=== PATIENT | male | born 1990 | race Caucasian/White ===

== ENCOUNTER 2018-08-25 06:10 | Emergency (ER) | payer MEDICAID, SELFPAY ==
[2018-08-25 06:11] VITALS: BP 111/82; PULSE 89; RESP 16; TEMP 37.2; O2SAT 97; BMI 20.5
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
--- NOTE | 2018-08-25 06:43 | ED.RN ---
PT WENT TO CT WITH TREASURY AGENT
[2018-08-25 08:56] LABS: Amphetamine Urine VISTA POSITIVE (<1000 ng/mL); Barbiturate Urine VISTA NEGATIVE (< 200 ng/mL); Benzodiazepine Urine VISTA NEGATIVE (< 200 ng/mL); Cocaine Urine VISTA NEGATIVE (< 300 ng/mL); Ecstacy Urine VISTA POSITIVE (< 500 ng/mL); Methadone Urine VISTA NEGATIVE (< 300 ng/mL); PCP Urine VISTA NEGATIVE (< 25 ng/mL); THC Urine VISTA POSITIVE (< 50 ng/mL); Vista UDS pH Range 6
[2018-08-25 09:06] VITALS: BP 97/64; PULSE 84; RESP 17
--- NOTE | 2018-08-25 09:06 | ED.RN ---
DISCHARGE INSTRUCTIONS GIVEN TERRI SWAIN. PT GIVEN PAPER SCRUBS AND SOCKS. PT AMBULATES OUT OF ROOM WITHOUT ISSUE.
== END 2018-08-25 09:29 ==
PROVIDERS: Emergency Provider Emergency Medicine
DX: T14.8XXA Other injury of unspecified body region, initial encounter (principal); V89.2XXA Person injured in unspecified motor-vehicle accident, traffic, initial encounter; F17.200 Nicotine dependence, unspecified, uncomplicated; F15.10 Other stimulant abuse, uncomplicated
CPT/HCPCS: 36415; 70450; 80307; 80320; 99284; G0480

== ENCOUNTER → 2023-07-20 | Outpatient (CLI) | payer MEDICAID, SELFPAY ==
[2023-07-20 17:09] LABS: Syphilis Antibodies Non-reactive
== END | disposition home or self-care (01) ==
LOC: LAB.FUTURE 13:11
PROVIDERS: Visit Provider Nurse Practitioner Family
DX: Z11.3 Encounter for screening for infections with a predominantly sexual mode of transmission (principal)
CPT/HCPCS: 86780; 87491; 87591

== ENCOUNTER → 2023-12-05 | Outpatient (CLI) | payer MEDICAID, SELFPAY ==
[2023-12-05 12:50] LABS: Absolute Lymphocyte Count 2.18 X10^3/uL (0.83-4.51); Basophil# 0.04 X10^3/uL; Basophil% 0.8 % (0-1); Eosinophil# 0.11 X10^3/uL; Eosinophils% 2.3 % (0-5); Hematocrit 43.5 % (40-54); Hemoglobin 14.8 g/dL (13.0-16.5); Lymphocyte # 2.18 X10^3/ul (0.83-4.51); Mean Corpuscular Volume 85.3 fL (80-94); Mean Platelet Vol. 9.5 fl (6.2-12.0); Monocyte# 0.36 X10^3/uL; Monocyte% 7.6 % (0-10); NRBC Flagged by Analyzer 0 % (0-5); Neutrophil # 2.04 X10^3/uL (2.7-7.7); Neutrophil % 43.1 % (47-70); Platelet Count 208 K/mm3 (150-450); RBC Distribution Width CV 12.8 % (11.6-14.6); RBC Distribution Width SD 40.4 fl (35.1-43.9); White Blood Count 4.7 K/mm3 (4.4-11.0)
[2023-12-05 12:57] LABS: Prothrombin Time (Protime)PT. 12.9 SECONDS (11.7-14.9)
[2023-12-05 13:09] LABS: ALB/GLOB Ratio 1.1 RATIO (0.9-2.4); AST(SGOT) 28 U/L (15-37); Alanine Aminotransfer ALT/SGPT 42 U/L (16-61); Albumin, Serum 3.9 g/dL (3.2-5.0); Alkaline Phosphatase 64 U/L (45-117); Anion Gap 8 (5-15); BUN 11 mg/dL (7-18); BUN/Creat Ratio 10.8 RATIO (10-20); Calcium,Total 9.2 mg/dL (8.5-10.1); Chloride 105 mmol/L (98-107); Creatinine, Serum 1.02 mg/dL (0.70-1.30); EST Glomerular Filtration Rate 89 mL/min (>60); Est Glom Filt Rate - Afr Amer 107 mL/min (>60); Globulin 3.7 g/dL (2.2-4.2); Glucose 93 mg/dL (74-106); Potassium 3.6 mmol/L (3.5-5.1); Protein, Total 7.6 g/dL (6.4-8.2); Sodium Level 140 mmol/L (136-145)
[2023-12-05 13:31] LABS: HIV - WCH Non-Reactive (Nonreactive); Hepatitis B Surface Antibody Reactive; Syphilis Antibodies Non-reactive
[2023-12-06 14:21] LABS: Cholesterol 163 mg/dL (200); Triglycerides 58 mg/dL
[2023-12-06 21:07] LABS: HCV Quant. RNA PCR 7240000 IU/mL (.); Hepatitis A IgM Antibody Negative (Negative)
== END | disposition home or self-care (01) ==
PROVIDERS: Visit Provider Nurse Practitioner Family
DX: B19.20 Unspecified viral hepatitis C without hepatic coma (principal)
CPT/HCPCS: 36415; 80053; 82465; 84478; 85025; 85610; 86703; 86706; 86709; 86780; 87522

== ENCOUNTER 2025-02-02 18:21 | Inpatient (IN) | payer MEDICAID, SELFPAY ==
[2025-02-02 18:22] VITALS: BP 136/81; PULSE 63; RESP 12; TEMP 36.9; O2SAT 100; BMI 21.4
--- NOTE | 2025-02-02 18:40 | EX.ED.SAOD ---
HPI History of Present Illness Chief Complaint: ETOH Intox Informant: patient Onset/Context/Timing Onset: Today Context: Gradual Onset Timing: Continuous Worsened by: Nothing Relieved by: Nothing Associated Symptoms Associated Symptoms: Positive for seizure and palpatations; Negative for vomiting*, diarrhea*, fever*, rash*, tremor, change in mental status, suicidal ideation or homicidal ideation Narrative Narrative: Patient presents requesting detox from alcohol, methamphetamine, fentanyl, and Suboxone. Patient states he drinks about 12 beers per day. Patient states his last drink was around noon today. Patient believes he had a seizure this morning. Patient states he started drinking again after that. Patient states his last use of methamphetamine, fentanyl, and Suboxone was 2 days ago. Patient states he normally snorts it. Patient admits to some palpitations. Patient denies any nausea or vomiting. Patient denies any suicidal homicidal ideations. [facility] Medical History Current every day nicotine vaping Chronic chest pain History of hepatitis C ETOH abuse Polysubstance abuse Home Medications ?Medication ?Instructions ?Recorded ?Last Taken ?Type buprenorphine 8 mg-naloxone 2 mg 1 ea sublingual DAILY 02/02/25 Unknown History sublingual film Allergy/AdvReac Type Severity Reaction Status Date / Time No Known Allergies Allergy Verified 02/02/25 18:23 Family History (Updated 02/02/25 @ 19:[address] Lo Hoyos MD) Mother Alcohol abuse Father Alcohol abuse Surgical History S/P wisdom tooth extraction Social History (Updated 02/02/25 @ 19:[address] Lo Hoyos MD) household members: friend(s) Smoking Status: Current every day smoker tobacco type: e-cigarettes Electronic Cigarette Use: with nicotine alcohol intake: current alcohol intake frequency: 3 or more drinks per day Alcohol type: beer, wine and hard liquor details: 12 pack beer daily, homemade wine, occasional liquor. substance use type: opiates, methamphetamine and other details: Denies IV drug abuse, notes primary method smoking. ROS ROS ED Constitutional Constitutional ED: Denies chills or fever(s) Eyes Eyes: Reports blurry vision; Denies diplopia ENT ENT ED: Denies rhinorrhea or sore throat Cardiovascular Cardiovascular: Reports palpitations; Denies chest pain Respiratory/Chest Respiratory/Chest: Denies cough or dyspnea Gastrointestinal Gastrointestinal: Denies nausea or vomiting Genitourinary Genitourinary ED: Denies dysuria or hematuria Musculoskeletal Musculoskeletal: Denies back pain or neck pain Integumentary Denies abscess or rash Neurologic Neurologic: Denies headache(s) or weakness Psychiatric Psychiatric: Denies suicidal ideation or suicidal thoughts Allergic/Immunologic Allergic/Immunologic ED: Denies mouth swelling or urticaria EXAM Physical Exam Const Vital Signs: 02/02/25 18:22 Temperature 98.5 F Temperature Source Oral Pulse Rate 63 Respiratory Rate 12 Blood Pressure 136/81 H Blood Pressure Mean 99 Pulse Ox 100 Oxygen Delivery Method Room Air Positive well nourished and well developed Constitutional Narrative: BMI 21.5. General Appearance ED: well developed and NAD HEENT Reports moist mucous membranes Neck supple and no JVD Resp normal respiratory effort and clear to auscultation bilaterally Cardio regular rate and regular rhythm GI soft to palpation, non-tender and non-distended Neuro oriented x3, CN's II-XII intact bilaterally and no sensory deficits noted Isamar Coma Scale: document GCS findings Spontaneous Obeys Commands Oriented 15 Sensorium / Orientation: alert Speech: speech normal Motor Exam: strength 5/5 throughout MDM MDM MDM Narrative Medical decision making narrative: Medical screening labs will be obtained. CBC will be obtained to assess for leukocytosis and anemia. Comprehensive metabolic profile will be obtained to assess for hepatic function, renal function, and electrolyte abnormality. Lipase will be obtained to assess for pancreatitis. Serum alcohol level will be obtained to assess for alcohol intoxication. Urine drug screen will be obtained to assess for substance abuse. Lab Data Attestation: I reviewed the patient's lab results. Lab results narrative: CBC was reviewed and was essentially within normal limits. Comprehensive metabolic profile was reviewed and was within normal limits. Lipase was reviewed and was normal at 35. Urine drug screen was reviewed and was positive for buprenorphine and cannabinoids. Serum alcohol level was reviewed and was less than 10.1. Management Discussion w/another healthcare provider: Hospitalist Treatment and Re-Evaluation Narrative: Patient was given a nicotine patch. Case was discussed with the hospitalist. She will admit the patient to her service. Patient understood and was agreeable with the plan. All questions were answered. Discharge Plan Dx/Rx/DC Orders Clinical Impression: Alcohol withdrawal, Methamphetamine abuse, Opiate withdrawal Disposition Disposition: Acute Care Hospital [facility]
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
[2025-02-02 19:01] LABS: Hematocrit 39.3 % (40-54); Hemoglobin 14.0 g/dL (13.0-16.5); Immature Granulocytes Count 0.010 X10^3/uL (0.0-0.0); Mean Corp Hgb Conc 35.6 g/dL (32-36); Mean Corpuscular Volume 83.4 fL (80-94); Mean Platelet Vol. 9.3 fl (6.2-12.0); NRBC Flagged by Analyzer 0 % (0-5); Platelet Count 208 K/mm3 (150-450); RBC Distribution Width CV 11.8 % (11.6-14.6); RBC Distribution Width SD 35.8 fl (35.1-43.9); Red Blood Count 4.71 M/mm3 (4.6-6.2); White Blood Count 8.5 K/mm3 (4.4-11.0)
--- OUTSIDE RECORDS SUMMARY | 2025-02-02 19:10 | XMS RPT_ITS | CCD ---
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 Performed By: #### L 509.8000, L501.4900, L300.3900, L3890.6005, L3100.0200, L7000.7000, L500.4050, L501.5000, L801.1541, L100.0100, L3890.6200 #### [facility] [address] [place], [place], [phone] CBC W/Diff, Automatedon 10-2 Absolute Lymph 2.18 X10 3/uL Normal 0.83-4.51 [facility] Comment on above: Performed By: #### L 509.8000, L501.4900, L300.3900, L3890.6005, L3100.0200, L7000.7000, L500.4050, L501.5000, L801.1541, L100.0100, L3890.6200 #### [facility] [address] [place], [place], [phone] Absolute Neut 2.0 X10 3/uL Normal 2.0-7.7 [facility] Comment on above: Performed By: #### L 509.8000, L501.4900, L300.3900, L3890.6005, L3100.0200, L7000.7000, L500.4050, L501.5000, L801.1541, L100.0100, L3890.6200 #### [facility] [address] [place], [place], [phone] Basophils/100 WBC (Bld) 0.8 % Normal 0-1 [facility] Comment on above: Performed By: #### L 509.8000, L501.4900, L300.3900, L3890.6005, L3100.0200, L7000.7000, L500.4050, L501.5000, L801.1541, L100.0100, L3890.6200 #### [facility] [address] [facility] [place], [address] Eosinophils/100 WBC (Bld) 2.3 % Normal 0-5 [facility] Comment on above: Performed By: #### L 509.8000, L501.4900, L300.3900, L3890.6005, L3100.0200, L7000.7000, L500.4050, L501.5000, L801.1541, L100.0100, L3890.6200 #### [facility] [address] [facility] [place], [address] (515 Erythrocyte distribution width (RBC) [Ratio] 12.8 % Normal 11.6-14.6 [facility] Comment on above: Performed By: #### L 509.8000, L501.4900, L300.3900, L3890.6005, L3100.0200, L7000.7000, L500.4050, L501.5000, L801.1541, L100.0100, L3890.6200 #### [facility] [address] [facility] [place], [address] Hematocrit (Bld) [Volume fraction] 43.5 % Normal 40-54 [facility] Comment on above: Performed By: #### L 509.8000, L501.4900, L300.3900, L3890.6005, L3100.0200, L7000.7000, L500.4050, L501.5000, L801.1541, L100.0100, L3890.6200 #### [facility] [address] [facility] [place], [address] ( Hemoglobin (Bld) [Mass/Vol] 14.8 g/dL Normal 13.0-16.5 [facility] Comment on above: Performed By: #### L 509.8000, L501.4900, L300.3900, L3890.6005, L3100.0200, L7000.7000, L500.4050, L501.5000, L801.1541, L100.0100, L3890.6200 #### [facility] [address] [place], [place], [phone] (295 IG% 0.200 Normal 0.0-0.9 [facility] Comment on above: Result Comment: IG% - Immature Granulocytes (promyelocytes, myelocytes and metamyelocytes) > 1% indicates that a LEFT SHIFT is Present. Performed By: #### L 509.8000, L501.4900, L300.3900, L3890.6005, L3100.0200, L7000.7000, L500.4050, L501.5000, L801.1541, L100.0100, L3890.6200 #### [facility] [address] [place], [address] Lymphocytes/100 WBC (Bld) 46.0 % High 19-41 [facility] Comment on above: Performed By: #### L 509.8000, L501.4900, L300.3900, L3890.6005, L3100.0200, L7000.7000, L500.4050, L501.5000, L801.1541, L100.0100, L3890.6200 #### [facility] [address] [place], [address] MCH (RBC) [Entitic mass] 29.0 pg Normal 27.0-32.0 [facility] Comment on above: Performed By: #### L 509.8000, L501.4900, L300.3900, L3890.6005, L3100.0200, L7000.7000, L500.4050, L501.5000, L801.1541, L100.0100, L3890.6200 #### [facility] [address] [place], [address] MCHC (RBC) [Mass/Vol] 34.0 g/dL Normal 32-36 [facility] Comment on above: Performed By: #### L 509.8000, L501.4900, L300.3900, L3890.6005, L3100.0200, L7000.7000, L500.4050, L501.5000, L801.1541, L100.0100, L3890.6200 #### [facility] [address] [place], [address] MCV (RBC) [Entitic vol] 85.3 fL Normal 80-94 [facility] Comment on above: Performed By: #### L 509.8000, L501.4900, L300.3900, L3890.6005, L3100.0200, L7000.7000, L500.4050, L501.5000, L801.1541, L100.0100, L3890.6200 #### [facility] [address] [place], [address] Monocytes/100 WBC (Bld) 7.6 % Normal 0-10 [facility] Comment on above: Performed By: #### L 509.8000, L501.4900, L300.3900, L3890.6005, L3100.0200, L7000.7000, L500.4050, L501.5000, L801.1541, L100.0100, L3890.6200 #### [facility] [address] [place], [address] Neutrophils/100 WBC (Bld) 43.1 % Low 47-70 [facility] Comment on above: Performed By: #### L 509.8000, L501.4900, L300.3900, L3890.6005, L3100.0200, L7000.7000, L500.4050, L501.5000, L801.1541, L100.0100, L3890.6200 #### [facility] [address] [place], [address] Nucleated RBC (Bld) [#/Vol] 0 10*3/uL Normal 0-5 [facility] Comment on above: Performed By: #### L 509.8000, L501.4900, L300.3900, L3890.6005, L3100.0200, L7000.7000, L500.4050, L501.5000, L801.1541, L100.0100, L3890.6200 #### [facility] [address] [place], [address] ( Platelet mean volume (Bld) [Entitic vol] 9.5 fL Normal 6.2-12.0 [facility] Comment on above: Performed By: #### L 509.8000, L501.4900, L300.3900, L3890.6005, L3100.0200, L7000.7000, L500.4050, L501.5000, L801.1541, L100.0100, L3890.6200 #### [facility] [address] [place], [address] Platelets (Bld) [#/Vol] 208 10*3/uL Normal 150-450 [facility] Comment on above: Performed By: #### L 509.8000, L501.4900, L300.3900, L3890.6005, L3100.0200, L7000.7000, L500.4050, L501.5000, L801.1541, L100.0100, L3890.6200 #### [facility] [address] [place], [address] RBC (Bld) [#/Vol] 5.10 10*6/uL Normal 4.6-6.2 [facility] Comment on above: Performed By: #### L 509.8000, L501.4900, L300.3900, L3890.6005, L3100.0200, L7000.7000, L500.4050, L501.5000, L801.1541, L100.0100, L3890.6200 #### [facility] [address] [place], [address] RDW SD 40.4 fl Normal 35.1-43.9 [facility] Comment on above: Performed By: #### L 509.8000, L501.4900, L300.3900, L3890.6005, L3100.0200, L7000.7000, L500.4050, L501.5000, L801.1541, L100.0100, L3890.6200 #### [facility] [address] [place], [address] WBC (Bld) [#/Vol] 4.7 10*3/uL Normal 4.4-11.0 [facility] Comment on above: Performed By: #### L 509.8000, L501.4900, L300.3900, L3890.6005, L3100.0200, L7000.7000, L500.4050, L501.5000, L801.1541, L100.0100, L3890.6200 #### [facility] [address] [place], [address] Comprehensive Metabolic Prof [facility] 12-05-2023 Albumin [Mass/Vol] 3.9 g/dL Normal 3.2-5.0 [facility] Comment on above: Performed By: #### L 509.8000, L501.4900, L300.3900, L3890.6005, L3100.0200, L7000.7000, L500.4050, L501.5000, L801.1541, L100.0100, L3890.6200 #### [facility] [address] [place], [address] Albumin/Globulin [Mass ratio] 1.1 {ratio} Normal 0.9-2.4 [facility] Comment on above: Performed By: #### L 509.8000, L501.4900, L300.3900, L3890.6005, L3100.0200, L7000.7000, L500.4050, L501.5000, L801.1541, L100.0100, L3890.6200 #### [facility] [address] [facility] [place], [place], [phone] ALK P 64 U/L Normal 45-117 [facility] Comment on above: Performed By: #### L 509.8000, L501.4900, L300.3900, L3890.6005, L3100.0200, L7000.7000, L500.4050, L501.5000, L801.1541, L100.0100, L3890.6200 #### [facility] [address] [place], [place], [phone] ALT [Catalytic activity/Vol] 42 U/L Normal 16-61 [facility] Comment on above: Performed By: #### L 509.8000, L501.4900, L300.3900, L3890.6005, L3100.0200, L7000.7000, L500.4050, L501.5000, L801.1541, L100.0100, L3890.6200 #### [facility] [address] [place], [place], [id number] AST [Catalytic activity/Vol] 28 U/L Normal 15-37 [facility] Comment on above: Performed By: #### L 509.8000, L501.4900, L300.3900, L3890.6005, L3100.0200, L7000.7000, L500.4050, L501.5000, L801.1541, L100.0100, L3890.6200 #### [facility] [address] [place], [address] Bilirubin [Mass/Vol] 0.80 mg/dL Normal 0.20-1.00 [facility] Comment on above: Result Comment: For patients on eltrombopag therapy, use of Dimension [place] TBIL is not recommended. Performed By: #### L 509.8000, L501.4900, L300.3900, L3890.6005, L3100.0200, L7000.7000, L500.4050, L501.5000, L801.1541, L100.0100, L3890.6200 #### [facility] [address] [place], [place], [id number] BUN/CRE 10.8 RATIO Normal 10-20 [facility] Comment on above: Performed By: #### L 509.8000, L501.4900, L300.3900, L3890.6005, L3100.0200, L7000.7000, L500.4050, L501.5000, L801.1541, L100.0100, L3890.6200 #### [facility] [address] [place], [place], [phone] CA,Total 9.2 mg/dL Normal 8.5-10.1 [facility] Comment on above: Performed By: #### L 509.8000, L501.4900, L300.3900, L3890.6005, L3100.0200, L7000.7000, L500.4050, L501.5000, L801.1541, L100.0100, L3890.6200 #### [facility] [address] [place], [place], [phone] Chloride [Moles/Vol] 105 mmol/L Normal 98-107 [facility] Comment on above: Performed By: #### L 509.8000, L501.4900, L300.3900, L3890.6005, L3100.0200, L7000.7000, L500.4050, L501.5000, L801.1541, L100.0100, L3890.6200 #### [facility] [address] [place], [place], [phone] (039) CO2 [Moles/Vol] 27.0 mmol/L Normal 21.0-32.0 [facility] Comment on above: Performed By: #### L 509.8000, L501.4900, L300.3900, L3890.6005, L3100.0200, L7000.7000, L500.4050, L501.5000, L801.1541, L100.0100, L3890.6200 #### [facility] [address] [place], [place], [phone] (140) Creatinine [Mass/Vol] 1.02 mg/dL Normal 0.70-1.30 [facility] Comment on above: Result Comment: The validity of the calculated GFR GFRAA in patients over 70 years has not been determined. Clinical correlation is essential. Performed By: #### L 509.8000, L501.4900, L300.3900, L3890.6005, L3100.0200, L7000.7000, L500.4050, L501.5000, L801.1541, L100.0100, L3890.6200 #### [facility] [address] [place], [place], [phone] EST GFR - AA 107 mL/min Normal >60 [facility] Comment on above: Result Comment: Afri can Israeli GFR Calc Performed By: #### L 509.8000, L501.4900, L300.3900, L3890.6005, L3100.0200, L7000.7000, L500.4050, L501.5000, L801.1541, L100.0100, L3890.6200 #### [facility] [address] [place], [address] GAP 8 Normal 5-15 [facility] Comment on above: Performed By: #### L 509.8000, L501.4900, L300.3900, L3890.6005, L3100.0200, L7000.7000, L500.4050, L501.5000, L801.1541, L100.0100, L3890.6200 #### [facility] [address] [place], [address] GFR/1.73 sq M.predicted among non-blacks MDRD (S/P/Bld) [Vol rate/Area] 89 mL/min/{1.73_m2} Normal >60 [facility] Comment on above: Result Comment: Non- GFR Calc Performed By: #### L 509.8000, L501.4900, L300.3900, L3890.6005, L3100.0200, L7000.7000, L500.4050, L501.5000, L801.1541, L100.0100, L3890.6200 #### [facility] [address] [place], [address] Globulin (S) [Mass/Vol] 3.7 g/dL Normal 2.2-4.2 [facility] Comment on above: Performed By: #### L 509.8000, L501.4900, L300.3900, L3890.6005, L3100.0200, L7000.7000, L500.4050, L501.5000, L801.1541, L100.0100, L3890.6200 #### [facility] [address] [place], [address] Glucose [Mass/Vol] 93 mg/dL Normal 74-106 [facility] Comment on above: Performed By: #### L 509.8000, L501.4900, L300.3900, L3890.6005, L3100.0200, L7000.7000, L500.4050, L501.5000, L801.1541, L100.0100, L3890.6200 #### [facility] [address] [place], [address] Potassium [Moles/Vol] 3.6 mmol/L Normal 3.5-5.1 [facility] Comment on above: Performed By: #### L 509.8000, L501.4900, L300.3900, L3890.6005, L3100.0200, L7000.7000, L500.4050, L501.5000, L801.1541, L100.0100, L3890.6200 #### [facility] [address] [place], [address] Sodium [Moles/Vol] 140 mmol/L Normal 136-145 [facility] Comment on above: Performed By: #### L 509.8000, L501.4900, L300.3900, L3890.6005, L3100.0200, L7000.7000, L500.4050, L501.5000, L801.1541, L100.0100, L3890.6200 #### [facility] [address] [place], [place], [phone] (670) T PROT 7.6 g/dL Normal 6.4-8.2 [facility] Comment on above: Performed By: #### L 509.8000, L501.4900, L300.3900, L3890.6005, L3100.0200, L7000.7000, L500.4050, L501.5000, L801.1541, L100.0100, L3890.6200 #### [facility] [address] [place], [place], [phone] (444) Urea nitrogen [Mass/Vol] 11 mg/dL Normal 7-18 [facility] Comment on above: Performed By: #### L 509.8000, L501.4900, L300.3900, L3890.6005, L3100.0200, L7000.7000, L500.4050, L501.5000, L801.1541, L100.0100, L3890.6200 #### [facility] [address] [place], [address] HIV - WCHon 12-05-2023 HIV Non-Reactive Normal Nonreactive [facility] Comment on above: Performed By: #### L 509.8000, L501.4900, L300.3900, L3890.6005, L3100.0200, L7000.7000, L500.4050, L501.5000, L801.1541, L100.0100, L3890.6200 #### [facility] [address] [place], [address] Hepatitis B Surface Antibody on 12-05-2023 HEP B Surf Ab Reactive Normal [facility] Comment on above: Result Comment: Non Reactive: Inconsistent with immunity less than <10 mIU/mL Reactive: Consistent with immunity greater than or equal to 10 mIU/mL Performed By: #### L 509.8000, L501.4900, L300.3900, L3890.6005, L3100.0200, L7000.7000, L500.4050, L501.5000, L801.1541, L100.0100, L3890.6200 #### [facility] [address] [place], [address] L509.8000on 12-05-2023 Syphilis Abs Non-Reactive Normal [facility] Comment on above: Performed By: #### L 509.8000, L501.4900, L300.3900, L3890.6005, L3100.0200, L7000.7000, L500.4050, L501.5000, L801.1541, L100.0100, L3890.6200 #### [facility] [address] [place], [address] Prothrombin Time w/INRon INR Coag (PPP) [Relative time] 1.0 {INR} Normal [facility] Comment on above: Performed By: #### L 509.8000, L501.4900, L300.3900, L3890.6005, L3100.0200, L7000.7000, L500.4050, L501.5000, L801.1541, L100.0100, L3890.6200 #### [facility] [address] [place], [place], [address] PT Coag (PPP) [Time] 12.9 s Normal 11.7-14.9 [facility] Comment on above: Performed By: #### L 509.8000, L501.4900, L300.3900, L3890.6005, L3100.0200, L7000.7000, L500.4050, L501.5000, L801.1541, L100.0100, L3890.6200 #### [facility] [address] [place], [place], [id number] Nursing Noteon 10-17-2023 Nursing Note Written homegoing instructions reviewed with and given to patient: q/a time offered. This RN walked pt to main waiting room, knows where exit is located, dc'd to home in stable condition [facility] Nursing Note Arrives to PACU from OR: a/o x 4 , denies any c/o, local anesth for procedure: no IV. X3 surg site dressings cdi: r cheek, r neck, r upper ant arm. [facility] Op Noteon 10-17-2023 Op Note Operative Note Patient: Radha Johnston Date of : 1990 [id number] Date of Procedure: 10/17/23 Pre-Op Diagnosis: Symptomatic skin lesions of the right face, right neck, and right arm Post-Op Diagnosis: Same Surgeon: Radha Hair MD Operation: Excision symptomatic skin lesion right face, right neck, right arm with intermediate closure Anesthesia: Local Estimated Blood Loss (mL): Minimal Complications: None Detailed Description of Procedure: Operative indication: Patient is a 33-year-old male who presents with symptomatic growing lesion of the right face, right neck, and right arm. Patient noted the right facial lesion on the right neck lesion frequently bleeding or irritated with shaving. Patient states they have grown in size. Patient presents for definitive excision. Operative note: Patient was marked and consented in the preoperative area, in the preoperative area, the patient was injected with 10 cc of 1% lidocaine with epinephrine after confirmatory timeout. These were injected with 3 cc into the right face, 4 cc into the right arm, and 3 cc into the right neck. Patient was then taken to the operating room, prepped and draped in the usual manner, and a timeout was performed. I began by confirming adequate anesthesia and all 3 areas. I then outlined approximately a 3 cm x 7 mm ellipse of the right face around the 6 mm lesion. I confirmed adequate anesthesia and excised this in the colon like manner through the skin and subcutaneous tissue. I then mobilized the skin and closed the dermis with interrupted 4-0 Monocryl and ran a 5-0 Monocryl in a subcuticular fashion on the skin. I then proceeded to the right neck where I outlined approximately a 1.3 x 4 cm elliptical incision around the 1.2 cm lesion. After confirming adequate anesthesia, I resected this through the skin and subcutaneous tissue. After this was resected, I used electrocautery for hemostasis. I then proceeded with closure. I closed the dermis with interrupted 4-0 Monocryl and closed the skin with a 5-0 Monocryl in a running subcuticular fashion. I then proceeded last into the right arm where I elected to make a transverse ellipse based on small lesions adjacent to the lesion itself. I outlined approximately a 1.2 x 4 cm ellipse around the 1.1 cm, lesion. I confirmed adequate anesthesia had been resected this in a cone like manner through the skin and subcutaneous tissue. All lesions were sent for permanent pathology. I then mobilized the soft tissue. I then closed the dermis with interrupted 3-0 Monocryl, and then ran a 4-0 Monocryl in a subcuticular fashion on the skin. Total skin closure of the head and neck was 7 cm in total skin closure of the arm was approximately 4 cm. All counts were correct. Dressing with paper tape was applied. Patient was discharged from the operative room and will be discharged from PACU to home. Radha Hair MD [facility] Op Note Date: 10/17/2023 Location: [facility] OR Name: Radha Johnston DOB: 1990, Diagnosis Pre-op Diagnosis * Neoplasm of unspecified behavior of bone, soft tissue, and skin [D49.2] Post-op Diagnosis * Neoplasm of unspecified behavior of bone, soft tissue, and skin [D49.2] Procedures EXCISION OF MULTIPLE LESIONS OF RIGHT CHEECK, RIGHT NECK, AND RIGHT UPPER EXTREMITY WITH LAYERED CLOSURE 75047 - IN EXC B9 LESION MRGN XCP SK TG T/A/L 0.5 CM/< * Radha Hair - Primary Procedure Summary Anesthesia: Local ASA: ASA status not filed in the log. Estimated Blood Loss: Minimal Drains: * None in log * Specimens ID Source Type Tests Collected By Collected At Frozen? Priority Lab ID 1 Cheek Tissue TISSUE EXAM Radha Hair MD 10/17/231515 Description: Right cheek lesion 2 Neck, Right Tissue TISSUE EXAM Radha Hair MD 10/17/231515 Description: Right neck lesion 3 Arm, Right Tissue TISSUE EXAM Radha Hair MD 10/17/231515 Description: Right arm lesion Staff: Internet Researcher: Anna Rivera RN Scrub Person: Seferino Brand RN; Gabby Hoyos Findings: None Complications: None; patient tolerated the procedure well. Specimens Collected: Order Name Source Comment Collection Info Order Time TISSUE EXAM Cheek Collected By: Radha Hair MD 10/17/2023 3:17 PM Wound Class: Class I: Clean Blood Products: None Prophylactic Antibiotics: Pre-operative antibiotics were not given because antibiotics are not indicated for this procedure. [facility] Office Visiton 08-14-2023 Follow-up visit [id number] VickieRadha 1990 M Date Provider Department Center 08/14/2023 59-[facility] None No family history on file Level of Service:57564 IN OFFICE/OUTPATIENT NEW LOW MDM 30 MINUTES Reason for Visit and Comments: New Patient [542] - C/o like 4 moles want them looked at [facility] L509.8000on 07-20-2023 Syphilis Abs Non-Reactive [facility] Comment on above: Performed By: #### L 509.8000, L501.4900, L300.3900, L3890.6005, L3100.0200, L7000.7000, L500.4050, L501.5000, L801.1541, L100.0100, L3890.6200 #### [facility] [address] [place], [address] M8200.2100on 07-20-2023 M8200.2100 Negative Normal [facility] Comment on above: Performed By: #### L 509.8000, L501.4900, L300.3900, L3890.6005, L3100.0200, L7000.7000, L500.4050, L501.5000, L801.1541, L100.0100, L3890.6200 #### [facility] [address] [place], [address] M8200.2200on 07-20-2023 M8200.2200 Negative Normal [facility] Comment on above: Performed By: #### L 509.8000, L501.4900, L300.3900, L3890.6005, L3100.0200, L7000.7000, L500.4050, L501.5000, L801.1541, L100.0100, L3890.6200 #### [facility] [address] [place], [address] 36on 05-02-2023 36 Patient called in stated that he doesn't have the transportation to see the [facility] [place]. Stated to patient that we will change his appointment time and location. [facility] Progress Noteon 04-20-2023 Progress Note [facility] [place] Patient: Vickie Lozano : 1990 Height: Ht Readings from Last 1 Encounters: 04/20/23 6' 2 (1.88 m) Weight: Wt Readings from Last 1 Encounters: 04/20/23 181 lb (82.1 kg) BMI: BMI Readings from Last 1 Encounters: 04/20/23 23.24 kg/m? Procedure: Patient referred by Dr. Frances Mathews for open-access FibroScan study for diagnosis of HCV Patient identified x 2 and verified the following: age 18 or older-yes Fasting >3 hours-yes FibroScan study completed using Medium probe and 12 consecutive valid measurements obtained. Patient tolerated procedure well. Results: Median=4.2 kPa IQR/med=17 % BAY=048 dB/m Anna Jarrett LPN, 04/20/2023 2:05 PM Diagnosis/Problems: Diagnosis Plan 1. Chronic hepatitis C without hepatic coma (CMS/HCC) (HCC) Fibroscan Provider Impression: Normal [facility] Office Visiton 04-03-2023 Follow-up visit [id number] Radha Johnston 1990 [facility] Provider Department Center 04/03/2023 [facility] Chart Close Cosign Required by: Ck Carney DO[NAEL] No family history on file Level of Service:77474 IN OFFICE/OUTPATIENT ESTABLISHED LOW MDM 20 MIN Reason for Visit and Comments: Follow-up [782459] - Hep C Normal [facility] Progress Noteon 04-03-2023 Progress Note [facility] [address] [address] Dept: [phone] Dept Loc: [phone] 04/03/2023 Visit type: follow up Reason for Visit: Follow-up (Hep C) ASSESSMENT/PLAN 1. Chronic hepatitis C without hepatic coma (CMS/HCC) (HCC) Comments: - Fibroscan ordered, pt experiencing scheduling conflict with available times. Motivated to find solution. - Follow-up once completed to initiate HCV therapy 2. History of retinal tear Comments: - Opthalmology appointment yielded no retinal detachment, evidence of retinal tear. - Follow-up in 1 month, no surgical intervention at this time, monitor 3. Abnormal skin growth Comments: - Missed plastic surg appointment 2/2 scheduling issues with Yani walker. - Phone number provided to reschedule appointment for removal/biopsy 4. Discussed with pt wellness objectives, including increasing dark/leafy green intake and vegetables in diet. Pt actively exercising at this time as well. Follow up in about 3 months (around 07/02/2023), or Or sooner if fibroscan completed. Subjective Patient: Radha Johnston is a 32 y.o. 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 HPI Fibroscan: Pt reports inability to schedule Fibroscan due to conflicting schedules between classes at [facility] and availability with ID. Ophthalmology appointment follow-up: Pt reports he was informed no evidence of retinal detachment, just retinal tears. No surgical intervention planned at this time, just monitoring. Likely will just need to live with the spots in his vision. Follow-up scheduled in 1 month. Plastic surgery skin biopsy/removal: Pt missed appointment, reports accidentally not informing [facility] of appointment in time, was unable to attend appointment. Pt would like phone number to reschedule. Apologizes for the mishap. ED fall 03/05/23?: Pt reports he was told maybe it was a seizure. He is unsure what exactly happened, passed out while in bed and awoke at the ED. He has only experienced this when standing too fast or with IVDU in the past, but pt did not use and MAD panel was negative, ETOH negative. Pt needed sedation 2/2 being startled awake combined with his PTSD and penitentiary experience, he was disoriented and required sedation. Only medication is suboxone at this time, generally reports feeling well, whereas in the past whenever he would stop drug use he would feel ill. Pt asks about general health measures. Currently doing 200 pushups a day, and 90 total pull-ups 3x a week (does 30 at a time, has been since time in penitentiary). Questions regarding diet, concerns for his CO2 level of 33 at last visit. Review of Systems Constitutional: Negative for chills and fever. Respiratory: Negative for shortness of breath. Cardiovascular: Negative for chest pain, palpitations and leg swelling. Gastrointestinal: Negative for abdominal pain, constipation (well controlled with Colace), diarrhea, nausea and vomiting. Neurological: Negative for syncope (No further episodes of syncope since ED visit end of February). No Known Allergies Outpatient Medications Prior to Visit Medication Sig Dispense Refill docusate sodium (Colace) 100 MG capsule Multiple Vitamins-Minerals (CertaVite/Antioxida nts) tablet omega-3 (Fish Oil) 1000 MG capsule Suboxone 2-0.5 MG per sublingual film ondansetron ODT (Zofran-ODT) 4 MG disintegrating tablet No facility-administere d medications prior to visit. Past Medical History: Diagnosis Date Drug abuse (CMS/HCC) (HCC) Infectious viral hepatitis No past surgical history on file. No family history on file. Social History Tobacco Use Smoking status: Every Day Smokeless tobacco: Not on file Substance Use Topics Alcohol use: Not Currently Objective BP 114/69 (BP Location: Right arm, Patient Position: Sitting, BP Cuff Size: Adult) Pulse 69 Temp (!) 35.7 ?C (96.2 ?F) (Temporal) Ht 6' 2 (1.88 m) Wt 181 lb (82.1 kg) SpO2 96% Comment: RA BMI 23.24 kg/m? Physical Exam Constitutional: General: He is not in acute distress. Appearance: Normal appearance. He is not ill-appearing, toxic-appearing or diaphoretic. HENT: Head: Normocephalic and atraumatic. Eyes: General: No scleral icterus. Conjunctiva/sclera: Conjunctivae normal. Cardiovascular: Rate and Rhythm: Normal rate and regular rhythm. Heart sounds: Normal heart sounds. No murmur heard. No friction rub. No gallop. Pulmonary: Effort: Pulmonary effort is normal. No respiratory distress. Breath sounds: Normal breath sounds. No stridor. No wheezing, rhonchi or rales. Abdominal: General: Abdomen is flat. There is no distension. Palpations: Abdomen is soft (more content not included)... Normal [facility] Progress Note Teaching Physician Note Indirect Supervision - Modifier GE During or immediately after this visit, I discussed this case with the treating resident. Our discussion included the history obtained by the resident, the resident's exam findings, and the resident's treatment plan. Please see resident?s note for further details.This service has been performed by a resident without the presence of a teaching physician under the primary care exception (GE Modifier) Additional comments: 32-year-old male presenting for a plan to start hepatitis C treatment, but he was unable to get the fibroscan. He is asymptotic today. Of note, patient had an episode where he was noted to have fallen out of his bed at [facility] and potentially lost consciousness? Unclear the etiology and patient is asymptomatic now. He reports he was just sleeping and had woke up in the ED. There was no prodrome a seemingly any postictal state based on the ED notes. His labs and imaging was unremarkable. Can consider a further neurologic or cardiac workup if he has symptom that he can describe or there is an event with clearer documentation. Ck Carney, DO Normal [facility] Progress Note MA time with patient 5 minutes TH Patient refuses flu vaccine due to: (example reasons in parentheses) [] cost (insurance doesn't cover, less expensive elsewhere) [] risk (I always get sick after flu shots, side effects) [] mistrust (moneymaking conspiracy, dangerous chemicals, not safe, knows someone who got very sick from it) [] susceptibility (I never get the flu) [] inertia (I've never had one, so I don't want one) [x] other Normal [facility] Progress Noteon 03-24-[address] 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 Cronejo soon Subjective HPI Other Additional comments: Dilated eye exam Comments C/o seeing black spots /holes on va ou constantly x last 2 years with flashes of light sometimes. Pt sts was in penitentiary 2 years ago andn one doctor said he had a retinal detachment but another doctor disagreed. C/o aching pain on ou sometimes but nothing major. Sts some itching and dryness on ou. Sts va ou ok with glasses on. Sts not on any eye drops (gtts). Says he has a dark area superotemporal left and inferotemporal right eye Lab Results Component Value Date HGBA1C 4.6 02/27/2023 Last edited by Keyanna Whittington MD on 03/24/2023 2:34 PM. ROS Positive for: Eyes Last edited by Kanchan Weaver on 03/24/2023 1:56 PM. No Known Allergies Current Outpatient Medications Medication Sig Dispense Refill docusate sodium (Colace) 100 MG capsule omega-3 (Fish Oil) 1000 MG capsule ondansetron ODT (Zofran-ODT) 4 MG disintegrating tablet Suboxone 2-0.5 MG per sublingual film Multiple Vitamins-Minerals (CertaVite/Antioxida nts) tablet No current facility-administere d medications for this encounter. Past Medical History: Diagnosis Date Drug abuse (CMS/HCC) (HCC) Infectious viral hepatitis Social History Tobacco Use Smoking status: Every Day Smokeless tobacco: Not on file Substance Use Topics Alcohol use: Not Currently History reviewed. No pertinent surgical history. No family history on file. Objective Base Eye Exam Visual Acuity (Snellen - Linear) Right Left Dist cc 20/20 -2 20/20 Tonometry (Applanation, 2:10 PM) Right Left Pressure 13 13 Pupils Pupils Dark Light APD Right PERRL 3 2 None Left PERRL 3 2 None Visual Power Right Left Full Full Extraocular Movement Right Left Full, Ortho Full, Ortho Neuro/Psych Oriented x3: Yes Mood/Affect: Normal Dilation Both eyes: 2.5% Phenylephrine, 1.0% Tropicamide @ 2:10 PM Refraction Wearing Rx Sphere Cylinder [place] Right -6.00 +4.00 094 Left -6.25 +2.25 080 Data Reviewed and Summarized The patient will need the following test completed on: 03/24/2023 1. [facility] Diagnosis: Hx of retinal detachment (Z86.69) Authorizing Provider: DO Keyanna Reyes MD [facility] 03-21-2023 36 1st attempt to schedule FibroScan, spoke with pt who said he will call our office back for scheduling as he is not able to do so at this time. [facility] 03-15-2023 36 RN attempted to contact patient but number is no longer in service. [facility] 03-14-2023 36 Attempted to call patient to give him the following instructions, no answer x2. - Now that all lab testing has been completed, pt needs imaging to evaluate for cirrhosis. - Fibroscan ordered - Please call the Infectious Disease office at [phone] from Mon-Fri 8a-4:30p to schedule your Fibroscan study. Normal [facility] ED Nursing Noteon 03-06-2023 ED Nursing Note Pt at room door requesting to go home. Pt sts that he is feeling fine and wants to leave. Pt advised the provider will be notified of his request. Amor Gallagher, EMT 03/06/23 0259 Normal [facility] CBC W Auto Differential pane l (Bld)Ordered By: Marcelina Marinelli on 03-05-2023 Basophils (Bld) [#/Vol] 0.1 10*3/uL 0.0 - 0.2 10*3/uL [facility] Basophils/100 WBC (Bld) 0.4 % 0.0 - 2.0 % [facility] Eosinophils (Bld) [#/Vol] 0.1 10*3/uL 0.0 - 0.5 10*3/uL [facility] Eosinophils/100 WBC (Bld) 0.4 % Low 1.0 - 6.0 % [facility] Erythrocyte distribution width (RBC) [Ratio] 12.7 % 11.5 - 14.5 % [facility] Hematocrit (Bld) [Volume fraction] 43.3 % 40.0 - 52.0 % [facility] Hemoglobin (Bld) [Mass/Vol] 14.8 g/dL 13.0 - 18.0 g/dL [facility] Interpretation and review of laboratory results Abnormal [facility] Lymphocytes (Bld) [#/Vol] 1.4 10*3/uL 1.0 - 4.3 10*3/uL [facility] Lymphocytes/100 WBC (Bld) 10.3 % Low 20.0 - 40.0 % [facility] MCH (RBC) [Entitic mass] 30.3 pg 26.0 - 34.0 pg [facility] MCHC (RBC) [Mass/Vol] 34.3 % 32.0 - 36.0 % [facility] MCV (RBC) [Entitic vol] 88.4 fL 80.0 - 98.0 fL [facility] Monocytes (Bld) [#/Vol] 0.8 10*3/uL 0.0 - 0.8 10*3/uL [facility] Monocytes/100 WBC (Bld) 5.6 % 2.0 - 10.0 % [facility] Neutrophils (Bld) [#/Vol] 11.2 10*3/uL High 1.8 - 7.0 10*3/uL [facility] Neutrophils/100 WBC (Bld) 83.3 % High 40.0 - 80.0 % [facility] Nucleated RBC/100 WBC (Bld) [Ratio] 0.0 % [facility] Platelet mean volume (Bld) [Entitic vol] 8.0 fL 7.4 - 12.4 fL [facility] Platelets (Bld) [#/Vol] 175 10*3/uL 140 - 440 10*3/uL [facility] RBC (Bld) [#/Vol] 4.89 10*6/uL 4.40 - 5.9 0 10*6/uL [facility] WBC (Bld) [#/Vol] 13.4 10*3/uL High 3.6 - 10.7 10*3/uL [facility] CBC WITH AUTO DIFFERENTIALon 03-05-2023 Basophils (Bld) [#/Vol] 0.1 10*3/uL Normal 0.0-0.2 [facility] Comment on above: Performed By: #### L [id number] ####Leather Shaver: ROSELYN CLEMENS ([id number])[facility])[address] [place] [address] Basophils/100 WBC (Bld) 0.4 % Normal 0.0-2.0 [facility] Comment on above: Performed By: #### L [id number] ####Leather Shaver: ROSELYN CLEMENS ([id number])[facility])[address] [place] [address] [place] Eosinophils (Bld) [#/Vol] 0.1 10*3/uL Normal 0.0-0.5 [facility] Comment on above: Performed By: #### L [id number] ####Leather Shaver: ROSELYN CLEMENS ([id number])[facility])[address] [place] [address] [place] Eosinophils/100 WBC (Bld) 0.4 % Low 1.0-6.0 [facility] Comment on above: Performed By: #### L [id number] ####Leather Shaver: ROSELYN CLEMENS ([id number])[facility])[address] [place] [address] Erythrocyte distribution width (RBC) [Ratio] 12.7 % Normal 11.5-14.5 [facility] Comment on above: Performed By: #### L [id number] ####Leather Shaver: ROSELYN CLEMENS ([id number])[facility])[address] [place] [address] ERYTHROCYTE MEAN CORPUSCULAR HEMOGLOBIN CONCENTRATION (G/DL) BY AUTOMATED 34.3 % Normal 32.0-36.0 [facility] Comment on above: Performed By: #### L [id number] ####Leather Shaver: ROSELYN CLEMENS ([id number])[address] Hematocrit (Bld) [Volume fraction] 43.3 % Normal 40.0-52.0 [facility] Comment on above: Performed By: #### L [id number] ####Leather Shaver: ROSELYN CLEMENS ([id number])[address] Hemoglobin (Bld) [Mass/Vol] 14.8 g/dL Normal 13.0-18.0 [facility] Comment on above: Performed By: #### L [id number] ####Leather Shaver: ROSELYN CLEMENS ([id number])[facility])[address] [place] [address] Lymphocytes (Bld) [#/Vol] 1.4 10*3/uL Normal 1.0-4.3 [facility] Comment on above: Performed By: #### L [id number] ####Leather Shaver: ROSELYN CLEMENS ([id number])[address] Lymphocytes/100 WBC (Bld) 10.3 % Low 20.0-40.0 [facility] Comment on above: Performed By: #### L [id number] ####Leather Shaver: ROSELYN CLEMENS ([id number])[facility])[address] [place] [address] MCH (RBC) [Entitic mass] 30.3 pg Normal 26.0-34.0 [facility] Comment on above: Performed By: #### L [id number] ####Leather Shaver: ROSELYN CLEMENS ([id number])[facility])[address] [place] [address] MCV (RBC) [Entitic vol] 88.4 fL Normal 80.0-98.0 [facility] Comment on above: Performed By: #### L [id number] ####Leather Shaver: ROSELYN CLEMENS ([id number])[facility])[address] [place] [address] Monocytes (Bld) [#/Vol] 0.8 10*3/uL Normal 0.0-0.8 [facility] Comment on above: Performed By: #### L [id number] ####Leather Shaver: ROSELYN CLEMENS ([id number])[facility])[address] [place] [address] Monocytes/100 WBC (Bld) 5.6 % Normal 2.0-10.0 [facility] Comment on above: Performed By: #### L [id number] ####Leather Shaver: ROSELYN CLEMENS ([id number])[facility])[address] [place] [address] Neutrophils (Bld) [#/Vol] 11.2 10*3/uL High 1.8-7.0 [facility] Comment on above: Performed By: #### L [id number] ####Leather Shaver: ROSELYN CLEMENS ([id number])[facility])[address] [place] [address] Neutrophils/100 WBC (Bld) 83.3 % High 40.0-80.0 [facility] Comment on above: Performed By: #### L [id number] ####Leather Shaver: ROSELYN CLEMENS ([id number])[facility])[address] [place] [address] NRBC (PER 100 WBCS) BY AUTOMATED COUNT 0.0 /100 WBCs Normal 0.0-2.0 [facility] Comment on above: Performed By: #### L [id number] ####Leather Shaver: ROSELYN CLEMENS ([id number])[facility])[address] [place] [address] Platelet mean volume (Bld) [Entitic vol] 8.0 fL Normal 7.4-12.4 [facility] Comment on above: Performed By: #### L [id number] ####Leather Shaver: ROSELYN CLEMENS ([id number])[facility])[address] [place] [address] Platelets (Bld) [#/Vol] 175 10*3/uL Normal 140-440 [facility] Comment on above: Performed By: #### L [id number] ####Leather Shaver: ROSELYN CLEMENS ([id number])[facility])[address] [place] [address] RBC (Bld) [#/Vol] 4.89 10*6/uL Normal 4.40-5.90 [facility] Comment on above: Performed By: #### L [id number] ####Leather Shaver: ROSELYN CLEMENS ([id number])[facility])[address] [place] [address] WBC (Bld) [#/Vol] 13.4 10*3/uL High 3.6-10.7 [facility] Comment on above: Performed By: #### L [id number] ####Leather Shaver: ROSELYN CLEMENS ([id number])[facility])[address] [place] [address] CKon 03-05-2023 CK [Catalytic activity/Vol] 153 U/L Normal 30-170 [facility] Comment on above: Performed By: #### L AB62, LAB17, LAB46 ####Leather Shaver: ROSELYN CLEMENS ([id number])[facility] [facility] ([facility])[address] [place] [address] COMPREHENSIVE METABOLIC PANE Fan 03-05-2023 Albumin [Mass/Vol] 4.1 g/dL Normal 3.5-5.0 [facility] Comment on above: Performed By: #### Ellis BUTTERFIELD, LAB17, LAB46 ####Leather Shaver: ROSELYN CLEMENS ([phone])[facility] ([facility])[address] [place] [address] ALP [Catalytic activity/Vol] 51 U/L Normal 38-126 [facility] Comment on above: Performed By: #### Ellis BUTTERFIELD, LAB17, LAB46 ####Leather Shaver: ROSELYN CLEMENS ([phone])[facility] ([facility])[address] [place] [address] ALT [Catalytic activity/Vol] 51 U/L High 0-49 [facility] Comment on above: Performed By: #### Ellis BUTTERFIELD, LAB17, LAB46 ####Leather Shaver: ROSELYN CLEMENS ([phone])[facility] ([facility])[address] [place] [address] Anion gap [Moles/Vol] 3 mmol/L Normal 3-13 [facility] Comment on above: Performed By: #### Ellis BUTTERFIELD, LAB17, LAB46 ####Leather Shaver: ROSELYN CLEMENS ([phone])[facility] ([facility])[address] [place] [address] AST [Catalytic activity/Vol] 49 U/L High 15-46 [facility] Comment on above: Performed By: #### Ellis BUTTERFIELD, LAB17, LAB46 ####Leather Shaver: ROSELYN CLEMENS ([phone])[facility])[address] [place] [address] Bilirubin [Mass/Vol] 1.0 mg/dL Normal 0.2-1.3 [facility] Comment on above: Performed By: #### Ellis BUTTERFIELD, LAB17, LAB46 ####Leather Shaver: ROSELYN CLEMENS ([phone])[facility] ([facility])[address] [place] [address] Calcium [Mass/Vol] 8.7 mg/dL Normal 8.4-10.4 [facility] Comment on above: Performed By: #### Ellis AB62, LAB17, LAB46 ####Leather Shaver: ROSELYN CLEMENS ([phone])[facility] [place] [address] Chloride [Moles/Vol] 106 mmol/L Normal 98-107 [facility] Comment on above: Performed By: #### Ellis BUTTERFIELD, LAB17, LAB46 ####Leather Shaver: ROSELYN CLEMENS ([phone])[facility] [place] [address] CO2 [Moles/Vol] 28 mmol/L Normal 22-30 [facility] Comment on above: Performed By: #### Ellis BUTTERFIELD, LAB17, LAB46 ####Leather Shaver: ROSELYN CLEMENS ([phone])[facility] [place] [address] Creatinine [Mass/Vol] 0.79 mg/dL Normal 0.66-1.25 [facility] Comment on above: Performed By: #### Ellis BUTTERFIELD, LAB17, LAB46 ####Leather Shaver: ROSELYN CLEMENS ([phone])[facility] ([facility])[address] [place] [address] GLOMERULAR FILTRATION RATE ML/MIN/1.73 SQ M.PREDICTED >90.0 Normal >60.0 [facility] Comment on above: Result Comment: Calc ulation based on the Chronic Kidney Disease Epidemiology Collaboration (CKD-EPI) equation refit without adjustment for race ORDER COMMENTS: Slightly Hemolyzed. Interpret with caution for the following analytes: Potassium, Alkaline Phosphatase, Total Protein, Albumin, and AST Performed By: #### L AB62, LAB17, LAB46 ####Leather Shaver: ROSELYN CLEMENS ([phone])[facility])[address] [place] [address] [place] Glucose [Mass/Vol] 127 mg/dL High 70-100 [facility] Comment on above: Performed By: #### Ellis BUTTERFIELD, LAB17, LAB46 ####Leather Shaver: ROSELYN CLEMENS ([phone])[facility])[address] [place] [address] Potassium [Moles/Vol] 4.8 mmol/L Normal 3.5-5.1 [facility] Comment on above: Performed By: #### Ellis BUTTERFIELD, LAB17, LAB46 ####Leather Shaver: ROSELYN CLEMENS ([phone])[facility])[address] [place] [address] Protein [Mass/Vol] 7.3 g/dL Normal 6.3-8.2 [facility] Comment on above: Performed By: #### Ellis BUTTERFIELD, LAB17, LAB46 ####Leather Shaver: ROSELYN CLEMENS ([phone])[facility])[address] [place] [address] Sodium [Moles/Vol] 137 mmol/L Normal 135-145 [facility] Comment on above: Performed By: #### Ellis BUTTERFIELD, LAB17, LAB46 ####Leather Shaver: ROSELYN CLEMENS ([phone])[address] Urea nitrogen [Mass/Vol] 15 mg/dL Normal 9-20 [facility] Comment on above: Performed By: #### Ellis BUTTERFIELD, LAB17, LAB46 ####Leather Shaver: ROSELYN CLEMENS ([phone])[facility])[address] [place] [address] CPKon 03-05-2023 CK [Catalytic activity/Vol] 153 U/L 30 - 170 U/L [facility] CT CERVICAL SPINE WO IV CONT RASTon 03-05-2023 CT CERVICAL SPINE WO IV CONTRAST Patient Name: RADHA JOHNSTON : 1990 Exam Date/Time: 03/05/2023 22:13 Procedure: CT CERVICAL SPINE WO IV CONTRAST Ordering Provider: SHOOK NICHOLAS Reason For Exam: fall out of bed CT HEAD: CLINICAL INDICATION: Fall TECHNIQUE: Transaxial CT sequence performed through the head with 3 mm reconstruction. Sagittal and Coronal reconstruction images included. Dose reduction employed with automated exposure control. COMPARISON: None FINDINGS: Ventricles and Extra-axial spaces: Normal in size and morphology for the patient's age. No abnormal extracerebral collection identified. Cerebral and cerebellar parenchyma: No regions of abnormal increased or decreased attenuation, mass lesion or evidence of acute infarct. Brainstem: Normal Visualized Paranasal sinuses: Normal. Mastoid air cells: Normal Visualized Orbits: Normal Calvarium and skull base: Normal CT CERVICAL SPINE: TECHNIQUE: Transaxial sequence through the cervical spine. Coronal and sagittal reconstructions included. Dose reduction was employed with automated exposure control. COMPARISON: None FINDINGS: Cervical vertebrae and joints: No fracture, subluxation or other malalignment. Normal cervical lordosis is observed. Facet joints and uncovertebral joints are unremarkable. No suspicious osseous lesion identified. Intervertebral disc spaces and spinal canal: No intervertebral disc space narrowing identified. No bony encroachment upon the cervical spinal canal. Soft tissues: Surrounding soft tissues of the neck are unremarkable on this noncontrast study. Other: Lung apices are unremarkable. IMPRESSION: Normal CT head. No acute abnormality identified throughout the cervical spine. Report Dictated on Electronically Signed By: Dominic Rios MD Electronically Signed Date/Time: 03/05/2023 10:14 PM EST Fall (Per EMS, pt fell out of bed at [facility]. Pt threw up. Staff stated potential seizure like activity. Pt denies any drug or alcohol use. Pt does not remember any of this. ) Normal [facility] CT Cervical spine WO contras ton 03-05-2023 [facility] 1990 [id number] Exam Date/Time: 03/05/2023 22:13 Procedure: CT CERVICAL SPINE WO IV CONTRAST Ordering Provider: SHOOK NICHOLAS Reason For Exam: fall out of bed CT HEAD: CLINICAL INDICATION: Fall TECHNIQUE: Transaxial CT sequence performed through the head with 3 mm reconstruction. Sagittal and Coronal reconstruction images included. Dose reduction employed with automated exposure control. COMPARISON: None FINDINGS: Ventricles and Extra-axial spaces: Normal in size and morphology for the patient's age. No abnormal extracerebral collection identified. Cerebral and cerebellar parenchyma: No regions of abnormal increased or decreased attenuation, mass lesion or evidence of acute infarct. Brainstem: Normal Visualized Paranasal sinuses: Normal. Mastoid air cells: Normal Visualized Orbits: Normal Calvarium and skull base: Normal CT CERVICAL SPINE: TECHNIQUE: Transaxial sequence through the cervical spine. Coronal and sagittal reconstructions included. Dose reduction was employed with automated exposure control. COMPARISON: None FINDINGS: Cervical vertebrae and joints: No fracture, subluxation or other malalignment. Normal cervical lordosis is observed. Facet joints and uncovertebral joints are unremarkable. No suspicious osseous lesion identified. Intervertebral disc spaces and spinal canal: No intervertebral disc space narrowing identified. No bony encroachment upon the cervical spinal canal. Soft tissues: Surrounding soft tissues of the neck are unremarkable on this noncontrast study. Other: Lung apices are unremarkable. [facility] RADIOLOGY [facility] Dominic Rios MD - 03/05/2023 Patient Name: RADHA JOHNSTON : 1990 Exam Date/Time: 03/05/2023 22:13 Procedure: CT CERVICAL SPINE WO IV CONTRAST Ordering Provider: SHOOK NICHOLAS Reason For Exam: fall out of bed CT HEAD: CLINICAL INDICATION: Fall TECHNIQUE: Transaxial CT sequence performed through the head with 3 mm reconstruction. Sagittal and Coronal reconstruction images included. Dose reduction employed with automated exposure control. COMPARISON: None FINDINGS: Ventricles and Extra-axial spaces: Normal in size and morphology for the patient's age. No abnormal extracerebral collection identified. Cerebral and cerebellar parenchyma: No regions of abnormal increased or decreased attenuation, mass lesion or evidence of acute infarct. Brainstem: Normal Visualized Paranasal sinuses: Normal. Mastoid air cells: Normal Visualized Orbits: Normal Calvarium and skull base: Normal CT CERVICAL SPINE: TECHNIQUE: Transaxial sequence through the cervical spine. Coronal and sagittal reconstructions included. Dose reduction was employed with automated exposure control. COMPARISON: None FINDINGS: Cervical vertebrae and joints: No fracture, subluxation or other malalignment. Normal cervical lordosis is observed. Facet joints and uncovertebral joints are unremarkable. No suspicious osseous lesion identified. Intervertebral disc spaces and spinal canal: No intervertebral disc space narrowing identified. No bony encroachment upon the cervical spinal canal. Soft tissues: Surrounding soft tissues of the neck are unremarkable on this noncontrast study. Other: Lung apices are unremarkable. IMPRESSION: Normal CT head. No acute abnormality identified throughout the cervical spine. Report Dictated on Electronically Signed By: Dominic Rios MD Electronically Signed Date/Time: 03/05/2023 10:[address] [facility] CT HEAD WO IV CONTRASTon CT HEAD WO IV CONTRAST Patient Name: RADHA MIKE : 1990 Exam Date/Time: 03/05/2023 22:13 Procedure: CT HEAD WO IV CONTRAST Ordering Provider: SHOOK NICHOLAS Reason For Exam: hit head, fell out of bed, altered mental status CT HEAD: CLINICAL INDICATION: Fall TECHNIQUE: Transaxial CT sequence performed through the head with 3 mm reconstruction. Sagittal and Coronal reconstruction images included. Dose reduction employed with automated exposure control. COMPARISON: None FINDINGS: Ventricles and Extra-axial spaces: Normal in size and morphology for the patient's age. No abnormal extracerebral collection identified. Cerebral and cerebellar parenchyma: No regions of abnormal increased or decreased attenuation, mass lesion or evidence of acute infarct. Brainstem: Normal Visualized Paranasal sinuses: Normal. Mastoid air cells: Normal Visualized Orbits: Normal Calvarium and skull base: Normal CT CERVICAL SPINE: TECHNIQUE: Transaxial sequence through the cervical spine. Coronal and sagittal reconstructions included. Dose reduction was employed with automated exposure control. COMPARISON: None FINDINGS: Cervical vertebrae and joints: No fracture, subluxation or other malalignment. Normal cervical lordosis is observed. Facet joints and uncovertebral joints are unremarkable. No suspicious osseous lesion identified. Intervertebral disc spaces and spinal canal: No intervertebral disc space narrowing identified. No bony encroachment upon the cervical spinal canal. Soft tissues: Surrounding soft tissues of the neck are unremarkable on this noncontrast study. Other: Lung apices are unremarkable. IMPRESSION: Normal CT head. No acute abnormality identified throughout the cervical spine. Report Dictated on Electronically Signed By: Dominic Rios MD Electronically Signed Date/Time: 03/05/2023 10:14 PM EST Fall (Per EMS, pt fell out of bed at [facility]. Pt threw up. Staff stated potential seizure like activity. Pt denies any drug or alcohol use. Pt does not remember any of this. ) [facility] CT Head WO contraston 2023 Patient Name: RADHA JOHNSTON : 1990 Exam Date/Time: 03/05/2023 22:13 Procedure: CT HEAD WO IV CONTRAST Ordering Provider: SHOOK NICHOLAS Reason For Exam: hit head, fell out of bed, altered mental status CT HEAD: CLINICAL INDICATION: Fall TECHNIQUE: Transaxial CT sequence performed through the head with 3 mm reconstruction. Sagittal and Coronal reconstruction images included. Dose reduction employed with automated exposure control. COMPARISON: None FINDINGS: Ventricles and Extra-axial spaces: Normal in size and morphology for the patient's age. No abnormal extracerebral collection identified. Cerebral and cerebellar parenchyma: No regions of abnormal increased or decreased attenuation, mass lesion or evidence of acute infarct. Brainstem: Normal Visualized Paranasal sinuses: Normal. Mastoid air cells: Normal Visualized Orbits: Normal Calvarium and skull base: Normal CT CERVICAL SPINE: TECHNIQUE: Transaxial sequence through the cervical spine. Coronal and sagittal reconstructions included. Dose reduction was employed with automated exposure control. COMPARISON: None FINDINGS: Cervical vertebrae and joints: No fracture, subluxation or other malalignment. Normal cervical lordosis is observed. Facet joints and uncovertebral joints are unremarkable. No suspicious osseous lesion identified. Intervertebral disc spaces and spinal canal: No intervertebral disc space narrowing identified. No bony encroachment upon the cervical spinal canal. Soft tissues: Surrounding soft tissues of the neck are unremarkable on this noncontrast study. Other: Lung apices are unremarkable. [facility] Dominic Rios MD - 03/05/2023 Patient Name: RADHA JOHNSTON : 1990 Exam Date/Time: 03/05/2023 22:13 Procedure: CT HEAD WO IV CONTRAST Ordering Provider: JOURILES, , WESLEY Reason For Exam: hit head, fell out of bed, altered mental status CT HEAD: CLINICAL INDICATION: Fall TECHNIQUE: Transaxial CT sequence performed through the head with 3 mm reconstruction. Sagittal and Coronal reconstruction images included. Dose reduction employed with automated exposure control. COMPARISON: None FINDINGS: Ventricles and Extra-axial spaces: Normal in size and morphology for the patient's age. No abnormal extracerebral collection identified. Cerebral and cerebellar parenchyma: No regions of abnormal increased or decreased attenuation, mass lesion or evidence of acute infarct. Brainstem: Normal Visualized Paranasal sinuses: Normal. Mastoid air cells: Normal Visualized Orbits: Normal Calvarium and skull base: Normal CT CERVICAL SPINE: TECHNIQUE: Transaxial sequence through the cervical spine. Coronal and sagittal reconstructions included. Dose reduction was employed with automated exposure control. COMPARISON: None FINDINGS: Cervical vertebrae and joints: No fracture, subluxation or other malalignment. Normal cervical lordosis is observed. Facet joints and uncovertebral joints are unremarkable. No suspicious osseous lesion identified. Intervertebral disc spaces and spinal canal: No intervertebral disc space narrowing identified. No bony encroachment upon the cervical spinal canal. Soft tissues: Surrounding soft tissues of the neck are unremarkable on this noncontrast study. Other: Lung apices are unremarkable. IMPRESSION: Normal CT head. No acute abnormality identified throughout the cervical spine. Report Dictated on Electronically Signed By: Dominic Rios MD Electronically Signed Date/Time: 03/05/2023 10:14 PM EST [facility] Comprehensive metabolic 1998 panelon 03-05-2023 Albumin [Mass/Vol] 4.1 g/dL 3.5 - 5.0 g/dL [facility] ALP [Catalytic activity/Vol] 51 U/L 38 - 126 U/L [facility] ALT [Catalytic activity/Vol] 51 U/L High 0 - 49 U/L [facility] Anion gap [Moles/Vol] 3 mmol/L 3 - 13 mmol/L [facility] AST [Catalytic activity/Vol] 49 U/L High 15 - 46 U/L [facility] Bilirubin [Mass/Vol] 1.0 mg/dL 0.2 - 1 .3 mg/dL [facility] Calcium [Mass/Vol] 8.7 mg/dL 8.4 - 10. 4 mg/dL [facility] Chloride [Moles/Vol] 106 mmol/L 98 - 10 7 mmol/L [facility] CO2 [Moles/Vol] 28 mmol/L 22 - 30 mmol/L [facility] Creatinine [Mass/Vol] 0.79 mg/dL 0.66 - 1.25 mg/dL [facility] GFR/1.73 sq M.predicted MDRD (S/P/Bld) [Vol rate/Area] - PINF [facility] Comment on above: Calculation based on the Chronic Kidney Disease Epidemiology Collaboration (CKD-EPI) equation refit without adjustment for race Glucose [Mass/Vol] 127 mg/dL High 70 - 100 mg/dL [facility] Interpretation and review of laboratory results Abnormal [facility] Potassium [Moles/Vol] 4.8 mmol/L 3.5 - 5.1 mmol/L [facility] Protein [Mass/Vol] 7.3 g/dL 6.3 - 8.2 g/dL [facility] Sodium [Moles/Vol] 137 mmol/L 135 - 145 mmol/L [facility] Urea nitrogen [Mass/Vol] 15 mg/dL 9 - 20 mg/d L [facility] Slightly Hemolyzed. Interpret with caution for the following analytes: Potassium, Alkaline Phosphatase, Total Protein, Albumin, and AST [facility] DRUGS OF ABUSEon 03-05-2023 AMPHETAMINE SCREEN Negative Normal [facility] Comment on above: Performed By: #### L [id number] ####Leather Shaver: ROSELYN CLEMENS ([phone])[address] BARBITURATES SCREEN Negative Normal [facility] Comment on above: Performed By: #### L [id number] ####Leather Shaver: ROSELYN CLEMENS ([phone])[facility])[address] [place] [address] BENZODIAZEPINE SCREEN Negative Normal [facility] Comment on above: Performed By: #### L [id number] ####Leather Shaver: ROSELYN CLEMENS ([phone])[facility])[address] [place] [address] COCAINE METAB. SCREEN Negative Normal [facility] Comment on above: Performed By: #### L [id number] ####Leather Shaver: ROSELYN [id number])[facility] ([facility])[address] METHADONE SCREEN Negative Normal [facility] Comment on above: Performed By: #### L [id number] ####Leather Shaver: ROSELYN CLEMENS ([phone])[facility] ([facility])[address] [place] [address] OPIATES SCREEN Negative Normal [facility] Comment on above: Performed By: #### L [id number] ####Leather Shaver: ROSELYN CLEMENS ([phone])[facility] ([facility])[address] [place] [address] OXYCODONE SCREEN Negative Normal [facility] Comment on above: Performed By: #### L [id number] ####Leather Shaver: ROSELYN CLEMENS ([phone])[facility] ([facility])[address] [place] [address] PHENCYCLIDINE SCREEN Negative Normal [facility] Comment on above: Result Comment: ERWIN Crespo COMMENTS: The expected value for all of the drugs listed above is Negative. The following drugs or drug groups have been screened for by Immunoassay at the following thresholds: Amphetamine class (1000 ng/mL) Barbiturates (200 ng/mL) Benzodiazepines (200 ng/mL) Cocaine (300 ng/mL) Methadone (300 ng/mL) Opiates (300 ng/mL) Oxycodone (100 ng/mL) PCP (25 ng/mL) NOTE: These results are for medical treatment only. Analysis performed using non-forensic procedures. POSITIVE results are NOT confirmed by a more specific alternative method unless requested. If confirmation is needed, request confirmation under separate order. Performed By: #### L [id number] ####Leather Shaver: ROSELYN CLEMENS ([phone])[facility] [place] [address] Drug screen panel, emergency Ordered By: Hilda Omer on 03-05-2023 Amphetamines Screen method >1000 ng/mL Ql (U) Negative [facility] Barbiturates Screen method >200 ng/mL Ql (U) Negative [facility] Benzodiazepines Ql (U) Negative [facility] COCAINE METAB. SCREEN Negative [facility] Methadone Screen Ql (U) Negative [facility] Opiates Screen Ql (U) Negative [facility] oxyCODONE Ql (U) Negative [facility] Phencyclidine Ql (U) Negative [facility] The expected value for all of the drugs listed above is Negative. The following drugs or drug groups have been screened for by Immunoassay at the following thresholds: Amphetamine class (1000 ng/mL) Barbiturates (200 ng/mL) Benzodiazepines (200 ng/mL) Cocaine (300 ng/mL) Methadone (300 ng/mL) Opiates (300 ng/mL) Oxycodone (100 ng/mL) PCP (25 ng/mL) NOTE: These results are for medical treatment only. Analysis performed using non-forensic procedures. POSITIVE results are NOT confirmed by a more specific alternative method unless requested. If confirmation is needed, request confirmation under separate order. [facility] ECG 12 leadon 03-05-2023 Heart rate 65 /min bpm [facility] P [place] 43 degrees [facility] IN Interval 155 ms [facility] QRS [place] 59 degrees [facility] QRSD Interval 126 ms [facility] QT Interval 381 ms [facility] QTC Interval 397 ms [facility] T Wave [place] 47 degrees [facility] Sinus rhythm Nonspecific intraventricular conduction delay No prior EKG for comparison Electronically Signed On 03-05-2023 22:32:00 EST by Wesley Shook Wesley Greene MD - 03/05/2023 IMPRESSION: Sinus rhythm Nonspecific intraventricular conduction delay No prior EKG for comparison Electronically Signed On 03-05-2023 22:32:00 EST by Wesley Shook [facility] ECG 12-LEADon 03-05-2023 ECG 12-LEAD IMPRESSION: Sinus rhythm Nonspecific intraventricular conduction delay No prior EKG for comparison Electronically Signed On 03-05-2023 22:32:00 EST by Wesley Shook [facility] ED Nursing Noteon 03-05-2023 ED Nursing Note Pt able to stand with x1 assistance and use urinal. Janis Hammonds RN 03/05/23 2310 [facility] ED Nursing Note Pt to CT. Janis Hammonds RN [id number] [facility] ED Nursing Note EKG attempted again; pt still refusing. Janis Hammonds RN 03/05/232117 [facility] ED Nursing Note Pt refusing medication. Educated pt that he is yellow slipped. Protective services called to bedside to help with medication administration. Janis Hammonds RN 03/05/232107 [facility] ED Nursing Note Refusing care at this time. Janis Hammonds RN 03/05/232032 [facility] ED Nursing Note Pt yellow slipped by Dr. Erickson. Jnais Hammonds RN 03/05/232106 [facility] ED Nursing Note Refused EKG. Janis Hammonds RN 03/05/232026 [facility] ED Nursing Note Bed: 35 Expected date: Expected time: Means of arrival: Comments: 32 M Fall Elizabeth Avalos RN 03/05/232013 [facility] ED Provider Noteon ED Provider Note EMERGENCY DEPARTMENT ENCOUNTER Pt Name: Radha Johnston Birthdate 1990 Date of evaluation: 03/05/2023 ED Provider: EUGENIO ERICKSON MD CHIEF COMPLAINT Chief Complaint Patient presents with Fall Per EMS, pt fell out of bed at [facility]. Pt threw up. Staff stated potential seizure like activity. Pt denies any drug or alcohol use. Pt does not remember any of this. HISTORY OF PRESENT ILLNESS (Location/Symptom, Timing/Onset, Context/Setting, Quality, Duration, Modifying Factors, Severity) Note limiting factors. I wore appropriate PPE for the entirety of this encounter. HPI Radha Johnston is a 32 y.o. who presents to the emergency department for fall. Patient coming from [facility]. Per EMS report, he fell out out of bed and vomited. Staff states he had potential seizure-like activity. Patient states lasting around versus going to bed. He denies any drug or alcohol use. He does not recall falling out of bed. States he felt well before going to bed. Denies fevers, chills, chest pain, shortness of breath, headache. Nursing Notes were reviewed. Limitations to history: Altered mental status/confusion Outside historians: EMS REVIEW OF SYSTEMS Review of Systems Pertinent positives and negatives as per HPI. PAST MEDICAL HISTORY Past Medical History: Diagnosis Date Drug abuse (CMS/HCC) ([facility]) SURGICAL HISTORY No past surgical history on file. CURRENT MEDICATIONS Previous Medications No medications on file ALLERGIES Patient has no known allergies. FAMILY HISTORY No family history on file. SOCIAL HISTORY Social History Socioeconomic History Marital status: Single Tobacco Use Smoking status: Every Day Substance and Sexual Activity Alcohol use: Yes Drug use: Yes Types: Opiates, IV SCREENINGS PHYSICAL EXAM ED Triage Vitals [03/05/232052] Temp Heart Rate Resp BP 36.7 ?C (98.1 ?F) 104 18 138/79 SpO2 Temp Source Heart Rate Source Patient Position 99 % Oral Monitor -- BP Location FiO2 (%) -- -- Physical Exam Constitutional: General: He is not in acute distress. Comments: Vomit on chart HENT: Head: Normocephalic and atraumatic. Mouth/Throat: Mouth: Mucous membranes are moist. Eyes: Extraocular Movements: Extraocular movements intact. Pupils: Pupils are equal, round, and reactive to light. Comments: Mild conjunctival injection bilaterally Neck: Comments: Cervical collar in place. Cardiovascular: Rate and Rhythm: Regular rhythm. Tachycardia present. Heart sounds: Normal heart sounds. No murmur heard. Pulmonary: Effort: Pulmonary effort is normal. No respiratory distress. Breath sounds: Normal breath sounds. No wheezing, rhonchi or rales. Abdominal: General: There is no distension. Palpations: Abdomen is soft. Tenderness: There is no abdominal tenderness. There is no guarding or rebound. Musculoskeletal: General: Normal range of motion. Skin: General: Skin is warm and dry. Neurological: Mental Status: He is alert and oriented to person, place, and time. Motor: No weakness. Comments: Moving all extremities without difficulty. DIAGNOSTIC RESULTS RADIOLOGY (Per Emergency Physician): Interpretation per the Radiologist below, if available at the time of this note: CT head wo IV contrast Final Result Normal CT head. No acute abnormality identified throughout the cervical spine. Report Dictated on Electronically Signed By: Dominic Rios MD Electronically Signed Date/Time: 03/05/2023 10:[address] cervical spine wo IV contrast Final Result Normal CT head. No acute abnormality identified throughout the cervical spine. Report Dictated on Electronically Signed By: Dominic Rios MD Electronically Signed Date/Time: 03/05/2023 10:14 PM EST LABS: Labs Reviewed CBC WITH AUTO DIFFERENTIAL - Abnormal Result Value Auto WBC 13.4 (*) RBC 4.89 Hemoglobin 14.8 Hematocrit 43.3 MCV 88.4 MCH 30.3 MCHC 34.3 RDW 12.7 Platelets 175 MPV 8.0 nRBC 0.0 Neutrophils Relative 83.3 (*) Lymphocytes Relative 10.3 (*) Monocytes Relative 5.6 Eosinophils Relative 0.4 (*) Basophils Relative 0.4 Neutrophils Absolute 11.2 (*) Lymphocytes Absolute 1.4 Monocytes Absolute 0.8 Eosinophils Absolute 0.1 Basophils Absolute 0.1 COMPREHENSIVE METABOLIC PANEL - Abnormal SODIUM 137 POTASSIUM 4.8 CHLORIDE 106 CARBON DIOXIDE 28 ANION GAP 3 UREA NITROGEN 15 CREATININE 0.79 GLUCOSE 127 (*) CALCIUM 8.7 AST (SGOT) 49 (*) ALT 51 (*) ALKALINE PHOSPHATASE 51 ALBUMIN 4.1 BILIRUBIN, TOTAL 1.0 TOTAL PROTEIN 7.3 eGFR >90.0 Narrative: Slightly Hemolyzed. Interpret with caution for the following analytes: Potassium, Alkaline Phosphatase, Total Protein, Albumin, and AST ETHANOL - Normal ETHANOL IN SER/PLAS <0.010 Narrative: NOTE: This result is for medical treatment only. Analysis performed using non-forensic p (more content not included)... Normal [facility] ED Provider Note Emergency Department Encounter Location: [facility] EM[facility]GENCY [facility] Patient: Radha Johnston : 1990 Date of evaluation: 03/05/2023 ED Provider: Watson Mcnamara MD 3:05 AM Radha Johnston was checked out to me by Dr. Mark. Please see his/her initial documentation for details of the patient's initial ED presentation, physical exam and completed studies. In brief, Radha Johnston is a 32 y.o. male that presented to the emergency department with abnormal behavior and a fall from bed with closed head injury. Required sedation as he was agitated. Imaging negative workup negative. Disposition pending reevaluation I have reviewed and interpreted all of the currently available lab results and diagnostics from this visit: Vitals: 03/05/23 2053 03/05/23 2310 BP: 138/79 131/78 Pulse: 104 91 Resp: 18 18 Temp: 36.7 ?C (98.1 ?F) TempSrc: Oral SpO2: 99% 98% Results for orders placed or performed during the hospital encounter of 03/05/23 CBC auto differential Result Value Ref Range Auto WBC 13.4 (H) 3.6 - 10.7 10*3/uL RBC 4.89 4.40 - 5.90 10*6/uL Hemoglobin 14.8 13.0 - 18.0 g/dL Hematocrit 43.3 40.0 - 52.0 % MCV 88.4 80.0 - 98.0 fL MCH 30.3 26.0 - 34.0 pg MCHC 34.3 32.0 - 36.0 % RDW 12.7 11.5 - 14.5 % Platelets 175 140 - 440 10*3/uL MPV 8.0 7.4 - 12.4 fL nRBC 0.0 0.0 - 2.0 /100 WBCs Neutrophils Relative 83.3 (H) 40.0 - 80.0 % Lymphocytes Relative 10.3 (L) 20.0 - 40.0 % Monocytes Relative 5.6 2.0 - 10.0 % Eosinophils Relative 0.4 (L) 1.0 - 6.0 % Basophils Relative 0.4 0.0 - 2.0 % Neutrophils Absolute 11.2 (H) 1.8 - 7.0 10*3/uL Lymphocytes Absolute 1.4 1.0 - 4.3 10*3/uL Monocytes Absolute 0.8 0.0 - 0.8 10*3/uL Eosinophils Absolute 0.1 0.0 - 0.5 10*3/uL Basophils Absolute 0.1 0.0 - 0.2 10*3/uL Comprehensive metabolic panel Result Value Ref Range SODIUM 137 135 - 145 mmol/L POTASSIUM 4.8 3.5 - 5.1 mmol/L CHLORIDE 106 98 - 107 mmol/L CARBON DIOXIDE 28 22 - 30 mmol/L ANION GAP 3 3 - 13 mmol/L UREA NITROGEN 15 9 - 20 mg/dL CREATININE 0.79 0.66 - 1.25 mg/dL GLUCOSE 127 (H) 70 - 100 mg/dL CALCIUM 8.7 8.4 - 10.4 mg/dL AST (SGOT) 49 (H) 15 - 46 U/L ALT 51 (H) 0 - 49 U/L ALKALINE PHOSPHATASE 51 38 - 126 U/L ALBUMIN 4.1 3.5 - 5.0 g/dL BILIRUBIN, TOTAL 1.0 0.2 - 1.3 mg/dL TOTAL PROTEIN 7.3 6.3 - 8.2 g/dL eGFR >90.0 >60.0 mL/min/1.73m*2 Drug screen panel, emergency Result Value Ref Range AMPHETAMINE SCREEN Negative BARBITURATES SCREEN Negative BENZODIAZEPINE SCREEN Negative COCAINE METAB. SCREEN Negative METHADONE SCREEN Negative OPIATES SCREEN Negative OXYCODONE SCREEN Negative PHENCYCLIDINE SCREEN Negative Ethanol Result Value Ref Range ETHANOL IN SER/PLAS <0.010 0.000 - 0.010 g/dL CPK Result Value Ref Range CK 153 30 - 170 U/L ECG 12 lead Result Value Ref Range Heart Rate 65 bpm QRSD Interval 126 ms QT Interval 381 ms QTC Interval 397 ms P [place] 43 degrees QRS [place] 59 degrees T Wave [place] 47 degrees IN Interval 155 ms @EDRISRSLT@ @EDMEDSORDERED@ Final ED Course and MDM: In brief, Radha Johnston is a 32 y.o. male whose care was signed out to me by the outgoing provider. In brief, fall from bed abnormal behavior required sedation. On reevaluation patient is completely asymptomatic with normal neurologic examination his vitals are normal. Has a leukocytosis but no evidence of infectious symptoms or on his workup. Patient able to ambulate that difficulty and wants to go home and is having full medical capacity at this time. Given return precautions and discharged home with follow-up with primary care provider. ED Course as of 03/06/23304 Sun Mar 05, [id number] Patient uncooperative and a threat to himself and staff. Ativan and Haldol ordered. [KEYON] 2219 CT head wo IV contrast IMPRESSION: Normal CT head. No acute abnormality identified throughout the cervical spine. [KEYON] 2223 Auto WBC(!): 13.4 [KEYON] 2230 ECG 12 lead EKG sinus rhythm with probable normal early repolarization pattern [KEYON] 2241 AST - QUEST(!): 49 [KEYON] 2241 ALT - QUEST(!): 51 [KEYON] ED Course User Index [KEYON] Eugenio Erickson MD Diagnoses as of 03/06/23304 Fall from bed, initial encounter Closed head injury, initial encounter Final Impression 1. Fall from bed, initial encounter 2. Closed head injury, initial encounter DISPOSITION DISPOSITION Discharge 03/06/2023 03:01:52 AM PATIENT REFERRED TO: Frances Ange Mathews, DO [address] [facility] [address] Schedule an appointment as soon as possible for a visit in 2 days DISCHARGE MEDICATIONS: New Prescriptions No medications on file @[facility]([id number]:LAST:1)@ (Please note: Portions of this note were completed with a voice recognition program. Efforts were made to edit the dictations but occasionally words and phrases are mis-transcribed.) Form [id number] Watson Mcnamara MD Emergency Resident Physician Watson Mcnamara MD Reside (more content not included)... Normal [facility] ETHANOLon 03-05-2023 ETHANOL IN SER/PLAS <0.010 Normal 0.000-0.010 [facility] Comment on above: Result Comment: ERWIN Crespo COMMENTS: NOTE: This result is for medical treatment only. Analysis performed using non-forensic procedures. Performed By: #### L AB62, LAB17, LAB46 ####Leather Shaver: ROSELYN CLEMENS ([phone])[address] Ethanol (Bld) [Mass/Vol]on 0 03-05-2023 Ethanol [Mass/Vol] g/dL 0.000 - 0 .010 g/dL [facility] No Panel Informationon 03-05 Interpretation and review of laboratory results Normal [facility] Normal CT head. No acute abnormality identified throughout the cervical spine. Report Dictated on Electronically Signed By: Dominic Rios MD Electronically Signed Date/Time: 03/05/2023 10:14 PM [facility] Radiology Study observation (narrative) [facility] No Panel InformationOrdered By: Dominic Rios on 03-05-2023 [facility] Work Phone: [phone] 03-03-2023 [phone] Called patient at provided number (phone number ending in [phone] is disconnected) and discussed his results and answered his questions. Will put recap in result management/comment section as well. Normal [facility] HIV 1+2 Ab+HIV1 p24 Ag IA Ql Ordered By: Vasile Gardner on 02-28-2023 Interpretation and review of laboratory results Normal [facility] Laboratory - Microbiology an d Antimicrobial susceptibilityOrdered By: Vasile Gardner on 02-28-2023 HIV 1+2 Ab+HIV1 p24 Ag IA Ql Non-Reactive Nonreactive [facility] Comment on above: The specimen was non -reactive for HIV-1 and HIV-2 antibodies and p24 antigen using an FDA-cleared 4th generation HIV test. Based on this non-reactive screen result, further reflexive testing was not indicated and was, therefore, not performed. CBC W Auto Differential pane l (Bld)on 02-27-2023 Basophils (Bld) [#/Vol] 0.0 10*3/uL 0.0 - 0.2 10*3/uL [facility] Basophils/100 WBC (Bld) 0.5 % 0.0 - 2.0 % [facility] Eosinophils (Bld) [#/Vol] 0.1 10*3/uL 0.0 - 0.5 10*3/uL [facility] Eosinophils/100 WBC (Bld) 1.7 % 1.0 - 6.0 % [facility] Erythrocyte distribution width (RBC) [Ratio] 13.0 % 11.5 - 14.5 % [facility] Hematocrit (Bld) [Volume fraction] 47.8 % 40.0 - 52.0 % [facility] Hemoglobin (Bld) [Mass/Vol] 16.2 g/dL 13.0 - 18.0 g/dL [facility] Interpretation and review of laboratory results Normal [facility] Lymphocytes (Bld) [#/Vol] 2.4 10*3/uL 1.0 - 4.3 10*3/uL [facility] Lymphocytes/100 WBC (Bld) 37.5 % 20.0 - 40.0 % [facility] MCH (RBC) [Entitic mass] 30.5 pg 26.0 - 34.0 pg [facility] MCHC (RBC) [Mass/Vol] 33.9 % 32.0 - 36.0 % [facility] MCV (RBC) [Entitic vol] 90.0 fL 80.0 - 98.0 fL [facility] Monocytes (Bld) [#/Vol] 0.4 10*3/uL 0.0 - 0.8 10*3/uL [facility] Monocytes/100 WBC (Bld) 6.0 % 2.0 - 10.0 % [facility] Neutrophils (Bld) [#/Vol] 3.5 10*3/uL 1.8 - 7.0 10*3/uL [facility] Neutrophils/100 WBC (Bld) 54.3 % 40.0 - 80.0 % [facility] Nucleated RBC/100 WBC (Bld) [Ratio] 0.2 % [facility] Platelet mean volume (Bld) [Entitic vol] 8.0 fL 7.4 - 12.4 fL [facility] Platelets (Bld) [#/Vol] 202 10*3/uL 140 - 440 10*3/uL [facility] RBC (Bld) [#/Vol] 5.31 10*6/uL 4.40 - 5.9 0 10*6/uL [facility] WBC (Bld) [#/Vol] 6.4 10*3/uL 3.6 - 10.7 10*3/uL [facility] CBC WITH AUTO DIFFERENTIALon 02-27-2023 Basophils (Bld) [#/Vol] 0.0 10*3/uL Normal 0.0-0.2 [facility] Comment on above: Performed By: #### L [id number] ####Leather Shaver: ROSELYN CLEMENS ([phone])[address] Basophils/100 WBC (Bld) 0.5 % Normal 0.0-2.0 [facility] Comment on above: Performed By: #### L [id number] ####Leather Shaver: ROSELYN CLEMENS ([phone])[facility])[address] [place] [address] Eosinophils (Bld) [#/Vol] 0.1 10*3/uL Normal 0.0-0.5 [facility] Comment on above: Performed By: #### L [id number] ####Leather Shaver: ROSELYN CLEMENS ([id number])[facility])[address] [place] [address] Eosinophils/100 WBC (Bld) 1.7 % Normal 1.0-6.0 [facility] Comment on above: Performed By: #### L [id number] ####Leather Shaver: ROSELYN CLEMENS ([id number])[facility])[address] [place] [address] Erythrocyte distribution width (RBC) [Ratio] 13.0 % Normal 11.5-14.5 [facility] Comment on above: Performed By: #### L [id number] ####Leather Shaver: ROSELYN CLEMENS ([id number])[facility])[address] [place] [address] ERYTHROCYTE MEAN CORPUSCULAR HEMOGLOBIN CONCENTRATION (G/DL) BY AUTOMATED 33.9 % Normal 32.0-36.0 [facility] Comment on above: Performed By: #### L [id number] ####Leather Shaver: ROSELYN CLEMENS ([id number])[facility])[address] [place] [address] Hematocrit (Bld) [Volume fraction] 47.8 % Normal 40.0-52.0 [facility] Comment on above: Performed By: #### L [id number] ####Leather Shaver: ROSELYN CLEMENS ([phone])[facility])[address] [place] [address] Hemoglobin (Bld) [Mass/Vol] 16.2 g/dL Normal 13.0-18.0 [facility] Comment on above: Performed By: #### L [id number] ####Leather Shaver: ROSELYN CLEMENS ([phone])[facility])[address] [place] [address] Lymphocytes (Bld) [#/Vol] 2.4 10*3/uL Normal 1.0-4.3 [facility] Comment on above: Performed By: #### L [id number] ####Leather Shaver: ROSELYN CLEMENS ([phone])[facility])[address] [place] [address] Lymphocytes/100 WBC (Bld) 37.5 % Normal 20.0-40.0 [facility] Comment on above: Performed By: #### L [id number] ####Leather Shaver: ROSELYN CLEMENS ([id number])[facility])[address] [place] [address] MCH (RBC) [Entitic mass] 30.5 pg Normal 26.0-34.0 [facility] Comment on above: Performed By: #### L [id number] ####Leather Shaver: ROSELYN CLEMENS ([id number])[facility])[address] [place] [address] MCV (RBC) [Entitic vol] 90.0 fL Normal 80.0-98.0 [facility] Comment on above: Performed By: #### L [id number] ####Leather Shaver: ROSELYN CLEMENS ([id number])[facility])[address] [place] [address] Monocytes (Bld) [#/Vol] 0.4 10*3/uL Normal 0.0-0.8 [facility] Comment on above: Performed By: #### L [id number] ####Leather Shaver: ROSELYN CLEMENS ([id number])[facility])[address] [place] [address] Monocytes/100 WBC (Bld) 6.0 % Normal 2.0-10.0 [facility] Comment on above: Performed By: #### L [id number] ####Leather Shaver: ROSELYN CLEMENS ([id number])[facility])[address] [place] [address] Neutrophils (Bld) [#/Vol] 3.5 10*3/uL Normal 1.8-7.0 [facility] Comment on above: Performed By: #### L [id number] ####Leather Shaver: ROSELYN CLEMENS ([id number])[facility])[address] [place] [address] Neutrophils/100 WBC (Bld) 54.3 % Normal 40.0-80.0 [facility] Comment on above: Performed By: #### L [id number] ####Leather Shaver: ROSELYN CLEMENS ([id number])[facility])[address] [place] [address] NRBC (PER 100 WBCS) BY AUTOMATED COUNT 0.2 /100 WBCs Normal 0.0-2.0 [facility] Comment on above: Performed By: #### L [id number] ####Leather Shaver: ROSELYN CLEMENS ([phone])[facility])[address] [place] [address] Platelet mean volume (Bld) [Entitic vol] 8.0 fL Normal 7.4-12.4 [facility] Comment on above: Performed By: #### L [id number] ####Leather Shaver: ROSELYN CLEMENS ([phone])[facility])[address] [place] [address] Platelets (Bld) [#/Vol] 202 10*3/uL Normal 140-440 [facility] Comment on above: Performed By: #### L [id number] ####Leather Shaver: ROSELYN CLEMENS ([id number])[facility])[address] [place] [address] RBC (Bld) [#/Vol] 5.31 10*6/uL Normal 4.40-5.90 [facility] Comment on above: Performed By: #### L [id number] ####Leather Shaver: ROSELYN CLEMENS ([id number])[facility])[address] [place] [address] WBC (Bld) [#/Vol] 6.4 10*3/uL Normal 3.6-10.7 [facility] Comment on above: Performed By: #### L [id number] ####Leather Shaver: ROSELYN CLEMENS ([phone])[facility])[address] [place] [address] COMPLETE URINALYSISon 2023 BILIRUBIN, TOTAL PRESENCE IN URINE Negative Normal Negative [facility] Comment on above: Performed By: #### L [id number] ####Leather Shaver: ROSELYN CLEMENS ([phone])[facility])[address] Clarity (U) Clear Normal Clear [facility] Comment on above: Performed By: #### L [id number] ####Leather Shaver: ROSELYN CLEMENS ([id number])[facility] [place] [address] Color (U) Light Yellow Normal Lt. Yellow [facility] Comment on above: Performed By: #### L [id number] ####Leather Shaver: ROSELYN CLEMENS ([id number])[facility] [place] [address] GLUCOSE (MG/DL) IN URINE Normal Normal Normal (<70 ) [facility] Comment on above: Performed By: #### L [id number] ####Leather Shaver: ROSELYN CLEMENS ([phone])[facility] [place] [address] HEMOGLOBIN PRESENCE IN URINE Negative Normal Negative [facility] Comment on above: Performed By: #### L [id number] ####Leather Shaver: ROSELYN CLEMENS ([phone])[facility] [place] [address] Ketones Ql (U) Negative Normal Negative [facility] Comment on above: Performed By: #### L [id number] ####Leather Shaver: ROSELYN CLEMENS ([id number])[facility] [place] [address] LEUKOCYTE ESTERASE PRESENCE IN URINE BY TEST STRIP Negative Normal Negative [facility] Comment on above: Performed By: #### L [id number] ####Leather Shaver: ROSELYN CLEMENS ([id number])[facility] [place] [address] [place] NITRITE PRESENCE IN URINE Negative Normal Negative [facility] Comment on above: Performed By: #### L [id number] ####Leather Shaver: ROSELYN CLEMENS ([id number])[facility] ([facility])[address] [place] [address] [place] pH (U) 7.0 [pH] Normal 5.0-8.0 [facility] Comment on above: Performed By: #### L [id number] ####Leather Shaver: ROSELYN CLEMENS ([id number])[facility])[address] [place] [address] Protein (U) [Mass/Vol] Negative Normal Negative [facility] Comment on above: Performed By: #### L [id number] ####Leather Shaver: ROSELYN CLEMENS ([id number])[facility])[address] [place] [address] Specific gravity (U) [Rel density] 1.016 Normal 1.005-1.030 [facility] Comment on above: Performed By: #### L [id number] ####Leather Shaver: ROSELYN CLEMENS ([id number])[facility])[address] [place] [address] UROBILINOGEN (MG/DL) IN URINE Normal Normal Normal (0-1) [facility] Comment on above: Performed By: #### L [id number] ####Leather Shaver: ROSELYN CLEMENS ([id number])[facility])[address] [place] [address] COMPREHENSIVE METABOLIC PANE Fan 02-27-2023 Albumin [Mass/Vol] 4.4 g/dL Normal 3.5-5.0 [facility] Comment on above: Performed By: #### L AB129, LAB17 ####Leather Shaver: ROSELYN CLEMENS ([id number])[facility])[address] [place] [address] ALP [Catalytic activity/Vol] 68 U/L Normal 38-126 [facility] Comment on above: Performed By: #### L AB129, LAB17 ####Leather Shaver: ROSELYN CLEMENS ([id number])[facility])[address] [place] [address] ALT [Catalytic activity/Vol] 57 U/L High 0-49 [facility] Comment on above: Performed By: #### L AB129, LAB17 ####Leather Shaver: ROSELYN [id number])[facility] ([facility])[address] Anion gap [Moles/Vol] 7 mmol/L Normal 3-13 [facility] Comment on above: Performed By: #### L AB129, LAB17 ####Leather Shaver: ROSELYN CLEMENS ([id number])[facility] [place] [address] AST [Catalytic activity/Vol] 36 U/L Normal 15-46 [facility] Comment on above: Performed By: #### L AB129, LAB17 ####Leather Shaver: ROSELYN CLEMENS ([id number])[facility] [place] [address] Bilirubin [Mass/Vol] 0.5 mg/dL Normal 0.2-1.3 [facility] Comment on above: Performed By: #### L AB129, LAB17 ####Leather Shaver: ROSELYN CLEMENS ([id number])[facility] [place] [address] Calcium [Mass/Vol] 9.4 mg/dL Normal 8.4-10.4 [facility] Comment on above: Performed By: #### L AB129, LAB17 ####Leather Shaver: ROSELYN CLEMENS ([id number])[facility] [place] [address] [place] Chloride [Moles/Vol] 97 mmol/L Low 98-107 [facility] Comment on above: Performed By: #### L AB129, LAB17 ####Leather Shaver: ROSELYN CLEMENS ([id number])[facility] [place] [address] [place] CO2 [Moles/Vol] 33 mmol/L High 22-30 [facility] Comment on above: Performed By: #### L AB129, LAB17 ####Leather Shaver: ROSELYN CLEMENS ([id number])[facility] [place] [address] [place] Creatinine [Mass/Vol] 0.89 mg/dL Normal 0.66-1.25 [facility] Comment on above: Performed By: #### L AB129, LAB17 ####Leather Shaver: ROSELYN CLEMENS ([id number])[facility])[address] [place] [address] GLOMERULAR FILTRATION RATE ML/MIN/1.73 SQ M.PREDICTED >90.0 Normal >60.0 [facility] Comment on above: Result Comment: Calc ulation based on the Chronic Kidney Disease Epidemiology Collaboration (CKD-EPI) equation refit without adjustment for race Performed By: #### L AB129, LAB17 ####Leather Shaver: ROSELYN CLEMENS ([id number])[facility] ([facility])[address] [place] [address] Glucose [Mass/Vol] 92 mg/dL Normal 70-100 [facility] Comment on above: Performed By: #### L AB129, LAB17 ####Leather Shaver: ROSELYN CLEMENS ([id number])[facility] ([facility])[address] [place] [address] [place] Potassium [Moles/Vol] 4.5 mmol/L Normal 3.5-5.1 [facility] Comment on above: Performed By: #### L AB129, LAB17 ####Leather Shaver: ROSELYN CLEMENS ([id number])[facility])[address] [place] [address] [place] Protein [Mass/Vol] 7.8 g/dL Normal 6.3-8.2 [facility] Comment on above: Performed By: #### L AB129, LAB17 ####Leather Shaver: ROSELYN CLEMENS ([id number])[facility])[address] [place] [address] [place] Sodium [Moles/Vol] 137 mmol/L Normal 135-145 [facility] Comment on above: Performed By: #### L [id number], [id number] ####Leather Shaver: ROSELYN CLEMENS ([phone])[facility])[address] [place] [address] [place] Urea nitrogen [Mass/Vol] 13 mg/dL Normal 9-20 [facility] Comment on above: Performed By: #### L [id number], [id number] ####Leather Shaver: ROSELYN CLEMENS ([phone])[facility] ([address] Comprehensive metabolic 1998 panelon 02-27-2023 Albumin [Mass/Vol] 4.4 g/dL 3.5 - 5.0 g/dL [facility] ALP [Catalytic activity/Vol] 68 U/L 38 - 126 U/L [facility] ALT [Catalytic activity/Vol] 57 U/L High 0 - 49 U/L [facility] Anion gap [Moles/Vol] 7 mmol/L 3 - 13 mmol/L [facility] AST [Catalytic activity/Vol] 36 U/L 15 - 46 U/L [facility] Bilirubin [Mass/Vol] 0.5 mg/dL 0.2 - 1 .3 mg/dL [facility] Calcium [Mass/Vol] 9.4 mg/dL 8.4 - 10. 4 mg/dL [facility] Chloride [Moles/Vol] 97 mmol/L Low 98 - 10 7 mmol/L [facility] CO2 [Moles/Vol] 33 mmol/L High 22 - 30 mmol/L [facility] Creatinine [Mass/Vol] 0.89 mg/dL 0.66 - 1.25 mg/dL [facility] GFR/1.73 sq M.predicted MDRD (S/P/Bld) [Vol rate/Area] - PINF [facility] Comment on above: Calculation based on the Chronic Kidney Disease Epidemiology Collaboration (CKD-EPI) equation refit without adjustment for race Glucose [Mass/Vol] 92 mg/dL 70 - 100 mg/dL [facility] Interpretation and review of laboratory results Abnormal [facility] Potassium [Moles/Vol] 4.5 mmol/L 3.5 - 5.1 mmol/L [facility] Protein [Mass/Vol] 7.8 g/dL 6.3 - 8.2 g/dL [facility] Sodium [Moles/Vol] 137 mmol/L 135 - 145 mmol/L [facility] Urea nitrogen [Mass/Vol] 13 mg/dL 9 - 20 mg/d L [facility] HBV surface Ab IA Qnon 02-27 Interpretation: <8.0 Non-Reactive 8.0-11.9 Equivocal >= 12.0 Ab Detected Note: If an equivocal result is interpreted, an antibody status is unable to be determined. Collect new specimen if clinically indicated. [facility] HBV surface Ag IA Qlon 02-27 Interpretation and review of laboratory results Normal [facility] HEMOGLOBIN A1Con 02-27-2023 Glucose [Mass/Vol] 85 mg/dL Normal [facility] Comment on above: Performed By: #### L [id number] ####Leather Shaver: ROSELYN CLEMENS ([phone])[facility] ([facility] [place] [address] HbA1c (Bld) [Mass fraction] 4.6 % Normal <5.7 [facility] Comment on above: Result Comment: Norm al less than 5.7% Prediabetes 5.7% to 6.4% Diabetes 6.5% or higher --HgbA1C levels may not be accurate in patients who have renal disease, received recent blood transfusions, are anemic, or who have dyshemoglobinemia. Performed By: #### L [id number] ####Leather Shaver: ROSELYN CLEMENS ([phone])[facility] ([address] HEPATITIS A ANTIBODY, TOTALo n 02-27-2023 HEP A ANTIBODY, TOTAL Positive Abnormal Negative [facility] Comment on above: Result Comment: The positive anti-HAV is consistent with recent or remote Hepatitis A infection or antibody response to HAV vaccination. False positive anti-HAV can occur. Performed By: [facility] [address] [place] [id number] Hvac Service Technician: Lorena Stevenson MD, PhD CLIA Number: [id number] Performed By: #### L [id number], [id number], [id number] ####[facility] ([facility])[address] [place] [id number] [place] HEPATITIS B CORE ANTIBODY, T OTALon 02-27-2023 HEP B CORE AB,TOTAL Negative Normal Negative [facility] Comment on above: Result Comment: INTE RPRETIVE INFORMATION: Hepatitis B Core Ab (Total) This assay should not be used for blood donor screening, associated re-entry protocols, or for screening Human Cells, Tissues and Cellular and Tissue-Based Products (HCT/P). Performed By: [facility] [address] [place] [address] Hvac Service Technician: Lorena Stevenson MD, PhD CLIA Number: [id number] Performed By: #### L [id number], [id number], [id number] ####[facility] ([facility])[address] [place] [address] [facility] HEPATITIS B SURFACE ANTIBODY on 02-27-2023 HEPATITIS B VIRUS SURFACE AB >1000.0 Normal [facility] Comment on above: Result Comment: ERWIN Crespo COMMENTS: Interpretation: <8.0 Non-Reactive 8.0-11.9 Equivocal >= 12.0 Ab Detected Note: If an equivocal result is interpreted, an antibody status is unable to be determined. Collect new specimen if clinically indicated. Performed By: #### L [id number], [id number] ####Leather Shaver: ROSELYN CLEMENS ([id number])[facility])[address] [place] [address] HEPATITIS B SURFACE ANTIGENo n 02-27-2023 HEPATITIS B VIRUS SURFACE AG Not detected Normal Not Detected [facility] Comment on above: Performed By: #### L [id number], [id number] ####Leather Shaver: ROSELYN CLEMENS ([id number])[facility])[address] [place] [address] HEPATITIS C GENOTYPEon 02-27 HEPATITIS C GENOTYPE 2b Normal [facility] Comment on above: Result Comment: INTE RPRETIVE INFORMATION: Hepatitis C Genotyping Hepatitis C Viral RNA is tested using reverse superintendent power polymerase chain reaction (RT-PCR) to amplify a specific portion of the 5' untranslated region (5' UTR) of the viral genome. The amplified nucleic acid is sequenced bi-directionally using dye-terminator chemistry ([employer]). Sequencing data is compared to a database of characterized sequences. Isolates of hepatitis C virus are grouped into six major genotypes (1-6). These genotypes are subtyped according to sequence characteristics. Due to high conservation of the 5' un-translated region of the HCV genome, this test has limitations in differentiating subtype 1a from 1b. Therefore, these subtypes will be reported as 1a or 1b. In rare instances, Type 6 virus may be misclassified as Type 1. This test was developed and its performance characteristics determined by [employer]. It has not been cleared or approved by the US Food and Drug Administration. This test was performed in a CLIA certified laboratory and is intended for clinical purposes. Performed By: [facility] [address] [place] [address] Hvac Service Technician: Lorena Stevenson MD, PhD CLIA Number: [id number] Performed By: #### L [id number], [id number], [id number] ####[facility] ([facility])[address] [place] [phone] [facility] HEPATITIS C VIRAL LOADon HCV RNA QUANT [id number] IU/ml High <15 [facility] Comment on above: Performed By: #### L [id number] ####Leather Shaver: ROSELYN CLEMENS ([id number])[address] HCV RNA QUANT (LOG) 6.49 Log_IU High <1.18 [facility] Comment on above: Result Comment: ERWIN Crespo COMMENTS: The linear detection limit for this assay is 15 HCV IU/ml. A result of <15 IU (<1.18 log IU) indicates that HCV was detected, but at a level below the linear cutoff. A result of None Detected means that no HCV RNA was detected. This test is performed via rtPCR methodology. Performed By: #### L [id number] ####Leather Shaver: ROSELYN CLEMENS ([id number])[address] HIV1,2 COMBO ANTIGEN-ANTIBOD Y SCREENon 02-27-2023 HIV 1,2 COMBO ANTIGEN/ANTIBODY Non-Reactive Normal Nonreactive [facility] Comment on above: Result Comment: The specimen was non-reactive for HIV-1 and HIV-2 antibodies and p24 antigen using an FDA-cleared 4th generation HIV test. Based on this non-reactive screen result, further reflexive testing was not indicated and was, therefore, not performed. Performed By: #### L [id number] #### Leather Shaver: ROSELYN [id number]) [facility] ([facility]) [address] Laboratory - Chemistry and C hemistry - challengeon 02-27-2023 TSH Qn 2.742 m[IU]/L [facility] Average glucose Estimated from glycated hemoglobin (Bld) [Mass/Vol] 85 mg/dL [facility] Laboratory - Coagulationon 0 02-27-2023 PT Coag (Bld) [Time] 10.5 s 9.0 - 12.0 s [facility] Laboratory - Hematology and Cell countson 02-27-2023 HbA1c (Bld) [Mass fraction] 4.6 % NINF - 5.7 % [facility] Comment on above: Normal less than 5.7 % Prediabetes 5.7% to 6.4% Diabetes 6.5% or higher --HgbA1C levels may not be accurate in patients who have renal disease, received recent blood transfusions, are anemic, or who have dyshemoglobinemia. Laboratory - Microbiology an d Antimicrobial susceptibilityon 02-27-2023 HBV surface Ab IA Qn mIU/mL [facility] HBV surface Ag IA Ql Not detected Not Detected [facility] No Panel Informationon 02-27 [facility] Office Visiton 02-27-2023 Follow-up visit [id number] Radha Johnston 1990 M Date Provider Department Center 02/27/2023 [id number]-RREHFRANCES MATHEWS [facility] Chart Close Cosign Accepted by: CHARO AREVALO[[id number]] Chart Close Cosign Accepted on: MonMar 01, 2023 8:28 AM No family history on file Level of Service:34655 IN OFFICE/OUTPATIENT NEW MODERATE MDM 45 MINUTES Reason for Visit and Comments: Establish Care [42] - Hep C, rib pain, mole on neck Normal [facility] PROTHROMBIN TIMEon INR Coag (PPP) [Relative time] 1.0 {INR} Normal 0.9-1.1 [facility] Comment on above: Result Comment: Ihsan mmended Anticoagulant Therapy: SEE BELOW ----- INR of 2.0 - 3.0 : - Prophylaxis of Venous Thrombosis (high-risk surgery) - Treatment of Venous Thrombosis - Treatment of Pulmonary Embolism (Includes tissue heart valves, Acute Myocardial Infarction to prevent systemic embolism, Valvular Heart Disease, and Atrial Fibrillation) ----- INR of 2.5 - 3.5 : - Mechanical Prosthetic Valves (high risk) - If oral anticoagulant therapy is used to prevent Myocardial Infarction Performed By: #### L [id number] ####Leather Shaver: ROSELYN CLEMENS ([id number])[facility] ([facility])[address] [place] [address] PT Coag (PPP) [Time] 10.5 s Normal 9.0-12.0 [facility] Comment on above: Performed By: #### L [id number] ####Leather Shaver: ROSELYN CLEMENS ([id number])[facility])[address] [place] [address] PT Coag (Bld) [Time]on 02-27 INR Coag (PPP) [Relative time] 1.0 {INR} 0.9 - 1.1 [facility] Comment on above: Recommended Anticoag ulant Therapy: SEE BELOW ----- INR of 2.0 - 3.0 : - Prophylaxis of Venous Thrombosis (high-risk surgery) - Treatment of Venous Thrombosis - Treatment of Pulmonary Embolism (Includes tissue heart valves, Acute Myocardial Infarction to prevent systemic embolism, Valvular Heart Disease, and Atrial Fibrillation) ----- INR of 2.5 - 3.5 : - Mechanical Prosthetic Valves (high risk) - If oral anticoagulant therapy is used to prevent Myocardial Infarction Interpretation and review of laboratory results Normal [facility] Progress Noteon 02-27-2023 Progress Note MA time with patient 5 minutes TH Patient refuses flu vaccine due to: (example reasons in parentheses) [] cost (insurance doesn't cover, less expensive elsewhere) [] risk (I always get sick after flu shots, side effects) [] mistrust (moneymaking conspiracy, dangerous chemicals, not safe, knows someone who got very sick from it) [] susceptibility (I never get the flu) [] inertia (I've never had one, so I don't want one) [x] other Normal [facility] Progress Note Teaching Physician Note Direct Supervision - Modifier GC I performed a history & physical examination of the patient and also discussed the patient's management with the resident. I was present for the wick portions of any procedures performed. I reviewed the resident's note and agree with the documented findings and plan of care with any exceptions or corrections noted below. Please see resident?s note for further details. This service has been performed in part by a resident under the direction of a teaching physician (SREE Monk). Additional comments: Agree with plan. Here to establish and discuss possible Hep C treatment. He has several skin lesions he wants checked. CHARO AREVALO MD [facility] Progress Note [facility] [address] [facility] [address] Dept: [phone] Dept Loc: [phone] 02/27/2023 Visit type: new patient Reason for Visit: Establish Care (Hep C, rib pain, mole on neck) ASSESSMENT/PLAN 1. Hepatitis C virus infection without hepatic coma, unspecified chronicity Comments: -Pt reports infection w/Hep C ~10yrs ago 2/2 IVDU -Labs ordered for further evaluation + r/o concommitant infection to guide treatment. Orders: - Hepatitis C viral load - CBC auto differential - Comprehensive metabolic panel - Protime-INR - Hepatitis B surface antibody - Hepatitis B surface antigen - Hepatitis B core antibody, total - Hepatitis A antibodies, total - HIV-1 and HIV-2 Antigen-Antibody Screen - Hepatitis C genotype 2. Abnormal skin growth Comments: -Given rapid regrowth with shaving mass off several times, referral sent for removal and biopsy. Orders: - [facility] 3. Hx of retinal detachment Comments: -Occurred 2yrs ago, reportedly healed per penitentiary physician. Pt denies follow-up with systems software developer but notes seeing dark spots in vision. Orders: - [facility] 4. Encounter for medical examination to establish care Comments: - Explained importance of consent, spread of HSV w/active ulcerations, use of condoms, and requesting acyclovir when sores return. Best practice is to abstain from sexual contact w/active lesions to prevent spread. - Shared decision making to forego CXR at this time given it would not private branch exchange service advisor at this time. Pt not experiencing dyspnea, cough, and is able to tolerate deep respiration. - Pt not interested in smoking cessation or nicotine replacement at this time. Informed he can request assistance at any time. - Baseline orders w/screening for thyroid disease, HIV, and DM. Orders: - CBC auto differential - Comprehensive metabolic panel - HIV-1 and HIV-2 Antigen-Antibody Screen - Hemoglobin A1c - TSH - Complete Urinalysis with reflex to Culture 5. Polyuria Comments: -Polyuria likely 2/2 to excessive PO intake of water in overeagerness for health. -CMP, A1c and UA to r/o DM, albuminuria, nephrotic/nephritic dx. Orders: - Comprehensive metabolic panel - Hemoglobin A1c - Complete Urinalysis with reflex to Culture Follow up in about 4 weeks (around 03/27/2023) for Recheck. Subjective Patient: Radha Johnston is a 32 y.o. male presenting to establish care. Pt prefers [employer] messaging for results. HPI Pt reports recently being [facility] from [facility] in 01/2023, now living in [facility], [facility], records show resident of [facility]. Reports wanting to integrate into regular life, would like to establish care. PMHX: - Hep C 2/2 IVDU, 10 years ago. Reports he refused treatment prior due to being unable to break the addiction, but now that he has successfully been 2yrs sober and being treated with suboxone for assistance, he feels comfortable to approach treatment. - IVDU, last use 2yrs ago, meth and opiates - HSV w/oral and genital lesions. Pt asks how to approach sexual contact in this context. - Retinal detachment 2yrs ago while in penitentiary. Not evaluated by systems software developer prior. Was seen by penitentiary physician, reports it healed and he will always have dark spots in vision. Medications: Suboxone, multivitamin, probiotic (managed by [facility]) Surgical hx: wisdom tooth removal Social hx: Sober from IVDU x2yrs, prior use of meth and opiates. Denies marijuana use. Denies alcohol use. Started smoking 1-2 cigarettes a day since discharge from penitentiary, no interest in quitting at this time. Denies vaping. Family hx: Paternal grandfather: colon cancer twice (at ages 60's and 80's). Father, HLD, HTN. Mother unknown 2/2 poor OP follow-up. Maternal grandparents prior to pt's 2/2 ND and emphysema. Additional ROS/Pt questions: - Reports left-sided rib injuries <1yr ago while in penitentiary. No cough, SOB. Uncomfortable when lying on that side. Able to take deep respirations. - Reports small growth on right anterior neck, has shaved it off a few times, keeps growing back, is concerned for cancer. No hx of biopsy prior. - Reports polyuria, sometimes urinating q15min, each urination is full session as opposed to hesitancy or urinating small quantities each time. Also reports drinking 1/2 -1 gallon of water daily for health benefits, denies polydipsia. Denies hematuria/brown discoloration of urine. Review of Systems Constitutional: Negative for chills and fever. Eyes: Positive for visual disturbance (dark spots in vision since retinal detachment). Respiratory: Negative for cough, chest tightness and shortness of breath. Cardiovascular: Negative for chest pain. Gastrointestinal: Negative for abdominal pain, constipation, diarrhea, nausea and vomiting. Endocrine: Positive for judit (more content not included)... Normal [facility] THYROID STIMULATING HORMONEo n 02-27-2023 THYROID STIMULATING HORMONE 2.742 uIU/mL Normal 0.465-4.680 [facility] Comment on above: Performed By: #### L [id number], [id number] ####Leather Shaver: ROSELYN CLEMENS ([id number])[facility] ([address] TSH Qnon 02-27-2023 Interpretation and review of laboratory results Normal [facility] Urinalysis complete panel (U )on 02-27-2023 Bilirubin Ql (U) Negative Negative mg/dL [facility] Clarity (U) Clear Clear [facility] Color (U) Light Yellow Lt. Yellow [facility] Glucose Ql (U) Normal Normal (<70) mg/dL [facility] Hemoglobin Ql (U) Negative Negative mg/dL [facility] Interpretation and review of laboratory results Normal [facility] Ketones (U) [Mass/Vol] Negative Negative mg/d L [facility] Leukocyte esterase Test strip Ql (U) Negative Negative Bianka/uL [facility] Nitrite Ql (U) Negative Negative [facility] pH (U) 7.0 [pH] 5.0 - 8.0 pH [facility] Protein (U) [Mass/Vol] Negative Negative mg/d L [facility] Specific gravity (U) [Rel density] 1.016 1.005 - 1.030 [facility] Urobilinogen (U)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 factors, aggravating factors) [] Fevers [] Chills [] Signs of infection (redness, edema, warm to the touch) [] Drains (how many, stripping the drain, output) [] Incisions [] Wound related problems [] Other: PLAN: [] Continue routine postoperative care/restrictions [] Scheduled postoperative visit: 10/24/2023 [] Provider notified of acute problems [facility] 10-17-2023 Miscellaneous Notes Written homegoing instructions reviewed with and given to patient: q/a time offered. This RN walked pt to main waiting room, knows where exit is located, dc'd to home in stable condition Arrives to PACU from OR: a/o x 4 , denies any c/o, local anesth for procedure: no IV. X3 surg site dressings cdi: r cheek, r neck, r upper ant arm. Operative Note Patient: Radha Johnston Date of : 1990 [id number] Date of Procedure: 10/17/23 Pre-Op Diagnosis: Symptomatic skin lesions of the right face, right neck, and right arm Post-Op Diagnosis: Same Surgeon: Radha Hair MD Operation: Excision symptomatic skin lesion right face, right neck, right arm with intermediate closure Anesthesia: Local Estimated Blood Loss (mL): Minimal Complications: None Detailed Description of Procedure: Operative indication: Patient is a 33-year-old male who presents with symptomatic growing lesion of the right face, right neck, and right arm. Patient noted the right facial lesion on the right neck lesion frequently bleeding or irritated with shaving. Patient states they have grown in size. Patient presents for definitive excision. Operative note: Patient was marked and consented in the preoperative area, in the preoperative area, the patient was injected with 10 cc of 1% lidocaine with epinephrine after confirmatory timeout. These were injected with 3 cc into the right face, 4 cc into the right arm, and 3 cc into the right neck. Patient was then taken to the operating room, prepped and draped in the usual manner, and a timeout was performed. I began by confirming adequate anesthesia and all 3 areas. I then outlined approximately a 3 cm x 7 mm ellipse of the right face around the 6 mm lesion. I confirmed adequate anesthesia and excised this in the colon like manner through the skin and subcutaneous tissue. I then mobilized the skin and closed the dermis with interrupted 4-0 Monocryl and ran a 5-0 Monocryl in a subcuticular fashion on the skin. I then proceeded to the right neck where I outlined approximately a 1.3 x 4 cm elliptical incision around the 1.2 cm lesion. After confirming adequate anesthesia, I resected this through the skin and subcutaneous tissue. After this was resected, I used electrocautery for hemostasis. I then proceeded with closure. I closed the dermis with interrupted 4-0 Monocryl and closed the skin with a 5-0 Monocryl in a running subcuticular fashion. I then proceeded last into the right arm where I elected to make a transverse ellipse based on small lesions adjacent to the lesion itself. I outlined approximately a 1.2 x 4 cm ellipse around the 1.1 cm, lesion. I confirmed adequate anesthesia had been resected this in a cone like manner through the skin and subcutaneous tissue. All lesions were sent for permanent pathology. I then mobilized the soft tissue. I then closed the dermis with interrupted 3-0 Monocryl, and then ran a 4-0 Monocryl in a subcuticular fashion on the skin. Total skin closure of the head and neck was 7 cm in total skin closure of the arm was approximately 4 cm. All counts were correct. Dressing with paper tape was applied. Patient was discharged from the operative room and will be discharged from PACU to home. Radha Hair MD Date: 10/17/2023 Location: 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 Estimated Blood Loss: Minimal Drains: * None in log * Specimens ID Source Type Tests Collected By Collected At [facility]? Priority Lab ID 1 Cheek Tissue TISSUE EXAM Radha Hair MD 10/17/23 151 Description: Right cheek lesion 2 Neck, Right Tissue TISSUE EXAM Radha Hair MD 10/17/23 1516 Description: Right neck lesion 3 Arm, Right Tissue TISSUE EXAM Radha Hair MD 10/17/23 1516 Description: Right arm lesion Staff: Internet Researcher: Anna Rivera RN Scrub Person: Seferino Brand RN; Gabby Hoyos Findings: None Complications: None; patient tolerated the procedure well. Specimens Collected: Order Name Source Comment Collection Info Order Time TISSUE EXAM Cheek Collected By: Radha Hair MD 10/17/2023 3:17 PM Wound Class: Class I: Clean Blood Products: None Prophylactic Antibiotics: Pre-operative antibiotics were not given because antibiotics are not indicated for this procedure. documented in this encounter [facility] 10-17-2023 Note Formatting of this n ote might be different from the original. Written homegoing instructions reviewed with and given to patient: q/a time offered. This RN walked pt to main waiting room, knows where exit is located, dc'd to home in stable condition [facility] 10-17-2023 Note Formatting of this n ote might be different from the original. Written homegoing instructions reviewed with and given to patient: q/a time offered. This RN walked pt to main waiting room, knows where exit is located, dc'd to home in stable condition [facility] 10-17-2023 Hospital Discharg e instructions Radha Hair MD - 10/17/2023 3:53 PM EDT Discharge Instructions Call the office in 1 to 2 days to confirm or schedule a follow-up appointment in 1-2 weeks. Leave paper tape in place. Some oozing is expected. OK to shower tomorrow. Gently pat dry. No baths. OK for ambulation as tolerated. No lifting over 15 pounds. Wound Care: Keep incision and tape clean and dry Take Tylenol and Ibuprofen for pain control. You may take an over the counter stool softener while on narcotics for constipation as needed (colace, miralax, etc). documented in this encounter [facility] 10-17-2023 Note Formatting of this n ote might be different from the original. Arrives to PACU from OR: a/o x 4 , denies any c/o, local anesth for procedure: no IV. X3 surg site dressings cdi: r cheek, r neck, r upper ant arm. [facility] 10-17-2023 Note Formatting of this n ote might be different from the original. Arrives to PACU from OR: a/o x 4 , denies any c/o, local anesth for procedure: no IV. X3 surg site dressings cdi: r cheek, r neck, r upper ant arm. [facility] 10-17-2023 Note Formatting of this n ote might be different from the original. Operative Note Patient: Radha Johnston Date of : 1990 [id number] Date of Procedure: 10/17/23 Pre-Op Diagnosis: Symptomatic skin lesions of the right face, right neck, and right arm Post-Op Diagnosis: Same Surgeon: Radha Hair MD Operation: Excision symptomatic skin lesion right face, right neck, right arm with intermediate closure Anesthesia: Local Estimated Blood Loss (mL): Minimal Complications: None Detailed Description of Procedure: Operative indication: Patient is a 33-year-old male who presents with symptomatic growing lesion of the right face, right neck, and right arm. Patient noted the right facial lesion on the right neck lesion frequently bleeding or irritated with shaving. Patient states they have grown in size. Patient presents for definitive excision. Operative note: Patient was marked and consented in the preoperative area, in the preoperative area, the patient was injected with 10 cc of 1% lidocaine with epinephrine after confirmatory timeout. These were injected with 3 cc into the right face, 4 cc into the right arm, and 3 cc into the right neck. Patient was then taken to the operating room, prepped and draped in the usual manner, and a timeout was performed. I began by confirming adequate anesthesia and all 3 areas. I then outlined approximately a 3 cm x 7 mm ellipse of the right face around the 6 mm lesion. I confirmed adequate anesthesia and excised this in the colon like manner through the skin and subcutaneous tissue. I then mobilized the skin and closed the dermis with interrupted 4-0 Monocryl and ran a 5-0 Monocryl in a subcuticular fashion on the skin. I then proceeded to the right neck where I outlined approximately a 1.3 x 4 cm elliptical incision around the 1.2 cm lesion. After confirming adequate anesthesia, I resected this through the skin and subcutaneous tissue. After this was resected, I used electrocautery for hemostasis. I then proceeded with closure. I closed the dermis with interrupted 4-0 Monocryl and closed the skin with a 5-0 Monocryl in a running subcuticular fashion. I then proceeded last into the right arm where I elected to make a transverse ellipse based on small lesions adjacent to the lesion itself. I outlined approximately a 1.2 x 4 cm ellipse around the 1.1 cm, lesion. I confirmed adequate anesthesia had been resected this in a cone like manner through the skin and subcutaneous tissue. All lesions were sent for permanent pathology. I then mobilized the soft tissue. I then closed the dermis with interrupted 3-0 Monocryl, and then ran a 4-0 Monocryl in a subcuticular fashion on the skin. Total skin closure of the head and neck was 7 cm in total skin closure of the arm was approximately 4 cm. All counts were correct. Dressing with paper tape was applied. Patient was discharged from the operative room and will be discharged from PACU to home. Radha Hair MD T [facility] 10-17-2023 Note Formatting of this n ote is different from the original. Date: 10/17/2023 Location: 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 Estimated Blood Loss: Minimal Drains: * None in log * Specimens ID Source Type Tests Collected By Collected At [facility]? Priority Lab ID 1 Cheek Tissue TISSUE EXAM Radha Hair MD 10/17/23 1516 Description: Right cheek lesion 2 Neck, Right Tissue TISSUE EXAM Radha Hair MD 10/17/23 151 Description: Right neck lesion 3 Arm, Right Tissue TISSUE EXAM Radha Hair MD 10/17/23 151 Description: Right arm lesion Staff: Internet Researcher: Anna Rivera RN Scrub Person: Seferino Brand RN; Gabby Hoyos Findings: None Complications: None; patient tolerated the procedure well. Specimens Collected: Order Name Source Comment Collection Info Order Time TISSUE EXAM Cheek Collected By: Radha Hair MD 10/17/2023 3:17 PM Wound Class: Class I: Clean Blood Products: None Prophylactic Antibiotics: Pre-operative antibiotics were not given because antibiotics are not indicated for this procedure. [facility] 10-17-2023 Note Formatting of this n ote might be different from the original. Operative Note Patient: Radha Johnston Date of : 1990 [id number] Date of Procedure: 10/17/23 Pre-Op Diagnosis: Symptomatic skin lesions of the right face, right neck, and right arm Post-Op Diagnosis: Same Surgeon: Radha Hair MD Operation: Excision symptomatic skin lesion right face, right neck, right arm with intermediate closure Anesthesia: Local Estimated Blood Loss (mL): Minimal Complications: None Detailed Description of Procedure: Operative indication: Patient is a 33-year-old male who presents with symptomatic growing lesion of the right face, right neck, and right arm. Patient noted the right facial lesion on the right neck lesion frequently bleeding or irritated with shaving. Patient states they have grown in size. Patient presents for definitive excision. Operative note: Patient was marked and consented in the preoperative area, in the preoperative area, the patient was injected with 10 cc of 1% lidocaine with epinephrine after confirmatory timeout. These were injected with 3 cc into the right face, 4 cc into the right arm, and 3 cc into the right neck. Patient was then taken to the operating room, prepped and draped in the usual manner, and a timeout was performed. I began by confirming adequate anesthesia and all 3 areas. I then outlined approximately a 3 cm x 7 mm ellipse of the right face around the 6 mm lesion. I confirmed adequate anesthesia and excised this in the colon like manner through the skin and subcutaneous tissue. I then mobilized the skin and closed the dermis with interrupted 4-0 Monocryl and ran a 5-0 Monocryl in a subcuticular fashion on the skin. I then proceeded to the right neck where I outlined approximately a 1.3 x 4 cm elliptical incision around the 1.2 cm lesion. After confirming adequate anesthesia, I resected this through the skin and subcutaneous tissue. After this was resected, I used electrocautery for hemostasis. I then proceeded with closure. I closed the dermis with interrupted 4-0 Monocryl and closed the skin with a 5-0 Monocryl in a running subcuticular fashion. I then proceeded last into the right arm where I elected to make a transverse ellipse based on small lesions adjacent to the lesion itself. I outlined approximately a 1.2 x 4 cm ellipse around the 1.1 cm, lesion. I confirmed adequate anesthesia had been resected this in a cone like manner through the skin and subcutaneous tissue. All lesions were sent for permanent pathology. I then mobilized the soft tissue. I then closed the dermis with interrupted 3-0 Monocryl, and then ran a 4-0 Monocryl in a subcuticular fashion on the skin. Total skin closure of the head and neck was 7 cm in total skin closure of the arm was approximately 4 cm. All counts were correct. Dressing with paper tape was applied. Patient was discharged from the operative room and will be discharged from PACU to home. Rdaha Hair MD T [facility] 10-17-2023 Note Formatting of this n ote is different from the original. Date: 10/17/2023 Location: 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 Estimated Blood Loss: Minimal Drains: * None in log * Specimens ID Source Type Tests Collected By Collected At [facility]? Priority Lab ID 1 Cheek Tissue TISSUE EXAM Radha Hair MD 10/17/23 5833 Description: Right cheek lesion 2 Neck, Right Tissue TISSUE EXAM Radha Hair MD 10/17/23 5733 Description: Right neck lesion 3 Arm, Right Tissue TISSUE EXAM Radha Hair MD 10/17/23 1516 Description: Right arm lesion Staff: Internet Researcher: Anna Rivera RN Scrub Person: Seferino Brand RN; Gabby Hoyos Findings: None Complications: None; patient tolerated the procedure well. Specimens Collected: Order Name Source Comment Collection Info Order Time TISSUE EXAM Cheek Collected By: Radha Hair MD 10/17/2023 3:17 PM Wound Class: Class I: Clean Blood Products: None Prophylactic Antibiotics: Pre-operative antibiotics were not given because antibiotics are not indicated for this procedure. T [facility] 10-17-2023 History and physical note [facility] History and Physical CC: Surgery HPI: Radha Johnston is a 33 y.o. male who presents for Excision Multiple Lesions of Skin. Right Cheek, Neck, Upper Extremity. Past Medical History: Diagnosis Date Drug abuse (CMS/HCC) (HCC) Infectious viral hepatitis Past Surgical History: Procedure Laterality Date EYE SURGERY Bilateral 2023 No family history on file. Social History Socioeconomic History Marital status: Single Spouse name: Not on file Number of children: Not on file Years of education: Not on file Highest education level: Not on file Occupational History Not on file Tobacco Use Smoking status: Every Day Current packs/day: 0.50 Average packs/day: 0.5 packs/day for 17.7 years (8.8 ttl pk-yrs) Types: Cigarettes Start date: 2006 Smokeless tobacco: Not on file Vaping Use Vaping status: Never Used Substance and Sexual Activity Alcohol use: Not Currently Drug use: Not Currently Types: Opiates, IV Comment: last used 2021 Sexual activity: Not on file Other Topics Concern Not on file Social History Narrative Not on file Social Determinants of Health Financial Resource Strain: Not on file Food Insecurity: Not on file Transportation Needs: Not on file Physical Activity: Not on file Stress: Not on file Social Connections: Not on file Intimate Partner Violence: Not At Risk (10/17/2023) Humiliation, Afraid, Rape, and Kick questionnaire Fear of Current or Ex-Partner: No Emotionally Abused: No Physically Abused: No Sexually Abused: No Housing Stability: Not on file Patient Active Problem List Diagnosis Date Noted Abnormal skin growth 04/03/2023 Hepatitis C virus infection without hepatic coma 02/28/2023 Hx of retinal detachment 02/28/2023 @[facility]@ Review of Systems Constitutional: Negative for fatigue, acute illness Otherwise negative except for presenting complaints Objective: Vitals: 10/17/23 1420 BP: 110/69 Pulse: 67 Resp: 16 Temp: 37.1 C (98.7 F) SpO2: 98% Body mass index is 23.12 kg/m . General: alert, no acute distress, cooperative Neck: Supple, No thyromegaly Lymph Nodes: No lymphadenopathy Lungs: Non labored Heart: HR Regular, BP Stable Abdomen: Soft, NT, ND, No Hernia noted Skin: Warm, dry Extremities: extremities normal, strength atraumatic, no cyanosis or edema Assessment: Patient is a 33 y.o. 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 male who presents for Excision Multiple Lesions of Skin. Right Cheek, Neck, Upper Extremity. Past Medical History: Diagnosis Date Drug abuse (CMS/HCC) (HCC) Infectious viral hepatitis Past Surgical History: Procedure Laterality Date EYE SURGERY Bilateral 2023 No family history on file. Social History Socioeconomic History Marital status: Single Spouse name: Not on file Number of children: Not on file Years of education: Not on file Highest education level: Not on file Occupational History Not on file Tobacco Use Smoking status: Every Day Current packs/day: 0.50 Average packs/day: 0.5 packs/day for 17.7 years (8.8 ttl pk-yrs) Types: Cigarettes Start date: 2006 Smokeless tobacco: Not on file Vaping Use Vaping status: Never Used Substance and Sexual Activity Alcohol use: Not Currently Drug use: Not Currently Types: Opiates, IV Comment: last used 2021 Sexual activity: Not on file Other Topics Concern Not on file Social History Narrative Not on file Social Determinants of Health Financial Resource Strain: Not on file Food Insecurity: Not on file Transportation Needs: Not on file Physical Activity: Not on file Stress: Not on file Social Connections: Not on file Intimate Partner Violence: Not At Risk (10/17/2023) Humiliation, Afraid, Rape, and Kick questionnaire Fear of Current or Ex-Partner: No Emotionally Abused: No Physically Abused: No Sexually Abused: No Housing Stability: Not on file Patient Active Problem List Diagnosis Date Noted Abnormal skin growth 04/03/2023 Hepatitis C virus infection without hepatic coma 02/28/2023 Hx of retinal detachment 02/28/2023 @[facility]@ Review of Systems Constitutional: Negative for fatigue, acute illness Otherwise negative except for presenting complaints Objective: Vitals: 10/17/23 1420 BP: 110/69 Pulse: 67 Resp: 16 Temp: 37.1 ?C (98.7 ?F) SpO2: 98% Body mass index is 23.12 kg/m?. General: alert, no acute distress, cooperative Neck: Supple, No thyromegaly Lymph Nodes: No lymphadenopathy Lungs: Non labored Heart: HR Regular, BP Stable Abdomen: Soft, NT, ND, No Hernia noted Skin: Warm, dry Extremities: extremities normal, strength atraumatic, no cyanosis or edema Assessment: Patient is a 33 y.o. male who presents for Surgery Plan: -Plan for Excision, lesions marked -Discussed with patient risk and benefits including poor scarring, poor wound healing, recurrence, pain, seroma, hematoma, infection -To OR under local anesthesia Radha Hair MD [facility] 10-17-2023 History and physical note Plastic [facility] History and Physical CC: Surgery HPI: Radha Johnston is a 33 y.o. male who presents for Excision Multiple Lesions of Skin. Right Cheek, Neck, Upper Extremity. Past Medical History: Diagnosis Date Drug abuse (CMS/HCC) (HCC) Infectious viral hepatitis Past Surgical History: Procedure Laterality Date EYE SURGERY Bilateral 2023 No family history on file. Social History Socioeconomic History Marital status: Single Spouse name: Not on file Number of children: Not on file Years of education: Not on file Highest education level: Not on file Occupational History Not on file Tobacco Use Smoking status: Every Day Current packs/day: 0.50 Average packs/day: 0.5 packs/day for 17.7 years (8.8 ttl pk-yrs) Types: Cigarettes Start date: 2006 Smokeless tobacco: Not on file Vaping Use Vaping status: Never Used Substance and Sexual Activity Alcohol use: Not Currently Drug use: Not Currently Types: Opiates, IV Comment: last used 2021 Sexual activity: Not on file Other Topics Concern Not on file Social History Narrative Not on file Social Determinants of Health Financial Resource Strain: Not on file Food Insecurity: Not on file Transportation Needs: Not on file Physical Activity: Not on file Stress: Not on file Social Connections: Not on file Intimate Partner Violence: Not At Risk (10/17/2023) Humiliation, Afraid, Rape, and Kick questionnaire Fear of Current or Ex-Partner: No Emotionally Abused: No Physically Abused: No Sexually Abused: No Housing Stability: Not on file Patient Active Problem List Diagnosis Date Noted Abnormal skin growth 04/03/2023 Hepatitis C virus infection without hepatic coma 02/28/2023 Hx of retinal detachment 02/28/2023 @[facility]@ Review of Systems Constitutional: Negative for fatigue, acute illness Otherwise negative except for presenting complaints Objective: Vitals: 10/17/23 1420 BP: 110/69 Pulse: 67 Resp: 16 Temp: 37.1 C (98.7 F) SpO2: 98% Body mass index is 23.12 kg/m . General: alert, no acute distress, cooperative Neck: Supple, No thyromegaly Lymph Nodes: No lymphadenopathy Lungs: Non labored Heart: HR Regular, BP Stable Abdomen: Soft, NT, ND, No Hernia noted Skin: Warm, dry Extremities: extremities normal, strength atraumatic, no cyanosis or edema Assessment: Patient is a 33 y.o. male who presents for Surgery Plan: -Plan for Excision, lesions marked -Discussed with patient risk and benefits including poor scarring, poor wound healing, recurrence, pain, seroma, hematoma, infection -To OR under local anesthesia Radha Hair MD documented in this encounter [facility] 08-14-2023 Note Case# Procedure: Excision of multiple lesions of the right cheek, right neck, and right upper extremity with layered closure Sx Date: 10/17/2023 2:00 PM Time: 1 Hour Location: [facility] Anesthesia: Local CPT: 55381, 32619, 80853, 16946, 79416, 98058, 37882, 49660, 42521, 00033, 78073, 39236, 91405, 24873, 07011, 48177 ICD-10: D49.2 Special Equipment: N/A PAT: N/A Checked cpt codes with [facility] portal and no prior authorization needed for all cpt codes listed above. Called patient to schedule surgery and sent Saberr message. [facility] 08-14-2023 Telephone encounter Note Case# Procedure: Excision of multiple lesions of the right cheek, right neck, and right upper extremity with layered closure Sx Date: 10/17/2023 2:00 PM Time: 1 Hour Location: [facility] Anesthesia: Local CPT: 69018, 15424, 66562, 75438, 46033, 67219, 11510, 74676, 92136, 89108, 02905, 53526, 02294, 35209, 29184, 31974 ICD-10: D49.2 Special Equipment: N/A PAT: N/A Checked cpt codes with [facility] [employer] portal and no prior authorization needed for all cpt codes listed above. Called patient to schedule surgery and sent Backspacest message. [facility] 08-14-2023 Miscellaneous Notes Case# Procedure: Excision of multiple lesions of the right cheek, right neck, and right upper extremity with layered closure Sx Date: 10/17/2023 2:00 PM Time: 1 Hour Location: [facility] Anesthesia: Local CPT: 21681, 86701, 32714, 94346, 41988, 76142, 28559, 86801, 98005, 23285, 68775, 12820, 02937, 93160, 25981, 70132 ICD-10: D49.2 Special Equipment: N/A PAT: N/A Checked cpt codes with [facility] portal and no prior authorization needed for all cpt codes listed above. Called patient to schedule surgery and sent Saberr message. documented in this encounter [facility] 08-14-2023 History of Presen t illness Narrative Plastic Sugery Consultation CC: Chief Complaint Patient presents with New Patient HPI: Radha Johnston is a 33 y.o. male with past medical history significant for hepatitis C and opioid abuse currently in remission who presents for evaluation of multiple skin lesions. Patient states he is most bothered by lesion on his right lateral neck that he has had since . He always cuts this lesion when shaving, and he is concerned regarding a recent change in color. He is also bothered by a lesion on his right cheek he has had for the last 10 years or so. He finds that he also cuts this lesion when shaving. Lastly, he is bothered by a lesion on his right upper arm that he states has changed in size over the last couple of years. He has had this lesion for about 5 years. He has never had any of these lesions biopsied or excised previously. He denies personal or family history of skin cancer. He is a current every day smoker. He denies use of anticoagulants. Past Medical History: Diagnosis Date Drug abuse (CMS/HCC) (HCC) Infectious viral hepatitis History reviewed. No pertinent surgical history. No family history on file. Social History Socioeconomic History Marital status: Single Spouse name: Not on file Number of children: Not on file Years of education: Not on file Highest education level: Not on file Occupational History Not on file Tobacco Use Smoking status: Every Day Smokeless tobacco: Not on file Substance and Sexual Activity Alcohol use: Not Currently Drug use: Not Currently Types: Opiates, IV Sexual activity: Not on file Other Topics Concern Not on file Social History Narrative Not on file Social Determinants of Health Financial Resource Strain: Not on file Food Insecurity: Not on file Transportation Needs: Not on file Physical Activity: Not on file Stress: Not on file Social Connections: Not on file Intimate Partner Violence: Not on file Housing Stability: Not on file Patient Active Problem List Diagnosis Date Noted Abnormal skin growth 04/03/2023 Hepatitis C virus infection without hepatic coma 02/28/2023 Hx of retinal detachment 02/28/2023 Current Outpatient Medications Medication Instructions docusate sodium (Colace) 100 MG capsule Multiple Vitamins-Minerals (CertaVite/Antioxidants) tablet omega-3 (Fish Oil) 1000 MG capsule Suboxone 2-0.5 MG per sublingual film Review of Systems Constitutional: Negative for fatigue, acute illness Eyes: Negative for vision restriction or changes Ears, nose, mouth, throat, and face: Negative for any hearing change, oral lesion, or other facial lesions Respiratory: Negative for shortness of breath or cough Cardiovascular: Negative for coronary artery disease and angina Gastrointestinal: Negative for change in bowel habits, hematochezia Genitourinary: Negative for hematuria or urinary retention Integument/breast: Negative for skin changes or masses Hematologic/lymphatic: negative for anemia or other lymphatic issues Musculoskeletal: Negative for muscle fatigue or muscle atrophy Neurological: Negative for focal neurologic deficits, negative for neuropathy Behavioral/Psych: Negative for behavioral psychiatric events Endocrine: Negative for any new endocrine changes Allergic/Immunologic: No immunologic diseases or new ALLERGIES Objective: There were no vitals filed for this visit. Body mass index is 23.24 kg/m . General: alert, no acute distress, cooperative Face: 5 mm x 6 mm lesion of the right cheek, raised, irregular border, root-brown in color. Eyes: Extraocular muscles intact. Vision grossly intact. Pupils symmetric. Conjunctiva within normal limits Lip/Mouth: Moist mucous membranes, no intraoral or vermilion lesions Neck: 6 mm x 7 mm lesion of the right lateral neck, raised, round and regular border, normal flesh tone with central area of dark brown pigmentation. Lymph Nodes: No lymphadenopathy Lungs: Non labored Heart: HR Regular, BP Stable Abdomen: Soft, NT, ND, No Hernia noted Skin: Warm, dry Extremities: 4 mm x 6 mm lesion of the right upper arm, raised, irregular border, partially covered by a tattoo, otherwise root in color. Neurologic: Cranial nerves intact, No defect. Psychiatric: Oriented to person, place, and time. Pleasant mood Assessment: Patient is a 33 y.o. male with multiple skin lesions of the right cheek, neck, upper extremity Plan: -Given the large size of these lesions, patient would best be served by excision of these lesions under local anesthesia in the operating room. We will plan to send specimens for pathology to rule out possible malignancy. -Discussed risks and complications including but not limited to pain, bleeding, infection, hematoma or seroma formation, widened/hypertrophic/keloidal scar formation, paresthesias, asymmetry, and/or need for additional procedures in the future. Patient agrees to the risks and would like to proceed as discussed. -Photos obtained. -Our office to contact patient regarding scheduling surgery. Danii Obregon PA-C documented in this encounter [facility] 08-14-2023 Note Plastic Sugery Consu ltation CC: Chief Complaint Patient presents with New Patient HPI: Radha Johnston is a 33 y.o. male with past medical history significant for hepatitis C and opioid abuse currently in remission who presents for evaluation of multiple skin lesions. Patient states he is most bothered by lesion on his right lateral neck that he has had since . He always cuts this lesion when shaving, and he is concerned regarding a recent change in color. He is also bothered by a lesion on his right cheek he has had for the last 10 years or so. He finds that he also cuts this lesion when shaving. Lastly, he is bothered by a lesion on his right upper arm that he states has changed in size over the last couple of years. He has had this lesion for about 5 years. He has never had any of these lesions biopsied or excised previously. He denies personal or family history of skin cancer. He is a current every day smoker. He denies use of anticoagulants. Past Medical History: Diagnosis Date Drug abuse (CMS/HCC) (HCC) Infectious viral hepatitis History reviewed. No pertinent surgical history. No family history on file. Social History Socioeconomic History Marital status: Single Spouse name: Not on file Number of children: Not on file Years of education: Not on file Highest education level: Not on file Occupational History Not on file Tobacco Use Smoking status: Every Day Smokeless tobacco: Not on file Substance and Sexual Activity Alcohol use: Not Currently Drug use: Not Currently Types: Opiates, IV Sexual activity: Not on file Other Topics Concern Not on file Social History Narrative Not on file Social Determinants of Health Financial Resource Strain: Not on file Food Insecurity: Not on file Transportation Needs: Not on file Physical Activity: Not on file Stress: Not on file Social Connections: Not on file Intimate Partner Violence: Not on file Housing Stability: Not on file Patient Active Problem List Diagnosis Date Noted Abnormal skin growth 04/03/2023 Hepatitis C virus infection without hepatic coma 02/28/2023 Hx of retinal detachment 02/28/2023 Current Outpatient Medications Medication Instructions docusate sodium (Colace) 100 MG capsule Multiple Vitamins-Minerals (CertaVite/Antioxidants) tablet omega-3 (Fish Oil) 1000 MG capsule Suboxone 2-0.5 MG per sublingual film Review of Systems Constitutional: Negative for fatigue, acute illness Eyes: Negative for vision restriction or changes Ears, nose, mouth, throat, and face: Negative for any hearing change, oral lesion, or other facial lesions Respiratory: Negative for shortness of breath or cough Cardiovascular: Negative for coronary artery disease and angina Gastrointestinal: Negative for change in bowel habits, hematochezia Genitourinary: Negative for hematuria or urinary retention Integument/breast: Negative for skin changes or masses Hematologic/lymphatic: negative for anemia or other lymphatic issues Musculoskeletal: Negative for muscle fatigue or muscle atrophy Neurological: Negative for focal neurologic deficits, negative for neuropathy Behavioral/Psych: Negative for behavioral psychiatric events Endocrine: Negative for any new endocrine changes Allergic/Immunologic: No immunologic diseases or new ALLERGIES Objective: There were no vitals filed for this visit. Body mass index is 23.24 kg/m?. General: alert, no acute distress, cooperative Face: 5 mm x 6 mm lesion of the right cheek, raised, irregular border, root-brown in color. Eyes: Extraocular muscles intact. Vision grossly intact. Pupils symmetric. Conjunctiva within normal limits Lip/Mouth: Moist mucous membranes, no intraoral or vermilion lesions Neck: 6 mm x 7 mm lesion of the right lateral neck, raised, round and regular border, normal flesh tone with central area of dark brown pigmentation. Lymph Nodes: No lymphadenopathy Lungs: Non labored Heart: HR Regular, BP Stable Abdomen: Soft, NT, ND, No Hernia noted Skin: Warm, dry Extremities: 4 mm x 6 mm lesion of the right upper arm, raised, irregular border, partially covered by a tattoo, otherwise root in color. Neurologic: Cranial nerves intact, No defect. Psychiatric: Oriented to person, place, and time. Pleasant mood Assessment: Patient is a 33 y.o. male with multiple skin lesions of the right cheek, neck, upper extremity Plan: -Given the large size of these lesions, patient would best be served by excision of these lesions under local anesthesia in the operating room. We will plan to send specimens for pathology to rule out possible malignancy. -Discussed risks and complications including but not limited to pain, bleeding, infection, hematoma or seroma formation, widened/hypertrophic/keloidal scar formation, paresthesias, asymmetry, and/or need for additional procedures in the future. Patient agrees to the risks and would like to p (more content not included)... [facility] 04-03-2023 History of Presen t illness Narrative Images from the original note were not included. [facility] [address] [facility] [address] Dept: [phone] Dept Loc: [phone] 04/03/2023 Visit type: follow up Reason for Visit: Follow-up (Hep C) ASSESSMENT/PLAN 1. Chronic hepatitis C without hepatic coma (CMS/HCC) (HCC) Comments: - Fibroscan ordered, pt experiencing scheduling conflict with available times. Motivated to find solution. - Follow-up once completed to initiate HCV therapy 2. History of retinal tear Comments: - Opthalmology appointment yielded no retinal detachment, evidence of retinal tear. - Follow-up in 1 month, no surgical intervention at this time, monitor 3. Abnormal skin growth Comments: - Missed plastic surg appointment 2/2 scheduling issues with [facility]. - Phone number provided to reschedule appointment for removal/biopsy 4. Discussed with pt wellness objectives, including increasing dark/leafy green intake and vegetables in diet. Pt actively exercising at this time as well. Follow up in about 3 months (around 07/02/2023), or Or sooner if fibroscan completed. Subjective Patient: Radha Johnston is a 32 y.o. 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 HPI Fibroscan: Pt reports inability to schedule Fibroscan due to conflicting schedules between classes at [facility] and availability with ID. Ophthalmology appointment follow-up: Pt reports he was informed no evidence of retinal detachment, just retinal tears. No surgical intervention planned at this time, just monitoring. Likely will just need to live with the spots in his vision. Follow-up scheduled in 1 month. Plastic surgery skin biopsy/removal: Pt missed appointment, reports accidentally not informing [facility] of appointment in time, was unable to attend appointment. Pt would like phone number to reschedule. Apologizes for the mishap. ED fall 03/05/23?: Pt reports he was told maybe it was a seizure. He is unsure what exactly happened, passed out while in bed and awoke at the ED. He has only experienced this when standing too fast or with IVDU in the past, but pt did not use and MAD panel was negative, ETOH negative. Pt needed sedation 2/2 being startled awake combined with his PTSD and penitentiary experience, he was disoriented and required sedation. Only medication is suboxone at this time, generally reports feeling well, whereas in the past whenever he would stop drug use he would feel ill. Pt asks about general health measures. Currently doing 200 pushups a day, and 90 total pull-ups 3x a week (does 30 at a time, has been since time in penitentiary). Questions regarding diet, concerns for his CO2 level of 33 at last visit. Review of Systems Constitutional: Negative for chills and fever. Respiratory: Negative for shortness of breath. Cardiovascular: Negative for chest pain, palpitations and leg swelling. Gastrointestinal: Negative for abdominal pain, constipation (well controlled with Colace), diarrhea, nausea and vomiting. Neurological: Negative for syncope (No further episodes of syncope since ED visit end february). No Known Allergies Outpatient Medications Prior to Visit Medication Sig Dispense Refill docusate sodium (Colace) 100 MG capsule Multiple Vitamins-Minerals (CertaVite/Antioxidants) tablet omega-3 (Fish Oil) 1000 MG capsule Suboxone 2-0.5 MG per sublingual film ondansetron ODT (Zofran-ODT) 4 MG disintegrating tablet No facility-administered medications prior to visit. Past Medical History: Diagnosis Date Drug abuse (CMS/HCC) (HCC) Infectious viral hepatitis No past surgical history on file. No family history on file. Social History Tobacco Use Smoking status: Every Day Smokeless tobacco: Not on file Substance Use Topics Alcohol use: Not Currently Objective BP 114/69 (BP Location: Right arm, Patient Position: Sitting, BP Cuff Size: Adult) Pulse 69 Temp (!) 35.7 C (96.2 F) (Temporal) Ht 6' 2 (1.88 m) Wt 181 lb (82.1 kg) SpO2 96% Comment: RA BMI 23.24 kg/m Physical Exam Constitutional: General: He is not in acute distress. Appearance: Normal appearance. He is not ill-appearing, toxic-appearing or diaphoretic. HENT: Head: Normocephalic and atraumatic. Eyes: General: No scleral icterus. Conjunctiva/sclera: Conjunctivae normal. Cardiovascular: Rate and Rhythm: Normal rate and regular rhythm. Heart sounds: Normal heart sounds. No murmur heard. No friction rub. No gallop. Pulmonary: Effort: Pulmonary effort is normal. No respiratory distress. Breath sounds: Normal breath sounds. No stridor. No wheezing, rhonchi or rales. Abdominal: General: Abdomen is flat. There is no distension. Palpations: Abdomen is soft. There is no mass. Tenderness: There is no abdominal tenderness. There is no guarding or rebound. Hernia: No hernia is present. Musculoskeletal: General: No swelling. Right lower leg: No edema. Left lower leg: No edema. Skin: General: Skin is warm and dry. Coloration: Skin is not jaundiced or pale. Neurological: Mental Status: He is alert and oriented to person, place, and time. Mental status is at baseline. Psychiatric: Mood and Affect: Mood normal. Behavior: Behavior normal. Thought Content: Thought content normal. Judgment: Judgment normal. Data Reviewed and Summarized: Medical decision making including: See Assessment/Plan Goals None [facility] Staffed with Dr. Ladi Mathews DO PGY : 1 04/03/2023 MA time with patient 5 minutes TH Patient refuses flu vaccine due to: (example reasons in parentheses) [] cost (insurance doesn't cover, less expensive elsewhere) [] risk (I always get sick after flu shots, side effects) [] mistrust (moneymaking conspiracy, dangerous chemicals, not safe, knows someone who got very sick from it) [] susceptibility (I never get the flu) [] inertia (I've never had one, so I don't want one) [x] other Teaching Physician Note Indirect Supervision - Modifier GE During or immediately after this visit, I discussed this case with the treating resident. Our discussion included the history obtained by the resident, the resident's exam findings, and the resident's treatment plan. Please see resident s note for further details.This service has been performed by a resident without the presence of a teaching physician under the primary care exception (GE Modifier) Additional comments: 32-year-old male presenting for a plan to start hepatitis C treatment, but he was unable to get the fibroscan. He is asymptotic today. Of note, patient had an episode where he was noted to have fallen out of his bed at [facility] and potentially lost consciousness? Unclear the etiology and patient is asymptomatic now. He reports he was just sleeping and had woke up in the ED. There was no prodrome a seemingly any postictal state based on the ED notes. His labs and imaging was unremarkable. Can consider a further neurologic or cardiac workup if he has symptom that he can describe or there is an event with clearer documentation. Ck Carney DO documented in this encounter [facility] 03-24-2023 History of Presen t illness Narrative Images from the original note were not included. 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 Chantal heránndez Subjective HPI Other Additional comments: Dilated eye exam Comments C/o seeing black spots /holes on va ou constantly x last 2 years with flashes of light sometimes. Pt sts was in penitentiary 2 years ago andn one doctor said he had a retinal detachment but another doctor disagreed. C/o aching pain on ou sometimes but nothing major. Sts some itching and dryness on ou. Sts va ou ok with glasses on. Sts not on any eye drops (gtts). Says he has a dark area superotemporal left and inferotemporal right eye Lab Results Component Value Date HGBA1C 4.6 02/27/2023 Last edited by Keyanna Whittington MD on 03/24/2023 2:34 PM. ROS Positive for: Eyes Last edited by Kanchan Weaver on 03/24/2023 1:56 PM. No Known Allergies Current Outpatient Medications Medication Sig Dispense Refill docusate sodium (Colace) 100 MG capsule omega-3 (Fish Oil) 1000 MG capsule ondansetron ODT (Zofran-ODT) 4 MG disintegrating tablet Suboxone 2-0.5 MG per sublingual film Multiple Vitamins-Minerals (CertaVite/Antioxidants) tablet No current facility-administered medications for this encounter. Past Medical History: Diagnosis Date Drug abuse (CMS/HCC) (HCC) Infectious viral hepatitis Social History Tobacco Use Smoking status: Every Day Smokeless tobacco: Not on file Substance Use Topics Alcohol use: Not Currently History reviewed. No pertinent surgical history. No family history on file. Objective Base Eye Exam Visual Acuity (Snellen - Linear) Right Left Dist cc 20/20 -2 20/20 Tonometry (Applanation, 2:10 PM) Right Left Pressure 13 13 Pupils Pupils Dark Light APD Right PERRL 3 2 None Left PERRL 3 2 None Visual Power Right Left Full Full Extraocular Movement Right Left Full, Ortho Full, Ortho Neuro/Psych Oriented x3: Yes Mood/Affect: Normal Dilation Both eyes: 2.5% Phenylephrine, 1.0% Tropicamide @ 2:10 PM Refraction Wearing Rx Sphere Cylinder [place] Right -6.00 +4.00 094 Left -6.25 +2.25 080 Data Reviewed and Summarized The patient will need the following test completed on: 03/24/2023 1. [facility] Diagnosis: Hx of retinal detachment (Z86.69) Authorizing Provider: DO Keyanna Reyes MD documented in this encounter [facility] 03-15-2023 Telephone encounter Note RN attempted to contact patient but number is no longer in service. [facility] 03-15-2023 Miscellaneous Notes RN attempted to contact patient but number is no longer in service. Attempted to call patient to give him the following instructions, no answer x2. - Now that all lab testing has been completed, pt needs imaging to evaluate for cirrhosis. - Fibroscan ordered - Please call the Infectious Disease office at [phone] from Mon-Mon 8a-4:30p to schedule your Fibroscan study. documented in this encounter [facility] 03-14-2023 Telephone encounter Note Attempted to call patient to give him the following instructions, no answer x2. - Now that all lab testing has been completed, pt needs imaging to evaluate for cirrhosis. - Fibroscan ordered - Please call the Infectious Disease office at [phone] from Mon-Mon 8a-4:30p to schedule your Fibroscan study. [facility] 03-14-2023 Miscellaneous Notes Attempted to call patient to give him the following instructions, no answer x2. - Now that all lab testing has been completed, pt needs imaging to evaluate for cirrhosis. - Fibroscan ordered - Please call the Infectious Disease office at [phone] from 8a-4:30p to schedule your Fibroscan study. documented in this encounter [facility] 03-06-2023 Hospital Discharg e instructions Watson Naima, MD - 03/06/2023 3:02 AM EST Return to the emergency department if you have significant worsening pain or headache. Follow-up with your primary care provider in 2 days. documented in this encounter [facility] 03-06-2023 Emergency department Note Pt at room door requesting to go home. Pt sts that he is feeling fine and wants to leave. Pt advised the provider will be notified of his request. ANDRZEJ Muller 03/06/239 [facility] 03-06-2023 Emergency department Note Pt at room door requesting to go home. Pt sts that he is feeling fine and wants to leave. Pt advised the provider will be notified of his request. ANDRZEJ Muller 03/06/239 Pt able to stand with x1 assistance and use urinal. Janis Hammonds RN 03/05/[address] Janis Hammonds RN 03/05/232155 EKG attempted again; pt still refusing. Janis Hammonds RN 03/05/232117 Pt refusing medication. Educated pt that he is yellow slipped. Protective services called to bedside to help with medication administration. Janis Hammonds RN 03/05/232107 Refusing care at this time. Janis Hammonds RN 03/05/232032 Pt yellow slipped by Dr. Erickson. Janis Hammonds RN 03/05/232106 Refused EKG. Janis Hammonds RN 03/05/232026 Emergency Medicine Attending Note I performed a history and physical examination on this patient and discussed the management plans with the resident. Diagnostic, treatment, and disposition decisions were made by me in conjunction with the resident. I also supervised wick portions of any procedures performed by the resident. For all further details of the patient's emergency department visit, please see their documentation. History 32-year-old male brought from [facility] for altered mental status. Patient was found on the floor. No seizure activity noted. Patient states he is fine, wants to go back. Exam Agitated, not febrile, not toxic, moving all 4 extremities Medical Decision Making / ED Course Patient uncooperative and there is concern for potential life-threatening process so he was sedated to obtain data. Data shows no clinically significant electrolyte abnormality specifically no anion gap making seizure less likely, there is no renal insufficiency hepatic inflammation or elevated CK making rhabdomyolysis less likely. There is no anemia. Imaging shows no head injury mass or cervical spine fracture. Will reevaluate once the patient metabolizes his sedation. Impression Altered mental status Opioid use disorder Plan Pending reevaluation (Please note that portions of this note may have been completed with a voice recognition program. Efforts were made to edit the dictations but occasionally words are mis-transcribed.) MD Wesley Sandra MD 03/05/232301 Bed: 35 Expected date: Expected time: Means of arrival: Comments: 32 M Fall Elizabeth Avalos RN 03/05/232013 documented in this encounter [facility] 03-05-2023 Emergency department Note Pt able to stand with x1 assistance and use urinal. Janis Hammonds RN 03/05/23 2310 [facility] 03-05-2023 Note NOTE: This result is for medical treatment only. Analysis performed using non-forensic procedures. [facility] 03-05-2023 Emergency department Note Pt to CT. Janis Hammonds RN 03/05/232155 [facility] 03-05-2023 Emergency department Note EKG attempted again; pt still refusing. Janis Hammonds RN 03/05/232117 [facility] 03-05-2023 Emergency department Note Pt refusing medication. Educated pt that he is yellow slipped. Protective services called to bedside to help with medication administration. Janis Hammonds RN 03/05/232107 [facility] 03-05-2023 Emergency department Note Refusing care at this time. Janis Hammonds RN 03/05/232032 [facility] 03-05-2023 Emergency department Note Pt yellow slipped by Dr. Erickson. Janis Hammonds RN 03/05/232106 [facility] 03-05-2023 Emergency department Note Refused EKG. Janis Hammonds RN 03/05/232026 [facility] 03-05-2023 Emergency department Note Bed: 35 Expected date: Expected time: Means of arrival: Comments: 32 M Fall Elizabeth Avalos RN 03/05/232013 [facility] 03-05-2023 Note Emergency Medicine A ttending Note I performed a history and physical examination on this patient and discussed the management plans with the resident. Diagnostic, treatment, and disposition decisions were made by me in conjunction with the resident. I also supervised wick portions of any procedures performed by the resident. For all further details of the patient's emergency department visit, please see their documentation. History 32-year-old male brought from [facility] for altered mental status. Patient was found on the floor. No seizure activity noted. Patient states he is fine, wants to go back. Exam Agitated, not febrile, not toxic, moving all 4 extremities Medical Decision Making / ED Course Patient uncooperative and there is concern for potential life-threatening process so he was sedated to obtain data. Data shows no clinically significant electrolyte abnormality specifically no anion gap making seizure less likely, there is no renal insufficiency hepatic inflammation or elevated CK making rhabdomyolysis less likely. There is no anemia. Imaging shows no head injury mass or cervical spine fracture. Will reevaluate once the patient metabolizes his sedation. Impression Altered mental status Opioid use disorder Plan Pending reevaluation (Please note that portions of this note may have been completed with a voice recognition program. Efforts were made to edit the dictations but occasionally words are mis-transcribed.) MD Wesley Sandra MD 03/05/23 [id number] [facility] 03-05-2023 Physician Emergency department Note Emergency Medicine Attending Note I performed a history and physical examination on this patient and discussed the management plans with the resident. Diagnostic, treatment, and disposition decisions were made by me in conjunction with the resident. I also supervised wick portions of any procedures performed by the resident. For all further details of the patient's emergency department visit, please see their documentation. History 32-year-old male brought from [facility] for altered mental status. Patient was found on the floor. No seizure activity noted. Patient states he is fine, wants to go back. Exam Agitated, not febrile, not toxic, moving all 4 extremities Medical Decision Making / ED Course Patient uncooperative and there is concern for potential life-threatening process so he was sedated to obtain data. Data shows no clinically significant electrolyte abnormality specifically no anion gap making seizure less likely, there is no renal insufficiency hepatic inflammation or elevated CK making rhabdomyolysis less likely. There is no anemia. Imaging shows no head injury mass or cervical spine fracture. Will reevaluate once the patient metabolizes his sedation. Impression Altered mental status Opioid use disorder Plan Pending reevaluation (Please note that portions of this note may have been completed with a voice recognition program. Efforts were made to edit the dictations but occasionally words are mis-transcribed.) MD Wesley Sandra MD 03/05/230 [facility] [employer] Work Phone: 02-27-2023 History of Presen t illness Narrative Images from the original note were not included. [facility] [address] [facility] [address] Dept: [phone] Dept Loc: [phone] 02/27/2023 Visit type: new patient Reason for Visit: Establish Care (Hep C, rib pain, mole on neck) ASSESSMENT/PLAN 1. Hepatitis C virus infection without hepatic coma, unspecified chronicity Comments: -Pt reports infection w/Hep C ~10yrs ago 2/2 IVDU -Labs ordered for further evaluation + r/o concommitant infection to guide treatment. Orders: - Hepatitis C viral load - CBC auto differential - Comprehensive metabolic panel - Protime-INR - Hepatitis B surface antibody - Hepatitis B surface antigen - Hepatitis B core antibody, total - Hepatitis A antibodies, total - HIV-1 and HIV-2 Antigen-Antibody Screen - Hepatitis C genotype 2. Abnormal skin growth Comments: -Given rapid regrowth with shaving mass off several times, referral sent for removal and biopsy. Orders: - [facility] 3. Hx of retinal detachment Comments: -Occurred 2yrs ago, reportedly healed per [facility]. Pt denies follow-up with systems software developer but notes seeing dark spots in vision. Orders: - [facility] 4. Encounter for medical examination to establish care Comments: - Explained importance of consent, spread of HSV w/active ulcerations, use of condoms, and requesting acyclovir when sores return. Best practice is to abstain from sexual contact w/active lesions to prevent spread. - Shared decision making to forego CXR at this time given it would not private branch exchange service advisor at this time. Pt not experiencing dyspnea, cough, and is able to tolerate deep respiration. - Pt not interested in smoking cessation or nicotine replacement at this time. Informed he can request assistance at any time. - Baseline orders w/screening for thyroid disease, HIV, and DM. Orders: - CBC auto differential - Comprehensive metabolic panel - HIV-1 and HIV-2 Antigen-Antibody Screen - Hemoglobin A1c - TSH - Complete Urinalysis with reflex to Culture 5. Polyuria Comments: -Polyuria likely 2/2 to excessive PO intake of water in [facility]. -CMP, A1c and UA to r/o DM, albuminuria, nephrotic/nephritic dx. Orders: - Comprehensive metabolic panel - Hemoglobin A1c - Complete Urinalysis with reflex to Culture Follow up in about 4 weeks (around 03/27/2023) for Recheck. Subjective Patient: Radha Johnston is a 32 y.o. male presenting to establish care. Pt prefers [employer] messaging for results. HPI Pt reports [facility], now living in [facility], records show resident of [facility]. Reports wanting to integrate into regular life, would like to establish care. PMHX: - Hep C 2/2 IVDU, 10 years ago. Reports he refused treatment prior due to being unable to break the addiction, but now that he has successfully been 2yrs sober and being treated with suboxone for assistance, he feels comfortable to approach treatment. - IVDU, last use 2yrs ago, meth and opiates - HSV w/oral and genital lesions. Pt asks how to approach sexual contact in this context. - Retinal detachment 2yrs ago while in [facility]iary. Not evaluated by systems software developer prior. Was seen by [facility] physician, reports it healed and he will always have dark spots in vision. Medications: Suboxone, multivitamin, probiotic (managed by [facility]) Surgical hx: wisdom tooth removal Social hx: Sober from IVDU x2yrs, prior use of meth and opiates. Denies marijuana use. Denies alcohol use. Started smoking 1-2 cigarettes a day since discharge from [facility], no interest in quitting at this time. Denies vaping. Family hx: Paternal grandfather: colon cancer twice (at ages 60's and 80's). Father, HLD, HTN. Mother unknown 2/2 poor OP follow-up. Maternal grandparents prior to pt's 2/2 ND and emphysema. Additional ROS/Pt questions: - Reports left-sided rib injuries <1yr ago while in [facility]. No cough, SOB. Uncomfortable when lying on that side. Able to take deep respirations. - Reports small growth on right anterior neck, has shaved it off a few times, keeps growing back, is concerned for cancer. No hx of biopsy prior. - Reports polyuria, sometimes urinating q15min, each urination is full session as opposed to hesitancy or urinating small quantities each time. Also reports drinking 1/2 -1 gallon of water daily for health benefits, denies polydipsia. Denies hematuria/brown discoloration of urine. Review of Systems Constitutional: Negative for chills and fever. Eyes: Positive for visual disturbance (dark spots in vision since retinal detachment). Respiratory: Negative for cough, chest tightness and shortness of breath. Cardiovascular: Negative for chest pain. Gastrointestinal: Negative for abdominal pain, constipation, diarrhea, nausea and vomiting. Endocrine: Positive for polyuria. Negative for polydipsia. Genitourinary: Positive for frequency. Negative for decreased urine volume, difficulty urinating, dysuria, hematuria and urgency. Musculoskeletal: Rib uncomfortable sensation 2/2 prior injury Skin: Growth on right anterior neck, growing No Known Allergies No outpatient medications prior to visit. No facility-administered medications prior to visit. Past Medical History: Diagnosis Date Drug abuse (CMS/HCC) (HCC) No past surgical history on file. No family history on file. Social History Tobacco Use Smoking status: Every Day Smokeless tobacco: Not on file Substance Use Topics Alcohol use: Yes Objective BP 109/66 (BP Location: Left arm, Patient Position: Sitting, BP Cuff Size: Large adult) Pulse 68 Temp 36.1 C (96.9 F) (Temporal) Ht 6' 2 (1.88 m) Wt 182 lb (82.6 kg) SpO2 96% Comment: RA BMI 23.37 kg/m Physical Exam Constitutional: General: He is not in acute distress. Appearance: Normal appearance. He is not ill-appearing. HENT: Head: Normocephalic and atraumatic. Eyes: General: No scleral icterus. Extraocular Movements: Extraocular movements intact. Conjunctiva/sclera: Conjunctivae normal. Pupils: Pupils are equal, round, and reactive to light. Cardiovascular: Rate and Rhythm: Normal rate and regular rhythm. Heart sounds: Normal heart sounds. No murmur heard. No friction rub. No gallop. Pulmonary: Effort: Pulmonary effort is normal. No respiratory distress. Breath sounds: Normal breath sounds. No stridor. No wheezing, rhonchi or rales. Chest: Chest wall: No tenderness. Abdominal: General: Abdomen is flat. There is no distension. Palpations: Abdomen is soft. There is no mass. Tenderness: There is no abdominal tenderness. There is no guarding or rebound. Hernia: No hernia is present. Musculoskeletal: General: No swelling. Right lower leg: No edema. Left lower leg: No edema. Skin: General: Skin is warm and dry. Coloration: Skin is not jaundiced or pale. Comments: 1-2cm tall growth on right anterior neck, slightly erythematous, skin-color Neurological: Mental Status: He is alert. Data Reviewed and Summarized: Medical decision making including: See Assessment/Plan Goals None [facility] Staffed with Dr. Shireen Mathews DO PGY : 1 02/28/2023 MA time with patient 5 minutes TH Patient refuses flu vaccine due to: (example reasons in parentheses) [] cost (insurance doesn't cover, less expensive elsewhere) [] risk (I always get sick after flu shots, side effects) [] mistrust (moneymaking conspiracy, dangerous chemicals, not safe, knows someone who got very sick from it) [] susceptibility (I never get the flu) [] inertia (I've never had one, so I don't want one) [x] other documented in this encounter [facility] 02-27-2023 History of Presen t illness Narrative Images from the original note were not included. [facility] [address] [address] Dept: [phone] Dept Loc: [phone] 02/27/2023 Visit type: new patient Reason for Visit: Establish Care (Hep C, rib pain, mole on neck) ASSESSMENT/PLAN 1. Hepatitis C virus infection without hepatic coma, unspecified chronicity Comments: -Pt reports infection w/Hep C ~10yrs ago 2/2 IVDU -Labs ordered for further evaluation + r/o concommitant infection to guide treatment. Orders: - Hepatitis C viral load - CBC auto differential - Comprehensive metabolic panel - Protime-INR - Hepatitis B surface antibody - Hepatitis B surface antigen - Hepatitis B core antibody, total - Hepatitis A antibodies, total - HIV-1 and HIV-2 Antigen-Antibody Screen - Hepatitis C genotype 2. Abnormal skin growth Comments: -Given rapid regrowth with shaving mass off several times, referral sent for removal and biopsy. Orders: - [facility] 3. Hx of retinal detachment Comments: -Occurred 2yrs ago, reportedly healed per [facility] physician. Pt denies follow-up with systems software developer but notes seeing dark spots in vision. Orders: - [facility] 202 4. Encounter for medical examination to establish care Comments: - Explained importance of consent, spread of HSV w/active ulcerations, use of condoms, and requesting acyclovir when sores return. Best practice is to abstain from sexual contact w/active lesions to prevent spread. - Shared decision making to forego CXR at this time given it would not private branch exchange service advisor at this time. Pt not experiencing dyspnea, cough, and is able to tolerate deep respiration. - Pt not interested in smoking cessation or nicotine replacement at this time. Informed he can request assistance at any time. - Baseline orders w/screening for thyroid disease, HIV, and DM. Orders: - CBC auto differential - Comprehensive metabolic panel - HIV-1 and HIV-2 Antigen-Antibody Screen - Hemoglobin A1c - TSH - Complete Urinalysis with reflex to Culture 5. Polyuria Comments: -Polyuria likely 2/2 to [facility]. -CMP, A1c and UA to r/o DM, albuminuria, nephrotic/nephritic dx. Orders: - Comprehensive metabolic panel - Hemoglobin A1c - Complete Urinalysis with reflex to Culture Follow up in about 4 weeks (around 03/27/2023) for Recheck. Subjective Patient: Radha Johnston is a 32 y.o. male presenting to establish care. Pt prefers [employer] messaging for results. HPI Pt reports [facility] being [facility], now living in [facility], [facility], records show resident of [facility]. Reports wanting to integrate into regular life, would like to establish care. PMHX: - Hep C 2/2 IVDU, 10 years ago. Reports he refused treatment prior due to being unable to break the addiction, but now that he has successfully been 2yrs sober and being treated with suboxone for assistance, he feels comfortable to approach treatment. - IVDU, last use 2yrs ago, meth and opiates - HSV w/oral and genital lesions. Pt asks how to approach sexual contact in this context. - Retinal detachment 2yrs ago while in pen[facility]iary. Not evaluated by systems software developer prior. Was seen by [facility] physician, reports it healed and he will always have dark spots in vision. Medications: Suboxone, multivitamin, probiotic (managed by [facility]) Surgical hx: wisdom tooth removal Social hx: Sober from IVDU x2yrs, prior use of meth and opiates. Denies marijuana use. Denies alcohol use. Started smoking 1-2 cigarettes a day since discharge from [facility], no interest in quitting at this time. Denies vaping. Family hx: Paternal grandfather: colon cancer twice (at ages 60's and 80's). Father, HLD, HTN. Mother unknown 2/2 poor OP follow-up. Maternal grandparents prior to pt's 2/2 ND and emphysema. Additional ROS/Pt questions: - Reports left-sided rib injuries <1yr ago while in [facility]iary. No cough, SOB. Uncomfortable when lying on that side. Able to take deep respirations. - Reports small growth on right anterior neck, has shaved it off a few times, keeps growing back, is concerned for cancer. No hx of biopsy prior. - Reports polyuria, sometimes urinating q15min, each urination is full session as opposed to hesitancy or urinating small quantities each time. Also reports drinking 1/2 -1 gallon of water daily for health benefits, denies polydipsia. Denies hematuria/brown discoloration of urine. Review of Systems Constitutional: Negative for chills and fever. Eyes: Positive for visual disturbance (dark spots in vision since retinal detachment). Respiratory: Negative for cough, chest tightness and shortness of breath. Cardiovascular: Negative for chest pain. Gastrointestinal: Negative for abdominal pain, constipation, diarrhea, nausea and vomiting. Endocrine: Positive for polyuria. Negative for polydipsia. Genitourinary: Positive for frequency. Negative for decreased urine volume, difficulty urinating, dysuria, hematuria and urgency. Musculoskeletal: Rib uncomfortable sensation 2/2 prior injury Skin: Growth on right anterior neck, growing No Known Allergies No outpatient medications prior to visit. No facility-administered medications prior to visit. Past Medical History: Diagnosis Date Drug abuse (CMS/HCC) ([facility]) No past surgical history on file. No family history on file. Social History Tobacco Use Smoking status: Every Day Smokeless tobacco: Not on file Substance Use Topics Alcohol use: Yes Objective BP 109/66 (BP Location: Left arm, Patient Position: Sitting, BP Cuff Size: Large adult) Pulse 68 Temp 36.1 C (96.9 F) (Temporal) Ht 6' 2 (1.88 m) Wt 182 lb (82.6 kg) SpO2 96% Comment: RA BMI 23.37 kg/m Physical Exam Constitutional: General: He is not in acute distress. Appearance: Normal appearance. He is not ill-appearing. HENT: Head: Normocephalic and atraumatic. Eyes: General: No scleral icterus. Extraocular Movements: Extraocular movements intact. Conjunctiva/sclera: Conjunctivae normal. Pupils: Pupils are equal, round, and reactive to light. Cardiovascular: Rate and Rhythm: Normal rate and regular rhythm. Heart sounds: Normal heart sounds. No murmur heard. No friction rub. No gallop. Pulmonary: Effort: Pulmonary effort is normal. No respiratory distress. Breath sounds: Normal breath sounds. No stridor. No wheezing, rhonchi or rales. Chest: Chest wall: No tenderness. Abdominal: General: Abdomen is flat. There is no distension. Palpations: Abdomen is soft. There is no mass. Tenderness: There is no abdominal tenderness. There is no guarding or rebound. Hernia: No hernia is present. Musculoskeletal: General: No swelling. Right lower leg: No edema. Left lower leg: No edema. Skin: General: Skin is warm and dry. Coloration: Skin is not jaundiced or pale. Comments: 1-2cm tall growth on right anterior neck, slightly erythematous, skin-color Neurological: Mental Status: He is alert. Data Reviewed and Summarized: Medical decision making including: See Assessment/Plan Goals None [facility] Staffed with Dr. Shireen Mathews DO PGY : 1 02/28/2023 GOLD time with patient 5 minutes TH Patient refuses flu vaccine due to: (example reasons in parentheses) [] cost (insurance doesn't cover, less expensive elsewhere) [] risk (I always get sick after flu shots, side effects) [] mistrust (moneymaking conspiracy, dangerous chemicals, not safe, knows someone who got very sick from it) [] susceptibility (I never get the flu) [] inertia (I've never had one, so I don't want one) [x] other Teaching Physician Note Direct Supervision - Modifier GC I performed a history & physical examination of the patient and also discussed the patient's management with the resident. I was present for the wick portions of any procedures performed. I reviewed the resident's note and agree with the documented findings and plan of care with any exceptions or corrections noted below. Please see resident s note for further details. This service has been performed in part by a resident under the direction of a teaching physician (SREE Monk). Additional comments: Agree with plan. Here to establish and discuss possible Hep C treatment. He has several skin lesions he wants checked. CHARO AREVALO MD [facility] Diagnosis Hepatitis C virus infection without hepatic coma, unspecified chronicity- Primary Abnormal skin growth Hx of retinal detachment Encounter for medical examination to establish care Polyuria [facility] Diagnosis Hepatitis C virus infection without hepatic coma, unspecified chronicity- Primary Abnormal skin growth Hx of retinal detachment Encounter for medical examination to establish care Poly[facility], initial encounter- Primary Closed head injury, initial encounter [facility]* Diagnosis Chronic hepatitis C without hepatic coma (CMS/HCC) (HCC)- Primary [facility] Diagnosis Chronic hepatitis C without hepatic coma (CMS/HCC) (HCC)- Primary [facility] Diagnosis Hx of retinal detachment [facility] Diagnosis Chronic hepatitis C without hepatic coma (CMS/HCC) (HCC) History of retinal tear Abnormal skin growth [facility] Diagnosis Abnormal skin growth [facility] Diagnosis Neoplasm of unspecified behavior of bone, soft tissue, and skin [facility] Consultation (Routine) - Authorized Specialty Diagnoses / Procedures Referred By Malgorzata castro Referred To Contact Ophthalmology Diagnoses Hx of retinal detachment Procedures IN OFFICE/OUTPATIENT NEW HIGH MDM 60 MINUTES Frances Mathews, DO [address] [place] [address] [facility] Ophth [address] [place] [address] Referral ID Status Reason Start Date Expiration Date Visits Requested Visits Authorized [id number] Authorized Specialty Services Required 02/27/2023 02/27/2024 1 1 * Consultation (Routine) - Pending Review Specialty Diagnoses / Procedures Referred By Contac t Referred To Contact Plastic Surgery Diagnoses Abnormal skin growth Procedures IN OFFICE/OUTPATIENT NEW HIGH MDM 60 MINUTES Bisi, Frances Cassidy, DO [address] [place] [address] [facility] [address] [place] [address] Referral ID Status Reason Start Date Expiration Date Visits Requested Visits Authorized [id number] Pending Review Specialty Services Required 02/27/2023 02/27/2024 1 1 [facility] Consultation (Routine) - Pending Review Specialty Diagnoses / Procedures Referred By Contac t Referred To Contact Ophthalmology Diagnoses Hx of retinal detachment Procedures IN OFFICE/OUTPATIENT NEW HIGH MDM 60 MINUTES Keyanna Whittington MD [address] [facility] [address] [place] [address] Kane Cornejo MD [address] [place] [address] Referral ID Status Reason Start Date Expiration Date Visits Requested Visits Authorized [id number] Pending Review Specialty Services Required 03/24/2023 03/23/2024 1 1 * Consultation (Routine) - Closed Specialty Diagnoses / Procedures Referred By Contac t Referred To Contact Ophthalmology Diagnoses Hx of retinal detachment Procedures IN OFFICE/OUTPATIENT NEW HIGH MDM 60 MINUTES MathewsFrances jimenez, DO [address] [place] [address] [facility] [address] [place] [address] Referral ID Status Reason Start Date Expiration Date V isits Requested Visits Authorized [id number] Closed Specialty Services Required 02/27/2023 02/27/[address] [facility] Summary Purpose Family History No Family History Records FoundNo Family History Records FoundNo Family History Records FoundNo Family History Records FoundNo Family History Records Found Advance Directives No Advanced Directives Records Found Date Activated Date Inactivated Comments 10/17/2023 2:03 PM 10/17/2023 6:13 PM Date Activated Date Inactivated Comments 10/17/2023 2:03 PM 10/17/2023 6:13 PM Additional Source Comments (unrecognized sect ion and content) No Status Records FoundNo Status Records FoundNo Status Records FoundNo Status Records FoundNo Status Records Found INFORMATION SOURCE (unrecogn ized section and content) DATE CREATED AUTHOR 08/14/2017 [facility] DATE CREATED AUTHOR AUTHOR'S ORGANIZ ATION 10/19/2023 [facility] DATE CREATED AUTHOR AUTHOR'S ORGANIZ ATION 01/03/2024 [facility] DATE CREATED AUTHOR AUTHOR'S ORGANIZ ATION 11/22/2024 [facility] DATE CREATED AUTHOR AUTHOR'S ORGANIZ ATION 12/07/2024 [facility] Reason for Visit (unrecogniz ed section and content) Reason Comments Establish Care Hep C, rib pain, mol e on neck Reason Comments Fall Per EMS, pt [facility]. Pt threw up. Staff stated potential seizure like activity. Pt denies any drug or alcohol use. Pt does not remember any of this. Reason Comments Other Dilated eye exam Specialty Diagnoses / Procedures Referred By Contac t Referred To Contact Ophthalmology Diagnoses Hx of retinal detachment Procedures IN OFFICE/OUTPATIENT NEW HIGH MDM 60 MINUTES Frances Mathews, DO [address] [place] [address] [facility] [address] [place] [address] Referral ID Status Reason Start Date Expiration Date V isits Requested Visits Authorized [id number] Closed Specialty Services Required 02/27/2023 02/27/2024 1 1 Reason Comments Follow-up Hep C Reason Comments New Patient C/o like 4 moles wan t them looked at Specialty Diagnoses / Procedures Referred By Malgorzata t Referred To Contact Plastic Surgery Diagnoses Abnormal skin growth Procedures IN OFFICE/OUTPATIENT NEW HIGH MDM 60 MINUTES Frances Mathews, DO [address] [place] [address] Lam Guerrero MD [address] [place] [address] Referral ID Status Reason Start Date Expiration Date V isits Requested Visits Authorized [id number] Closed Specialty Services Required 02/27/2023 02/27/2024 1 1 Reason Onset Date Comments Surgery Scheduling 08/14/2023 [facility] Specialty Diagnoses / Procedures Referred By Malgorzata t Referred To Contact Diagnoses Neoplasm of unspecified behavior of bone, soft tissue, and skin Procedures IN EXC B9 LESION MRGN XCP SK TG T/A/L 0.5 CM/< IN EXC B9 LES MRGN XCP SK TG F/E/E/N/L/M 0.6-1.0CM IN EXC B9 LESION MRGN XCP SK TG S/N/H/F/G 0.5 CM/< IN EXC B9 LESION MRGN XCP SK TG S/N/H/F/G 0.6-1.0CM IN EXC B9 LESION MRGN XCP SK TG T/A/L 0.6-1.0 CM IN REPAIR INTERMEDIATE S/A/T/E 2.5 CM/< IN REPAIR INTERMEDIATE S/A/T/E 2.6-7.5 CM IN REPAIR INTERMEDIATE N/H/F/XTRNL GENT 2.5CM/< IN REPAIR INTERMEDIATE N/H/F/XTRNL GENT 2.6-7.5 CM IN REPAIR INTERMEDIATE F/E/E/N/L&/MUC 2.5 CM/< IN REPAIR INTERMEDIATE F/E/E/N/L&/MUC 2.6-5.0 CM IN REPAIR COMPLEX SCALP/ARM/LEG 1.1-2.5 CM IN REPAIR COMPLEX SCALP/ARM/LEG 2.6-7.5 CM IN REPAIR COMPLEX F/C/C/M/N/AX/G/H/F 1.1-2.5 CM IN REPAIR COMPLEX F/C/C/M/N/AX/G/H/F 2.6-7.5 CM IN REPAIR COMPLEX F/C/C/M/N/AX/G/H/F 2.6-7.5 CM EXCISION OF MULTIPLE LESIONS OF RIGHT CHEECK, RIGHT NECK, AND RIGHT UPPER EXTREMITY WITH LAYERED CLOSURE EXCISION BENIGN LESION FACE EARS EYELIDS NOSE LIPS MUCOUS MEMBRANES 0.6 TO 1.0 CM EXCISION BENIGN LESION SCALP NECK HANDS FEET GENITALIA 0.5 CM OR LESS REPAIR INTERMEDIATE WOUNDS OF SCALP AXILLAE TRUNK EXTREMITIES 2.5 CM OR LESS REPAIR COMPLEX WOUND OF SCALP ARMS LEGS 1.1 CM TO 2.5 REPAIR COMPLEX WOUND OF FOREHEAD CHEEK CHIN MOUTH NECK AXILLAE GENITALIA HANDS FEET 2.6 TO 7.5 CM Radha Hair MD [address] [place] [id number] Referral ID Status Reason Start Date Expiration Date Visits Re quested Visits Authorized [id number] 08/21/2023 1 1 Care Teams (unrecognized sec tion and content) Frame Nailer Relationship Specialty Start Date End Date Frances Mathews DO [address] [id number] PCP - General 02/27/23 Frame Nailer Relationship Specialty Start Date End Date Frances Mathews DO [address] [place] [id number] PCP - General 02/27/23 Frame Nailer Relationship Specialty Start Date End Date Frances Mathews DO [address] [address] PCP - General 02/27/23 Frame Nailer Relationship Specialty Start Date End Date Frances Mathews DO [address] [place] [id number] PCP - General 02/27/23 Frame Nailer Relationship Specialty Start Date End Date Frances Mathews DO [address] [place] [id number] PCP - General 02/27/23 Frame Nailer Relationship Specialty Start Date End Date Frances Mathews DO [address] [place] [id number] PCP - General 02/27/23 Frame Nailer Relationship Specialty Start Date End Date Frances Mathews DO [address] [facility] [address] [place] [id number] PCP - General 02/27/23 Frame Nailer Relationship Specialty Start Date End Date Frances Mathews [address] [facility] [address] [place] [id number] PCP - General 02/27/23 Frame Nailer Relationship Specialty Start Date End Date Frances Mathews DO [address] [facility] [address] [address] PCP - General 02/27/23 Frame Nailer Relationship Specialty Start Date End Date Frances Mathews [address] [place] [id number] PCP - General 02/27/23 Frame Nailer Relationship Specialty Start Date End Date Frances Mathews [address] [place] [id number] PCP - General 02/27/23 Scheduled Active and Recently Administ ered Medications (unrecognized section and content) Medication Order 03/04/2023 03/05/2023 03/06/2023 diphenhydrAMINE (BENADryl) injection 50 mg (COMPLETED) 50 mg, IntraVENous, Once, On Mon03/05/23 at 2120, For 1 dose 2217 (Given - Provider: Bebeto Hammonds RN) haloperidol lactate (Haldol) injection 5 mg (COMPLETED) 5 mg, IntraMUSCular, Once, On Mon03/05/23 at 2030, For 1 dose, IM route of administration preferred. Because of the risk of TdP and QT prolongation, ECG monitoring is recommended if haloperidol is given IV 2045 (Given - Provider: Bebeto Hammonds RN) LORazepam (Ativan) injection 2 mg (COMPLETED) 2 mg, IntraMUSCular, Once, On Mon03/05/23 at 2030, For 1 dose, For IV doses dilute dose with 1ml NS. 2045 (Given - Provider: Bebeto Hammonds RN) Scheduled Medication Order 10/15/2023 10/16/2023 10/17/2023 lidocaine-EPINEPHrine (Xylocaine W/EPI) 1 %-[id number] injection 20 mL 20 mL, Infiltration, Once, On Mon10/17/23 at 1415, For 1 dose, Preprocedure 1415 (Canceled Entry - Provider: Automatic Discharge Provider - Comment: Automatically canceled at discontinue of medication order) PRN Medication Order 10/15/2023 10/16/2023 10/17/2023 sodium chloride 0.9 % irrigation solution (CANCELED) As needed, Starting on Mon10/17/23 at 1515, Intraprocedure 1515 (Given - Provid er: Radha Hair MD) FOR RECORDS PERTAINING TO PATIENTS WHO ARE OR HAVE BEEN ENROLLED IN A CHEMICAL DEPENDENCY/SUBSTANCEABUSE PROGRAM, SOME INFORMATION MAY BE OMITTED. This clinical summary was aggregated from multiple sources. Caution should be exercised in using it in the provision of clinical care. This summary normalizes information from multiple sources, and as a consequence, information in this document may materially change the coding, format and clinical context of patient data. In addition, data may be omitted in some cases. CLINICAL DECISIONS SHOULD BE BASED ON THE PRIMARY CLINICAL RECORDS. [employer] [facility]. provides no warranty or guarantee of the accuracy or completeness of information in this document.
--- OUTSIDE RECORDS SUMMARY | 2025-02-02 19:10 | XMS RPT_ITS | CCD ---
Author Organization [facility] [employer] [facility] Care Team Providers Care Grocery Caddy Name Role Phone OMAR SPAIN Unavailable Unavailable IMCA Unavailable Unavailable IMCA Unavailable Unavailable Mathews Frances REYNOLDS Primary Care Provider BISI, FRANCES Attending Unavailable MATHEWS, FRANCES Primary [...] Test Name Value Interpretation Reference Range Facility [facility] 12-06-2024 CNPN Telephone (GSTNOR) RADHA JOHNSTON ([id number]) 1990 M Date Time Provider Department 12/06/24 RHONDA CUMMINGS GSTJEFFERY During your visit today, we recorded the following information about you: Natacha Burnham MA 12/06/2024 9:38 AM Signed With patients history of Hep C. Are you ok with seeing this patient? Allergies As of Date: 12/06/2024 (No Known Allergies) Date Reviewed: 11/01/2024 Reviewed by: Alva Parisi APRN.[facility] - Fully Assessed Reason for Visit: [...] Encounter Status:Closed by NATACHA BURNHAM on 12/06/24 [facility] CNOVon 11-20-2024 CNOV Office Visit (WELLNV) RADHA JOHNSTON ([id number]) 1990 M Date Time Provider Department 11/20/24 9:00 AM BONIFACIO YUN During your visit today, we recorded the following information about you: Bonifacio Yun DC 11/20/2024 9:22 AM Signed Patient no-showed today's appointment. Bonifacio Yun DC November 20, 2024 9:21 AM Referring Provider: ALVA PARISI [[id number]] Allergies As of Date: 11/20/2024 (No Known Allergies) Date Reviewed: 11/01/2024 Reviewed by: Alva Parisi APRN.[employer] - Fully Assessed Primary Visit Diagnosis:No-show for [...] Encounter Status:Closed by BONIFACIO YUN on 11/20/24 [facility] 11-11-2024 [facility] Telephone (FMWADS) RADHA JOHNSTON ([id number]) 1990 M Date Time Provider Department 11/11/24 ALVA PARISI MICH During your visit today, we recorded the following information about you: Ivan Mead Anna Opal 11/11/2024 3:53 PM Signed Radha is calling Alva Parisi APRN.CATALOGUE MAKER today to request Results (Labs) Patient would like to speak to a nurse about his lab results. He is having issues with his MyChart. Patient has been identified by name and birthdate. Duration of symptoms: N/A Person calling: self Call patient at: at home [phone] (home) [phone] (cell) Was an appointment scheduled: No Closing statement: Anna Joseph Cristin Phipps MA 11/12/2024 9:06 AM Signed Patient notified of results. Verbalized understanding with no further questions or concerns. Cristin Jauregui MA Allergies As of Date: 11/11/2024 (No Known Allergies) Date Reviewed: 11/01/2024 Reviewed by: Alva Parisi APRN.CATALOGUE MAKER - Fully Assessed Reason for Visit: Results [...] Status:Closed by CRISTIN JAUREGUI on 11/12/24 Normal [facility] 25(OH)D3 [facility] 25-hydroxyvitamin D3 [Mass/Vol] 50.4 ng/mL Normal 31.0-80.0 [facility] Comment on above: Order Comment: Speci men Type: BLOOD SPECIMEN Ordering Facility: [facility] Address: [address] [place] [address] Result Comment: Clas sification of 25 [place] Vitamin D status: Deficiency/Insufficiency: < or = 30 ng/ml. Sufficiency/Optimal Levels: 31-80 ng/mL Toxicity: > 100 ng/mL. Test performed by chemiluminescent immunoassay. Performed By: #### 1 989-3 #### [facility] CLIA [id number] [address] [place] [address] [place] C. trachomatis+N. gonorrhoea e DNA BRADLEY+probe Ql (Unsp spec)on 11-01-2024 C. trachomatis rRNA BRADLEY+probe Ql (Unsp spec) Not detected Normal Not detected [facility] Comment on above: Order Comment: Speci men Type: BLOOD SPECIMEN Ordering Facility: [facility] Address: [address] [place] [address] Performed By: #### 2 132-9, 50511-3, 3015-3, 46309-8 #### [facility] CLIA [id number] [address] [place] [address] [place] N. gonorrhoeae rRNA BRADLEY+probe Ql (Unsp spec) Not detected Normal Not detected [facility] Comment on above: Order Comment: Speci men Type: BLOOD SPECIMEN Ordering Facility: [facility] Address: [address] [place] [address] Performed By: #### 2 132-9, 93473-1, 3015-3, 19218-2 #### [facility] CLIA [id number] [address] [place] [address] [place] CBC W Auto Differential pane l (Bld)on 11-01-2024 Basophils (Bld) [#/Vol] 0.06 10*3/uL Normal <0.11 [facility] Comment on above: Order Comment: Speci men Type: BLOOD SPECIMEN Ordering Facility: [facility] Address: [address] [place] [address] Performed By: #### 2 132-9, 58238-3, 3015-3, 21460-5 #### [facility] CLIA [id number] [address] [place] [address] [place] Basophils/100 WBC (Bld) 1.0 % Normal [facility] Comment on above: Order Comment: Speci men Type: BLOOD SPECIMEN Ordering Facility: [facility] Address: [address] [place] [address] Performed By: #### 2 132-9, 57156-5, 6-3, 00591-7 #### [facility] CLIA [id number] [address] [place] [address] [place] Differential cell count method Nom (Bld) Auto Normal [facility] Comment on above: Order Comment: Speci men Type: BLOOD SPECIMEN Ordering Facility: [facility] Address: [address] [place] [address] Performed By: #### 2 132-9, 56065-6, 3015-3, 90889-1 #### [facility] CLIA [id number] [address] [place] [address] [place] Eosinophils (Bld) [#/Vol] 0.04 10*3/uL Normal <0.46 [facility] Comment on above: Order Comment: Speci men Type: BLOOD SPECIMEN Ordering Facility: [facility] Address: [address] [place] [address] Performed By: #### 2 132-9, 39858-5, 3015-3, 85368-7 #### [facility] CLIA [id number] [address] [place] [address] [place] Eosinophils/100 WBC (Bld) 0.6 % Normal [facility] Comment on above: Order Comment: Speci men Type: BLOOD SPECIMEN Ordering Facility: [facility] Address: [address] [place] [address] Performed By: #### 2 132-9, 99751-1, 3015-3, 68628-8 #### [facility] CLIA [id number] [address] [place] [address] [place] Erythrocyte distribution width (RBC) [Ratio] 13.4 % Normal 11.5-15.0 [facility] Comment on above: Order Comment: Speci men Type: BLOOD SPECIMEN Ordering Facility: [facility] Address: [address] [place] [address] Performed By: #### 2 132-9, 87251-9, 3016-3, 66816-1 #### [facility] CLIA [id number] [address] [place] [address] [place] Hematocrit (Bld) [Volume fraction] 42.5 % Normal 39.0-51.0 [facility] Comment on above: Order Comment: Speci men Type: BLOOD SPECIMEN Ordering Facility: [facility] Address: [address] [place] [address] Performed By: #### 2 132-9, 49051-2, 3015-3, 04562-5 #### [facility] CLIA [id number] [address] [place] [address] [place] Hemoglobin (Bld) [Mass/Vol] 14.9 g/dL Normal 13.0-17.0 [facility] Comment on above: Order Comment: Speci men Type: BLOOD SPECIMEN Ordering Facility: [facility] Address: [address] [place] [address] Performed By: #### 2 132-9, 73138-8, 3015-3, 48819-5 #### [facility] CLIA [id number] [address] [place] [address] [place] Immature granulocytes (Bld) [#/Vol] 10*3/uL Normal <0.10 [facility] Comment on above: Order Comment: Speci men Type: BLOOD SPECIMEN Ordering Facility: [facility] Address: [address] [place] [address] Performed By: #### 2 132-9, 17941-4, 3016-3, 84336-7 #### [facility] CLIA [id number] [address] [place] [address] [place] Immature granulocytes/100 WBC (Bld) 0.2 % Normal [facility] Comment on above: Order Comment: Speci men Type: BLOOD SPECIMEN Ordering Facility: [facility] Address: [address] [place] [address] Performed By: #### 2 132-9, 97882-0, 3016-3, 17527-2 #### [facility] CLIA [id number] [address] [place] [address] [place] Lymphocytes (Bld) [#/Vol] 2.00 10*3/uL Normal 1.00-4.00 [facility] Comment on above: Order Comment: Speci men Type: BLOOD SPECIMEN Ordering Facility: [facility] Address: [address] [place] [address] Performed By: #### 2 132-9, 41425-1, 3015-3, 90515-0 #### [facility] CLIA [id number] [address] [place] [address] [place] Lymphocytes/100 WBC (Bld) 32.2 % Normal [facility] Comment on above: Order Comment: Speci men Type: BLOOD SPECIMEN Ordering Facility: [facility] Address: [address] [place] [address] Performed By: #### 2 132-9, 76910-3, 6-3, 13475-6 #### [facility] CLIA [id number] [address] [place] [address] [place] MCH (RBC) [Entitic mass] 30.5 pg Normal 26.0-34.0 [facility] Comment on above: Order Comment: Speci men Type: BLOOD SPECIMEN Ordering Facility: [facility] Address: [address] [place] [address] Performed By: #### 2 132-9, 56855-5, 3016-3, 94281-7 #### [facility] CLIA [id number] [address] [place] [address] [place] MCHC (RBC) [Mass/Vol] 35.1 g/dL Normal 30.5-36.0 [facility] Comment on above: Order Comment: Speci men Type: BLOOD SPECIMEN Ordering Facility: [facility] Address: [address] [place] [address] Performed By: #### 2 132-9, 90289-0, 3016-3, 71205-8 #### [facility] CLIA [id number] [address] [place] [address] [place] MCV (RBC) [Entitic vol] 87.1 fL Normal 80.0-100.[address] [facility] Comment on above: Order Comment: Speci men Type: BLOOD SPECIMEN Ordering Facility: [facility] Address: [address] [place] [address] Performed By: #### 2 132-9, 21390-7, 3016-3, 60795-8 #### [facility] CLIA [id number] [address] [place] [address] [place] Monocytes (Bld) [#/Vol] 0.35 10*3/uL Normal <0.87 [facility] Comment on above: Order Comment: Speci men Type: BLOOD SPECIMEN Ordering Facility: [facility] Address: [address] [place] [address] Performed By: #### 2 132-9, 40509-1, 3015-3, 91012-5 #### [facility] CLIA [id number] [address] [place] [address] [place] Monocytes/100 WBC (Bld) 5.6 % Normal [facility] Comment on above: Order Comment: Speci men Type: BLOOD SPECIMEN Ordering Facility: [facility] Address: [address] [place] [address] Performed By: #### 2 132-9, 91621-5, 3016-3, 96244-9 #### [facility] CLIA [id number] [address] [id number] [address] [place] Neutrophils (Bld) [#/Vol] 3.75 10*3/uL Normal 1.45-7.50 [facility] Comment on above: Order Comment: Speci men Type: BLOOD SPECIMEN Ordering Facility: [facility] Address: [address] [place] [address] Performed By: #### 2 132-9, 74451-5, 3016-3, 85986-7 #### [facility] CLIA [id number] [address] [place] [address] [place] Neutrophils/100 WBC (Bld) 60.4 % Normal [facility] Comment on above: Order Comment: Speci men Type: BLOOD SPECIMEN Ordering Facility: [facility] Address: [address] [place] [address] Performed By: #### 2 132-9, 03912-1, 3016-3, 29205-8 #### [facility] CLIA [id number] [address] [place] [address] [place] Nucleated RBC (Bld) [#/Vol] 10*3/uL Normal <0.01 [facility] Comment on above: Order Comment: Speci men Type: BLOOD SPECIMEN Ordering Facility: [facility] Address: [address] [place] [address] Performed By: #### 2 132-9, 81713-4, 3016-3, 56328-5 #### [facility] CLIA [id number] [address] [place] [address] [place] Nucleated RBC/100 WBC (Bld) [Ratio] 0.0 /100 WBC Normal [facility] Comment on above: Order Comment: Speci men Type: BLOOD SPECIMEN Ordering Facility: [facility] Address: [address] [place] [address] Performed By: #### 2 132-9, 36046-3, 3016-3, 43387-9 #### [facility] CLIA [id number] [address] [place] [address] [place] Platelet mean volume (Bld) [Entitic vol] 10.7 fL Normal 9.0-12.7 [facility] Comment on above: Order Comment: Speci men Type: BLOOD SPECIMEN Ordering Facility: [facility] Address: [address] [place] [address] Performed By: #### 2 132-9, 85935-6, 3016-3, 30897-8 #### [facility] CLIA [id number] [address] [place] [address] [place] Platelets (Bld) [#/Vol] 230 10*3/uL Normal 150-400 [facility] Comment on above: Order Comment: Speci men Type: BLOOD SPECIMEN Ordering Facility: [facility] Address: [address] [place] [address] Performed By: #### 2 132-9, 44541-3, 3016-3, 82104-9 #### [facility] CLIA [id number] [address] [place] [address] [place] RBC (Bld) [#/Vol] 4.88 10*6/uL Normal 4.20-6.00 [facility] Comment on above: Order Comment: Speci men Type: BLOOD SPECIMEN Ordering Facility: [facility] Address: [address] [place] [address] Performed By: #### 2 132-9, 08353-5, 3016-3, 64474-1 #### [facility] CLIA [id number] [address] [place], [place] [id number] [place] WBC (Bld) [#/Vol] 6.21 10*3/uL Normal 3.70-11.00 [facility] Comment on above: Order Comment: Speci men Type: BLOOD SPECIMEN Ordering Facility: [facility] Address: [address] [place] [address] Performed By: #### 2 132-9, 75593-3, 3016-3, 60055-5 #### [facility] CLIA [id number] [address] [facility] [address] STATES OF [facility] CNOVon 11-01-2024 CNOV Office Visit (FMWADS) RADHA JOHNSTON ([id number]) 1990 M Date Time Provider Department 11/01/24 1:00 PM ALVA PARISI MICH During your visit today, we recorded the following information about you: Temperature Pulse Blood pressure Weight 97.6 degrees 64/minute 101/64 73.9 kg Height 1.905 m Alva Parisi APRN.CATALOGUE MAKER 11/01/2024 1:36 PM Addendum Do not take other NSAIDs while taking naproxen Can take tylenol as needed Alva Parisi APRN.CATALOGUE MAKER 11/01/2024 1:55 PM Signed The patient is [...] Not seeking additional pain management; interested in acute care certified nursing assistant. 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 - Drinks 4-5 glasses of water per day. Anxiety, Depression, and Bipolar Disorder: - Diagnosed with anxiety, depression, and bipolar disorder. - Has not sought treatment for these conditions in a long time. - Does not like psychiatric medications. 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 - Practices meditation to manage mental health. [...] sounds: Normal (more content not included)... Normal [facility] Comprehensive metabolic 2000 panelon 11-01-2024 Albumin [Mass/Vol] 4.6 g/dL Normal 3.9-4.9 [facility] Comment on above: Order Comment: Speci men Type: BLOOD SPECIMEN Ordering Facility: [facility] Address: [address] [place] [address] Performed By: #### 2 132-9, 91100-9, 3016-3, 34134-8 #### [facility] CLIA [id number] [address] [place] [address] [place] ALP [Catalytic activity/Vol] 56 U/L Normal 38-113 [facility] Comment on above: Order Comment: Speci men Type: BLOOD SPECIMEN Ordering Facility: [facility] Address: [address] [place] [address] Performed By: #### 2 132-9, 84778-9, 3016-3, 75646-9 #### [facility] CLIA [id number] [address] [place] [address] [place] ALT [Catalytic activity/Vol] 13 U/L Normal 10-54 [facility] Comment on above: Order Comment: Speci men Type: BLOOD SPECIMEN Ordering Facility: [facility] Address: [address] [place] [address] Performed By: #### 2 132-9, 09102-4, 3016-3, 01076-3 #### [facility] CLIA [id number] [address] [place] [address] [place] Anion gap [Moles/Vol] 12 mmol/L Normal 8-15 [facility] Comment on above: Order Comment: Speci men Type: BLOOD SPECIMEN Ordering Facility: [facility] Address: [address] [place] [address] Performed By: #### 2 132-9, 10651-2, 3016-3, 30895-1 #### [facility] CLIA [id number] [address] [place] [address] [place] AST [Catalytic activity/Vol] 13 U/L Low 14-40 [facility] Comment on above: Order Comment: Speci men Type: BLOOD SPECIMEN Ordering Facility: [facility] Address: [address] [place] [address] Performed By: #### 2 132-9, 21588-8, 3016-3, 66100-9 #### [facility] CLIA [id number] [address] [place] [address] [place] Bilirubin [Mass/Vol] 0.4 mg/dL Normal 0.2-1.3 [facility] Comment on above: Order Comment: Speci men Type: BLOOD SPECIMEN Ordering Facility: [facility] Address: [address] [place] [address] Performed By: #### 2 132-9, 79952-6, 3016-3, 80610-7 #### [facility] CLIA [id number] [address] [place] [address] [place] Calcium [Mass/Vol] 9.9 mg/dL Normal 8.5-10.2 [facility] Comment on above: Order Comment: Speci men Type: BLOOD SPECIMEN Ordering Facility: [facility] Address: [address] [place] [address] Performed By: #### 2 132-9, 03138-9, 3016-3, 71155-6 #### [facility] CLIA [id number] [address] [place] [address] [place] Chloride [Moles/Vol] 103 mmol/L Normal 98-107 [facility] Comment on above: Order Comment: Speci men Type: BLOOD SPECIMEN Ordering Facility: [facility] Address: [address] [place] [address] Performed By: #### 2 132-9, 24342-7, 3016-3, 33095-4 #### [facility] CLIA [id number] [address] [place] [address] [place] CO2 [Moles/Vol] 29 mmol/L Normal 22-30 [facility] Comment on above: Order Comment: Speci men Type: BLOOD SPECIMEN Ordering Facility: [facility] Address: [address] [place] [address] Performed By: #### 2 132-9, 80584-9, 3016-3, 23858-4 #### [facility] CLIA [id number] [address] [place] [address] [place] Creatinine [Mass/Vol] 0.98 mg/dL Normal 0.73-1.22 [facility] Comment on above: Order Comment: Speci men Type: BLOOD SPECIMEN Ordering Facility: [facility] Address: [address] [place] [address] Performed By: #### 2 132-9, 51975-6, 3016-3, 83600-2 #### [facility] CLIA [id number] [address] [place] [address] [place] eGFRcr SerPlBld CKD-EPI 2021 103 mL/min/1.73m??? Normal >=60 [facility] Comment on above: Order Comment: Speci men Type: BLOOD SPECIMEN Ordering Facility: [facility] Address: [address] [place] [address] Result Comment: Carolin mated Glomerular Filtration Rate [...] actual GFR. Performed By: #### 2 132-9, 09109-1, 3016-3, 96169-0 #### [facility] CLIA [id number] [address] [place] [address] [place] Glucose [Mass/Vol] 99 mg/dL Normal 74-99 [facility] Comment on above: Order Comment: Farhat gong Type: BLOOD SPECIMEN Ordering Facility: [facility] Address: [address] [place] [address] Result Comment: The [place] [employer] (ADA) provides guidance for cutoff [...] Standards of Medical Care in Diabetes 2016, [place] [employer]. Diabetes Care. 2016.39(Suppl 1). Performed By: #### 2 132-9, 76463-0, 3016-3, 08353-6 #### [facility] CLIA [id number] [address] [place] [address] [place] Potassium [Moles/Vol] 4.7 mmol/L Normal 3.7-5.1 [facility] Comment on above: Order Comment: Farhat men Type: BLOOD SPECIMEN Ordering Facility: [facility] Address: [address] [place] [address] Performed By: #### 2 132-9, 92132-5, 3016-3, 40757-5 #### [facility] CLIA [id number] [address] [place] [address] [place] Protein [Mass/Vol] 7.0 g/dL Normal 6.3-8.0 [facility] Comment on above: Order Comment: Speci men Type: BLOOD SPECIMEN Ordering Facility: [facility] Address: [address] [place] [address] Performed By: #### 2 132-9, 62094-6, 3016-3, 04621-5 #### [facility] CLIA [id number] [address] [place] [address] [place] Sodium [Moles/Vol] 144 mmol/L Normal 136-144 [facility] Comment on above: Order Comment: Speci men Type: BLOOD SPECIMEN Ordering Facility: [facility] Address: [address] [place] [address] Performed By: #### 2 132-9, 65815-3, 3016-3, 77953-0 #### [facility] CLIA [id number] [address] [place] [address] [place] Urea nitrogen [Mass/Vol] 19 mg/dL Normal 9-24 [facility] Comment on above: Order Comment: Speci men Type: BLOOD SPECIMEN Ordering Facility: [facility] Address: [address] [place] [address] Performed By: #### 2 132-9, 45435-2, 3016-3, 69914-2 #### [facility] CLIA [id number] [address] [place] [address] [place] HBV surface Ag Ser Qlon 09- HBV surface Ag Ql (S) Negative Normal Negative [facility] Comment on above: Order Comment: Speci men Type: BLOOD SPECIMEN Ordering Facility: [facility] Address: [address] [place] [address] Performed By: #### 3 1201-7, 44646-0, 5195-3 #### [facility] CLIA [id number] [address] [place] [address] [place] HCV Ab Ser Qlon 11-01-2024 HCV Ab Ql (S) Positive Abnormal Negative [facility] Comment on above: Order Comment: Speci men Type: BLOOD SPECIMEN Ordering Facility: [facility] Address: [address] [place] [address] Performed By: #### 1 1011-4, 24743-8 #### [facility] CLIA [id number] [address] [place] [address] [place] HCV RNA BRADLEY+probe Qnon 11-01 HCV RNA BRADLEY+probe Ql Not detected Normal Not detected [facility] Comment on above: Order Comment: Speci men Type: BLOOD SPECIMEN Ordering Facility: [facility] Address: [address] [place] [address] Performed By: #### 1 1011-4, 10177-1 #### [facility] CLIA [id number] [address] [place] [address] [place] HIV 1+2 Ab IA Qlon HIV 1 and 2 Ab IA.rapid Nom (S/P/Bld) Normal [facility] Comment on above: Order Comment: Speci men Type: BLOOD SPECIMEN Ordering Facility: [facility] Address: [address] [place] [address] Result Comment: Test not indicated. Performed By: #### 3 1201-7, 89375-0, 5195-3 #### [facility] CLIA [id number] [address] [place] [address] [place] HIV 1+2 Ab+HIV1 p24 Ag IA Ql Non-Reactive Normal Nonreactive [facility] Comment on above: Order Comment: Speci men Type: BLOOD SPECIMEN Ordering Facility: [facility] Address: [address] [place], [place] [address] Performed By: #### 3 1201-7, 79199-8, 5195-3 #### [facility] CLIA [id number] [address] [place] [address] [place] HIV immunoassay testing algorithm interpretation (S/P/Bld) [Interp] Normal [facility] Comment on above: Order Comment: Speci men Type: BLOOD SPECIMEN Ordering Facility: [facility] Address: [address] [place] [address] Result Comment: No e vidence of HIV-1 or HIV-2 infection. Should recent infection be suspected, repeat testing may be considered 2-3 weeks after this draw. [place] Rev. Code 3701.243(E): This information has been [...] or diagnoses. Performed By: #### 3 1201-7, 27789-8, 5195-3 #### [facility] CLIA [id number] [address] [place] [address] [place] HbA1c (Bld)on 11-01-2024 Average glucose Estimated from glycated hemoglobin (Bld) [Mass/Vol] 82 mg/dL Normal [facility] Comment on above: Order Comment: Speci men Type: BLOOD SPECIMEN Ordering Facility: [facility] Address: [address] [place] [address] Result Comment: eAG: (Estimated average glucose) is a calculated value from HgbA1c and is exhibit display representative of the average blood glucose level in the last 2-3 month period. Performed By: #### 2 132-9, 46940-1, 3016-3, 24846-9 #### [facility] CLIA [id number] [address] [place] [address] [place] HbA1c (Bld) [Mass fraction] 4.5 % Normal 4.3-5.6 [facility] Comment on above: Order Comment: Speci men Type: BLOOD SPECIMEN Ordering Facility: [facility] Address: [address] [place] [address] Result Comment: [place] Diabetes Association guidelines indicate that patients with HgbA1c in the range 5.7-6.4% are at increased risk for development of diabetes, and intervention by lifestyle modification may be beneficial. HgbA1c greater or equal to 6.5% is considered diagnostic of diabetes. Performed By: #### 2 132-9, 97420-9, 3016-3, 35151-0 #### [facility] CLIA [id number] [address] [place] [address] [place] Iron and Iron binding capaci ty panelon 11-01-2024 Iron [Mass/Vol] 107 ug/dL Normal 41-186 [facility] Comment on above: Order Comment: Juanai men Type: BLOOD SPECIMEN Ordering Facility: [facility] Address: [address] [place] [address] Performed By: #### 2 132-9, 99093-8, 3016-3, 99011-0 #### [facility] CLIA [id number] [address] [place] [address] [place] Iron binding capacity [Mass/Vol] 273 ug/dL Normal 232-386 [facility] Comment on above: Order Comment: Speci men Type: BLOOD SPECIMEN Ordering Facility: [facility] Address: [address] [place] [address] Performed By: #### 2 132-9, 04657-1, 3016-3, 74291-8 #### [facility] CLIA [id number] [address] [place] [address] [place] Iron/TIBC [Molar ratio] 39.2 % Normal 15.0-57.[address] [facility] Comment on above: Order Comment: Speci men Type: BLOOD SPECIMEN Ordering Facility: [facility] Address: [address] [place] [address] Performed By: #### 2 132-9, 63989-5, 3016-3, 15234-4 #### [facility] CLIA [id number] [address] [place] [address] [place] Reagin and Treponema pallidu m IgG and IgM [Interp]on 11-01-2024 T. pallidum IgG+IgM IA Ql (S) Non-Reactive Normal Nonreactive [facility] Comment on above: Order Comment: Speci men Type: BLOOD SPECIMEN Ordering Facility: [facility] Address: [address] [place] [address] Performed By: #### 3 1201-7, 76132-1, 5195-3 #### [facility] CLIA [id number] [address] [place] [address] [place] Reagin+T pallidum IgG+IgM Se rPl-Impon 11-01-2024 Reagin and Treponema pallidum IgG and IgM [Interp] Cannot exclude recent Treponemal infection if specimen collected within 7-10 days after appearance of suspect lesions or 2-3 weeks after an exposure. Clinical correlation is required. Normal [facility] Comment on above: Order Comment: Speci men Type: BLOOD SPECIMEN Ordering Facility: [facility] Address: [address] [place] [address] Performed By: #### 3 1201-7, 95819-5, 5195-3 #### [facility] CLIA [id number] [address] [place] [address] [place] TRICHOMONAS VAGINALIS NAATon 11-01-2024 T. vaginalis DNA BRADLEY+probe Ql (Unsp spec) Not detected Normal Not detected [facility] Comment on above: Order Comment: Speci men Type: BLOOD SPECIMEN Ordering Facility: [facility] Address: [address] [place] [address] Performed By: #### 2 132-9, 00226-6, 6-3, 17947-8 #### [facility] CLIA [id number] [address] [place] [address] [place] TSH SerPl-aCncon 11-01-2024 TSH Qn 1.530 m[IU]/L Normal 0.270-4.200 [facility] Comment on above: Order Comment: Speci men Type: BLOOD SPECIMEN Ordering Facility: [facility] Address: [address] [place] [address] Performed By: #### 2 132-9, 92639-9, 3016-3, 78633-7 #### [facility] CLIA [id number] [address] [place] [address] [place] Vit B12 SerPl-mCncon 025 Cobalamin (Vitamin B12) [Mass/Vol] 619 pg/mL Normal 232-1245 [facility] Comment on above: Order Comment: Speci men Type: BLOOD SPECIMEN Ordering Facility: [facility] Address: [address] [place] [address] Performed By: #### 2 132-9, 66054-8, 3016-3, 16407-3 #### [facility] CLIA [id number] [address] [place] [address] [place] CNOVon 10-31-2024 CNOV Office Visit ([facility]) RADHA JOHNSTON ([id number]) 1990 M Date Time Provider Department 10/31/24 1:15 PM LORENA READ During your visit today, we recorded the following information about you: Temperature Pulse Respiration Blood pressure 97.7 degrees 61/minute 20/minute 104/66 Weight 73 kg 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 #:[id number] Prescriptions as of 10/31/2024 - buprenorphine-naloxo ne [...] ADHD (atten (more content not included)... Normal [facility] XR RIBS 4V DOLORES+UPPER/LOWER C C[place] 10-31-2024 [...] cardiomediastinal silhouette. IMPRESSION: No acute radiographic abnormality. Pay Station Collector: KAREN Transcribe Date/Time: Oct 31 2024 2:04P Dictated by : DARRYL COOK DO This examination was interpreted and the report reviewed and electronically signed by: DARRYL COOK DO on Oct 31 2024 2:07PM EST [id number] Normal [facility] Miscellaneous Lab Procedureo n 12-09-2023 [facility] [place] COMMENT Normal [facility] Comment on above: Order Comment: [id number] [...] considerations. Alpha 2-Macroglobulins, Qn01 173 mg/dL 110-276 Zlkpesnekej07 65 mg/dL 17-317 Apolipoprotein A-101 137 mg/dL [...] developed and its performance characteristics determined by [employer]. It has not been cleared or approved by the Food and Drug Administration. For questions regarding this report please contact customer service at . Performing Labs 01: [facility], [address] [place] [phone] Dir: Addis Osorio MD For inquiries, the physician may contact Lab: [phone] Performed By: #### L 509.8000, L501.4900, L300.3900, L3890.6005, L3100.0200, L7000.7000, L500.4050, L501.5000, L801.1541, L100.0100, L3890.6200 #### [facility] [address] [facility] [place], [place], [id number] Cholesterolon 12-06-2023 Cholesterol [Mass/Vol] 163 mg/dL Normal 200 [facility] Comment on above: Result Comment: <200 mg/dL Desirable 200-240 mg/dL Borderline >240 mg/dL High Risk Performed By: #### L 509.8000, L501.4900, L300.3900, L3890.6005, L3100.0200, L7000.7000, L500.4050, L501.5000, L801.1541, L100.0100, L3890.6200 #### [facility] [address] [facility] [place], [place], [address] Hepatitis A IgM Antibodyon 1 HEPATITIS A-IgM Negative Normal Negative [facility] Comment on above: Result Comment: A ne gative anti-HAV IgM result suggests no recent or current HAV infection. Performed at: [address] [id number] Cpc Coder: Addis Osorio MD, Phone: [phone] Performed at: [address] [id number] Cpc Coder: Bob Matos PhD, Phone: [phone] Performed By: #### L 509.8000, L501.4900, L300.3900, L3890.6005, L3100.0200, L7000.7000, L500.4050, L501.5000, L801.1541, L100.0100, L3890.6200 #### [facility] [address] 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 [facility] Comment on above: Result Comment: Resu lt Units: log10 IU/mL Performed By: #### L 509.8000, L501.4900, L300.3900, L3890.6005, L3100.0200, L7000.7000, L500.4050, L501.5000, L801.1541, L100.0100, L3890.6200 #### [facility] [address] [place], [address] HCV QT RNA PCR [id number] IU/mL Normal . [facility] Comment on above: Performed By: #### L 509.8000, L501.4900, L300.3900, L3890.6005, L3100.0200, L7000.7000, L500.4050, L501.5000, L801.1541, L100.0100, L3890.6200 #### [facility] [address] [place], [address] TEST INFO: Comment Normal . [facility] Comment on above: Result Comment: The quantitative range of this assay is 15 IU/mL to 100 million IU/mL. Performed By: #### L 509.8000, L501.4900, L300.3900, L3890.6005, L3100.0200, L7000.7000, L500.4050, L501.5000, L801.1541, L100.0100, L3890.6200 #### [facility] [address] [place], [address] Triglycerideson 12-06-2023 Triglyceride [Mass/Vol] 58 mg/dL Normal [facility] Comment on above: Result Comment: The drugs N-Acetylcysteine and Metamizole may falsely depress this assay. Serum Triglycerides Reference Interval Normal <150 mg/dL Borderline high 150 - 199 mg/dL High 200 - 499 mg/dL Very High > or = 500 mg/dL Performed By: #### L 509.8000, L501.4900, L300.3900, L3890.6005, L3100.0200, L7000.7000, L500.4050, L501.5000, L801.1541, L100.0100, L3890.6200 #### [facility] [address] [place], [place], [id number] CBC W/Diff, Automatedon 10-2 Absolute Lymph 2.18 X10 3/uL Normal 0.83-4.51 [facility] Comment on above: Performed By: #### L 509.8000, L501.4900, L300.3900, L3890.6005, L3100.0200, L7000.7000, L500.4050, L501.5000, L801.1541, L100.0100, L3890.6200 #### [facility] [address] [place], [place], [id number] Absolute Neut 2.0 X10 3/uL Normal 2.0-7.7 [facility] Comment on above: Performed By: #### L 509.8000, L501.4900, L300.3900, L3890.6005, L3100.0200, L7000.7000, L500.4050, L501.5000, L801.1541, L100.0100, L3890.6200 #### [facility] [address] [place], [place], [id number] Basophils/100 WBC (Bld) 0.8 % Normal 0-[address] [facility] Comment on above: Performed By: #### L 509.8000, L501.4900, L300.3900, L3890.6005, L3100.0200, L7000.7000, L500.4050, L501.5000, L801.1541, L100.0100, L3890.6200 #### [facility] [address] [facility] [place], [address] Eosinophils/100 WBC (Bld) 2.3 % Normal 0-5 [facility] Comment on above: Performed By: #### L 509.8000, L501.4900, L300.3900, L3890.6005, L3100.0200, L7000.7000, L500.4050, L501.5000, L801.1541, L100.0100, L3890.6200 #### [facility] [address] [facility] [place], [address] (534 Erythrocyte distribution width (RBC) [Ratio] 12.8 % Normal 11.6-14.6 [facility] Comment on above: Performed By: #### L 509.8000, L501.4900, L300.3900, L3890.6005, L3100.0200, L7000.7000, L500.4050, L501.5000, L801.1541, L100.0100, L3890.6200 #### [facility] [address] [facility] [place], [address] Hematocrit (Bld) [Volume fraction] 43.5 % Normal 40-54 [facility] Comment on above: Performed By: #### L 509.8000, L501.4900, L300.3900, L3890.6005, L3100.0200, L7000.7000, L500.4050, L501.5000, L801.1541, L100.0100, L3890.6200 #### [facility] [address] [facility] [place], [address] ( Hemoglobin (Bld) [Mass/Vol] 14.8 g/dL Normal 13.0-16.5 [facility] Comment on above: Performed By: #### L 509.8000, L501.4900, L300.3900, L3890.6005, L3100.0200, L7000.7000, L500.4050, L501.5000, L801.1541, L100.0100, L3890.6200 #### [facility] [address] [place], [place], [phone] (666 IG% 0.200 Normal 0.0-0.9 [facility] Comment on above: Result Comment: IG% - Immature Granulocytes (promyelocytes, myelocytes and metamyelocytes) > 1% indicates that a LEFT SHIFT is Present. Performed By: #### L 509.8000, L501.4900, L300.3900, L3890.6005, L3100.0200, L7000.7000, L500.4050, L501.5000, L801.1541, L100.0100, L3890.6200 #### [facility] [address] [place], [address] Lymphocytes/100 WBC (Bld) 46.0 % High 19-41 [facility] Comment on above: Performed By: #### L 509.8000, L501.4900, L300.3900, L3890.6005, L3100.0200, L7000.7000, L500.4050, L501.5000, L801.1541, L100.0100, L3890.6200 #### [facility] [address] [place], [address] MCH (RBC) [Entitic mass] 29.0 pg Normal 27.0-32.0 [facility] Comment on above: Performed By: #### L 509.8000, L501.4900, L300.3900, L3890.6005, L3100.0200, L7000.7000, L500.4050, L501.5000, L801.1541, L100.0100, L3890.6200 #### [facility] [address] [place], [address] MCHC (RBC) [Mass/Vol] 34.0 g/dL Normal 32-36 [facility] Comment on above: Performed By: #### L 509.8000, L501.4900, L300.3900, L3890.6005, L3100.0200, L7000.7000, L500.4050, L501.5000, L801.1541, L100.0100, L3890.6200 #### [facility] [address] [place], [address] MCV (RBC) [Entitic vol] 85.3 fL Normal 80-[address] [facility] Comment on above: Performed By: #### L 509.8000, L501.4900, L300.3900, L3890.6005, L3100.0200, L7000.7000, L500.4050, L501.5000, L801.1541, L100.0100, L3890.6200 #### [facility] [address] [place], [address] Monocytes/100 WBC (Bld) 7.6 % Normal 0-10 [facility] Comment on above: Performed By: #### L 509.8000, L501.4900, L300.3900, L3890.6005, L3100.0200, L7000.7000, L500.4050, L501.5000, L801.1541, L100.0100, L3890.6200 #### [facility] [address] [place], [address] Neutrophils/100 WBC (Bld) 43.1 % Low 47-70 [facility] Comment on above: Performed By: #### L 509.8000, L501.4900, L300.3900, L3890.6005, L3100.0200, L7000.7000, L500.4050, L501.5000, L801.1541, L100.0100, L3890.6200 #### [facility] [address] [place], [address] Nucleated RBC (Bld) [#/Vol] 0 10*3/uL Normal 0-5 [facility] Comment on above: Performed By: #### L 509.8000, L501.4900, L300.3900, L3890.6005, L3100.0200, L7000.7000, L500.4050, L501.5000, L801.1541, L100.0100, L3890.6200 #### [facility] [address] [place], [address] ( Platelet mean volume (Bld) [Entitic vol] 9.5 fL Normal 6.2-12.0 [facility] Comment on above: Performed By: #### L 509.8000, L501.4900, L300.3900, L3890.6005, L3100.0200, L7000.7000, L500.4050, L501.5000, L801.1541, L100.0100, L3890.6200 #### [facility] [address] [place], [address] Platelets (Bld) [#/Vol] 208 10*3/uL Normal 150-450 [facility] Comment on above: Performed By: #### L 509.8000, L501.4900, L300.3900, L3890.6005, L3100.0200, L7000.7000, L500.4050, L501.5000, L801.1541, L100.0100, L3890.6200 #### [facility] [address] [place], [address] RBC (Bld) [#/Vol] 5.10 10*6/uL Normal 4.6-6.2 [facility] Comment on above: Performed By: #### L 509.8000, L501.4900, L300.3900, L3890.6005, L3100.0200, L7000.7000, L500.4050, L501.5000, L801.1541, L100.0100, L3890.6200 #### [facility] [address] [place], [address] RDW SD 40.4 fl Normal 35.1-43.9 [facility] Comment on above: Performed By: #### L 509.8000, L501.4900, L300.3900, L3890.6005, L3100.0200, L7000.7000, L500.4050, L501.5000, L801.1541, L100.0100, L3890.6200 #### [facility] [address] [place], [address] WBC (Bld) [#/Vol] 4.7 10*3/uL Normal 4.4-11.0 [facility] Comment on above: Performed By: #### L 509.8000, L501.4900, L300.3900, L3890.6005, L3100.0200, L7000.7000, L500.4050, L501.5000, L801.1541, L100.0100, L3890.6200 #### [facility] [address] [place], [address] Comprehensive Metabolic Prof [facility] 12-05-2023 Albumin [Mass/Vol] 3.9 g/dL Normal 3.2-5.0 [facility] Comment on above: Performed By: #### L 509.8000, L501.4900, L300.3900, L3890.6005, L3100.0200, L7000.7000, L500.4050, L501.5000, L801.1541, L100.0100, L3890.6200 #### [facility] [address] [place], [address] Albumin/Globulin [Mass ratio] 1.1 {ratio} Normal 0.9-2.4 [facility] Comment on above: Performed By: #### L 509.8000, L501.4900, L300.3900, L3890.6005, L3100.0200, L7000.7000, L500.4050, L501.5000, L801.1541, L100.0100, L3890.6200 #### [facility] [address] [facility] [place], [place], [id number] ALK P 64 U/L Normal 45-117 [facility] Comment on above: Performed By: #### L 509.8000, L501.4900, L300.3900, L3890.6005, L3100.0200, L7000.7000, L500.4050, L501.5000, L801.1541, L100.0100, L3890.6200 #### [facility] [address] [place], [place], [id number] ALT [Catalytic activity/Vol] 42 U/L Normal 16-61 [facility] Comment on above: Performed By: #### L 509.8000, L501.4900, L300.3900, L3890.6005, L3100.0200, L7000.7000, L500.4050, L501.5000, L801.1541, L100.0100, L3890.6200 #### [facility] [address] [place], [place], [id number] AST [Catalytic activity/Vol] 28 U/L Normal 15-37 [facility] Comment on above: Performed By: #### L 509.8000, L501.4900, L300.3900, L3890.6005, L3100.0200, L7000.7000, L500.4050, L501.5000, L801.1541, L100.0100, L3890.6200 #### [facility] [address] [place], [address] Bilirubin [Mass/Vol] 0.80 mg/dL Normal 0.20-1.00 [facility] Comment on above: Result Comment: For patients on eltrombopag therapy, use of Dimension Edison TBIL is not recommended. Performed By: #### L 509.8000, L501.4900, L300.3900, L3890.6005, L3100.0200, L7000.7000, L500.4050, L501.5000, L801.1541, L100.0100, L3890.6200 #### [facility] [address] [place], [place], [id number] BUN/CRE 10.8 RATIO Normal 10-20 [facility] Comment on above: Performed By: #### L 509.8000, L501.4900, L300.3900, L3890.6005, L3100.0200, L7000.7000, L500.4050, L501.5000, L801.1541, L100.0100, L3890.6200 #### [facility] [address] [place], [place], [id number] CA,Total 9.2 mg/dL Normal 8.5-10.1 [facility] Comment on above: Performed By: #### L 509.8000, L501.4900, L300.3900, L3890.6005, L3100.0200, L7000.7000, L500.4050, L501.5000, L801.1541, L100.0100, L3890.6200 #### [facility] [address] [place], [place], [id number] Chloride [Moles/Vol] 105 mmol/L Normal 98-107 [facility] Comment on above: Performed By: #### L 509.8000, L501.4900, L300.3900, L3890.6005, L3100.0200, L7000.7000, L500.4050, L501.5000, L801.1541, L100.0100, L3890.6200 #### [facility] [address] [place], [place], [phone] (235) CO2 [Moles/Vol] 27.0 mmol/L Normal 21.0-32.0 [facility] Comment on above: Performed By: #### L 509.8000, L501.4900, L300.3900, L3890.6005, L3100.0200, L7000.7000, L500.4050, L501.5000, L801.1541, L100.0100, L3890.6200 #### [facility] [address] [place], [place], [id number] (790) Creatinine [Mass/Vol] 1.02 mg/dL Normal 0.70-1.30 [facility] Comment on above: Result Comment: The validity of the calculated GFR GFRAA in patients over 70 years has not been determined. Clinical correlation is essential. Performed By: #### L 509.8000, L501.4900, L300.3900, L3890.6005, L3100.0200, L7000.7000, L500.4050, L501.5000, L801.1541, L100.0100, L3890.6200 #### [facility] [address] [place], [place], [phone] EST GFR - AA 107 mL/min Normal >60 [facility] Comment on above: Result Comment: Afri can [place] GFR Calc Performed By: #### L 509.8000, L501.4900, L300.3900, L3890.6005, L3100.0200, L7000.7000, L500.4050, L501.5000, L801.1541, L100.0100, L3890.6200 #### [facility] [address] [place], [address] GAP 8 Normal 5-15 [facility] Comment on above: Performed By: #### L 509.8000, L501.4900, L300.3900, L3890.6005, L3100.0200, L7000.7000, L500.4050, L501.5000, L801.1541, L100.0100, L3890.6200 #### [facility] [address] [place], [address] GFR/1.73 sq M.predicted among non-blacks MDRD (S/P/Bld) [Vol rate/Area] 89 mL/min/{1.73_m2} Normal >60 [facility] Comment on above: Result Comment: Non- GFR Calc Performed By: #### L 509.8000, L501.4900, L300.3900, L3890.6005, L3100.0200, L7000.7000, L500.4050, L501.5000, L801.1541, L100.0100, L3890.6200 #### [facility] [address] [place], [address] Globulin (S) [Mass/Vol] 3.7 g/dL Normal 2.2-4.2 [facility] Comment on above: Performed By: #### L 509.8000, L501.4900, L300.3900, L3890.6005, L3100.0200, L7000.7000, L500.4050, L501.5000, L801.1541, L100.0100, L3890.6200 #### [facility] [address] [place], [address] Glucose [Mass/Vol] 93 mg/dL Normal 74-106 [facility] Comment on above: Performed By: #### L 509.8000, L501.4900, L300.3900, L3890.6005, L3100.0200, L7000.7000, L500.4050, L501.5000, L801.1541, L100.0100, L3890.6200 #### [facility] [address] [place], [address] Potassium [Moles/Vol] 3.6 mmol/L Normal 3.5-5.1 [facility] Comment on above: Performed By: #### L 509.8000, L501.4900, L300.3900, L3890.6005, L3100.0200, L7000.7000, L500.4050, L501.5000, L801.1541, L100.0100, L3890.6200 #### [facility] [address] [place], [address] Sodium [Moles/Vol] 140 mmol/L Normal 136-145 [facility] Comment on above: Performed By: #### L 509.8000, L501.4900, L300.3900, L3890.6005, L3100.0200, L7000.7000, L500.4050, L501.5000, L801.1541, L100.0100, L3890.6200 #### [facility] [address] [place], [place], [id number] (224) T PROT 7.6 g/dL Normal 6.4-8.2 [facility] Comment on above: Performed By: #### L 509.8000, L501.4900, L300.3900, L3890.6005, L3100.0200, L7000.7000, L500.4050, L501.5000, L801.1541, L100.0100, L3890.6200 #### [facility] [address] [place], [place], [id number] (689) Urea nitrogen [Mass/Vol] 11 mg/dL Normal 7-18 [facility] Comment on above: Performed By: #### L 509.8000, L501.4900, L300.3900, L3890.6005, L3100.0200, L7000.7000, L500.4050, L501.5000, L801.1541, L100.0100, L3890.6200 #### [facility] [address] [place], [address] HIV - WCHon 12-05-2023 HIV Non-Reactive Normal Nonreactive [facility] Comment on above: Performed By: #### L 509.8000, L501.4900, L300.3900, L3890.6005, L3100.0200, L7000.7000, L500.4050, L501.5000, L801.1541, L100.0100, L3890.6200 #### [facility] [address] [place], [address] Hepatitis B Surface Antibody on 12-05-2023 HEP B Surf Ab Reactive Normal [facility] Comment on above: Result Comment: Non Reactive: Inconsistent with immunity less than <10 mIU/mL Reactive: Consistent with immunity greater than or equal to 10 mIU/mL Performed By: #### L 509.8000, L501.4900, L300.3900, L3890.6005, L3100.0200, L7000.7000, L500.4050, L501.5000, L801.1541, L100.0100, L3890.6200 #### [facility] [address] [place], [address] L509.8000on 12-05-2023 Syphilis Abs Non-Reactive Normal [facility] Comment on above: Performed By: #### L 509.8000, L501.4900, L300.3900, L3890.6005, L3100.0200, L7000.7000, L500.4050, L501.5000, L801.1541, L100.0100, L3890.6200 #### [facility] [address] [place], [address] Prothrombin Time w/INRon INR Coag (PPP) [Relative time] 1.0 {INR} Normal [facility] Comment on above: Performed By: #### L 509.8000, L501.4900, L300.3900, L3890.6005, L3100.0200, L7000.7000, L500.4050, L501.5000, L801.1541, L100.0100, L3890.6200 #### [facility] [address] [place], [place], [address] PT Coag (PPP) [Time] 12.9 s Normal 11.7-14.9 [facility] Comment on above: Performed By: #### L 509.8000, L501.4900, L300.3900, L3890.6005, L3100.0200, L7000.7000, L500.4050, L501.5000, L801.1541, L100.0100, L3890.6200 #### [facility] [address] [place], [place], [id number] Nursing Noteon 10-17-2023 Nursing Note Written homegoing instructions reviewed with and given to patient: q/a time offered. This RN walked pt to main waiting room, knows where exit is located, dc'd to home in stable condition [facility] Nursing Note Arrives to PACU from OR: a/o x 4 , denies any c/o, local anesth for procedure: no IV. X3 surg site dressings cdi: r cheek, r neck, r upper ant arm. [facility] Op Noteon 10-17-2023 Op Note Operative Note Patient: Radha Johnston Date of : 1990 [id number] Date of Procedure: 10/17/23 Pre-Op Diagnosis: Symptomatic [...] from PACU to home. Radha Hair MD [facility] Op Note Date: 10/17/2023 Location: [facility] OR Name: Radha Johnston DOB: 1990, Diagnosis Pre-op Diagnosis * Neoplasm of unspecified behavior of bone, soft tissue, and skin [D49.2] Post-op Diagnosis * Neoplasm of unspecified behavior of bone, soft tissue, and skin [D49.2] Procedures EXCISION OF MULTIPLE LESIONS OF RIGHT CHEECK, RIGHT NECK, AND RIGHT UPPER EXTREMITY WITH LAYERED CLOSURE 37833 - CO EXC B9 LESION MRGN XCP SK TG [...] MD 10/17/231515 Description: Right arm lesion Staff: Matcher: Anna Rivera RN Scrub Person: Seferino Brand RN; Gabby Hoyos Findings: None Complications: None; patient tolerated the procedure well. Specimens Collected: Order Name Source Comment Collection Info Order Time TISSUE EXAM Cheek Collected By: Radha Hair MD 10/17/2023 3:17 PM Wound Class: Class I: Clean Blood Products: None Prophylactic Antibiotics: Pre-operative antibiotics were not given because antibiotics are not indicated for this procedure. [facility] Office Visiton 08-14-2023 Follow-up visit [id number] VickieRadha 1990 M Date Provider Department Center 08/14/2023 59-[facility] None No family history on file Level of Service:52078 CO OFFICE/OUTPATIENT NEW LOW MDM 30 MINUTES Reason for Visit and Comments: New Patient [542] - C/o like 4 moles want them looked at [facility] L509.8000on 07-20-2023 Syphilis Abs Non-Reactive [facility] Comment on above: Performed By: #### L 509.8000, L501.4900, L300.3900, L3890.6005, L3100.0200, L7000.7000, L500.4050, L501.5000, L801.1541, L100.0100, L3890.6200 #### [facility] [address] [place], [address] M8200.2100on 07-20-2023 M8200.2100 Negative Normal [facility] Comment on above: Performed By: #### L 509.8000, L501.4900, L300.3900, L3890.6005, L3100.0200, L7000.7000, L500.4050, L501.5000, L801.1541, L100.0100, L3890.6200 #### [facility] [address] [place], [address] M8200.2200on 07-20-2023 M8200.2200 Negative Normal [facility] Comment on above: Performed By: #### L 509.8000, L501.4900, L300.3900, L3890.6005, L3100.0200, L7000.7000, L500.4050, L501.5000, L801.1541, L100.0100, L3890.6200 #### [facility] [address] [place], [address] 36on 05-02-2023 36 Patient called in stated that he doesn't have the transportation to see the DrSurjit In mercer. Stated to patient that we will change his appointment time and location. [facility] Progress Noteon 04-20-2023 Progress Note [facility] Infectious Disease Patient: Vickie Lozano : 1990 [...] procedure well. Results: Median=4.2 kPa IQR/med=17 % ROG=147 dB/m Anna Jarrett LPN, 04/20/2023 2:05 PM Diagnosis/Problems: Diagnosis Plan 1. Chronic hepatitis C without hepatic coma (CMS/HCC) (HCC) Fibroscan Provider Impression: Normal [facility] Office Visiton 04-03-2023 Follow-up visit [id number] Radha Johnston 1990 [facility] Provider Department Center 04/03/2023 [address]7590-OFARFRANCES MATHEWS [facility] Chart Close Cosign Required by: Ck Carney DO[NAEL] No family history on file Level of Service:97905 CO OFFICE/OUTPATIENT ESTABLISHED LOW MDM 20 MIN Reason for Visit and Comments: Follow-up [363723] - Hep C Normal [facility] Progress Noteon 04-03-2023 Progress Note [facility] [address] [address] Dept: [phone] Dept Loc: [phone] 04/03/2023 Visit type: follow up Reason for [...] and genital lesions, retinal detachment while in retirement who presents today from [facility] for follow-up regarding HCV workup for treatment, retinal detachment evaluation, and skin biopsy. HPI Fibroscan: Pt reports inability to schedule Fibroscan due to conflicting schedules between classes at [facility] and availability with ID. Ophthalmology appointment follow-up: Pt reports he was informed no evidence of retinal detachment, just retinal tears. No surgical intervention planned at this time, just monitoring. Likely will just need to live with the spots in his vision. Follow-up scheduled in 1 month. Plastic surgery skin biopsy/removal: Pt missed appointment, reports accidentally not informing [facility] of appointment in time, was unable to [...] startled awake combined with his PTSD and retirement experience, he was disoriented and required sedation. Only medication is suboxone at this time, generally reports feeling well, whereas in the past whenever he would stop drug use he would feel ill. Pt asks about general health measures. Currently doing 200 pushups a day, and 90 total pull-ups 3x a week (does 30 at a time, has been since time in retirement). Questions regarding diet, concerns for his CO2 [...] is soft (more content not included)... Normal [facility] Progress Note Teaching Physician Note Indirect Supervision [...] fallen out of his bed at [facility] and potentially lost consciousness? Unclear [...] with clearer documentation. 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 Cornejo soon Subjective HPI Other Additional comments: Dilated eye exam Comments C/o seeing black spots /holes on va ou constantly x last 2 years with flashes of light sometimes. Pt sts was in retirement 2 years ago andn one doctor said [...] 2:10 PM Refraction Wearing Rx Sphere Cylinder [place] Right -6.00 +4.00 094 Left -6.25 +2.25 080 Data Reviewed and Summarized The patient will need the following test completed on: 03/24/2023 1. [facility] Ophthalmology Clinic Diagnosis: Hx of retinal detachment (Z86.69) Authorizing Provider: DO Keyanna Reyes MD [facility] 03-21-2023 36 1st attempt to schedule FibroScan, spoke with pt who said he will call our office back for scheduling as he is not able to do so at this time. [facility] 03-15-2023 36 RN attempted to contact patient but number is no longer in service. [facility] 03-14-2023 36 Attempted to call patient to give him the following instructions, no answer x2. - Now that all lab testing has been completed, pt needs imaging to evaluate for cirrhosis. - Fibroscan ordered - Please call the Infectious Disease office at [phone] from Mon-Fri 8a-4:30p to schedule your Fibroscan study. Normal [facility] ED Nursing Noteon 03-06-2023 ED Nursing Note Pt at room door requesting to go home. Pt sts that he is feeling fine and wants to leave. Pt advised the provider will be notified of his request. Amor Gallagher, EMT 03/06/23 0259 Normal [facility] CBC W Auto Differential pane l (Bld)Ordered By: Marcelina Marinelli on 03-05-2023 Basophils (Bld) [#/Vol] 0.1 10*3/uL 0.0 - 0.2 10*3/uL [facility] Basophils/100 WBC (Bld) 0.4 % 0.0 - 2.0 % [facility] Eosinophils (Bld) [#/Vol] 0.1 10*3/uL 0.0 - 0.5 10*3/uL [facility] Eosinophils/100 WBC (Bld) 0.4 % Low 1.0 - 6.0 % [facility] Erythrocyte distribution width (RBC) [Ratio] 12.7 % 11.5 - 14.5 % [facility] Hematocrit (Bld) [Volume fraction] 43.3 % 40.0 - 52.0 % [facility] Hemoglobin (Bld) [Mass/Vol] 14.8 g/dL 13.0 - 18.0 g/dL [facility] Interpretation and review of laboratory results Abnormal [facility] Lymphocytes (Bld) [#/Vol] 1.4 10*3/uL 1.0 - 4.3 10*3/uL [facility] Lymphocytes/100 WBC (Bld) 10.3 % Low 20.0 - 40.0 % [facility] MCH (RBC) [Entitic mass] 30.3 pg 26.0 - 34.0 pg [facility] MCHC (RBC) [Mass/Vol] 34.3 % 32.0 - 36.0 % [facility] MCV (RBC) [Entitic vol] 88.4 fL 80.0 - 98.0 fL [facility] Monocytes (Bld) [#/Vol] 0.8 10*3/uL 0.0 - 0.8 10*3/uL [facility] Monocytes/100 WBC (Bld) 5.6 % 2.0 - 10.0 % [facility] Neutrophils (Bld) [#/Vol] 11.2 10*3/uL High 1.8 - 7.0 10*3/uL [facility] Neutrophils/100 WBC (Bld) 83.3 % High 40.0 - 80.0 % [facility] Nucleated RBC/100 WBC (Bld) [Ratio] 0.0 % [facility] Platelet mean volume (Bld) [Entitic vol] 8.0 fL 7.4 - 12.4 fL [facility] Platelets (Bld) [#/Vol] 175 10*3/uL 140 - 440 10*3/uL [facility] RBC (Bld) [#/Vol] 4.89 10*6/uL 4.40 - 5.9 0 10*6/uL [facility] WBC (Bld) [#/Vol] 13.4 10*3/uL High 3.6 - 10.7 10*3/uL [facility] CBC WITH AUTO DIFFERENTIALon 03-05-2023 Basophils (Bld) [#/Vol] 0.1 10*3/uL Normal 0.0-0.2 [facility] Comment on above: Performed By: #### L [id number] ####Furnace Setter: ROSELYN CLEMENS ([phone])[facility] ([facility])[address] [place] [address] Basophils/100 WBC (Bld) 0.4 % Normal 0.0-2.0 S [facility] Comment on above: Performed By: #### L [id number] ####Furnace Setter: ROSELYN CLEMENS ([phone])[facility] ([facility])[address] [place] [address] [place] Eosinophils (Bld) [#/Vol] 0.1 10*3/uL Normal 0.0-0.5 [facility] Comment on above: Performed By: #### L [id number] ####Furnace Setter: ROSELYN CLEMENS ([id number])[facility] ([facility])[address] [place] [address] [place] Eosinophils/100 WBC (Bld) 0.4 % Low 1.0-6.0 [facility] Comment on above: Performed By: #### L [id number] ####Furnace Setter: ROSELYN CLEMENS ([id number])[facility])[address] [place] [address] Erythrocyte distribution width (RBC) [Ratio] 12.7 % Normal 11.5-14.5 [facility] Comment on above: Performed By: #### L [id number] ####Furnace Setter: ROSELYN CLEMENS ([id number])[facility])[address] [place] [address] ERYTHROCYTE MEAN CORPUSCULAR HEMOGLOBIN CONCENTRATION (G/DL) BY AUTOMATED 34.3 % Normal 32.0-36.0 [facility] Comment on above: Performed By: #### L [id number] ####Furnace Setter: ROSELYN CLEMENS ([phone])[address] Hematocrit (Bld) [Volume fraction] 43.3 % Normal 40.0-52.0 [facility] Comment on above: Performed By: #### L [id number] ####Furnace Setter: ROSELYN CLEMENS ([id number])[address] Hemoglobin (Bld) [Mass/Vol] 14.8 g/dL Normal 13.0-18.0 [facility] Comment on above: Performed By: #### L [id number] ####Furnace Setter: ROSELYN CLEMENS ([phone])[facility])[address] [place] [address] Lymphocytes (Bld) [#/Vol] 1.4 10*3/uL Normal 1.0-4.3 [facility] Comment on above: Performed By: #### L [id number] ####Furnace Setter: ROSELYN CLEMENS ([phone])[address] Lymphocytes/100 WBC (Bld) 10.3 % Low 20.0-40.0 [facility] Comment on above: Performed By: #### L [id number] ####Furnace Setter: ROSELYN CLEMENS ([phone])[facility])[address] [place] [address] MCH (RBC) [Entitic mass] 30.3 pg Normal 26.0-34.0 [facility] Comment on above: Performed By: #### L [id number] ####Furnace Setter: ROSELYN CLEMENS ([id number])[facility])[address] [place] [address] MCV (RBC) [Entitic vol] 88.4 fL Normal 80.0-98.0 S [facility] Comment on above: Performed By: #### L [id number] ####Furnace Setter: ROSELYN CLEMENS ([id number])[facility])[address] [place] [address] Monocytes (Bld) [#/Vol] 0.8 10*3/uL Normal 0.0-0.8 [facility] Comment on above: Performed By: #### L [id number] ####Furnace Setter: ROSELYN CLEMENS ([id number])[facility])[address] [place] [address] Monocytes/100 WBC (Bld) 5.6 % Normal 2.0-10.0 S [facility] Comment on above: Performed By: #### L [id number] ####Furnace Setter: ROSELYN CLEMENS ([id number])[facility])[address] [place] [address] Neutrophils (Bld) [#/Vol] 11.2 10*3/uL High 1.8-7.0 [facility] Comment on above: Performed By: #### L [id number] ####Furnace Setter: ROSELYN CLEMENS ([id number])[facility])[address] [place] [address] Neutrophils/100 WBC (Bld) 83.3 % High 40.0-80.0 [facility] Comment on above: Performed By: #### L [id number] ####Furnace Setter: ROSELYN CLEMENS ([id number])[facility] ([facility])[address] [place] [address] NRBC (PER 100 WBCS) BY AUTOMATED COUNT 0.0 /100 WBCs Normal 0.0-2.0 [facility] Comment on above: Performed By: #### L [id number] ####Furnace Setter: ROSELYN CLEMENS ([phone])[facility] ([facility])[address] [place] [address] Platelet mean volume (Bld) [Entitic vol] 8.0 fL Normal 7.4-12.4 [facility] Comment on above: Performed By: #### L [id number] ####Furnace Setter: ROSELYN CLEMENS ([id number])[facility] ([facility])[address] [place] [address] Platelets (Bld) [#/Vol] 175 10*3/uL Normal 140-440 [facility] Comment on above: Performed By: #### L [id number] ####Furnace Setter: ROSELYN CLEMENS ([id number])[facility] ([facility])[address] [place] [address] RBC (Bld) [#/Vol] 4.89 10*6/uL Normal 4.40-5.90 [facility] Comment on above: Performed By: #### L [id number] ####Furnace Setter: ROSELYN CLEMENS ([phone])[facility] ([facility])[address] [place] [address] WBC (Bld) [#/Vol] 13.4 10*3/uL High 3.6-10.7 [facility] Comment on above: Performed By: #### L [id number] ####Furnace Setter: ROSELYN CLEMENS ([id number])[facility])[address] [place] [address] CKon 03-05-2023 CK [Catalytic activity/Vol] 153 U/L Normal 30-170 [facility] Comment on above: Performed By: #### L AB62, LAB17, LAB46 ####Furnace Setter: ROSELYN CLEMENS ([id number])[facility] ([facility])[address] [place] [address] COMPREHENSIVE METABOLIC PANE Fan 03-05-2023 Albumin [Mass/Vol] 4.1 g/dL Normal 3.5-5.0 [facility] Comment on above: Performed By: #### Ellis BUTTERFIELD, LAB17, LAB46 ####Furnace Setter: ROSELYN CLEMENS ([id number])[facility] ([facility])[address] [place] [address] ALP [Catalytic activity/Vol] 51 U/L Normal 38-126 [facility] Comment on above: Performed By: #### Ellis BUTTERFIELD, LAB17, LAB46 ####Furnace Setter: ROSELYN CLEMENS ([phone])[facility] ([facility])[address] [place] [address] ALT [Catalytic activity/Vol] 51 U/L High 0-49 [facility] Comment on above: Performed By: #### Ellis BUTTERFIELD, LAB17, LAB46 ####Furnace Setter: ROSELYN CLEMENS ([phone])[facility] ([facility])[address] [place] [address] Anion gap [Moles/Vol] 3 mmol/L Normal 3-13 [facility] Comment on above: Performed By: #### Ellis BUTTERFIELD, LAB17, LAB46 ####Furnace Setter: ROSELYN CLEMENS ([phone])[facility] ([facility])[address] [place] [address] AST [Catalytic activity/Vol] 49 U/L High 15-46 [facility] Comment on above: Performed By: #### Ellis BUTTERFIELD, LAB17, LAB46 ####Furnace Setter: ROSELYN CLEMENS ([id number])[facility])[address] [place] [address] Bilirubin [Mass/Vol] 1.0 mg/dL Normal 0.2-1.3 [facility] Comment on above: Performed By: #### Ellis BUTTERFIELD, LAB17, LAB46 ####Furnace Setter: ROSELYN CLEMENS ([id number])[facility] ([facility])[address] [place] [address] Calcium [Mass/Vol] 8.7 mg/dL Normal 8.4-10.4 [facility] Comment on above: Performed By: #### Ellis AB62, LAB17, LAB46 ####Furnace Setter: ROSELYN CLEMENS ([phone])[facility])[address] [place] [address] Chloride [Moles/Vol] 106 mmol/L Normal 98-107 [facility] Comment on above: Performed By: #### Ellis BUTTERFIELD, LAB17, LAB46 ####Furnace Setter: ROSELYN CLEMENS ([phone])[facility] [place] [address] CO2 [Moles/Vol] 28 mmol/L Normal 22-30 [facility] Comment on above: Performed By: #### Ellis BUTTERFIELD, LAB17, LAB46 ####Furnace Setter: ROSELYN CLEMENS ([id number])[facility] [place] [address] Creatinine [Mass/Vol] 0.79 mg/dL Normal 0.66-1.25 [facility] Comment on above: Performed By: #### Ellis BUTTERFIELD, LAB17, LAB46 ####Furnace Setter: ROSELYN CLEMENS ([phone])[facility] ([facility])[address] [place] [address] GLOMERULAR FILTRATION RATE ML/MIN/1.73 SQ M.PREDICTED >90.0 Normal >60.0 [facility] Comment on above: Result Comment: Calc ulation based on the Chronic Kidney Disease Epidemiology Collaboration (CKD-EPI) equation refit without adjustment for race ORDER COMMENTS: Slightly Hemolyzed. Interpret with caution for the following analytes: Potassium, Alkaline Phosphatase, Total Protein, Albumin, and AST Performed By: #### L AB62, LAB17, LAB46 ####Furnace Setter: ROSELYN CLEMENS ([id number])[facility] [place] [address] [place] Glucose [Mass/Vol] 127 mg/dL High 70-100 [facility] Comment on above: Performed By: #### Ellis BUTTERFIELD, LAB17, LAB46 ####Furnace Setter: ROSELYN CLEMENS ([phone])[facility])[address] [place] [address] Potassium [Moles/Vol] 4.8 mmol/L Normal 3.5-5.1 [facility] Comment on above: Performed By: #### Ellis BUTTERFIELD, LAB17, LAB46 ####Furnace Setter: ROSELYN CLEMENS ([phone])[facility])[address] [place] [address] Protein [Mass/Vol] 7.3 g/dL Normal 6.3-8.2 [facility] Comment on above: Performed By: #### Ellis BUTTERFIELD, LAB17, LAB46 ####Furnace Setter: ROSELYN CLEMENS ([phone])[facility])[address] [place] [address] Sodium [Moles/Vol] 137 mmol/L Normal 135-145 [facility] Comment on above: Performed By: #### Ellis BUTTERFIELD, LAB17, LAB46 ####Furnace Setter: ROSELYN CLEMENS ([id number])[address] Urea nitrogen [Mass/Vol] 15 mg/dL Normal 9-20 [facility] Comment on above: Performed By: #### Ellis BUTTERFIELD, LAB17, LAB46 ####Furnace Setter: ROSELYN CLEMENS ([id number])[facility])[address] [place] [address] CPKon 03-05-2023 CK [Catalytic activity/Vol] 153 U/L 30 - 170 U/L [facility] CT CERVICAL SPINE WO IV CONT RASTon [...] pt fell out of bed at [facility]. Pt threw up. Staff stated potential seizure like activity. Pt denies any drug or alcohol use. Pt does not remember any of this. ) Normal [facility] CT Cervical spine WO contras ton 03-05-2023 [facility]ST[facility] 1990 [id number] Exam Date/Time: 03/05/2023 22:13 Procedure: CT CERVICAL [...] noncontrast study. Other: Lung apices are unremarkable. [facility] Dominic Rios MD - 03/05/2023 [...] MD Electronically Signed Date/Time: 03/05/2023 10:14 PM [facility] CT HEAD WO IV CONTRASTon CT [...] pt fell out of bed at [facility]. Pt threw up. Staff stated potential seizure like activity. Pt denies any drug or alcohol use. Pt does not remember any of this. ) [facility] CT Head WO contraston 2023 Patient Name: [...] noncontrast study. Other: Lung apices are unremarkable. [facility] Dominic Rios MD - 03/05/2023 [...] Electronically Signed Date/Time: 03/05/2023 10:14 PM EST [facility] Comprehensive metabolic 1998 panelon 03-05-2023 Albumin [Mass/Vol] 4.1 g/dL 3.5 - 5.0 g/dL [facility] ALP [Catalytic activity/Vol] 51 U/L 38 - 126 U/L [facility] ALT [Catalytic activity/Vol] 51 U/L High 0 - 49 U/L [facility] Anion gap [Moles/Vol] 3 mmol/L 3 - 13 mmol/L [facility] AST [Catalytic activity/Vol] 49 U/L High 15 - 46 U/L [facility] Bilirubin [Mass/Vol] 1.0 mg/dL 0.2 - 1 .3 mg/dL [facility] Calcium [Mass/Vol] 8.7 mg/dL 8.4 - 10. 4 mg/dL [facility] Chloride [Moles/Vol] 106 mmol/L 98 - 10 7 mmol/L [facility] CO2 [Moles/Vol] 28 mmol/L 22 - 30 mmol/L [facility] Creatinine [Mass/Vol] 0.79 mg/dL 0.66 - 1.25 mg/dL [facility] GFR/1.73 sq M.predicted MDRD (S/P/Bld) [Vol rate/Area] - PINF [facility] Comment on above: Calculation based on the Chronic Kidney Disease Epidemiology Collaboration (CKD-EPI) equation refit without adjustment for race Glucose [Mass/Vol] 127 mg/dL High 70 - 100 mg/dL [facility] Interpretation and review of laboratory results Abnormal [facility] Potassium [Moles/Vol] 4.8 mmol/L 3.5 - 5.1 mmol/L [facility] Protein [Mass/Vol] 7.3 g/dL 6.3 - 8.2 g/dL [facility] Sodium [Moles/Vol] 137 mmol/L 135 - 145 mmol/L [facility] Urea nitrogen [Mass/Vol] 15 mg/dL 9 - 20 mg/d L [facility] Slightly Hemolyzed. Interpret with caution for the following analytes: Potassium, Alkaline Phosphatase, Total Protein, Albumin, and AST [facility] DRUGS OF ABUSEon 03-05-2023 AMPHETAMINE SCREEN Negative Normal [facility] Comment on above: Performed By: #### L [id number] ####Furnace Setter: ROSELYN CLEMENS ([id number])[address] BARBITURATES SCREEN Negative Normal [facility] Comment on above: Performed By: #### L [id number] ####Furnace Setter: ROSELYN CLEMENS ([phone])[facility])[address] [place] [address] BENZODIAZEPINE SCREEN Negative Normal [facility] Comment on above: Performed By: #### L [id number] ####Furnace Setter: ROSELYN CLEMENS ([id number])[facility])[address] [place] [address] COCAINE METAB. SCREEN Negative Normal [facility] Comment on above: Performed By: #### L [id number] ####Furnace Setter: ROSELYN [id number])[facility] ([facility])[address] METHADONE SCREEN Negative Normal [facility] Comment on above: Performed By: #### L [id number] ####Furnace Setter: ROSELYN CLMEENS ([id number])[facility] ([facility])[address] [place] [address] OPIATES SCREEN Negative Normal [facility] Comment on above: Performed By: #### L [id number] ####Furnace Setter: ROSELYN CLEMENS ([id number])[facility] ([facility])[address] [place] [address] OXYCODONE SCREEN Negative Normal [facility] Comment on above: Performed By: #### L [id number] ####Furnace Setter: ROSELYN CLEMENS ([phone])[facility] ([facility])[address] [place] [address] PHENCYCLIDINE SCREEN Negative Normal [facility] Comment on above: Result Comment: ERWIN Crespo [...] under separate order. Performed By: #### L [id number] ####Furnace Setter: ROSELYN CLEMENS ([phone])[facility] [place] [address] Drug screen panel, emergency Ordered By: Hilda Omer on 03-05-2023 Amphetamines Screen method >1000 ng/mL Ql (U) Negative [facility] Barbiturates Screen method >200 ng/mL Ql (U) Negative [facility] Benzodiazepines Ql (U) Negative [facility] COCAINE METAB. SCREEN Negative [facility] Methadone Screen Ql (U) Negative [facility] Opiates Screen Ql (U) Negative [facility] oxyCODONE Ql (U) Negative [facility] Phencyclidine Ql (U) Negative [facility] The expected value for all of the [...] is needed, request confirmation under separate order. [facility] ECG 12 leadon 03-05-2023 Heart rate 65 /min bpm [facility] P [place] 43 degrees [facility] CO Interval 155 ms [facility] QRS [place] 59 degrees [facility] QRSD Interval 126 ms [facility] QT Interval 381 ms [facility] QTC Interval 397 ms [facility] T Wave [place] 47 degrees [facility] Sinus rhythm Nonspecific intraventricular conduction delay No prior EKG for comparison Electronically Signed On 03-05-2023 22:32:00 EST by Wesley Shook Wesley Greene MD - 03/05/2023 IMPRESSION: Sinus rhythm Nonspecific intraventricular conduction delay No prior EKG for comparison Electronically Signed On 03-05-2023 22:32:00 EST by Wesley Shook [facility] ECG 12-LEADon 03-05-2023 ECG 12-LEAD IMPRESSION: Sinus rhythm Nonspecific intraventricular conduction delay No prior EKG for comparison Electronically Signed On 03-05-2023 22:32:00 EST by Wesley Shook [facility] ED Nursing Noteon 03-05-2023 ED Nursing Note Pt able to stand with x1 assistance and use urinal. Janis Hammonds RN 03/05/[address] [facility] ED Nursing Note Pt to CT. Janis Hammonds RN [id number] [facility] ED Nursing Note EKG attempted again; pt still refusing. Janis Hammonds RN 03/05/232117 [facility] ED Nursing Note Pt refusing medication. Educated pt that he is yellow slipped. Protective services called to bedside to help with medication administration. Janis Hammonds RN 03/05/232107 [facility] ED Nursing Note Refusing care at this time. Janis Hammonds RN 03/05/232032 [facility] ED Nursing Note Pt yellow slipped by Dr. Erickson. Janis Hammonds RN 03/05/232106 [facility] ED Nursing Note Refused EKG. Janis Hammonds RN 03/05/232026 [facility] ED Nursing Note Bed: 35 Expected date: Expected time: Means of arrival: Comments: 32 M Fall Elizabeth Avalos RN 03/05/232013 [facility] ED Provider Noteon ED Provider Note EMERGENCY DEPARTMENT ENCOUNTER Pt Name: Radha Johnston Birthdate 1990 Date of evaluation: 03/05/2023 ED Provider: EUGENIO ERICKSON MD CHIEF COMPLAINT Chief Complaint Patient presents with Fall Per EMS, pt fell out [facility] bed at [facility]. Pt threw up. Staff stated [...] emergency department for fall. Patient coming from [facility]. Per EMS report, he fell out out [...] Medical History: Diagnosis Date Drug abuse (CMS/HCC) ([facility]) SURGICAL HISTORY No past surgical history on [...] non-forensic p (more content not included)... Normal [facility] ED Provider Note Emergency Department Encounter Location: [facility] EMERGENCY [facility]PT Patient: Radha Johnston : 1990 [...] 381 ms QTC Interval 397 ms P [place] 43 degrees QRS [place] 59 degrees T Wave [place] 47 degrees [place] Interval 155 ms @EDRISRSLT@ @EDMEDSORDERED@ Final ED [...] Mathews, DO [address] [facility] [address] Schedule an appointment as soon as possible for a visit in 2 days DISCHARGE MEDICATIONS: New Prescriptions No medications on file @[facility]([id number]:LAST:1)@ (Please note: Portions of this note were completed with a voice recognition program. Efforts were made to edit the dictations but occasionally words and phrases are mis-transcribed.) Form [id number] Watson Mcnamara MD Emergency Resident Physician Watson Mcnamara MD Reside (more content not included)... Normal [facility] ETHANOLon 03-05-2023 ETHANOL IN SER/PLAS <0.010 Normal 0.000-0.010 [facility] Comment on above: Result Comment: ERWIN Crespo COMMENTS: NOTE: This result is for medical treatment only. Analysis performed using non-forensic procedures. Performed By: #### L AB62, LAB17, LAB46 ####Furnace Setter: ROSELYN CLEMENS ([phone])[address] Ethanol (Bld) [Mass/Vol]on 0 03-05-2023 Ethanol [Mass/Vol] g/dL 0.000 - 0 .010 g/dL [facility] No Panel Informationon 03-05 Interpretation and review of laboratory results Normal [facility] Normal CT head. No acute abnormality identified throughout the cervical spine. Report Dictated on Electronically Signed By: Dominic Rios MD Electronically Signed Date/Time: 03/05/2023 10:14 PM [facility] RADI[facility] Radiology Study observation (narrative) [facility] No Panel InformationOrdered By: Dominic Rios on 03-05-2023 [facility] Work Phone: [phone] 03-03-2023 [phone] Called patient at provided number (phone number ending in [phone] is disconnected) and discussed his results and answered his questions. Will put recap in result management/comment section as well. Normal [facility] HIV 1+2 Ab+HIV1 p24 Ag IA Ql Ordered By: Vasile Gardner on 02-28-2023 Interpretation and review of laboratory results Normal [facility] Laboratory - Microbiology an d Antimicrobial susceptibilityOrdered By: Vasile Gardner on 02-28-2023 HIV 1+2 Ab+HIV1 p24 Ag IA Ql Non-Reactive Nonreactive [facility] Comment on above: The specimen was non -reactive for HIV-1 and HIV-2 antibodies and p24 antigen using an FDA-cleared 4th generation HIV test. Based on this non-reactive screen result, further reflexive testing was not indicated and was, therefore, not performed. CBC W Auto Differential pane l (Bld)on 02-27-2023 Basophils (Bld) [#/Vol] 0.0 10*3/uL 0.0 - 0.2 10*3/uL [facility] Basophils/100 WBC (Bld) 0.5 % 0.0 - 2.0 % [facility] Eosinophils (Bld) [#/Vol] 0.1 10*3/uL 0.0 - 0.5 10*3/uL [facility] Eosinophils/100 WBC (Bld) 1.7 % 1.0 - 6.0 % [facility] Erythrocyte distribution width (RBC) [Ratio] 13.0 % 11.5 - 14.5 % [facility] Hematocrit (Bld) [Volume fraction] 47.8 % 40.0 - 52.0 % [facility] Hemoglobin (Bld) [Mass/Vol] 16.2 g/dL 13.0 - 18.0 g/dL [facility] Interpretation and review of laboratory results Normal [facility] Lymphocytes (Bld) [#/Vol] 2.4 10*3/uL 1.0 - 4.3 10*3/uL [facility] Lymphocytes/100 WBC (Bld) 37.5 % 20.0 - 40.0 % [facility] MCH (RBC) [Entitic mass] 30.5 pg 26.0 - 34.0 pg [facility] MCHC (RBC) [Mass/Vol] 33.9 % 32.0 - 36.0 % [facility] MCV (RBC) [Entitic vol] 90.0 fL 80.0 - 98.0 fL [facility] Monocytes (Bld) [#/Vol] 0.4 10*3/uL 0.0 - 0.8 10*3/uL [facility] Monocytes/100 WBC (Bld) 6.0 % 2.0 - 10.0 % [facility] Neutrophils (Bld) [#/Vol] 3.5 10*3/uL 1.8 - 7.0 10*3/uL [facility] Neutrophils/100 WBC (Bld) 54.3 % 40.0 - 80.0 % [facility] Nucleated RBC/100 WBC (Bld) [Ratio] 0.2 % [facility] Platelet mean volume (Bld) [Entitic vol] 8.0 fL 7.4 - 12.4 fL [facility] Platelets (Bld) [#/Vol] 202 10*3/uL 140 - 440 10*3/uL [facility] RBC (Bld) [#/Vol] 5.31 10*6/uL 4.40 - 5.9 0 10*6/uL [facility] WBC (Bld) [#/Vol] 6.4 10*3/uL 3.6 - 10.7 10*3/uL [facility] CBC WITH AUTO DIFFERENTIALon 02-27-2023 Basophils (Bld) [#/Vol] 0.0 10*3/uL Normal 0.0-0.2 [facility] Comment on above: Performed By: #### L [id number] ####Furnace Setter: ROSELYN CLEMENS ([phone])[address] Basophils/100 WBC (Bld) 0.5 % Normal 0.0-2.0 S [facility] Comment on above: Performed By: #### L [id number] ####Furnace Setter: ROSELYN CLEMENS ([id number])[facility] ([facility])[address] [place] [address] Eosinophils (Bld) [#/Vol] 0.1 10*3/uL Normal 0.0-0.5 [facility] Comment on above: Performed By: #### L [id number] ####Furnace Setter: ROSELYN CLEMENS ([id number])[facility])[address] [place] [address] Eosinophils/100 WBC (Bld) 1.7 % Normal 1.0-6.0 [facility] Comment on above: Performed By: #### L [id number] ####Furnace Setter: ROSELYN CLEMENS ([id number])[facility])[address] [place] [address] Erythrocyte distribution width (RBC) [Ratio] 13.0 % Normal 11.5-14.5 [facility] Comment on above: Performed By: #### L [id number] ####Furnace Setter: ROSELYN CLEMENS ([id number])[facility])[address] [place] [address] ERYTHROCYTE MEAN CORPUSCULAR HEMOGLOBIN CONCENTRATION (G/DL) BY AUTOMATED 33.9 % Normal 32.0-36.0 [facility] Comment on above: Performed By: #### L [id number] ####Furnace Setter: ROSELYN CLEMENS ([id number])[facility])[address] [place] [address] Hematocrit (Bld) [Volume fraction] 47.8 % Normal 40.0-52.0 [facility] Comment on above: Performed By: #### L [id number] ####Furnace Setter: ROSELYN CLEMENS ([id number])[facility])[address] [place] [address] Hemoglobin (Bld) [Mass/Vol] 16.2 g/dL Normal 13.0-18.0 [facility] Comment on above: Performed By: #### L [id number] ####Furnace Setter: ROSELYN CLEMENS ([id number])[facility])[address] [place] [address] Lymphocytes (Bld) [#/Vol] 2.4 10*3/uL Normal 1.0-4.3 [facility] Comment on above: Performed By: #### L [id number] ####Furnace Setter: ROSELYN CLEMENS ([id number])[facility])[address] [place] [address] Lymphocytes/100 WBC (Bld) 37.5 % Normal 20.0-40.0 [facility] Comment on above: Performed By: #### L [id number] ####Furnace Setter: ROSELYN CLEMENS ([id number])[facility] ([facility])[address] [place] [address] MCH (RBC) [Entitic mass] 30.5 pg Normal 26.0-34.0 [facility] Comment on above: Performed By: #### L [id number] ####Furnace Setter: ROSELYN CLEMENS ([phone])[facility] ([facility])[address] [place] [address] MCV (RBC) [Entitic vol] 90.0 fL Normal 80.0-98.0 S [facility] Comment on above: Performed By: #### L [id number] ####Furnace Setter: ROSELYN CLEMESN ([phone])[facility] ([facility])[address] [place] [address] Monocytes (Bld) [#/Vol] 0.4 10*3/uL Normal 0.0-0.8 [facility] Comment on above: Performed By: #### L [id number] ####Furnace Setter: ROSELYN CLEMENS ([id number])[facility] ([facility])[address] [place] [address] Monocytes/100 WBC (Bld) 6.0 % Normal 2.0-10.0 S [facility] Comment on above: Performed By: #### L [id number] ####Furnace Setter: ROSELYN CLEMENS ([phone])[facility])[address] [place] [address] Neutrophils (Bld) [#/Vol] 3.5 10*3/uL Normal 1.8-7.0 [facility] Comment on above: Performed By: #### L [id number] ####Furnace Setter: ROSELYN CLEMENS ([phone])[facility])[address] [place] [address] Neutrophils/100 WBC (Bld) 54.3 % Normal 40.0-80.0 [facility] Comment on above: Performed By: #### L [id number] ####Furnace Setter: ROSELYN CLEMENS ([id number])[facility])[address] [place] [address] NRBC (PER 100 WBCS) BY AUTOMATED COUNT 0.2 /100 WBCs Normal 0.0-2.0 [facility] Comment on above: Performed By: #### L [id number] ####Furnace Setter: ROSELYN CLEMENS ([id number])[facility])[address] [place] [address] Platelet mean volume (Bld) [Entitic vol] 8.0 fL Normal 7.4-12.4 [facility] Comment on above: Performed By: #### L [id number] ####Furnace Setter: ROSELYN CLEMENS ([id number])[facility])[address] [place] [address] Platelets (Bld) [#/Vol] 202 10*3/uL Normal 140-440 [facility] Comment on above: Performed By: #### L [id number] ####Furnace Setter: ROSELYN CLEMENS ([id number])[facility] ([facility])[address] [place] [address] RBC (Bld) [#/Vol] 5.31 10*6/uL Normal 4.40-5.90 [facility] Comment on above: Performed By: #### L [id number] ####Furnace Setter: ROSELYN CLEMENS ([id number])[facility])[address] [place] [address] WBC (Bld) [#/Vol] 6.4 10*3/uL Normal 3.6-10.7 [facility] Comment on above: Performed By: #### L [id number] ####Furnace Setter: ROSELYN CLEMENS ([id number])[facility])[address] [place] [address] COMPLETE URINALYSISon 2023 BILIRUBIN, TOTAL PRESENCE IN URINE Negative Normal Negative [facility] Comment on above: Performed By: #### L [id number] ####Furnace Setter: ROSELYN CLEMENS ([id number])[facility])[address] Clarity (U) Clear Normal Clear [facility] Comment on above: Performed By: #### L [id number] ####Furnace Setter: ROSELYN CLEMENS ([id number])[facility])[address] [place] [address] Color (U) Light Yellow Normal Lt. Yellow [facility] Comment on above: Performed By: #### L [id number] ####Furnace Setter: ROSELYN CLEMENS ([id number])[facility] ([facility])[address] [place] [address] GLUCOSE (MG/DL) IN URINE Normal Normal Normal (<70 ) [facility] Comment on above: Performed By: #### L [id number] ####Furnace Setter: ROSELYN CLEMENS ([id number])[facility] ([facility])[address] [place] [address] HEMOGLOBIN PRESENCE IN URINE Negative Normal Negative [facility] Comment on above: Performed By: #### L [id number] ####Furnace Setter: ROSELYN CLEMENS ([phone])[facility] ([facility])[address] [place] [address] Ketones Ql (U) Negative Normal [facility] Comment on above: Performed By: #### L [id number] ####Furnace Setter: ROSELYN CLEMENS ([id number])[facility] ([facility])[address] [place] [address] LEUKOCYTE ESTERASE PRESENCE IN URINE BY TEST STRIP Negative Normal Negative [facility] Comment on above: Performed By: #### L [id number] ####Furnace Setter: ROSELYN CLEMENS ([phone])[facility] ([facility])[address] [place] [address] [place] NITRITE PRESENCE IN URINE Negative Normal Negative [facility] Comment on above: Performed By: #### L [id number] ####Furnace Setter: ROSELYN CLEMENS ([id number])[facility] ([facility])[address] [place] [address] [place] pH (U) 7.0 [pH] Normal 5.0-8.0 [facility] Comment on above: Performed By: #### L [id number] ####Furnace Setter: ROSELYN CLEMENS ([id number])[facility])[address] [place] [address] Protein (U) [Mass/Vol] Negative Normal Negative [facility] Comment on above: Performed By: #### L [id number] ####Furnace Setter: ROSELYN CLEMENS ([id number])[facility])[address] [place] [address] Specific gravity (U) [Rel density] 1.016 Normal 1.005-1.030 [facility] Comment on above: Performed By: #### L [id number] ####Furnace Setter: ROSELYN CLEMENS ([id number])[facility])[address] [place] [address] UROBILINOGEN (MG/DL) IN URINE Normal Normal Normal (0-1) [facility] Comment on above: Performed By: #### L [id number] ####Furnace Setter: ROSELYN CLEMENS ([id number])[facility])[address] [place] [address] COMPREHENSIVE METABOLIC PANE Fan 02-27-2023 Albumin [Mass/Vol] 4.4 g/dL Normal 3.5-5.0 [facility] Comment on above: Performed By: #### L [id number], LAB17 ####Furnace Setter: ROSELYN CLEMENS ([id number])[facility])[address] [place] [address] ALP [Catalytic activity/Vol] 68 U/L Normal 38-126 [facility] Comment on above: Performed By: #### L AB129, LAB17 ####Furnace Setter: ROSELYN CLEMENS ([id number])[facility])[address] [place] [address] ALT [Catalytic activity/Vol] 57 U/L High 0-49 [facility] Comment on above: Performed By: #### L AB129, LAB17 ####Furnace Setter: ROSELYN [id number])[facility] ([facility])[address] Anion gap [Moles/Vol] 7 mmol/L Normal 3-13 [facility] Comment on above: Performed By: #### L AB129, LAB17 ####Furnace Setter: ROSELYN CLEMENS ([id number])[facility])[address] [place] [address] AST [Catalytic activity/Vol] 36 U/L Normal 15-46 [facility] Comment on above: Performed By: #### L AB129, LAB17 ####Furnace Setter: ROSELYN CLEMENS ([phone])[facility])[address] [place] [address] Bilirubin [Mass/Vol] 0.5 mg/dL Normal 0.2-1.3 [facility] Comment on above: Performed By: #### L AB129, LAB17 ####Furnace Setter: ROSELYN CLEMENS ([phone])[facility])[address] [place] [address] Calcium [Mass/Vol] 9.4 mg/dL Normal 8.4-10.4 [facility] Comment on above: Performed By: #### L AB129, LAB17 ####Furnace Setter: ROSELYN CLEMENS ([id number])[facility])[address] [place] [address] [place] Chloride [Moles/Vol] 97 mmol/L Low 98-107 [facility] Comment on above: Performed By: #### L AB129, LAB17 ####Furnace Setter: ROSELYN CLEMENS ([phone])[facility])[address] [place] [address] [place] CO2 [Moles/Vol] 33 mmol/L High 22-30 [facility] Comment on above: Performed By: #### L AB129, LAB17 ####Furnace Setter: ROSELYN CLEMENS ([id number])[facility])[address] [place] [address] [place] Creatinine [Mass/Vol] 0.89 mg/dL Normal 0.66-1.25 [facility] Comment on above: Performed By: #### L AB129, LAB17 ####Furnace Setter: ROSELYN CLEMENS ([id number])[facility])[address] [place] [address] GLOMERULAR FILTRATION RATE ML/MIN/1.73 SQ M.PREDICTED >90.0 Normal >60.0 [facility] Comment on above: Result Comment: Calc ulation based on the Chronic Kidney Disease Epidemiology Collaboration (CKD-EPI) equation refit without adjustment for race Performed By: #### L AB129, LAB17 ####Furnace Setter: ROSELYN CLEMENS ([id number])[facility] ([facility])[address] [place] [address] Glucose [Mass/Vol] 92 mg/dL Normal 70-100 [facility] Comment on above: Performed By: #### L AB129, LAB17 ####Furnace Setter: ROSELYN CLEMENS ([phone])[facility] ([facility])[address] [place] [address] [place] Potassium [Moles/Vol] 4.5 mmol/L Normal 3.5-5.1 [facility] Comment on above: Performed By: #### L AB129, LAB17 ####Furnace Setter: ROSELYN CLEMENS ([phone])[facility])[address] [place] [address] [place] Protein [Mass/Vol] 7.8 g/dL Normal 6.3-8.2 [facility] Comment on above: Performed By: #### L AB129, LAB17 ####Furnace Setter: ROSELYN CLEMENS ([phone])[facility] ([facility])[address] [place] [address] [place] Sodium [Moles/Vol] 137 mmol/L Normal 135-145 [facility] Comment on above: Performed By: #### L AB129, LAB17 ####Furnace Setter: ROSELYN CLEMENS ([phone])[facility])[address] [place] [address] [place] Urea nitrogen [Mass/Vol] 13 mg/dL Normal 9-20 [facility] Comment on above: Performed By: #### L [id number], [id number] ####Furnace Setter: ROSELYN CLEMENS ([phone])[facility] ([address] Comprehensive metabolic 1998 panelon 02-27-2023 Albumin [Mass/Vol] 4.4 g/dL 3.5 - 5.0 g/dL [facility] ALP [Catalytic activity/Vol] 68 U/L 38 - 126 U/L [facility] ALT [Catalytic activity/Vol] 57 U/L High 0 - 49 U/L [facility] Anion gap [Moles/Vol] 7 mmol/L 3 - 13 mmol/L [facility] AST [Catalytic activity/Vol] 36 U/L 15 - 46 U/L [facility] Bilirubin [Mass/Vol] 0.5 mg/dL 0.2 - 1 .3 mg/dL [facility] Calcium [Mass/Vol] 9.4 mg/dL 8.4 - 10. 4 mg/dL [facility] Chloride [Moles/Vol] 97 mmol/L Low 98 - 10 7 mmol/L [facility] CO2 [Moles/Vol] 33 mmol/L High 22 - 30 mmol/L [facility] Creatinine [Mass/Vol] 0.89 mg/dL 0.66 - 1.25 mg/dL [facility] GFR/1.73 sq M.predicted MDRD (S/P/Bld) [Vol rate/Area] - PINF [facility] Comment on above: Calculation based on the Chronic Kidney Disease Epidemiology Collaboration (CKD-EPI) equation refit without adjustment for race Glucose [Mass/Vol] 92 mg/dL 70 - 100 mg/dL [facility] Interpretation and review of laboratory results Abnormal [facility] Potassium [Moles/Vol] 4.5 mmol/L 3.5 - 5.1 mmol/L [facility] Protein [Mass/Vol] 7.8 g/dL 6.3 - 8.2 g/dL [facility] Sodium [Moles/Vol] 137 mmol/L 135 - 145 mmol/L [facility] Urea nitrogen [Mass/Vol] 13 mg/dL 9 - 20 mg/d L [facility] HBV surface Ab IA Qnon 02-27 Interpretation: <8.0 Non-Reactive 8.0-11.9 Equivocal >= 12.0 Ab Detected Note: If an equivocal result is interpreted, an antibody status is unable to be determined. Collect new specimen if clinically indicated. [facility] HBV surface Ag IA Qlon 02-27 Interpretation and review of laboratory results Normal [facility] HEMOGLOBIN A1Con 02-27-2023 Glucose [Mass/Vol] 85 mg/dL Normal [facility] Comment on above: Performed By: #### L AB90 ####Furnace Setter: ROSELYN CLEMENS ([phone])[facility] ([facility] [place] [address] HbA1c (Bld) [Mass fraction] 4.6 % Normal <5.7 [facility] Comment on above: Result Comment: Norm al less than 5.7% Prediabetes 5.7% to 6.4% Diabetes 6.5% or higher --HgbA1C levels may not be accurate in patients who have renal disease, received recent blood transfusions, are anemic, or who have dyshemoglobinemia. Performed By: #### L [id number] ####Furnace Setter: ROSELYN CLEMENS ([phone])[facility] ([address] HEPATITIS A ANTIBODY, TOTALo n 02-27-2023 HEP A ANTIBODY, TOTAL Positive Abnormal Negative [facility] Comment on above: Result Comment: The positive anti-HAV is consistent with recent or remote Hepatitis A infection or antibody response to HAV vaccination. False positive anti-HAV can occur. Performed By: [facility] [address] [place] [id number] Subcontract Administrator: Lorena Stevenson MD, PhD CLIA Number: [id number] Performed By: #### L [id number], [id number], [id number] ####[facility] ([facility])[address] [place] [id number] [place] HEPATITIS B CORE ANTIBODY, T OTALon 02-27-2023 HEP B CORE AB,TOTAL Negative Normal Negative [facility] Comment on above: Result Comment: INTE RPRETIVE INFORMATION: Hepatitis B Core Ab (Total) This assay should not be used for blood donor screening, associated re-entry protocols, or for screening Human Cells, Tissues and Cellular and Tissue-Based Products (HCT/P). Performed By: [facility] [address] [place] [address] Subcontract Administrator: Lorena Stevenson MD, PhD CLIA Number: [id number] Performed By: #### L [id number], [id number], [id number] ####[facility] ([facility])[address] [place] [address] [facility] HEPATITIS B SURFACE ANTIBODY on 02-27-2023 HEPATITIS B VIRUS SURFACE AB >1000.0 Normal [facility] Comment on above: Result Comment: ERWIN Crespo COMMENTS: Interpretation: <8.0 Non-Reactive 8.0-11.9 Equivocal >= 12.0 Ab Detected Note: If an equivocal result is interpreted, an antibody status is unable to be determined. Collect new specimen if clinically indicated. Performed By: #### L [id number], [id number] ####Furnace Setter: ROSELYN CLEMENS ([phone])[facility])[address] [place] [address] HEPATITIS B SURFACE ANTIGENo n 02-27-2023 HEPATITIS B VIRUS SURFACE AG Not detected Normal Not Detected [facility] Comment on above: Performed By: #### L [id number], [id number] ####Furnace Setter: ROSELYN CLEMENS ([phone])[facility])[address] [place] [address] HEPATITIS C GENOTYPEon 02-27 HEPATITIS C GENOTYPE 2b Normal [facility] Comment on above: Result Comment: INTE RPRETIVE INFORMATION: Hepatitis C Genotyping Hepatitis C Viral RNA is tested using reverse operational review sergeant polymerase chain reaction (RT-PCR) to amplify a specific portion of the 5' untranslated region (5' UTR) of the viral genome. The amplified nucleic acid is sequenced bi-directionally using dye-terminator chemistry ([employer]). Sequencing data is compared to a database [...] developed and its performance characteristics determined by [email or web address]. It has not been cleared or approved by the US Food and Drug Administration. This test was performed in a CLIA certified laboratory and is intended for clinical purposes. Performed By: [facility] [address] [place] [address] Subcontract Administrator: Lorena Stevenson MD, PhD CLIA Number: [id number] Performed By: #### L [id number], [id number], [id number] ####[facility] ([facility])[address] [place] [id number] [facility] HEPATITIS C VIRAL LOADon HCV RNA QUANT [id number] IU/ml High <15 [facility] Comment on above: Performed By: #### L [id number] ####Furnace Setter: ROSELYN CLEMENS ([id number])[address] HCV RNA QUANT (LOG) 6.49 Log_IU High <1.18 [facility] Comment on above: Result Comment: ERWIN Crespo COMMENTS: The linear detection limit for this assay is 15 HCV IU/ml. A result of <15 IU (<1.18 log IU) indicates that HCV was detected, but at a level below the linear cutoff. A result of None Detected means that no HCV RNA was detected. This test is performed via rtPCR methodology. Performed By: #### L [id number] ####Furnace Setter: ROSELYN CLEMENS ([id number])[address] HIV1,2 COMBO ANTIGEN-ANTIBOD Y SCREENon 02-27-2023 HIV 1,2 COMBO ANTIGEN/ANTIBODY Non-Reactive Normal Nonreactive [facility] Comment on above: Result Comment: The specimen was non-reactive for HIV-1 and HIV-2 antibodies and p24 antigen using an FDA-cleared 4th generation HIV test. Based on this non-reactive screen result, further reflexive testing was not indicated and was, therefore, not performed. Performed By: #### L [id number] #### Furnace Setter: ROSELYN [id number]) [facility] ([facility]) [address] Laboratory - Chemistry and C hemistry - challengeon 02-27-2023 TSH Qn 2.742 m[IU]/L [facility] Average glucose Estimated from glycated hemoglobin (Bld) [Mass/Vol] 85 mg/dL [facility] Laboratory - Coagulationon 0 02-27-2023 PT Coag (Bld) [Time] 10.5 s 9.0 - 12.0 s [facility] Laboratory - Hematology and Cell countson 02-27-2023 HbA1c (Bld) [Mass fraction] 4.6 % NINF - 5.7 % [facility] Comment on above: Normal less than 5.7 % Prediabetes 5.7% to 6.4% Diabetes 6.5% or higher --HgbA1C levels may not be accurate in patients who have renal disease, received recent blood transfusions, are anemic, or who have dyshemoglobinemia. Laboratory - Microbiology an d Antimicrobial susceptibilityon 02-27-2023 HBV surface Ab IA Qn mIU/mL [facility] HBV surface Ag IA Ql Not detected Not Detected [facility] No Panel Informationon 02-27 [facility] Office Visiton 02-27-2023 Follow-up visit [id number] Radha Johnston 1990 M Date Provider Department Center 02/27/2023 [id number]-WNKOFRANCES MATHEWS [facility] Chart Close Cosign Accepted by: CHARO AREVALO[[id number]] Chart Close Cosign Accepted on: MonMar 01, 2023 8:28 AM No family history on file Level of Service:29489 CO OFFICE/OUTPATIENT NEW MODERATE MDM 45 MINUTES Reason for Visit and Comments: Establish Care [42] - Hep C, rib pain, mole on neck Normal [facility] PROTHROMBIN TIMEon INR Coag (PPP) [Relative time] 1.0 {INR} Normal 0.9-1.1 [facility] Comment on above: Result Comment: Ihsan mmended [...] Myocardial Infarction Performed By: #### L [id number] ####Furnace Setter: ROSELYN CLEMENS ([phone])[facility] ([facility])[address] [place] [address] PT Coag (PPP) [Time] 10.5 s Normal 9.0-12.0 [facility] Comment on above: Performed By: #### L [id number] ####Furnace Setter: ROSELYN CLEMENS ([phone])[facility] ([facility])[address] [place] [address] PT Coag (Bld) [Time]on 02-27 INR Coag (PPP) [Relative time] 1.0 {INR} 0.9 - 1.1 [facility] Comment on above: Recommended Anticoag ulant Therapy: [...] Interpretation and review of laboratory results Normal [facility] Progress Noteon 02-27-2023 Progress Note MA time [...] I don't want one) [x] other Normal [facility] Progress Note Teaching Physician Note Direct Supervision [...] lesions he wants checked. CHARO AREVALO MD [facility] Progress Note [facility] [address] [facility] [address] Dept: [phone] Dept Loc: [phone] 02/27/2023 Visit type: new patient Reason for [...] sent for removal and biopsy. Orders: - [facility] Plastic Surg [facility] 3. Hx of retinal detachment Comments: -Occurred 2yrs ago, reportedly healed per retirement physician. 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 Orders: - [facility] Ophthalmology Clinic 202 4. Encounter for medical examination to establish care Comments: - Explained importance of consent, spread of HSV w/active ulcerations, use of condoms, and requesting acyclovir when sores return. Best practice is to abstain from sexual contact w/active lesions to prevent spread. - Shared decision making to forego CXR at this time given it would not global climate change analyst at this time. Pt not experiencing dyspnea, [...] male presenting to establish care. Pt prefers [employer] messaging for results. HPI Pt reports recently being discharged from retirement in 01/2023, now living in [place], [facility], records show resident of [facility]. Reports wanting to integrate into regular life, [...] - Retinal detachment 2yrs ago while in retirement. Not evaluated by tap and die maker technician prior. Was seen by retirement physician, reports it healed and he will always have dark spots in vision. 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 Denies marijuana use. Denies alcohol use. Started smoking 1-2 cigarettes a day since discharge from retirement, no interest in quitting at this time. Denies vaping. Family hx: Paternal grandfather: colon cancer twice (at ages 60's and 80's). Father, HLD, HTN. Mother unknown 2/2 poor OP follow-up. Maternal grandparents prior to pt's 2/2 [place] and emphysema. Additional ROS/Pt questions: - Reports left-sided rib injuries <1yr ago while in retirement. No cough, SOB. Uncomfortable when lying on [...] for judit (more content not included)... Normal [facility] THYROID STIMULATING HORMONEo n 02-27-2023 THYROID STIMULATING HORMONE 2.742 uIU/mL Normal 0.465-4.680 [facility] Comment on above: Performed By: #### L AB129, LAB17 ####Furnace Setter: ROSELYN CLEMENS ([phone])[facility] ([address] TSH Qnon 02-27-2023 Interpretation and review of laboratory results Normal [facility] Urinalysis complete panel (U )on 02-27-2023 Bilirubin Ql (U) Negative Negative mg/dL [facility] Clarity (U) Clear Clear [facility] Color (U) Light Yellow Lt. Yellow [facility] Glucose Ql (U) Normal Normal (<70) mg/dL [facility] Hemoglobin Ql (U) Negative Negative mg/dL [facility] Interpretation and review of laboratory results Normal [facility] Ketones (U) [Mass/Vol] Negative Negative mg/d L [facility] Leukocyte esterase Test strip Ql (U) Negative Negative Bianka/uL [facility] Nitrite Ql (U) Negative Negative [facility] pH (U) 7.0 [pH] 5.0 - 8.0 pH [facility] Protein (U) [Mass/Vol] Negative Negative mg/d L [facility] Specific gravity (U) [Rel density] 1.016 1.005 - 1.030 [facility] Urobilinogen (U) [Mass/Vol] Normal Normal (0-1) mg/dL [facility] Vital Signs Date Time Vital Sign Value Performing Clinician Nargis menjivar 10-17-2023 15:55-0400 Body temperature 97.5 [degF] Radha Hair MD Work Phone: [facility] 10-17-2023 15:55-0400 Diastolic blood pressure 72 mm[Hg] Radha Hair MD Work Phone: [facility] 10-17-2023 15:55-0400 Heart rate 63 /min Radha Hair MD Work Phone: [facility] 10-17-2023 15:55-0400 SaO2% (BldA) [Mass fraction] 100 % Radha Hair MD Work Phone: [facility] 10-17-2023 15:55-0400 Systolic blood pressure 111 mm[Hg] Radha Hair MD Work Phone: [facility] 10-17-2023 15:45-0400 Respiratory rate 14 /min Radha Hair MD Work Phone: [facility] 10-17-2023 14:20-0400 Body height 190.5 cm Radha Hair MD Work Phone: [facility] 10-17-2023 14:20-0400 Body mass index (BMI) [Ratio] 23.12 kg/m2 Radha Hair MD Work Phone: [facility] 10-17-2023 14:20-0400 Body weight 83.92 kg Radha Hair MD Work Phone: [facility] 08-14-2023 08:55-0400 Body height 190.5 cm Danii Obregon PA-C Work Phone: [facility] 08-14-2023 08:55-0400 Body mass index (BMI) [Ratio] 22 kg/m2 Danii Obregon PA-C Work Phone: [facility] 08-14-2023 08:55-0400 Body weight 79.83 kg Danii Obregon PA-C Work Phone: [email or web address] 08-14-2023 08:55-0400 Diastolic blood pressure 70 mm[Hg] Danii Obregon PA-C Work Phone: [email or web address] 08-14-2023 08:55-0400 Heart rate 58 /min Danii Obregon PA-C Work Phone: [email or web address] 08-14-2023 08:55-0400 Systolic blood pressure 114 mm[Hg] Danii Obregon PA-C Work Phone: [email or web address] 04-03-2023 14:12-0500 Body height 188 cm Frances Mathews DO Work Phone: [facility] 04-03-2023 14:12-0500 Body mass index (BMI) [Ratio] 23.24 kg/m2 Frances Mathews DO Work Phone: [email or web address] 04-03-2023 14:12-0500 Body temperature 96.21 [degF] Frances Mathews DO Work Phone: [email or web address] 04-03-2023 14:12-0500 Body weight 82.1 kg Frances Mathews DO Work Phone: [email or web address] 04-03-2023 14:12-0500 Diastolic blood pressure 69 mm[Hg] Frances Mathews DO Work Phone: [facility] 04-03-2023 14:12-0500 Heart rate 69 /min Frances Mathews DO Work Phone: [email or web address] 04-03-2023 14:12-0500 SaO2% (BldA) [Mass fraction] 96 % Frances Mathews DO Work Phone: [email or web address] Comment on above: RA 04-03-2023 14:12-0500 Systolic blood pressure 114 mm[Hg] Frances Amthews DO Work Phone: [email or web address] 03-05-2023 23:10-0500 Diastolic blood pressure 78 mm[Hg] Wesley Shook MD Work Phone: [facility] 03-05-2023 23:10-0500 Heart rate 91 /min Wesley Shook MD Work Phone: [email or web address] 03-05-2023 23:10-0500 Respiratory rate 18 /min Wesley Shook MD Work Phone: [email or web address] 03-05-2023 23:10-0500 SaO2% (BldA) [Mass fraction] 98 % Wesley Shook MD Work Phone: [email or web address] 03-05-2023 23:10-0500 Systolic blood pressure 131 mm[Hg] Wesley Shook MD Work Phone: [email or web address] 03-05-2023 20:53-0500 Body temperature 98.1 [degF] Wesley Shook MD Work Phone: [facility] 02-27-2023 13:44-0500 Body height 188 cm Frances Mathews DO Work Phone: [facility] 02-27-2023 13:44-0500 Body mass index (BMI) [Ratio] 23.37 kg/m2 Frances Mathews DO Work Phone: [email or web address] 02-27-2023 13:44-0500 Body temperature 96.91 [degF] Frances Mathews DO Work Phone: [facility] 02-27-2023 13:44-0500 Body weight 82.56 kg Frances Mathews DO Work Phone: [email or web address] 02-27-2023 13:44-0500 Diastolic blood pressure 66 mm[Hg] Frances Mathews DO Work Phone: [facility] 02-27-2023 13:44-0500 Heart rate 68 /min Frances Mathews DO Work Phone: [email or web address] 02-27-2023 13:44-0500 SaO2% (BldA) [Mass fraction] 96 % Frances Mathews DO Work Phone: [facility] Comment on above: RA 02-27-2023 [id number] Systolic blood pressure 109 mm[Hg] Frances Mathews Work Phone: [facility] Encounters Encounter Date Encounter Type Care Provider Facility Start: 11-01-2024 End: 11-01-2024 ambulatory ALVA PARISI Facility:[facility] Start: 10-31-2024 End: 10-31-2024 ambulatory LORENA READ Facility:[facility] Start: 12-05-2023 End: 12-05-2023 ambulatory [facility] Start: 10-17-2023 End: 10-17-2023 Subsequent hospital visit by physician Radha Hair MD Work Phone: [facility] Comment on above: Neoplasm of unspecif ied behavior of bone, soft tissue, and skin Start: 10-17-2023 End: 10-17-2023 Admission to same day surgery center Radha Hair MD Work Phone: [facility] Start: 10-17-2023 End: 10-17-2023 ambulatory Radha Hair MD Work Phone: [facility] Start: 08-14-2023 End: 08-21-2023 Telephone encounter Radha Hair MD Work Phone: [facility]astic [facility] Comment on above: Surgery Scheduling ( [facility]-Plastics) Start: 08-14-2023 End: 08-14-2023 Office outpatient new 30 minutes Danii Obregon PA-C Work Phone: [facility]astic [facility] Comment on above: Abnormal skin growth Start: 08-14-2023 End: 08-14-2023 ambulatory DANII OBREGON [facility] Start: 07-20-2023 End: 07-20-2023 ambulatory Lizeth French Geovanny Facility:[facility] Start: 04-20-2023 End: 04-20-2023 ambulatory FRANCES MATHEWS [facility] Start: 04-03-2023 End: 04-03-2023 Office outpatient visit 15 minutes Charo Arevalo MD Work Phone: [facility] Comment on above: Chronic hepatitis C without hepatic coma (CMS/HCC) (HCC); History of retinal tear; Abnormal skin growth Start: 04-03-2023 End: 04-03-2023 ambulatory CHARO AREVALO [facility] Start: 03-24-2023 End: 03-24-2023 ambulatory KEYANNA WHITTINGTON [facility] Start: 03-24-2023 End: 03-24-2023 Office outpatient new 30 minutes Keyanna Whittingtno MD Work Phone: [facility] Ophthal[facility] Comment on above: Hx of retinal detach ment Start: 03-14-2023 Telephone encounter Frances Kidd Work Phone: [facility] Start: 03-05-2023 End: 03-06-2023 Emergency department patient visit Wesley Shook MD Work Phone: [facility] Comment on above: Fall from bed, initi al encounter (Primary Dx); Closed head injury, initial encounter Start: 02-27-2023 End: 02-27-2023 Office outpatient new 45 minutes Frances Lovetony REYNLODS Work Phone: [facility] Comment on above: Hepatitis C virus in fection without hepatic coma, unspecified chronicity (Primary Dx); Abnormal skin growth; Hx of retinal detachment; Encounter for medical examination to establish care; Polyuria Start: 02-27-2023 End: 02-27-2023 Patient encounter status Frances Mathews DO Work Phone: [facility] Start: 02-27-2023 End: 02-27-2023 ambulatory FRANCES MATHEWS [facility] Start: 02-27-2023 End: 02-27-2023 Encounter for general adult medical examination without abnormal findings [facility] Start: 09-25-2017 Ambulatory OMAR MALIK GRABIEL Facility: [facility] Procedures Date Procedure Procedure Detail Performing [...] Ct cervical spine w/ o contrast material Eugenoi Erickson MD Work Phone: Start: 03-05-2023 Ct [...] or older (1 - 1-dose 60+ series) [email or web address] Start: 05-29-2039 Zoster Vaccines (1 o f 2) Zoster Vaccines (1 of 2) [facility] Start: 02-28-2024 [email or web address] Start: 10-24-2023 End: 10-24-2023 Patient encounter procedure [facility] Start: 10-20-2023 End: 10-20-2023 Patient encounter procedure 10/20/2023 2:00 PM EDT Office Visit [facility] [address] [place] [address] Frances Mathews DO [address] [place] [address] [facility] Start: 10-17-2023 End: 10-17-2023 Admission to same day surgery center 10/17/2023 2:00 PM EDT - 10/17/2023 3:00 PM EDT Surgery [facility] [address] [place] [phone] Radha Hair MD [address] [place], [place] [id number] EXCISION OF MULTIPLE LESIONS OF RIGHT CHEECK, RIGHT NECK, AND RIGHT UPPER EXTREMITY WITH LAYERED CLOSURE [15561 (CPT )] [facility] Comment on above: EXCISION OF MULTIPLE LESIONS OF RIGHT CHEECK, RIGHT NECK, AND RIGHT UPPER EXTREMITY WITH LAYERED CLOSURE [27713 (CPT )] Start: 10-17-2023 End: 10-17-2023 Exc b9 les mrgn xcp sk tg f/e/e/n/l/m 0.6-1.0cm [facility] Operating Room Start: 10-17-2023 End: 10-17-2023 Exc b9 lesion mrgn xcp sk tg s/n/h/f/g 0.5 cm/< [facility] Operating Room Start: 10-17-2023 End: 10-17-2023 Exc b9 lesion mrgn xcp sk tg t/a/l 0.5 cm/< [facility] Operating Room Start: 10-17-2023 End: 10-17-2023 Repair complex f/c/c/m/n/ax/g/h/f 2.6-7.5 cm [facility] Operating Room Start: 10-17-2023 End: 10-17-2023 Repair complex scalp/arm/leg 1.1-2.5 cm [facility] Operating Room Start: 10-17-2023 End: 10-17-2023 Repair intermediate s/a/t/e 2.5 cm/< [facility] Operating Room Start: 10-17-2023 Subsequent hospital visit by physician 10/17/2023 2:00 PM EDT Hospital Encounter [facility] [address] [place] [phone] Radha Hair MD [address] [place] [address] [place] [address] [facility] Start: 10-08-2023 COVID-19 Vaccine ( season) COVID-19 Vaccine () [facility] Start: 10-08-2023 Influenza vaccination Influenza Vacc ine (#1) [facility] Start: 07-12-2023 End: 07-12-2023 Patient encounter procedure 07/12/2023 2:10 PM EDT Office Visit [facility] [address] [place] [phone] Frances Mathews DO [address] [place], [place] [phone] [facility] Start: 04-20-2023 End: 04-20-2023 Clinical Support 04/20/2023 2:00 PM EDT Clinical Support [facility] Infectious Disease [address] [place] [phone] [facility] Start: 04-03-2023 End: 04-03-2023 Patient encounter procedure 04/03/2023 2:10 PM EST Office Visit [facility] [address] [place] [phone] Frances Mathews DO [address] [place] [address] [facility] Start: 03-29-2023 End: 03-29-2023 Patient encounter procedure 03/29/2023 1:00 PM EST Office Visit [facility] Plastic [facility] Reconstructive Surgery [address] [place] [address] Wesley Nichols MD [address] [facility] [address] [place], [place] [id number] [facility] Plastic & Reconstructive Surgery Start: 03-28-2023 End: 03-14-2024 Liver elastography w/o imag w/i&r Fibroscan Procedures Routine Chronic hepatitis C without hepatic coma (CMS/HCC) (HCC) Expected: 03/28/2023 (Approximate), Expires: 03/14/2024 [facility] Work Phone: Comment on above: Expected: 03/28/2023 (Approximate), Expires: 03/14/2024 Start: 03-24-2023 End: 03-24-2023 Patient encounter procedure 03/24/2023 1:30 PM EST Appointment [facility] Ophthalmology Clnic [address] [place] [address] Keyanna Whittington MD [address] [facility] [address] [place] [address] [facility] Ophthalmology [facility]nic Start: 10-07-2022 COVID-19 Vaccine ( season) COVID-19 Vaccine ( season) [facility] Start: 10-07-2022 Influenza vaccination Influenza Vacc ine (#1) [facility] Start: 2008 Hepatitis A Vaccines (1 of 2 - Risk 2-dose series) Hepatitis A Vaccines (1 of 2 - Risk 2-dose series) [facility] Start: 10-16-2003 DTaP/Tdap/Td Vaccine s (6 - Tdap) DTaP/Tdap/Td Vaccines (6 - Tdap) [facility] Start: 2002 Varicella vaccination Varicell a Vaccines (1 of 2 - 13+ 2-dose series) [facility] Start: 04-13-2001 Varicella vaccination Varicell a Vaccines (1 of 2 - 2-dose childhood series) [facility] Start: 05-29-1995 Pneumococcal Vaccine : Pediatrics (0 to 5 Years) and At-Risk Patients (6 to 64 Years) (1 of 2 - PCV) Pneumococcal Vaccine: Pediatrics (0 to 5 Years) and At-Risk Patients (6 to 64 Years) (1 of 2 - PCV) [facility] Start: 1989 COVID-19 Vaccine (#1) COVID-19 Vacci ne (#1) [facility] Start: 1989 Examination of skin Derm Melan ricardo Skin Check [facility] Start: 1989 Lipid panel Lipid Panel [facility] Hepatitis A antibodies, total Hepatitis A antibodies, total Lab Routine Hepatitis C virus infection without hepatic coma, unspecified chronicity 02/27/2023 3:01 PM [facility] Hepatitis B core antibody, total Hepatitis B core antibody, total Lab Routine Hepatitis C virus infection without hepatic coma, unspecified chronicity 02/27/2023 3:01 PM [facility] Hepatitis C virus genotype determination Hepatitis C genotype Lab Routine Hepatitis C virus infection without hepatic coma, unspecified chronicity 02/27/2023 3:01 PM [facility] Hepatitis C virus RN A panel (viral load) in Serum or Plasma by BRADLEY with probe detection Hepatitis C viral load Lab Routine Hepatitis C virus infection without hepatic coma, unspecified chronicity 02/27/2023 3:01 PM EST [facility] Work Phone: Tissue exam [facility] Work Phone: Comment on above: Release Upon Orderin g for 1 Occurrences starting 10/17/2023 Immunizations Immunization Date Immunization Notes Care Provider rAiella cisse 01-06-2023 influenza virus vacc ine, unspecified formulation Danii Obregon PA-C Work Phone: [facility] Payers Date Payer Category Payer Self-pay 2023 Medicaid [id number] 2023 Unknown [id number] Unknown [id number] Unknown [id number] Unknown [id number] Social History Date Type Detail Facility Start: 02-06-2006 Tobacco smoking status NHIS Smokes t obacco daily [facility] Start: 02-27-2023 Alcohol intake Current drinke r of alcohol (finding) [facility] Start: 02-27-2023 End: 10-17-2023 History of Social function [facility] Start: 02-27-2023 End: 10-17-2023 Tobacco use panel [facility] Start: 1990 Sex Assigned At Male [facility] Start: 02-27-2023 Gender identity Identifies as male gender (finding) [facility] How often to you hav e a drink containing alcohol? Never [facility] How many standard dr inks containing alcohol do you have on a typical day? Patient does not drink [facility] Start: 03-24-2023 End: 10-17-2023 Alcohol intake Ex-drinker (finding) [facility] Start: 02-06-2006 History of tobacco use Cigarette Smo ker [facility] Within the last year , have you been afraid of your partner or ex-partner? No [facility] Clinical Notes 02-27-2023 to 11-20-2024 Perioperative Nursing Note - Alfredito Cruz RN - 10/17/2023 4:02 PM EDTPerioperative Nursing Note - Alfredito Cruz RN - 10/17/2023 3:45 PM EDTOp Note - Radha Hair MD - 10/17/2023 3:00 PM EDT Note Date & Type Note Facility 11-20-2024 Note HNO ID: [id number] Author: BONIFACIO YUN DC Service: ? Author Type: Chiropractor Type: Progress Notes Filed: 11/20/2024 09:22 Note Text: Patient no-showed today's appointment. Bonifacio Yun DC November 20, 2024 9:21 AM [facility] 11-01-2024 Note HNO ID: [id number] Author: ALVA PARISI APRN.HERNANDO Service: ? Author [...] Not seeking additional pain management; interested in acute care certified nursing assistant. Weight Loss: - Unintentional weight loss from [...] Unable to complete daily tasks on the [employer] and [employer]. - Drinks 4-5 glasses of water per day. Anxiety, Depression, and Bipolar Disorder: - Diagnosed with anxiety, depression, and bipolar disorder. - Has not sought treatment for these conditions in a long time. - Does not like psychiatric medications. 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 - Practices meditation to manage mental health. [...] than 2 seconds. (more content not included)... [facility] 10-31-2024 Note HNO ID: [id number] Author: LROENA READ APRN.CATALOGUE MAKER Service: ? Author Type: Nurse Practitioner Type: [...] Grandmother Coronary Artery Disease Maternal Grandfather from [place] Emphysema Maternal Grandmother Hypertension Paternal Grandfather Alcohol/Drug [...] R63.4 Will establish with pcp Lorena Read APRN.CATALOGUE MAKER History and Record Review External record(s) reviewed: [...] Drug use: No Comment: recovering heroin addict [facility] 10-31-2024 Note HNO ID: [id number] Author: NATA HERNÁNDEZ Tech Service: ? Author Type: Svp Monetization Type: Progress Notes Filed: 10/31/2024 13:47 Note [...] PATIENT PRESENTS WITH AN IMPLANTABLE OR ATTACHED ASSESSMENT RN: No RADIOLOGY DEPARTMENT: General X-ray: Exam(s) Completed: Rib X-Ray: Bilateral PERIPHERAL IV DATA: Not applicable SIGNED BY: Yael Ace October 31, 2024 1:47 PM [facility] 10-18-2023 Note Radha Johnston underw ent the [...] 10/24/2023 [] Provider notified of acute problems [facility] 10-17-2023 Miscellaneous Notes Written homegoing [...] Patient: Radha Johnston Date of : 1990 [id number] Date of Procedure: 10/17/23 Pre-Op Diagnosis: Symptomatic [...] home. Radha Hair MD Date: 10/17/2023 Location: [facility] OR Name: Radha Johnston : 1990, Diagnosis Pre-op Diagnosis * Neoplasm of unspecified behavior of bone, soft tissue, and skin [D49.2] Post-op Diagnosis * Neoplasm of unspecified behavior of bone, soft tissue, and skin [D49.2] Procedures EXCISION OF MULTIPLE LESIONS OF RIGHT CHEECK, RIGHT NECK, AND RIGHT UPPER EXTREMITY WITH LAYERED CLOSURE 43446 - CO EXC B9 LESION MRGN XCP SK TG [...] 10/17/23 1516 Description: Right arm lesion Staff: Matcher: Anna Rivera RN Scrub Person: Seferino Brand [...] for this procedure. documented in this encounter [facility] 10-17-2023 Note Formatting of this n ote might be different from the original. Written homegoing instructions reviewed with and given to patient: q/a time offered. This RN walked pt to main waiting room, knows where exit is located, dc'd to home in stable condition [facility] 10-17-2023 Note Formatting of this n ote might be different from the original. Written homegoing instructions reviewed with and given to patient: q/a time offered. This RN walked pt to main waiting room, knows where exit is located, dc'd to home in stable condition [facility] 10-17-2023 Hospital Discharg e instructions Radha Hair [...] (colace, miralax, etc). documented in this encounter [facility] 10-17-2023 Note Formatting of this n ote might be different from the original. Arrives to PACU from OR: a/o x 4 , denies any c/o, local anesth for procedure: no IV. X3 surg site dressings cdi: r cheek, r neck, r upper ant arm. [facility] 10-17-2023 Note Formatting of this n ote might be different from the original. Arrives to PACU from OR: a/o x 4 , denies any c/o, local anesth for procedure: no IV. X3 surg site dressings cdi: r cheek, r neck, r upper ant arm. [facility] 10-17-2023 Note Formatting of this n ote might be different from the original. Operative Note Patient: Radha Johnston Date of : 1990 [id number] Date of Procedure: 10/17/23 Pre-Op Diagnosis: Symptomatic [...] PACU to home. Radha Hair MD T [facility] 10-17-2023 Note Formatting of this n ote is different from the original. Date: 10/17/2023 Location: [facility] OR Name: Radha Johnston, : 1990, Diagnosis Pre-op Diagnosis * Neoplasm of unspecified behavior of bone, soft tissue, and skin [D49.2] Post-op Diagnosis * Neoplasm of unspecified behavior of bone, soft tissue, and skin [D49.2] Procedures EXCISION OF MULTIPLE LESIONS OF RIGHT CHEECK, RIGHT NECK, AND RIGHT UPPER EXTREMITY WITH LAYERED CLOSURE 80312 - CO EXC B9 LESION MRGN XCP SK TG T/A/L 0.5 CM/< * Radha Hair - Primary Procedure Summary Anesthesia: Local ASA: ASA status not filed in the log. Estimated Blood Loss: Minimal Drains: * None in log * Specimens ID Source Type Tests Collected By Collected At [facility]? Priority Lab ID 1 Cheek Tissue TISSUE EXAM Radha Hair MD 10/17/23 1516 Description: Right cheek lesion 2 Neck, Right Tissue TISSUE EXAM Radha Hair MD 10/17/23 151 Description: Right neck lesion 3 Arm, Right Tissue TISSUE EXAM Radha Hair MD 10/17/23 151 Description: Right arm lesion Staff: Matcher: Anna Rivera RN Scrub Person: Seferino Brand RN; Gabby Hoyos Findings: None Complications: None; patient tolerated the procedure well. Specimens Collected: Order Name Source Comment Collection Info Order Time TISSUE EXAM Cheek Collected By: Radha Hair MD 10/17/2023 3:17 PM Wound Class: Class I: Clean Blood Products: None Prophylactic Antibiotics: Pre-operative antibiotics were not given because antibiotics are not indicated for this procedure. [facility] 10-17-2023 Note Formatting of this n ote might be different from the original. Operative Note Patient: Radha Johnston Date of : 1990 [id number] Date of Procedure: 10/17/23 Pre-Op Diagnosis: Symptomatic [...] PACU to home. Radha Hair MD T [facility] 10-17-2023 Note Formatting of this n ote is different from the original. Date: 10/17/2023 Location: [facility] OR Name: Radha Johnston, : 1990, Diagnosis Pre-op Diagnosis * Neoplasm of unspecified behavior of bone, soft tissue, and skin [D49.2] Post-op Diagnosis * Neoplasm of unspecified behavior of bone, soft tissue, and skin [D49.2] Procedures EXCISION OF MULTIPLE LESIONS OF RIGHT CHEECK, RIGHT NECK, AND RIGHT UPPER EXTREMITY WITH LAYERED CLOSURE 25551 - CO EXC B9 LESION MRGN XCP SK TG T/A/L 0.5 CM/< * Radha Hair - Primary Procedure Summary Anesthesia: Local ASA: ASA status not filed in the log. Estimated Blood Loss: Minimal Drains: * None in log * Specimens ID Source Type Tests Collected By Collected At [facility]? Priority Lab ID 1 Cheek Tissue TISSUE EXAM Radha Hair MD 10/17/23 4966 Description: Right cheek lesion 2 Neck, Right Tissue TISSUE EXAM Radha Hair MD 10/17/23 2058 Description: Right neck lesion 3 Arm, Right Tissue TISSUE EXAM Radha Hair MD 10/17/23 1516 Description: Right arm lesion Staff: Matcher: Anna Rivera RN Scrub Person: Seferino Brand [...] are not indicated for this procedure. T [facility] 10-17-2023 History and physical note Plastic Sugery [...] OR under local anesthesia Radha Hair MD [employer] Work Phone: 10-17-2023 Note Plastic Sugery Histo [...] OR under local anesthesia Radha Hair MD [facility] 10-17-2023 History and physical note Plastic Sugery [...] Radha Hair MD documented in this encounter [facility] 08-14-2023 Note Case# Procedure: Excision of multiple lesions of the right cheek, right neck, and right upper extremity with layered closure Sx Date: 10/17/2023 2:00 PM Time: 1 Hour Location: [facility] Anesthesia: Local CPT: 16328, 95273, 01096, 34484, 62976, 63951, 32259, 89056, 87352, 59251, 38506, 79878, 35896, 97650, 60632, 64022 ICD-10: D49.2 Special Equipment: N/A PAT: N/A Checked cpt codes with [employer] portal and no prior authorization needed for all cpt codes listed above. Called patient to schedule surgery and sent [employer] message. [facility] 08-14-2023 Telephone encounter Note Case# Procedure: Excision of multiple lesions of the right cheek, right neck, and right upper extremity with layered closure Sx Date: 10/17/2023 2:00 PM Time: 1 Hour Location: [facility] Anesthesia: Local CPT: 56448, 10813, 17694, 38869, 86237, 38274, 21384, 32618, 00215, 91866, 48743, 46716, 31995, 86720, 01850, 37798 ICD-10: D49.2 Special Equipment: N/A PAT: N/A Checked cpt codes with [employer] portal and no prior authorization needed for all cpt codes listed above. Called patient to schedule surgery and sent [employer] message. [facility] 08-14-2023 Miscellaneous Notes Case# Procedure: Excision of multiple lesions of the right cheek, right neck, and right upper extremity with layered closure Sx Date: 10/17/2023 2:00 PM Time: 1 Hour Location: [facility] Anesthesia: Local CPT: 89543, 51372, 45181, 87851, 38810, 26083, 86141, 96640, 06309, 54844, 07336, 63430, 02988, 59691, 56666, 40860 ICD-10: D49.2 Special Equipment: N/A PAT: N/A Checked cpt codes with [employer] portal and no prior authorization needed for all cpt codes listed above. Called patient to schedule surgery and sent [employer] message. documented in this encounter [facility] 08-14-2023 History of Presen t illness Narrative [...] Danii Obregon PA-C documented in this encounter [facility] 08-14-2023 Note Plastic Sugery Consu ltation CC: [...] like to p (more content not included)... [facility] 04-03-2023 History of Presen t illness Narrative Images from the original note were not included. [facility] [address] [facility] [address] Dept: [phone] Dept Loc: [phone] 04/03/2023 Visit type: follow up Reason for [...] plastic surg appointment 2/2 scheduling issues with [facility]. - Phone number provided to reschedule appointment [...] and genital lesions, retinal detachment while in retirement who presents today from [facility] for follow-up regarding HCV workup for treatment, retinal detachment evaluation, and skin biopsy. HPI Fibroscan: Pt reports inability to schedule Fibroscan due to conflicting schedules between classes at [facility] and availability with ID. Ophthalmology appointment follow-up: Pt reports he was informed no evidence of retinal detachment, just retinal tears. No surgical intervention planned at this time, just monitoring. Likely will just need to live with the spots in his vision. Follow-up scheduled in 1 month. Plastic surgery skin biopsy/removal: Pt missed appointment, reports accidentally not informing [facility] of appointment in time, was unable to [...] startled awake combined with his PTSD and retirement experience, he was disoriented and required sedation. Only medication is suboxone at this time, generally reports feeling well, whereas in the past whenever he would stop drug use he would feel ill. Pt asks about general health measures. Currently doing 200 pushups a day, and 90 total pull-ups 3x a week (does 30 at a time, has been since time in retirement). Questions regarding diet, concerns for his CO2 [...] fallen out of his bed at [facility] and potentially lost consciousness? Unclear [...] Ck Carney DO documented in this encounter [facility] 03-24-2023 History of Presen t illness Narrative Images from the original note were not included. 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 Chantal hernández Subjective HPI Other Additional comments: Dilated eye exam Comments C/o seeing black spots /holes on va ou constantly x last 2 years with flashes of light sometimes. Pt sts was in retirement 2 years ago andn one doctor said [...] 2:10 PM Refraction Wearing Rx Sphere Cylinder [place] Right -6.00 +4.00 094 Left -6.25 +2.25 080 Data Reviewed and Summarized The patient will need the following test completed on: 03/24/2023 1. [facility] Ophthalmology Clinic 202 Diagnosis: Hx of retinal detachment (Z86.69) Authorizing Provider: DO Kyeanna Reyes MD documented in this encounter [facility] 03-15-2023 Telephone encounter Note RN attempted to contact patient but number is no longer in service. [facility] 03-15-2023 Miscellaneous Notes RN attempted to contact patient but number is no longer in service. Attempted to call patient to give him the following instructions, no answer x2. - Now that all lab testing has been completed, pt needs imaging to evaluate for cirrhosis. - Fibroscan ordered - Please call the Infectious Disease office at [phone] from Mon-Mon 8a-4:30p to schedule your Fibroscan study. documented in this encounter [facility] 03-14-2023 Telephone encounter Note Attempted to call patient to give him the following instructions, no answer x2. - Now that all lab testing has been completed, pt needs imaging to evaluate for cirrhosis. - Fibroscan ordered - Please call the Infectious Disease office at [phone] from Mon-Mon 8a-4:30p to schedule your Fibroscan study. [facility] 03-14-2023 Miscellaneous Notes Attempted to call patient to give him the following instructions, no answer x2. - Now that all lab testing has been completed, pt needs imaging to evaluate for cirrhosis. - Fibroscan ordered - Please call the Infectious Disease office at [phone] from 8a-4:30p to schedule your Fibroscan study. documented in this encounter [facility] 03-06-2023 Hospital Discharg e instructions Watson Naima, MD - 03/06/2023 3:02 AM EST Return to the emergency department if you have significant worsening pain or headache. Follow-up with your primary care provider in 2 days. documented in this encounter [facility] 03-06-2023 Emergency department Note Pt at room door requesting to go home. Pt sts that he is feeling fine and wants to leave. Pt advised the provider will be notified of his request. ANDRZEJ Muller 03/06/239 [facility] 03-06-2023 Emergency department Note Pt at room [...] their documentation. History 32-year-old male brought from [facility] for altered mental status. Patient was found [...] Avalos RN 03/05/232013 documented in this encounter [facility] 03-05-2023 Emergency department Note Pt able to stand with x1 assistance and use urinal. Janis Hammonds RN 03/05/23 2310 [facility] 03-05-2023 Note NOTE: This result is for medical treatment only. Analysis performed using non-forensic procedures. [facility] 03-05-2023 Emergency department Note Pt to CT. Janis Hammonds RN 03/05/232155 [facility] 03-05-2023 Emergency department Note EKG attempted again; pt still refusing. Janis Hammonds RN 03/05/232117 [facility] 03-05-2023 Emergency department Note Pt refusing medication. Educated pt that he is yellow slipped. Protective services called to bedside to help with medication administration. Janis Hammonds RN 03/05/232107 [facility] 03-05-2023 Emergency department Note Refusing care at this time. Janis Hammonds RN 03/05/232032 [facility] 03-05-2023 Emergency department Note Pt yellow slipped by Dr. Erickson. Janis Hammonds RN 03/05/232106 [facility] 03-05-2023 Emergency department Note Refused EKG. Janis Hammonds RN 03/05/232026 [facility] 03-05-2023 Emergency department Note Bed: 35 Expected date: Expected time: Means of arrival: Comments: 32 M Fall Elizabeth Avalos RN 03/05/232013 [facility] 03-05-2023 Note Emergency Medicine A ttending [...] their documentation. History 32-year-old male brought from [facility] for altered mental status. Patient was found [...] are mis-transcribed.) MD Wesley Sandra MD 03/05/23 9906 [facility] 03-05-2023 Physician Emergency department Note Emergency Medicine [...] their documentation. History 32-year-old male brought from [facility] for altered mental status. Patient was found [...] words are mis-transcribed.) MD Wesley Sandra MD 03/05/233 [facility] Work Phone: 02-27-2023 History of Presen t illness Narrative Images from the original note were not included. [facility] [address] [facility] [address] Dept: [phone] Dept Loc: [phone] 02/27/2023 Visit type: new patient Reason for [...] sent for removal and biopsy. Orders: - [facility] Plastic Surg Residency Clinic 3. Hx of retinal detachment Comments: -Occurred 2yrs ago, reportedly healed per retirement physician. 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 Orders: - [facility] Ophthalmology Clinic 4. Encounter for medical examination to establish care Comments: - Explained importance of consent, spread of HSV w/active ulcerations, use of condoms, and requesting acyclovir when sores return. Best practice is to abstain from sexual contact w/active lesions to prevent spread. - Shared decision making to forego CXR at this time given it would not global climate change analyst at this time. Pt not experiencing dyspnea, [...] male presenting to establish care. Pt prefers [employer] messaging for results. HPI Pt reports recently being discharged from retirement in 01/2023, now living in [facility], records show resident of [facility]. Reports wanting to integrate into regular life, [...] - Retinal detachment 2yrs ago while in retirement. Not evaluated by tap and die maker technician prior. Was seen by retirement physician, reports it healed and he will always have dark spots in vision. 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 Denies marijuana use. Denies alcohol use. Started smoking 1-2 cigarettes a day since discharge from retirement, no interest in quitting at this time. Denies vaping. Family hx: Paternal grandfather: colon cancer twice (at ages 60's and 80's). Father, HLD, HTN. Mother unknown 2/2 poor OP follow-up. Maternal grandparents prior to pt's 2/2 [place] and emphysema. Additional ROS/Pt questions: - Reports left-sided rib injuries <1yr ago while in retirement. No cough, SOB. Uncomfortable when lying on [...] one) [x] other documented in this encounter [facility] 02-27-2023 History of Presen t illness Narrative Images from the original note were not included. [facility] [address] [address] Dept: [phone] Dept Loc: [phone] 02/27/2023 Visit type: new patient Reason for [...] sent for removal and biopsy. Orders: - [facility] Plastic Surg Residency Clinic 3. Hx of retinal detachment Comments: -Occurred 2yrs ago, reportedly healed per retirement physician. 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 Orders: - [facility] [place] [facility] 202 4. Encounter for medical examination to establish care Comments: - Explained importance of consent, spread of HSV w/active ulcerations, use of condoms, and requesting acyclovir when sores return. Best practice is to abstain from sexual contact w/active lesions to prevent spread. - Shared decision making to forego CXR at this time given it would not global climate change analyst at this time. Pt not experiencing dyspnea, [...] to excessive PO [facility] -CMP, A1c and UA to r/o DM, albuminuria, nephrotic/nephritic dx. Orders: - Comprehensive metabolic panel - Hemoglobin A1c - Complete Urinalysis with reflex to Culture Follow up in about 4 weeks (around 03/27/2023) for Recheck. Subjective Patient: Radha Johnston is a 32 y.o. male presenting to establish care. Pt prefers [employer] messaging for results. HPI Pt reports recently being discharged from retirement in 01/2023, now living in [place], [facility], records show resident of [facility]. Reports wanting to integrate into regular life, [...] - Retinal detachment 2yrs ago while in retirement. Not evaluated by tap and die maker technician prior. Was seen by retirement physician, reports it healed and he will always have dark spots in vision. 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 Denies marijuana use. Denies alcohol use. Started smoking 1-2 cigarettes a day since discharge from retirement, no interest in quitting at this time. Denies vaping. Family hx: Paternal grandfather: colon cancer twice (at ages 60's and 80's). Father, HLD, HTN. Mother unknown 2/2 poor OP follow-up. Maternal grandparents prior to pt's 2/2 [place] and emphysema. Additional ROS/Pt questions: - Reports left-sided rib injuries <1yr ago while in retirement. No cough, SOB. Uncomfortable when lying on [...] Medical History: Diagnosis Date Drug abuse (CMS/HCC) ([facility]) No past surgical history on file. No [...] CHARO AREVALO MD documented in this encounter [facility] Diagnosis Hepatitis C virus infection without hepatic coma, unspecified chronicity- Primary Abnormal skin growth Hx of retinal detachment Encounter for medical examination to establish care Polyuria [facility] Diagnosis Hepatitis C virus infection without hepatic coma, unspecified chronicity- Primary Abnormal skin growth Hx of retinal detachment Encounter for medical examination to establish care Polyuria [facility], initial encounter- Primary Closed head injury, initial encounter documented [facility]* Diagnosis Chronic hepatitis C [...] Ophthalmology Diagnoses Hx of retinal detachment Procedures CO OFFICE/OUTPATIENT NEW HIGH MDM 60 MINUTES Frances Mathews, DO [address] [place] [address] [facility] [address] [place] [address] Referral ID Status Reason Start Date Expiration Date Visits Requested Visits Authorized [id number] Authorized Specialty Services Required 02/27/2023 02/27/2024 1 1 * Consultation (Routine) - Pending Review Specialty Diagnoses / Procedures Referred By Contac t Referred To Contact Plastic Surgery Diagnoses Abnormal skin growth Procedures CO OFFICE/OUTPATIENT NEW HIGH MDM 60 MINUTES Bisi, Frances Cassidy, DO [address] [place] [address] [facility] [address] [place] [address] Referral ID Status Reason Start Date Expiration Date Visits Requested Visits Authorized [id number] Pending Review Specialty Services Required 02/27/2023 02/27/2024 1 1 [facility] Consultation (Routine) - Pending Review Specialty Diagnoses / Procedures Referred By Contac t Referred To Contact Ophthalmology Diagnoses Hx of retinal detachment Procedures CO OFFICE/OUTPATIENT NEW HIGH MDM 60 MINUTES Keyanna Whittington MD [address] [facility] [address] [place] [address] Kane Cornejo MD [address] [place] [address] Referral ID Status Reason Start Date Expiration Date Visits Requested Visits Authorized [id number] Pending Review Specialty Services Required 03/24/2023 03/23/2024 1 1 * Consultation (Routine) - Closed Specialty Diagnoses / Procedures Referred By Contac t Referred To Contact Ophthalmology Diagnoses Hx of retinal detachment Procedures CO OFFICE/OUTPATIENT NEW HIGH MDM 60 MINUTES MathewsFrances jimenez, DO [address] [place] [address] [facility] [address] [place] [address] Referral ID Status Reason Start Date Expiration Date V isits Requested Visits Authorized [id number] Closed Specialty Services Required 02/27/2023 02/27/2024 1 1 [facility] Summary Purpose Family History No Family [...] section and content) DATE CREATED AUTHOR 08/14/2017 [facility] DATE CREATED AUTHOR AUTHOR'S ORGANIZ ATION 10/19/2023 [facility] DATE CREATED AUTHOR AUTHOR'S ORGANIZ ATION 01/03/2024 [facility] DATE CREATED AUTHOR AUTHOR'S ORGANIZ ATION 11/22/2024 [facility] DATE CREATED AUTHOR AUTHOR'S ORGANIZ ATION 12/07/2024 [facility] Reason for Visit (unrecogniz ed section and content) Reason Comments Establish Care Hep C, rib pain, mol e on neck Reason Comments Fall Per EMS, pt [facility]. Pt threw up. Staff stated potential seizure like activity. Pt denies any drug or alcohol use. Pt does not remember any of this. Reason Comments Other Dilated eye exam Specialty Diagnoses / Procedures Referred By Contac t Referred To Contact Ophthalmology Diagnoses Hx of retinal detachment Procedures CO OFFICE/OUTPATIENT NEW HIGH MDM 60 MINUTES Frances Mathews, DO [address] [place] [address] [facility] [address] [place] [address] Referral ID Status Reason Start Date Expiration Date V isits Requested Visits Authorized [id number] Closed Specialty Services Required 02/27/2023 02/27/2024 1 1 Reason Comments Follow-up Hep C Reason Comments New Patient C/o like 4 moles wan t them looked at Specialty Diagnoses / Procedures Referred By Malgorzata t Referred To Contact Plastic Surgery Diagnoses Abnormal skin growth Procedures CO OFFICE/OUTPATIENT NEW HIGH MDM 60 MINUTES Frances Mathews, DO [address] [place] [address] Lam Guerrero MD [address] [place] [address] Referral ID Status Reason Start Date Expiration Date V isits Requested Visits Authorized [id number] Closed Specialty Services Required 02/27/2023 02/27/2024 1 1 Reason Onset Date Comments Surgery Scheduling 08/14/2023 [facility] Specialty Diagnoses / Procedures Referred By Malgorzata t Referred To Contact Diagnoses Neoplasm of unspecified behavior of bone, soft tissue, and skin Procedures CO EXC B9 LESION MRGN XCP SK TG T/A/L 0.5 CM/< CO EXC B9 LES MRGN XCP SK TG F/E/E/N/L/M 0.6-1.0CM CO EXC B9 LESION MRGN XCP SK TG S/N/H/F/G 0.5 CM/< CO EXC B9 LESION MRGN XCP SK TG S/N/H/F/G 0.6-1.0CM CO EXC B9 LESION MRGN XCP SK TG T/A/L 0.6-1.0 CM CO REPAIR INTERMEDIATE S/A/T/E 2.5 CM/< CO REPAIR INTERMEDIATE S/A/T/E 2.6-7.5 CM CO REPAIR INTERMEDIATE N/H/F/XTRNL GENT 2.5CM/< CO REPAIR INTERMEDIATE N/H/F/XTRNL GENT 2.6-7.5 CM CO REPAIR INTERMEDIATE F/E/E/N/L&/MUC 2.5 CM/< CO REPAIR INTERMEDIATE F/E/E/N/L&/MUC 2.6-5.0 CM CO REPAIR COMPLEX SCALP/ARM/LEG 1.1-2.5 CM CO REPAIR COMPLEX SCALP/ARM/LEG 2.6-7.5 CM CO REPAIR COMPLEX F/C/C/M/N/AX/G/H/F 1.1-2.5 CM CO REPAIR COMPLEX F/C/C/M/N/AX/G/H/F 2.6-7.5 CM CO REPAIR COMPLEX F/C/C/M/N/AX/G/H/F 2.6-7.5 CM EXCISION OF [...] 2.6 TO 7.5 CM Radha Hair MD [address] [place] [id number] Referral ID Status Reason Start Date Expiration Date Visits Re quested Visits Authorized [id number] 08/21/2023 1 1 Care Teams (unrecognized sec tion and content) Grocery Caddy Relationship Specialty Start Date End Date Frances Mathews DO [address] [phone] PCP - General 02/27/23 Grocery Caddy Relationship Specialty Start Date End Date Frances Mathews DO [address] [place] [id number] PCP - General 02/27/23 Grocery Caddy Relationship Specialty Start Date End Date Frances Mathews DO [address] [address] PCP - General 02/27/23 Grocery Caddy Relationship Specialty Start Date End Date Frances Mathews DO [address] [place] [id number] PCP - General 02/27/23 Grocery Caddy Relationship Specialty Start Date End Date Frances Mathews DO [address] [place] [phone] PCP - General 02/27/23 Grocery Caddy Relationship Specialty Start Date End Date Frances Mathews DO [address] [place] [id number] PCP - General 02/27/23 Grocery Caddy Relationship Specialty Start Date End Date Frances Mathews DO [address] [facility] [address] [place] [id number] PCP - General 02/27/23 Grocery Caddy Relationship Specialty Start Date End Date Frances Mathews [address] [facility] [address] [place] [id number] PCP - General 02/27/23 Grocery Caddy Relationship Specialty Start Date End Date Frances Mathews DO [address] [facility] [address] [address] PCP - General 02/27/23 Grocery Caddy Relationship Specialty Start Date End Date Frances Mathews [address] [place] [phone] PCP - General 02/27/23 Grocery Caddy Relationship Specialty Start Date End Date Frances Mathews [address] [place] [id number] PCP - General 02/27/23 Scheduled Active and [...] 10/15/2023 10/16/2023 10/17/2023 lidocaine-EPINEPHrine (Xylocaine W/EPI) 1 %-1:[id number] injection 20 mL 20 mL, Infiltration, Once, [...] BE BASED ON THE PRIMARY CLINICAL RECORDS. [facility]. provides no warranty or guarantee of the accuracy or completeness of information in this document.
[2025-02-02 19:17] LABS: Alcohol, Blood (Medical)-Serum < 10.1 mg/dL (<=10.0)
[2025-02-02 19:18] LABS: AST(SGOT) 18 U/L (<=37); Alanine Aminotransfer ALT/SGPT 10 U/L (<=46); Albumin, Serum 4.3 g/dL (3.5-5.0); Alkaline Phosphatase 62 U/L (40-129); Anion Gap 10 (7-18); BUN 12 mg/dL (4-19); BUN/Creat Ratio 12.9 RATIO (10-20); Calcium,Total 9.4 mg/dL (7.6-11.0); Carbon Dioxide 29.1 mmol/L (20.0-29.0); Chloride 102 mmol/L (96-106); Estimated Creatinine Clearance 122.41 ml/min (50-250); Globulin 2.6 g/dL (2.2-4.2); Glucose 98 mg/dL (70-99); Lipase 35 U/L (13-75); Magnesium 2.0 mg/dL (1.5-2.2); Potassium 3.8 mmol/L (3.5-5.1)
[2025-02-02 19:19] VITALS: BP 122/74; PULSE 81; RESP 16; TEMP 36.8; O2SAT 99
[2025-02-02] MEDS: Nicotine (PBKC) 21 MG Patch TD (19:21)
--- OUTSIDE RECORDS SUMMARY | 2025-02-02 19:25 | XMS RPT_ITS | CCD ---
Author Organization [facility] Inform ion Partnership TAKER OUT [facility] Care Team Providers Care Chicken Stuffer Name Role Phone OMAR SPAIN Unavailable Unavailable IM[facility] Unavailable Unavailable [facility] Unavailable Unavailable Mathews Frances REYNOLDS Primary Care Provider [phone] BISI, FRANCES Attending Unavailable MATHEWS, FRANCES Primary [...] Test Name Value Interpretation Reference Range Facility [facility] 12-06-2024 CNPN Telephone (GSTNOR) RADHA JOHNSTON ([id number]) 1990 M Date Time Provider Department 12/06/24 RHONDA CUMMINGS GSTJEFFERY During your visit today, we recorded the following information about you: Natacha Burnham MA 12/06/2024 9:38 AM Signed With patients history of Hep C. Are you ok with seeing this patient? Allergies As of Date: 12/06/2024 (No Known Allergies) Date Reviewed: 11/01/2024 Reviewed by: Alva Parisi APRN.[facility] - Fully Assessed Reason for Visit: Appointment [...] Encounter Status:Closed by NATACHA BURNHAM on 12/06/24 [facility] CNOVon 11-20-2024 CNOV Office Visit (WELLCA) RADHA JOHNSTON ([id number]) 1990 M Date Time Provider Department 11/20/24 9:00 AM BONIFACIO YUN During your visit today, we recorded the following information about you: Bonifacio Yun DC 11/20/2024 9:22 AM Signed Patient no-showed today's appointment. Bonifacio Yun DC November 20, 2024 9:21 AM Referring Provider: ALVA PARISI [[id number]] Allergies As of Date: 11/20/2024 (No Known Allergies) Date Reviewed: 11/01/2024 Reviewed by: Alva Parisi APRN.[facility] - Fully Assessed Primary Visit Diagnosis:No-show for [...] Encounter Status:Closed by BONIFACIO YUN on 11/20/24 [facility] 11-11-2024 [facility] Telephone (FMWADS) RADHA JOHNSTON ([id number]) 1990 M Date Time Provider Department 11/11/24 ALVA PARISI MICH During your visit today, we recorded the following information about you: Ivan Mead Anna Opal 11/11/2024 3:53 PM Signed Radha is calling Alva Parisi APRN.[facility] today to request Results (Labs) Patient would like to speak to a nurse about his lab results. He is having issues with his MyChart. Patient has been identified by name and birthdate. Duration of symptoms: N/A Person calling: self Call patient at: at home [phone] (home) [phone] (cell) Was an appointment scheduled: No Closing statement: Anna Joseph Cristin Phipps MA 11/12/2024 9:06 AM Signed Patient notified of results. Verbalized understanding with no further questions or concerns. Cristin Jauregui MA Allergies As of Date: 11/11/2024 (No Known Allergies) Date Reviewed: 11/01/2024 Reviewed by: Alva Parisi APRN.[facility] - Fully Assessed Reason for Visit: Results [...] Status:Closed by CRISTIN JAUREGUI on 11/12/24 Normal [facility] 25(OH)D3 [facility] 25-hydroxyvitamin D3 [Mass/Vol] 50.4 ng/mL Normal 31.0-80.0 [facility] Comment on above: Order Comment: Speci men Type: BLOOD SPECIMEN Ordering Facility: [facility] Address: [address] [place] [address] Result Comment: Clas sification of 25 [place] Vitamin D status: Deficiency/Insufficiency: < or = 30 ng/ml. Sufficiency/Optimal Levels: 31-80 ng/mL Toxicity: > 100 ng/mL. Test performed by chemiluminescent immunoassay. Performed By: #### 1 989-3 #### [facility] CLIA [id number] [address] [place] [address] [place] C. trachomatis+N. gonorrhoea e DNA BRADELY+probe Ql (Unsp spec)on 11-01-2024 C. trachomatis rRNA BRADLEY+probe Ql (Unsp spec) Not detected Normal Not detected [facility] Comment on above: Order Comment: Speci men Type: BLOOD SPECIMEN Ordering Facility: [facility] Address: [address] [place] [address] Performed By: #### 2 132-9, 59900-3, 3015-3, 37254-4 #### [facility] CLIA [id number] [address] [place] [address] [place] N. gonorrhoeae rRNA BRADLEY+probe Ql (Unsp spec) Not detected Normal Not detected [facility] Comment on above: Order Comment: Speci men Type: BLOOD SPECIMEN Ordering Facility: [facility] Address: [address] [place] [address] Performed By: #### 2 132-9, 53194-6, 3015-3, 06860-8 #### [facility] CLIA [id number] [address] [place] [address] [place] CBC W Auto Differential pane l (Bld)on 11-01-2024 Basophils (Bld) [#/Vol] 0.06 10*3/uL Normal <0.11 [facility] Comment on above: Order Comment: Speci men Type: BLOOD SPECIMEN Ordering Facility: [facility] Address: [address] [place] [address] Performed By: #### 2 132-9, 56317-6, 3015-3, 83177-2 #### [facility] CLIA [id number] [address] [place] [address] [place] Basophils/100 WBC (Bld) 1.0 % Normal C [facility] Comment on above: Order Comment: Speci men Type: BLOOD SPECIMEN Ordering Facility: [facility] Address: [address] [place] [address] Performed By: #### 2 132-9, 61967-2, 6-3, 26639-2 #### [facility] CLIA [id number] [address] [place] [address] [place] Differential cell count method Nom (Bld) Auto Normal [facility] Comment on above: Order Comment: Speci men Type: BLOOD SPECIMEN Ordering Facility: [facility] Address: [address] [place] [address] Performed By: #### 2 132-9, 64965-0, 3015-3, 31386-5 #### [facility] CLIA [id number] [address] [place] [address] [place] Eosinophils (Bld) [#/Vol] 0.04 10*3/uL Normal <0.46 [facility] Comment on above: Order Comment: Speci men Type: BLOOD SPECIMEN Ordering Facility: [facility] Address: [address] [place] [address] Performed By: #### 2 132-9, 90641-8, 3015-3, 52693-7 #### [facility] CLIA [id number] [address] [place] [address] [place] Eosinophils/100 WBC (Bld) 0.6 % Normal [facility] Comment on above: Order Comment: Speci men Type: BLOOD SPECIMEN Ordering Facility: [facility] Address: [address] [place] [address] Performed By: #### 2 132-9, 31721-3, 3015-3, 43293-5 #### [facility] CLIA [id number] [address] [place] [address] [place] Erythrocyte distribution width (RBC) [Ratio] 13.4 % Normal 11.5-15.0 [facility] Comment on above: Order Comment: Speci men Type: BLOOD SPECIMEN Ordering Facility: [facility] Address: [address] [place] [address] Performed By: #### 2 132-9, 46871-6, 3016-3, 13588-1 #### [facility] CLIA [id number] [address] [place] [address] [place] Hematocrit (Bld) [Volume fraction] 42.5 % Normal 39.0-51.0 [facility] Comment on above: Order Comment: Speci men Type: BLOOD SPECIMEN Ordering Facility: [facility] Address: [address] [place] [address] Performed By: #### 2 132-9, 59082-4, 3015-3, 61836-5 #### [facility] CLIA [id number] [address] [place] [address] [place] Hemoglobin (Bld) [Mass/Vol] 14.9 g/dL Normal 13.0-17.0 [facility] Comment on above: Order Comment: Speci men Type: BLOOD SPECIMEN Ordering Facility: [facility] Address: [address] [place] [address] Performed By: #### 2 132-9, 56483-7, 3015-3, 99971-5 #### [facility] CLIA [id number] [address] [place] [address] [place] Immature granulocytes (Bld) [#/Vol] 10*3/uL Normal <0.10 [facility] Comment on above: Order Comment: Speci men Type: BLOOD SPECIMEN Ordering Facility: [facility] Address: [address] [place] [address] Performed By: #### 2 132-9, 63421-8, 3016-3, 39529-9 #### [facility] CLIA [id number] [address] [place] [address] [place] Immature granulocytes/100 WBC (Bld) 0.2 % Normal [facility] Comment on above: Order Comment: Speci men Type: BLOOD SPECIMEN Ordering Facility: [facility] Address: [address] [place] [address] Performed By: #### 2 132-9, 29731-1, 3016-3, 16497-6 #### [facility] CLIA [id number] [address] [place] [address] [place] Lymphocytes (Bld) [#/Vol] 2.00 10*3/uL Normal 1.00-4.00 [facility] Comment on above: Order Comment: Speci men Type: BLOOD SPECIMEN Ordering Facility: [facility] Address: [address] [place] [address] Performed By: #### 2 132-9, 92193-1, 3015-3, 20386-2 #### [facility] CLIA [id number] [address] [place] [address] [place] Lymphocytes/100 WBC (Bld) 32.2 % Normal [facility] Comment on above: Order Comment: Speci men Type: BLOOD SPECIMEN Ordering Facility: [facility] Address: [address] [place] [address] Performed By: #### 2 132-9, 99255-0, 6-3, 50895-3 #### [facility] CLIA [id number] [address] [place] [address] [place] MCH (RBC) [Entitic mass] 30.5 pg Normal 26.0-34.0 [facility] Comment on above: Order Comment: Speci men Type: BLOOD SPECIMEN Ordering Facility: [facility] Address: [address] [place] [address] Performed By: #### 2 132-9, 54685-4, 3016-3, 49294-9 #### [facility] CLIA [id number] [address] [place] [address] [place] MCHC (RBC) [Mass/Vol] 35.1 g/dL Normal 30.5-36.0 [facility] Comment on above: Order Comment: Speci men Type: BLOOD SPECIMEN Ordering Facility: [facility] Address: [address] [place] [address] Performed By: #### 2 132-9, 77968-3, 3016-3, 78459-0 #### [facility] CLIA [id number] [address] [place] [address] [place] MCV (RBC) [Entitic vol] 87.1 fL Normal 80.0-100.0 C [facility] Comment on above: Order Comment: Speci men Type: BLOOD SPECIMEN Ordering Facility: [facility] Address: [address] [place] [address] Performed By: #### 2 132-9, 85377-0, 3016-3, 96620-0 #### [facility] CLIA [id number] [address] [place] [address] [place] Monocytes (Bld) [#/Vol] 0.35 10*3/uL Normal <0.87 [facility] Comment on above: Order Comment: Speci men Type: BLOOD SPECIMEN Ordering Facility: [facility] Address: [address] [place] [address] Performed By: #### 2 132-9, 15822-8, 3015-3, 72650-2 #### [facility] CLIA [id number] [address] [place] [address] [place] Monocytes/100 WBC (Bld) 5.6 % Normal [facility] Comment on above: Order Comment: Speci men Type: BLOOD SPECIMEN Ordering Facility: [facility] Address: [address] [place] [address] Performed By: #### 2 132-9, 78383-5, 3016-3, 38509-9 #### [facility] CLIA [id number] [address] [id number] [address] [place] Neutrophils (Bld) [#/Vol] 3.75 10*3/uL Normal 1.45-7.50 [facility] Comment on above: Order Comment: Speci men Type: BLOOD SPECIMEN Ordering Facility: [facility] Address: [address] [place] [address] Performed By: #### 2 132-9, 86796-6, 3016-3, 63343-6 #### [facility] CLIA [id number] [address] [place] [address] [place] Neutrophils/100 WBC (Bld) 60.4 % Normal [facility] Comment on above: Order Comment: Speci men Type: BLOOD SPECIMEN Ordering Facility: [facility] Address: [address] [place] [address] Performed By: #### 2 132-9, 48942-3, 3016-3, 51721-0 #### [facility] CLIA [id number] [address] [place] [address] [place] Nucleated RBC (Bld) [#/Vol] 10*3/uL Normal <0.01 [facility] Comment on above: Order Comment: Speci men Type: BLOOD SPECIMEN Ordering Facility: [facility] Address: [address] [place] [address] Performed By: #### 2 132-9, 43617-4, 3016-3, 82757-2 #### [facility] CLIA [id number] [address] [place] [address] [place] Nucleated RBC/100 WBC (Bld) [Ratio] 0.0 /100 WBC Normal [facility] Comment on above: Order Comment: Speci men Type: BLOOD SPECIMEN Ordering Facility: [facility] Address: [address] [place] [address] Performed By: #### 2 132-9, 92630-2, 3016-3, 57513-2 #### [facility] CLIA [id number] [address] [place] [address] [place] Platelet mean volume (Bld) [Entitic vol] 10.7 fL Normal 9.0-12.7 [facility] Comment on above: Order Comment: Speci men Type: BLOOD SPECIMEN Ordering Facility: [facility] Address: [address] [place] [address] Performed By: #### 2 132-9, 89663-9, 3016-3, 29735-5 #### [facility] CLIA [id number] [address] [place] [address] [place] Platelets (Bld) [#/Vol] 230 10*3/uL Normal 150-400 [facility] Comment on above: Order Comment: Speci men Type: BLOOD SPECIMEN Ordering Facility: [facility] Address: [address] [place] [address] Performed By: #### 2 132-9, 90476-4, 3016-3, 36179-9 #### [facility] CLIA [id number] [address] [place] [address] [place] RBC (Bld) [#/Vol] 4.88 10*6/uL Normal 4.20-6.00 [facility] Comment on above: Order Comment: Speci men Type: BLOOD SPECIMEN Ordering Facility: [facility] Address: [address] [place] [address] Performed By: #### 2 132-9, 82106-3, 3016-3, 37820-0 #### [facility] CLIA [id number] [address] [place], [place] [address] [place] WBC (Bld) [#/Vol] 6.21 10*3/uL Normal 3.70-11.00 [facility] Comment on above: Order Comment: Speci men Type: BLOOD SPECIMEN Ordering Facility: [facility] Address: [address] [place] [address] Performed By: #### 2 132-9, 68256-6, 3016-3, 38653-3 #### [facility] CLIA [id number] [address] [facility] [address] [place] [facility] CNOVon 11-01-2024 CNOV Office Visit (FMWADS) RADHA JOHNSTON ([id number]) 1990 M Date Time Provider Department 11/01/24 1:00 PM ALVA PARISI MICH During your visit today, we recorded the following information about you: Temperature Pulse Blood pressure Weight 97.6 degrees 64/minute 101/64 73.9 kg Height 1.905 m Alva Parisi APRN.[facility]ER 11/01/2024 1:36 PM Addendum Do not take other NSAIDs while taking naproxen Can take tylenol as needed Alva Parisi APRN.[facility] WRESTLER 11/01/2024 1:55 PM Signed The patient is [...] Not seeking additional pain management; interested in director critical care. Weight Loss: - Unintentional weight loss from [...] complete [place] the [place] and [place]. - Drinks 4-5 glasses of water per day. Anxiety, Depression, and Bipolar Disorder: - Diagnosed with anxiety, depression, and bipolar disorder. - Has not sought treatment for these conditions in a long time. - Does not like psychiatric medications. - Experiences nightmares related to past trauma, including time in [employer]. - Practices meditation to manage mental health. [...] sounds: Normal (more content not included)... Normal [facility] Comprehensive metabolic 2000 panelon 11-01-2024 Albumin [Mass/Vol] 4.6 g/dL Normal 3.9-4.9 [facility] Comment on above: Order Comment: Speci men Type: BLOOD SPECIMEN Ordering Facility: [facility] Address: [address] [place] [address] Performed By: #### 2 132-9, 49844-4, 3016-3, 48401-0 #### [facility] CLIA [id number] [address] [place] [address] [place] ALP [Catalytic activity/Vol] 56 U/L Normal 38-113 [facility] Comment on above: Order Comment: Speci men Type: BLOOD SPECIMEN Ordering Facility: [facility] Address: [address] [place] [address] Performed By: #### 2 132-9, 13936-3, 3016-3, 28106-2 #### [facility] CLIA [id number] [address] [place] [address] [place] ALT [Catalytic activity/Vol] 13 U/L Normal 10-54 [facility] Comment on above: Order Comment: Speci men Type: BLOOD SPECIMEN Ordering Facility: [facility] Address: [address] [place] [address] Performed By: #### 2 132-9, 01422-2, 3016-3, 42534-1 #### [facility] CLIA [id number] [address] [place] [address] [place] Anion gap [Moles/Vol] 12 mmol/L Normal 8-15 [facility] Comment on above: Order Comment: Speci men Type: BLOOD SPECIMEN Ordering Facility: [facility] Address: [address] [place] [address] Performed By: #### 2 132-9, 72481-8, 3016-3, 31208-9 #### [facility] CLIA [id number] [address] [place] [address] [place] AST [Catalytic activity/Vol] 13 U/L Low 14-40 [facility] Comment on above: Order Comment: Speci men Type: BLOOD SPECIMEN Ordering Facility: [facility] Address: [address] [place] [address] Performed By: #### 2 132-9, 23996-9, 3016-3, 50281-8 #### [facility] CLIA [id number] [address] [place] [address] [place] Bilirubin [Mass/Vol] 0.4 mg/dL Normal 0.2-1.3 [facility] Comment on above: Order Comment: Speci men Type: BLOOD SPECIMEN Ordering Facility: [facility] Address: [address] [place] [address] Performed By: #### 2 132-9, 01791-6, 3016-3, 63517-4 #### [facility] CLIA [id number] [address] [place] [address] [place] Calcium [Mass/Vol] 9.9 mg/dL Normal 8.5-10.2 [facility] Comment on above: Order Comment: Speci men Type: BLOOD SPECIMEN Ordering Facility: [facility] Address: [address] [place] [address] Performed By: #### 2 132-9, 33462-5, 3016-3, 35208-0 #### [facility] CLIA [id number] [address] [place] [address] [place] Chloride [Moles/Vol] 103 mmol/L Normal 98-107 [facility] Comment on above: Order Comment: Speci men Type: BLOOD SPECIMEN Ordering Facility: [facility] Address: [address] [place] [address] Performed By: #### 2 132-9, 97239-8, 3016-3, 92404-0 #### [facility] CLIA [id number] [address] [place] [address] [place] CO2 [Moles/Vol] 29 mmol/L Normal 22-30 [facility] Comment on above: Order Comment: Speci men Type: BLOOD SPECIMEN Ordering Facility: [facility] Address: [address] [place] [address] Performed By: #### 2 132-9, 54961-9, 3016-3, 91862-4 #### [facility] CLIA [id number] [address] [place] [address] [place] Creatinine [Mass/Vol] 0.98 mg/dL Normal 0.73-1.22 [facility] Comment on above: Order Comment: Speci men Type: BLOOD SPECIMEN Ordering Facility: [facility] Address: [address] [place] [address] Performed By: #### 2 132-9, 60037-7, 3016-3, 86986-8 #### [facility] CLIA [id number] [address] [place] [address] [place] eGFRcr SerPlBld CKD-EPI 2021 103 mL/min/1.73m??? Normal >=60 [facility] Comment on above: Order Comment: Speci men Type: BLOOD SPECIMEN Ordering Facility: [facility] Address: [address] [place] [address] Result Comment: Carolin mated Glomerular Filtration Rate [...] actual GFR. Performed By: #### 2 132-9, 45685-5, 3016-3, 08081-7 #### [facility] CLIA [id number] [address] [place] [address] [place] Glucose [Mass/Vol] 99 mg/dL Normal 74-99 [facility] Comment on above: Order Comment: Farhat gong Type: BLOOD SPECIMEN Ordering Facility: [facility] Address: [address] [place] [address] Result Comment: The [place] [employer] (ADA) provides guidance for cutoff [...] Standards of Medical Care in Diabetes 2016, [place] [employer]. Diabetes Care. 2016.39(Suppl 1). Performed By: #### 2 132-9, 68929-8, 3016-3, 00193-6 #### [facility] CLIA [id number] [address] [place] [address] [place] Potassium [Moles/Vol] 4.7 mmol/L Normal 3.7-5.1 [facility] Comment on above: Order Comment: Farhat men Type: BLOOD SPECIMEN Ordering Facility: [facility] Address: [address] [place] [address] Performed By: #### 2 132-9, 79827-9, 3016-3, 39272-0 #### [facility] CLIA [id number] [address] [place] [address] [place] Protein [Mass/Vol] 7.0 g/dL Normal 6.3-8.0 [facility] Comment on above: Order Comment: Speci men Type: BLOOD SPECIMEN Ordering Facility: [facility] Address: [address] [place] [address] Performed By: #### 2 132-9, 24532-2, 3016-3, 04933-3 #### [facility] CLIA [id number] [address] [place] [address] [place] Sodium [Moles/Vol] 144 mmol/L Normal 136-144 [facility] Comment on above: Order Comment: Speci men Type: BLOOD SPECIMEN Ordering Facility: [facility] Address: [address] [place] [address] Performed By: #### 2 132-9, 55247-8, 3016-3, 10090-6 #### [facility] CLIA [id number] [address] [place] [address] [place] Urea nitrogen [Mass/Vol] 19 mg/dL Normal 9-24 [facility] Comment on above: Order Comment: Speci men Type: BLOOD SPECIMEN Ordering Facility: [facility] Address: [address] [place] [address] Performed By: #### 2 132-9, 78529-6, 3016-3, 62747-9 #### [facility] CLIA [id number] [address] [place] [address] [place] HBV surface Ag Ser Qlon 09- HBV surface Ag Ql (S) Negative Normal Negative [facility] Comment on above: Order Comment: Speci men Type: BLOOD SPECIMEN Ordering Facility: [facility] Address: [address] [place] [address] Performed By: #### 3 1201-7, 32883-0, 5195-3 #### [facility] CLIA [id number] [address] [place] [address] [place] HCV Ab Ser Qlon 11-01-2024 HCV Ab Ql (S) Positive Abnormal Negative [facility] Comment on above: Order Comment: Speci men Type: BLOOD SPECIMEN Ordering Facility: [facility] Address: [address] [place] [address] Performed By: #### 1 1011-4, 22834-0 #### [facility] CLIA [id number] [address] [place] [address] [place] HCV RNA BRADLEY+probe Qnon 11-01 HCV RNA BRADLEY+probe Ql Not detected Normal Not detected [facility] Comment on above: Order Comment: Speci men Type: BLOOD SPECIMEN Ordering Facility: [facility] Address: [address] [place] [address] Performed By: #### 1 1011-4, 48866-3 #### [facility] CLIA [id number] [address] [place] [address] [place] HIV 1+2 Ab IA Qlon HIV 1 and 2 Ab IA.rapid Nom (S/P/Bld) Normal [facility] Comment on above: Order Comment: Speci men Type: BLOOD SPECIMEN Ordering Facility: [facility] Address: [address] [place] [address] Result Comment: Test not indicated. Performed By: #### 3 1201-7, 78937-6, 5195-3 #### [facility] CLIA [id number] [address] [place] [address] [place] HIV 1+2 Ab+HIV1 p24 Ag IA Ql Non-Reactive Normal Nonreactive [facility] Comment on above: Order Comment: Speci men Type: BLOOD SPECIMEN Ordering Facility: [facility] Address: [address] [place], [place] [address] Performed By: #### 3 1201-7, 64835-2, 5195-3 #### [facility] CLIA [id number] [address] [place] [address] [place] HIV immunoassay testing algorithm interpretation (S/P/Bld) [Interp] Normal [facility] Comment on above: Order Comment: Speci men Type: BLOOD SPECIMEN Ordering Facility: [facility] Address: [address] [place] [address] Result Comment: No e vidence of HIV-1 or HIV-2 infection. Should recent infection be suspected, repeat testing may be considered 2-3 weeks after this draw. [place] Rev. Code 3701.243(E): This information has been [...] or diagnoses. Performed By: #### 3 1201-7, 14357-1, 5195-3 #### [facility] CLIA [id number] [address] [place] [address] [place] HbA1c (Bld)on 11-01-2024 Average glucose Estimated from glycated hemoglobin (Bld) [Mass/Vol] 82 mg/dL Normal [facility] Comment on above: Order Comment: Speci men Type: BLOOD SPECIMEN Ordering Facility: [facility] Address: [address] [place] [address] Result Comment: eAG: (Estimated average glucose) is a calculated value from HgbA1c and is teleservices representative of the average blood glucose level in the last 2-3 month period. Performed By: #### 2 132-9, 45657-7, 3016-3, 66685-0 #### [facility] CLIA [id number] [address] [place] [address] [place] HbA1c (Bld) [Mass fraction] 4.5 % Normal 4.3-5.6 [facility] Comment on above: Order Comment: Speci men Type: BLOOD SPECIMEN Ordering Facility: [facility] Address: [address] [place] [address] Result Comment: [place] Diabetes Association guidelines indicate that patients with HgbA1c in the range 5.7-6.4% are at increased risk for development of diabetes, and intervention by lifestyle modification may be beneficial. HgbA1c greater or equal to 6.5% is considered diagnostic of diabetes. Performed By: #### 2 132-9, 56869-3, 3016-3, 64709-6 #### [facility] CLIA [id number] [address] [place] [address] [place] Iron and Iron binding capaci ty panelon 11-01-2024 Iron [Mass/Vol] 107 ug/dL Normal 41-186 [facility] Comment on above: Order Comment: Juanai men Type: BLOOD SPECIMEN Ordering Facility: [facility] Address: [address] [place] [address] Performed By: #### 2 132-9, 01282-4, 3016-3, 56741-9 #### [facility] CLIA [id number] [address] [place] [address] [place] Iron binding capacity [Mass/Vol] 273 ug/dL Normal 232-386 [facility] Comment on above: Order Comment: Speci men Type: BLOOD SPECIMEN Ordering Facility: [facility] Address: [address] [place] [address] Performed By: #### 2 132-9, 12746-4, 3016-3, 20826-4 #### [facility] CLIA [id number] [address] [place] [address] [place] Iron/TIBC [Molar ratio] 39.2 % Normal 15.0-57.0 C [facility] Comment on above: Order Comment: Speci men Type: BLOOD SPECIMEN Ordering Facility: [facility] Address: [address] [place] [address] Performed By: #### 2 132-9, 63625-2, 3016-3, 27016-3 #### [facility] CLIA [id number] [address] [place] [address] [place] Reagin and Treponema pallidu m IgG and IgM [Interp]on 11-01-2024 T. pallidum IgG+IgM IA Ql (S) Non-Reactive Normal Nonreactive [facility] Comment on above: Order Comment: Speci men Type: BLOOD SPECIMEN Ordering Facility: [facility] Address: [address] [place] [address] Performed By: #### 3 1201-7, 84951-4, 5195-3 #### [facility] CLIA [id number] [address] [place] [address] [place] Reagin+T pallidum IgG+IgM Se rPl-Impon 11-01-2024 Reagin and Treponema pallidum IgG and IgM [Interp] Cannot exclude recent Treponemal infection if specimen collected within 7-10 days after appearance of suspect lesions or 2-3 weeks after an exposure. Clinical correlation is required. Normal [facility] Comment on above: Order Comment: Speci men Type: BLOOD SPECIMEN Ordering Facility: [facility] Address: [address] [place] [address] Performed By: #### 3 1201-7, 11537-2, 5195-3 #### [facility] CLIA [id number] [address] [place] [address] [place] TRICHOMONAS VAGINALIS NAATon 11-01-2024 T. vaginalis DNA BRADLEY+probe Ql (Unsp spec) Not detected Normal Not detected [facility] Comment on above: Order Comment: Speci men Type: BLOOD SPECIMEN Ordering Facility: [facility] Address: [address] [place] [address] Performed By: #### 2 132-9, 00177-6, 6-3, 98284-8 #### [facility] CLIA [id number] [address] [place] [address] [place] TSH SerPl-aCncon 11-01-2024 TSH Qn 1.530 m[IU]/L Normal 0.270-4.200 [facility] Comment on above: Order Comment: Speci men Type: BLOOD SPECIMEN Ordering Facility: [facility] Address: [address] [place] [address] Performed By: #### 2 132-9, 69390-4, 3016-3, 08624-7 #### [facility] CLIA [id number] [address] [place] [address] [place] Vit B12 SerPl-mCncon 025 Cobalamin (Vitamin B12) [Mass/Vol] 619 pg/mL Normal 232-1245 [facility] Comment on above: Order Comment: Speci men Type: BLOOD SPECIMEN Ordering Facility: [facility] Address: [address] [place] [address] Performed By: #### 2 132-9, 48013-9, 3016-3, 53448-2 #### [facility] CLIA [id number] [address] [place] [address] [place] CNOVon 10-31-2024 CNOV Office Visit ([facility]) RADHA JOHNSTON ([id number]) 1990 M Date Time Provider Department 10/31/24 1:15 PM LORENA READ During your visit today, we recorded the following information about you: Temperature Pulse Respiration Blood pressure 97.7 degrees 61/minute 20/minute 104/66 Weight 73 kg Lorena Read APRN.[facility] WRESTLER 10/31/2024 2:41 PM Signed [facility] [...] Grandmother Coronary Artery Disease Maternal Grandfather from [place] Emphysema Maternal Grandmother Hypertension Paternal Grandfather Alcohol/Drug [...] R63.4 Will establish with pcp Lorena Read APRN.WWE WRESTLER History and Record Review External record(s) reviewed: [...] Diagnosis:Weight loss [R63.4] Order(s):XR RIBS BILATERAL/CHEST 4V [2621350] Order #: [id number]. #:[id number] Prescriptions as of 10/31/2024 - buprenorphine-naloxo ne [...] ADHD (atten (more content not included)... Normal [facility] XR RIBS 4V DOLORES+UPPER/LOWER C Cachorro 10-31-2024 [...] cardiomediastinal silhouette. IMPRESSION: No acute radiographic abnormality. Interactive Developer: KAREN Transcribe Date/Time: Oct 31 2024 2:04P Dictated by : DARRYL COOK DO This examination was interpreted and the report reviewed and electronically signed by: DARRYL COOK DO on Oct 31 2024 2:07PM EST [id number] CN Normal [facility] Miscellaneous Lab Procedureo n 12-09-2023 [facility] [place] Normal [facility] Comment on above: Order Comment: [id number] [...] considerations. Alpha 2-Macroglobulins, Qn01 173 mg/dL 110-276 Rihhqnqpzzg14 65 mg/dL 17-317 Apolipoprotein A-101 137 mg/dL [...] developed and its performance characteristics determined by [employer]. It has not been cleared or approved by the Food and Drug Administration. For questions regarding this report please contact customer service at . Performing Labs 01: [facility], [address] [place] [address] Dir: Addis Osorio MD For inquiries, the physician may contact Lab: [phone] Performed By: #### L 509.8000, L501.4900, L300.3900, L3890.6005, L3100.0200, L7000.7000, L500.4050, L501.5000, L801.1541, L100.0100, L3890.6200 #### [facility] [address] [facility] [place], [place], [id number] Cholesterolon 12-06-2023 Cholesterol [Mass/Vol] 163 mg/dL Normal 200 [facility] Comment on above: Result Comment: <200 mg/dL Desirable 200-240 mg/dL Borderline >240 mg/dL High Risk Performed By: #### L 509.8000, L501.4900, L300.3900, L3890.6005, L3100.0200, L7000.7000, L500.4050, L501.5000, L801.1541, L100.0100, L3890.6200 #### [facility] [address] [facility]. [place], [place], [address] Hepatitis A IgM Antibodyon 1 HEPATITIS A-IgM Negative Normal Negative [facility] Comment on above: Result Comment: A ne gative anti-HAV IgM result suggests no recent or current HAV infection. Performed at: [address] [id number] Manager Technical Support: Addis Osorio MD, Phone: [phone] Performed at: [address] [id number] Manager Technical Support: Bob Matos PhD, Phone: [phone] Performed By: #### L 509.8000, L501.4900, L300.3900, L3890.6005, L3100.0200, L7000.7000, L500.4050, L501.5000, L801.1541, L100.0100, L3890.6200 #### [facility] [address] 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 [facility] Comment on above: Result Comment: Resu lt Units: log10 IU/mL Performed By: #### L 509.8000, L501.4900, L300.3900, L3890.6005, L3100.0200, L7000.7000, L500.4050, L501.5000, L801.1541, L100.0100, L3890.6200 #### [facility] [address] [place], [address] HCV QT RNA PCR [id number] IU/mL Normal . [facility] Comment on above: Performed By: #### L 509.8000, L501.4900, L300.3900, L3890.6005, L3100.0200, L7000.7000, L500.4050, L501.5000, L801.1541, L100.0100, L3890.6200 #### [facility] [address] [place], [address] TEST INFO: Comment Normal . [facility] Comment on above: Result Comment: The quantitative range of this assay is 15 IU/mL to 100 million IU/mL. Performed By: #### L 509.8000, L501.4900, L300.3900, L3890.6005, L3100.0200, L7000.7000, L500.4050, L501.5000, L801.1541, L100.0100, L3890.6200 #### [facility] [address] [place], [address] Triglycerideson 12-06-2023 Triglyceride [Mass/Vol] 58 mg/dL Normal [facility] Comment on above: Result Comment: The drugs N-Acetylcysteine and Metamizole may falsely depress this assay. Serum Triglycerides Reference Interval Normal <150 mg/dL Borderline high 150 - 199 mg/dL High 200 - 499 mg/dL Very High > or = 500 mg/dL Performed By: #### L 509.8000, L501.4900, L300.3900, L3890.6005, L3100.0200, L7000.7000, L500.4050, L501.5000, L801.1541, L100.0100, L3890.6200 #### [facility] [address] [place], [place], [id number] CBC W/Diff, Automatedon 10-2 Absolute Lymph 2.18 X10 3/uL Normal 0.83-4.51 [facility] Comment on above: Performed By: #### L 509.8000, L501.4900, L300.3900, L3890.6005, L3100.0200, L7000.7000, L500.4050, L501.5000, L801.1541, L100.0100, L3890.6200 #### [facility] [address] [place], [place], [id number] Absolute Neut 2.0 X10 3/uL Normal 2.0-7.7 [facility] Comment on above: Performed By: #### L 509.8000, L501.4900, L300.3900, L3890.6005, L3100.0200, L7000.7000, L500.4050, L501.5000, L801.1541, L100.0100, L3890.6200 #### [facility] [address] [place], [place], [id number] Basophils/100 WBC (Bld) 0.8 % Normal 0-1 [facility] Comment on above: Performed By: #### L 509.8000, L501.4900, L300.3900, L3890.6005, L3100.0200, L7000.7000, L500.4050, L501.5000, L801.1541, L100.0100, L3890.6200 #### [facility] [address] [facility] [place], [address] Eosinophils/100 WBC (Bld) 2.3 % Normal 0-5 [facility] Comment on above: Performed By: #### L 509.8000, L501.4900, L300.3900, L3890.6005, L3100.0200, L7000.7000, L500.4050, L501.5000, L801.1541, L100.0100, L3890.6200 #### [facility] [address] [facility] [place], [address] (125 Erythrocyte distribution width (RBC) [Ratio] 12.8 % Normal 11.6-14.6 [facility] Comment on above: Performed By: #### L 509.8000, L501.4900, L300.3900, L3890.6005, L3100.0200, L7000.7000, L500.4050, L501.5000, L801.1541, L100.0100, L3890.6200 #### [facility] [address] [facility] [place], [address] Hematocrit (Bld) [Volume fraction] 43.5 % Normal 40-54 [facility] Comment on above: Performed By: #### L 509.8000, L501.4900, L300.3900, L3890.6005, L3100.0200, L7000.7000, L500.4050, L501.5000, L801.1541, L100.0100, L3890.6200 #### [facility] [address] [place], [address] ( Hemoglobin (Bld) [Mass/Vol] 14.8 g/dL Normal 13.0-16.5 [facility] Comment on above: Performed By: #### L 509.8000, L501.4900, L300.3900, L3890.6005, L3100.0200, L7000.7000, L500.4050, L501.5000, L801.1541, L100.0100, L3890.6200 #### [facility] [address] [place], [place], [id number] (652 IG% 0.200 Normal 0.0-0.9 [facility] Comment on above: Result Comment: IG% - Immature Granulocytes (promyelocytes, myelocytes and metamyelocytes) > 1% indicates that a LEFT SHIFT is Present. Performed By: #### L 509.8000, L501.4900, L300.3900, L3890.6005, L3100.0200, L7000.7000, L500.4050, L501.5000, L801.1541, L100.0100, L3890.6200 #### [facility] [address] [place], [address] Lymphocytes/100 WBC (Bld) 46.0 % High 19-41 [facility] Comment on above: Performed By: #### L 509.8000, L501.4900, L300.3900, L3890.6005, L3100.0200, L7000.7000, L500.4050, L501.5000, L801.1541, L100.0100, L3890.6200 #### [facility] [address] [place], [address] MCH (RBC) [Entitic mass] 29.0 pg Normal 27.0-32.0 [facility] Comment on above: Performed By: #### L 509.8000, L501.4900, L300.3900, L3890.6005, L3100.0200, L7000.7000, L500.4050, L501.5000, L801.1541, L100.0100, L3890.6200 #### [facility] [address] [place], [address] MCHC (RBC) [Mass/Vol] 34.0 g/dL Normal 32-36 [facility] Comment on above: Performed By: #### L 509.8000, L501.4900, L300.3900, L3890.6005, L3100.0200, L7000.7000, L500.4050, L501.5000, L801.1541, L100.0100, L3890.6200 #### [facility] [address] [place], [address] MCV (RBC) [Entitic vol] 85.3 fL Normal 80-94 [facility] Comment on above: Performed By: #### L 509.8000, L501.4900, L300.3900, L3890.6005, L3100.0200, L7000.7000, L500.4050, L501.5000, L801.1541, L100.0100, L3890.6200 #### [facility] [address] [place], [address] Monocytes/100 WBC (Bld) 7.6 % Normal 0-[address] [facility] Comment on above: Performed By: #### L 509.8000, L501.4900, L300.3900, L3890.6005, L3100.0200, L7000.7000, L500.4050, L501.5000, L801.1541, L100.0100, L3890.6200 #### [facility] [address] [place], [address] Neutrophils/100 WBC (Bld) 43.1 % Low 47-70 [facility] Comment on above: Performed By: #### L 509.8000, L501.4900, L300.3900, L3890.6005, L3100.0200, L7000.7000, L500.4050, L501.5000, L801.1541, L100.0100, L3890.6200 #### [facility] [address] [place], [address] Nucleated RBC (Bld) [#/Vol] 0 10*3/uL Normal 0-5 [facility] Comment on above: Performed By: #### L 509.8000, L501.4900, L300.3900, L3890.6005, L3100.0200, L7000.7000, L500.4050, L501.5000, L801.1541, L100.0100, L3890.6200 #### [facility] [address] [place], [address] ( Platelet mean volume (Bld) [Entitic vol] 9.5 fL Normal 6.2-12.0 [facility] Comment on above: Performed By: #### L 509.8000, L501.4900, L300.3900, L3890.6005, L3100.0200, L7000.7000, L500.4050, L501.5000, L801.1541, L100.0100, L3890.6200 #### [facility] [address] [place], [address] Platelets (Bld) [#/Vol] 208 10*3/uL Normal 150-450 [facility] Comment on above: Performed By: #### L 509.8000, L501.4900, L300.3900, L3890.6005, L3100.0200, L7000.7000, L500.4050, L501.5000, L801.1541, L100.0100, L3890.6200 #### [facility] [address] [place], [address] RBC (Bld) [#/Vol] 5.10 10*6/uL Normal 4.6-6.2 [facility] Comment on above: Performed By: #### L 509.8000, L501.4900, L300.3900, L3890.6005, L3100.0200, L7000.7000, L500.4050, L501.5000, L801.1541, L100.0100, L3890.6200 #### [facility] [address] [place], [address] RDW SD 40.4 fl Normal 35.1-43.9 [facility] Comment on above: Performed By: #### L 509.8000, L501.4900, L300.3900, L3890.6005, L3100.0200, L7000.7000, L500.4050, L501.5000, L801.1541, L100.0100, L3890.6200 #### [facility] [address] [place], [address] WBC (Bld) [#/Vol] 4.7 10*3/uL Normal 4.4-11.0 [facility] Comment on above: Performed By: #### L 509.8000, L501.4900, L300.3900, L3890.6005, L3100.0200, L7000.7000, L500.4050, L501.5000, L801.1541, L100.0100, L3890.6200 #### [facility] [address] [place], [address] Comprehensive Metabolic Prof [facility] 12-05-2023 Albumin [Mass/Vol] 3.9 g/dL Normal 3.2-5.0 [facility] Comment on above: Performed By: #### L 509.8000, L501.4900, L300.3900, L3890.6005, L3100.0200, L7000.7000, L500.4050, L501.5000, L801.1541, L100.0100, L3890.6200 #### [facility] [address] [place], [address] Albumin/Globulin [Mass ratio] 1.1 {ratio} Normal 0.9-2.4 [facility] Comment on above: Performed By: #### L 509.8000, L501.4900, L300.3900, L3890.6005, L3100.0200, L7000.7000, L500.4050, L501.5000, L801.1541, L100.0100, L3890.6200 #### [facility] [address] [facility] [place], [place], [id number] ALK P 64 U/L Normal 45-117 [facility] Comment on above: Performed By: #### L 509.8000, L501.4900, L300.3900, L3890.6005, L3100.0200, L7000.7000, L500.4050, L501.5000, L801.1541, L100.0100, L3890.6200 #### [facility] [address] [place], [place], [id number] ALT [Catalytic activity/Vol] 42 U/L Normal 16-61 [facility] Comment on above: Performed By: #### L 509.8000, L501.4900, L300.3900, L3890.6005, L3100.0200, L7000.7000, L500.4050, L501.5000, L801.1541, L100.0100, L3890.6200 #### [facility] [address] [place], [place], [id number] AST [Catalytic activity/Vol] 28 U/L Normal 15-37 [facility] Comment on above: Performed By: #### L 509.8000, L501.4900, L300.3900, L3890.6005, L3100.0200, L7000.7000, L500.4050, L501.5000, L801.1541, L100.0100, L3890.6200 #### [facility] [address] [place], [address] Bilirubin [Mass/Vol] 0.80 mg/dL Normal 0.20-1.00 [facility] Comment on above: Result Comment: For patients on eltrombopag therapy, use of Dimension [place] TBIL is not recommended. Performed By: #### L 509.8000, L501.4900, L300.3900, L3890.6005, L3100.0200, L7000.7000, L500.4050, L501.5000, L801.1541, L100.0100, L3890.6200 #### [facility] [address] [place], [place], [id number] BUN/CRE 10.8 RATIO Normal 10-20 [facility] Comment on above: Performed By: #### L 509.8000, L501.4900, L300.3900, L3890.6005, L3100.0200, L7000.7000, L500.4050, L501.5000, L801.1541, L100.0100, L3890.6200 #### [facility] [address] [place], [place], [id number] CA,Total 9.2 mg/dL Normal 8.5-10.1 [facility] Comment on above: Performed By: #### L 509.8000, L501.4900, L300.3900, L3890.6005, L3100.0200, L7000.7000, L500.4050, L501.5000, L801.1541, L100.0100, L3890.6200 #### [facility] [address] [place], [place], [address] Chloride [Moles/Vol] 105 mmol/L Normal 98-107 [facility] Comment on above: Performed By: #### L 509.8000, L501.4900, L300.3900, L3890.6005, L3100.0200, L7000.7000, L500.4050, L501.5000, L801.1541, L100.0100, L3890.6200 #### [facility] [address] [place], [place], [id number] (489) CO2 [Moles/Vol] 27.0 mmol/L Normal 21.0-32.0 [facility] Comment on above: Performed By: #### L 509.8000, L501.4900, L300.3900, L3890.6005, L3100.0200, L7000.7000, L500.4050, L501.5000, L801.1541, L100.0100, L3890.6200 #### [facility] [address] [place], [place], [id number] (017) Creatinine [Mass/Vol] 1.02 mg/dL Normal 0.70-1.30 [facility] Comment on above: Result Comment: The validity of the calculated GFR GFRAA in patients over 70 years has not been determined. Clinical correlation is essential. Performed By: #### L 509.8000, L501.4900, L300.3900, L3890.6005, L3100.0200, L7000.7000, L500.4050, L501.5000, L801.1541, L100.0100, L3890.6200 #### [facility] [address] [place], [place], [id number] EST GFR - AA 107 mL/min Normal >60 [facility] Comment on above: Result Comment: Afri can Ni[place] GFR Calc Performed By: #### L 509.8000, L501.4900, L300.3900, L3890.6005, L3100.0200, L7000.7000, L500.4050, L501.5000, L801.1541, L100.0100, L3890.6200 #### [facility] [address] [place], [address] GAP 8 Normal 5-15 [facility] Comment on above: Performed By: #### L 509.8000, L501.4900, L300.3900, L3890.6005, L3100.0200, L7000.7000, L500.4050, L501.5000, L801.1541, L100.0100, L3890.6200 #### [facility] [address] [place], [address] GFR/1.73 sq M.predicted among non-blacks MDRD (S/P/Bld) [Vol rate/Area] 89 mL/min/{1.73_m2} Normal >60 [facility] Comment on above: Result Comment: Non- GFR Calc Performed By: #### L 509.8000, L501.4900, L300.3900, L3890.6005, L3100.0200, L7000.7000, L500.4050, L501.5000, L801.1541, L100.0100, L3890.6200 #### [facility] [address] [place], [address] Globulin (S) [Mass/Vol] 3.7 g/dL Normal 2.2-4.[address] [facility] Comment on above: Performed By: #### L 509.8000, L501.4900, L300.3900, L3890.6005, L3100.0200, L7000.7000, L500.4050, L501.5000, L801.1541, L100.0100, L3890.6200 #### [facility] [address] [place], [address] Glucose [Mass/Vol] 93 mg/dL Normal 74-106 [facility] Comment on above: Performed By: #### L 509.8000, L501.4900, L300.3900, L3890.6005, L3100.0200, L7000.7000, L500.4050, L501.5000, L801.1541, L100.0100, L3890.6200 #### [facility] [address] [place], [address] Potassium [Moles/Vol] 3.6 mmol/L Normal 3.5-5.1 [facility] Comment on above: Performed By: #### L 509.8000, L501.4900, L300.3900, L3890.6005, L3100.0200, L7000.7000, L500.4050, L501.5000, L801.1541, L100.0100, L3890.6200 #### [facility] [address] [place], [address] Sodium [Moles/Vol] 140 mmol/L Normal 136-145 [facility] Comment on above: Performed By: #### L 509.8000, L501.4900, L300.3900, L3890.6005, L3100.0200, L7000.7000, L500.4050, L501.5000, L801.1541, L100.0100, L3890.6200 #### [facility] [address] [place], [place], [phone] (073) T PROT 7.6 g/dL Normal 6.4-8.2 [facility] Comment on above: Performed By: #### L 509.8000, L501.4900, L300.3900, L3890.6005, L3100.0200, L7000.7000, L500.4050, L501.5000, L801.1541, L100.0100, L3890.6200 #### [facility] [address] [place], [place], [phone] (531) Urea nitrogen [Mass/Vol] 11 mg/dL Normal 7-18 [facility] Comment on above: Performed By: #### L 509.8000, L501.4900, L300.3900, L3890.6005, L3100.0200, L7000.7000, L500.4050, L501.5000, L801.1541, L100.0100, L3890.6200 #### [facility] [address] [place], [address] HIV - WCHon 12-05-2023 HIV Non-Reactive Normal Nonreactive [facility] Comment on above: Performed By: #### L 509.8000, L501.4900, L300.3900, L3890.6005, L3100.0200, L7000.7000, L500.4050, L501.5000, L801.1541, L100.0100, L3890.6200 #### [facility] [address] [place], [address] Hepatitis B Surface Antibody on 12-05-2023 HEP B Surf Ab Reactive Normal [facility] Comment on above: Result Comment: Non Reactive: Inconsistent with immunity less than <10 mIU/mL Reactive: Consistent with immunity greater than or equal to 10 mIU/mL Performed By: #### L 509.8000, L501.4900, L300.3900, L3890.6005, L3100.0200, L7000.7000, L500.4050, L501.5000, L801.1541, L100.0100, L3890.6200 #### [facility] [address] [place], [address] L509.8000on 12-05-2023 Syphilis Abs Non-Reactive Normal [facility] Comment on above: Performed By: #### L 509.8000, L501.4900, L300.3900, L3890.6005, L3100.0200, L7000.7000, L500.4050, L501.5000, L801.1541, L100.0100, L3890.6200 #### [facility] [address] [place], [address] Prothrombin Time w/INRon INR Coag (PPP) [Relative time] 1.0 {INR} Normal [facility] Comment on above: Performed By: #### L 509.8000, L501.4900, L300.3900, L3890.6005, L3100.0200, L7000.7000, L500.4050, L501.5000, L801.1541, L100.0100, L3890.6200 #### [facility] [address] [place], [place], [address] PT Coag (PPP) [Time] 12.9 s Normal 11.7-14.9 [facility] Comment on above: Performed By: #### L 509.8000, L501.4900, L300.3900, L3890.6005, L3100.0200, L7000.7000, L500.4050, L501.5000, L801.1541, L100.0100, L3890.6200 #### [facility] [address] [place], [place], [id number] Nursing Noteon 10-17-2023 Nursing Note Written homegoing instructions reviewed with and given to patient: q/a time offered. This RN walked pt to main waiting room, knows where exit is located, dc'd to home in stable condition [facility] Nursing Note Arrives to PACU from OR: a/o x 4 , denies any c/o, local anesth for procedure: no IV. X3 surg site dressings cdi: r cheek, r neck, r upper ant arm. [facility] Op Noteon 10-17-2023 Op Note Operative Note Patient: Radha Johnston Date of : 1990 [id number] Date of Procedure: 10/17/23 Pre-Op Diagnosis: Symptomatic [...] from PACU to home. Radha Hair MD [facility] Op Note Date: 10/17/2023 Location: [facility] OR Name: Radha Johnston DOB: 1990, Diagnosis Pre-op Diagnosis * Neoplasm of unspecified behavior of bone, soft tissue, and skin [D49.2] Post-op Diagnosis * Neoplasm of unspecified behavior of bone, soft tissue, and skin [D49.2] Procedures EXCISION OF MULTIPLE LESIONS OF RIGHT CHEECK, RIGHT NECK, AND RIGHT UPPER EXTREMITY WITH LAYERED CLOSURE 24145 - ND EXC B9 LESION MRGN XCP SK TG [...] MD 10/17/231515 Description: Right arm lesion Staff: Lift Mechanic: Anna Rivera RN Scrub Person: Seferino Brand RN; Gabby Hoyos Findings: None Complications: None; patient tolerated the procedure well. Specimens Collected: Order Name Source Comment Collection Info Order Time TISSUE EXAM Cheek Collected By: Radha Hair MD 10/17/2023 3:17 PM Wound Class: Class I: Clean Blood Products: None Prophylactic Antibiotics: Pre-operative antibiotics were not given because antibiotics are not indicated for this procedure. [facility] Office Visiton 08-14-2023 Follow-up visit [id number] VickieRadha 1990 M Date Provider Department Center 08/14/2023 59-DANII [facility] None No family history on file Level of Service:16969 ND OFFICE/OUTPATIENT NEW LOW MDM 30 MINUTES Reason for Visit and Comments: New Patient [542] - C/o like 4 moles want them looked at [facility] L509.8000on 07-20-2023 Syphilis Abs Non-Reactive [facility] Comment on above: Performed By: #### L 509.8000, L501.4900, L300.3900, L3890.6005, L3100.0200, L7000.7000, L500.4050, L501.5000, L801.1541, L100.0100, L3890.6200 #### [facility] [address] [place], [address] M8200.2100on 07-20-2023 M8200.2100 Negative Normal [facility] Comment on above: Performed By: #### L 509.8000, L501.4900, L300.3900, L3890.6005, L3100.0200, L7000.7000, L500.4050, L501.5000, L801.1541, L100.0100, L3890.6200 #### [facility] [address] [place], [address] M8200.2200on 07-20-2023 M8200.2200 Negative Normal [facility] Comment on above: Performed By: #### L 509.8000, L501.4900, L300.3900, L3890.6005, L3100.0200, L7000.7000, L500.4050, L501.5000, L801.1541, L100.0100, L3890.6200 #### [facility] [address] [place], [address] 36on 05-02-2023 36 Patient called in stated that he doesn't have the transportation to see the DrSurjit In gonzales. Stated to patient that we will change his appointment time and location. [facility] Progress Noteon 04-20-2023 Progress Note [facility] Infectious Disease Patient: Vickie Lozano : 1990 [...] procedure well. Results: Median=4.2 kPa IQR/med=17 % XRW=671 dB/m Anna Jarrett LPN, 04/20/2023 2:05 PM Diagnosis/Problems: Diagnosis Plan 1. Chronic hepatitis C without hepatic coma (CMS/HCC) (HCC) Fibroscan Provider Impression: Normal [facility] Office Visiton 04-03-2023 Follow-up visit [id number] Radha Johnston 1990 [facility] Provider Department Center 04/03/2023 [id number] Chart Close Cosign Required by: Ck Carney DO[NAEL] No family history on file Level of Service:72351 ND OFFICE/OUTPATIENT ESTABLISHED LOW MDM 20 MIN Reason for Visit and Comments: Follow-up [769785] - Hep C Normal [facility] Progress Noteon 04-03-2023 Progress Note [facility] [address] [address] Dept: [phone] Dept Loc: [phone] 04/03/2023 Visit type: follow up Reason for [...] and genital lesions, retinal detachment while in intermediate who presents today from [facility] for follow-up regarding HCV workup for treatment, retinal detachment evaluation, and skin biopsy. HPI Fibroscan: Pt reports inability to schedule Fibroscan due to conflicting schedules between classes at [facility] and availability with ID. Ophthalmology appointment follow-up: Pt reports he was informed no evidence of retinal detachment, just retinal tears. No surgical intervention planned at this time, just monitoring. Likely will just need to live with the spots in his vision. Follow-up scheduled in 1 month. Plastic surgery skin biopsy/removal: Pt missed appointment, reports accidentally not informing [facility] of appointment in time, was [...] startled awake combined with his PTSD and intermediate experience, he was disoriented and required sedation. Only medication is suboxone at this time, generally reports feeling well, whereas in the past whenever he would stop drug use he would feel ill. Pt asks about general health measures. Currently doing 200 pushups a day, and 90 total pull-ups 3x a week (does 30 at a time, has been since time in intermediate). Questions regarding diet, concerns for his CO2 [...] is soft (more content not included)... Normal [facility] Progress Note Teaching Physician Note Indirect Supervision [...] have fallen out of his bed at [facility] and potentially lost consciousness? Unclear the etiology [...] with clearer documentation. Ck Carney, DO Normal [facility] Progress Note MA time with patient 5 [...] I don't want one) [x] other Normal [facility] Progress Noteon 03-24-2023 Progress Note [facility] [address] [facility] [address] Dept: [phone] Dept Loc: [phone] Visit type: New patient Reason for Visit: [...] of light sometimes. Pt sts was in intermediate 2 years ago andn one doctor said [...] 2:10 PM Refraction Wearing Rx Sphere Cylinder Bantry Right -6.00 +4.00 094 Left -6.25 +2.25 080 Data Reviewed and Summarized The patient will need the following test completed on: 03/24/2023 1. [facility] Op[facility] Diagnosis: Hx of retinal detachment (Z86.69) Authorizing Provider: DO Keyanna Reyes MD [facility] 03-21-2023 36 1st attempt to schedule FibroScan, spoke with pt who said he will call our office back for scheduling as he is not able to do so at this time. [facility] 03-15-2023 36 RN attempted to contact patient but number is no longer in service. [facility] 03-14-2023 36 Attempted to call patient to give him the following instructions, no answer x2. - Now that all lab testing has been completed, pt needs imaging to evaluate for cirrhosis. - Fibroscan ordered - Please call the Infectious Disease office at [phone] from Mon-Fri 8a-4:30p to schedule your Fibroscan study. Normal [facility] ED Nursing Noteon 03-06-2023 ED Nursing Note Pt at room door requesting to go home. Pt sts that he is feeling fine and wants to leave. Pt advised the provider will be notified of his request. Amor Gallagher, EMT 03/06/23 0259 Normal [facility] CBC W Auto Differential pane l (Bld)Ordered By: Marcelina Marinelli on 03-05-2023 Basophils (Bld) [#/Vol] 0.1 10*3/uL 0.0 - 0.2 10*3/uL [facility] Basophils/100 WBC (Bld) 0.4 % 0.0 - 2.0 % [facility] Eosinophils (Bld) [#/Vol] 0.1 10*3/uL 0.0 - 0.5 10*3/uL [facility] Eosinophils/100 WBC (Bld) 0.4 % Low 1.0 - 6.0 % [facility] Erythrocyte distribution width (RBC) [Ratio] 12.7 % 11.5 - 14.5 % [facility] Hematocrit (Bld) [Volume fraction] 43.3 % 40.0 - 52.0 % [facility] Hemoglobin (Bld) [Mass/Vol] 14.8 g/dL 13.0 - 18.0 g/dL [facility] Interpretation and review of laboratory results Abnormal [facility] Lymphocytes (Bld) [#/Vol] 1.4 10*3/uL 1.0 - 4.3 10*3/uL [facility] Lymphocytes/100 WBC (Bld) 10.3 % Low 20.0 - 40.0 % [facility] MCH (RBC) [Entitic mass] 30.3 pg 26.0 - 34.0 pg [facility] MCHC (RBC) [Mass/Vol] 34.3 % 32.0 - 36.0 % [facility] MCV (RBC) [Entitic vol] 88.4 fL 80.0 - 98.0 fL [facility] Monocytes (Bld) [#/Vol] 0.8 10*3/uL 0.0 - 0.8 10*3/uL [facility] Monocytes/100 WBC (Bld) 5.6 % 2.0 - 10.0 % [facility] Neutrophils (Bld) [#/Vol] 11.2 10*3/uL High 1.8 - 7.0 10*3/uL [facility] Neutrophils/100 WBC (Bld) 83.3 % High 40.0 - 80.0 % [facility] Nucleated RBC/100 WBC (Bld) [Ratio] 0.0 % [facility] Platelet mean volume (Bld) [Entitic vol] 8.0 fL 7.4 - 12.4 fL [facility] Platelets (Bld) [#/Vol] 175 10*3/uL 140 - 440 10*3/uL [facility] RBC (Bld) [#/Vol] 4.89 10*6/uL 4.40 - 5.9 0 10*6/uL [facility] WBC (Bld) [#/Vol] 13.4 10*3/uL High 3.6 - 10.7 10*3/uL [facility] CBC WITH AUTO DIFFERENTIALon 03-05-2023 Basophils (Bld) [#/Vol] 0.1 10*3/uL Normal 0.0-0.2 [facility] Comment on above: Performed By: #### L [id number] ####Assistant Dean: ROSELYN CLEMENS ([id number])[facility])[address] [place] [address] Basophils/100 WBC (Bld) 0.4 % Normal 0.0-2.0 [facility] Comment on above: Performed By: #### L [id number] ####Assistant Dean: ROSELYN CLEMENS ([id number])[facility])[address] [place] [address] [place] Eosinophils (Bld) [#/Vol] 0.1 10*3/uL Normal 0.0-0.5 [facility] Comment on above: Performed By: #### L [id number] ####Assistant Dean: ROSELYN CLEMENS ([id number])[facility])[address] [place] [address] [place] Eosinophils/100 WBC (Bld) 0.4 % Low 1.0-6.0 [facility] Comment on above: Performed By: #### L [id number] ####Assistant Dean: ROSELYN CLEMENS ([id number])[facility])[address] [place] [address] Erythrocyte distribution width (RBC) [Ratio] 12.7 % Normal 11.5-14.5 [facility] Comment on above: Performed By: #### L [id number] ####Assistant Dean: ROSLEYN CLEMENS ([id number])[facility])[address] [place] [address] ERYTHROCYTE MEAN CORPUSCULAR HEMOGLOBIN CONCENTRATION (G/DL) BY AUTOMATED 34.3 % Normal 32.0-36.0 [facility] Comment on above: Performed By: #### L [id number] ####Assistant Dean: ROSELYN CLEMENS ([id number])[address] Hematocrit (Bld) [Volume fraction] 43.3 % Normal 40.0-52.0 [facility] Comment on above: Performed By: #### L [id number] ####Assistant Dean: ROSELYN CLEMENS ([id number])[address] Hemoglobin (Bld) [Mass/Vol] 14.8 g/dL Normal 13.0-18.0 [facility] Comment on above: Performed By: #### L [id number] ####Assistant Dean: ROSELYN CLEMENS ([id number])[facility])[address] [place] [address] Lymphocytes (Bld) [#/Vol] 1.4 10*3/uL Normal 1.0-4.3 [facility] Comment on above: Performed By: #### L [id number] ####Assistant Dean: ROSELYN CLEMENS ([id number])[address] Lymphocytes/100 WBC (Bld) 10.3 % Low 20.0-40.0 [facility] Comment on above: Performed By: #### L [id number] ####Assistant Dean: ROSELYN CLEMENS ([id number])[facility])[address] [place] [address] MCH (RBC) [Entitic mass] 30.3 pg Normal 26.0-34.0 [facility] Comment on above: Performed By: #### L [id number] ####Assistant Dean: ROSELYN CLEMENS ([id number])[facility])[address] [place] [address] MCV (RBC) [Entitic vol] 88.4 fL Normal 80.0-98.0 [facility] Comment on above: Performed By: #### L [id number] ####Assistant Dean: ROSELYN CLEMENS ([id number])[facility])[address] [place] [address] Monocytes (Bld) [#/Vol] 0.8 10*3/uL Normal 0.0-0.8 [facility] Comment on above: Performed By: #### L [id number] ####Assistant Dean: ROSELYN CLEMENS ([id number])[facility])[address] [place] [address] Monocytes/100 WBC (Bld) 5.6 % Normal 2.0-10.0 [facility] Comment on above: Performed By: #### L [id number] ####Assistant Dean: ROSELYN CLEMENS ([id number])[facility])[address] [place] [address] Neutrophils (Bld) [#/Vol] 11.2 10*3/uL High 1.8-7.0 [facility] Comment on above: Performed By: #### L [id number] ####Assistant Dean: ROSELYN CLEMENS ([id number])[facility])[address] [place] [address] Neutrophils/100 WBC (Bld) 83.3 % High 40.0-80.0 [facility] Comment on above: Performed By: #### L [id number] ####Assistant Dean: ROSELYN CLEMENS ([id number])[facility])[address] [place] [address] NRBC (PER 100 WBCS) BY AUTOMATED COUNT 0.0 /100 WBCs Normal 0.0-2.0 [facility] Comment on above: Performed By: #### L [id number] ####Assistant Dean: ROSELYN CLEMENS ([id number])[facility])[address] [place] [address] Platelet mean volume (Bld) [Entitic vol] 8.0 fL Normal 7.4-12.4 [facility] Comment on above: Performed By: #### L [id number] ####Assistant Dean: ROSELYN CLEMENS ([id number])[facility])[address] [place] [address] Platelets (Bld) [#/Vol] 175 10*3/uL Normal 140-440 [facility] Comment on above: Performed By: #### L [id number] ####Assistant Dean: ROSELYN CLEMENS ([id number])[facility])[address] [place] [address] RBC (Bld) [#/Vol] 4.89 10*6/uL Normal 4.40-5.90 [facility] Comment on above: Performed By: #### L [id number] ####Assistant Dean: ROSELYN CLEMENS ([id number])[facility])[address] [place] [address] WBC (Bld) [#/Vol] 13.4 10*3/uL High 3.6-10.7 [facility] Comment on above: Performed By: #### L [id number] ####Assistant Dean: ROSELYN CLEMENS ([id number])[facility])[address] [place] [address] CKon 03-05-2023 CK [Catalytic activity/Vol] 153 U/L Normal 30-170 [facility] Comment on above: Performed By: #### L AB62, LAB17, LAB46 ####Assistant Dean: ROSELYN CLEMENS ([id number])[facility])[address] [place] [address] COMPREHENSIVE METABOLIC PANE Fan 03-05-2023 Albumin [Mass/Vol] 4.1 g/dL Normal 3.5-5.0 [facility] Comment on above: Performed By: #### Ellis BUTTERFIELD, LAB17, LAB46 ####Assistant Dean: ROSELYN CLEMENS ([id number])[facility])[address] [place] [address] ALP [Catalytic activity/Vol] 51 U/L Normal 38-126 [facility] Comment on above: Performed By: #### Ellis BUTTERFIELD, LAB17, LAB46 ####Assistant Dean: ROSELYN CLEMENS ([id number])[facility])[address] [place] [address] ALT [Catalytic activity/Vol] 51 U/L High 0-49 [facility] Comment on above: Performed By: #### Ellis BUTTERFIELD, LAB17, LAB46 ####Assistant Dean: ROSELYN CLEMENS ([id number])[facility])[address] [place] [address] Anion gap [Moles/Vol] 3 mmol/L Normal 3-13 [facility] Comment on above: Performed By: #### Ellis BUTTERFIELD, LAB17, LAB46 ####Assistant Dean: ROSELYN CLEMENS ([id number])[facility])[address] [place] [address] AST [Catalytic activity/Vol] 49 U/L High 15-46 [facility] Comment on above: Performed By: #### Ellis BUTTERFIELD, LAB17, LAB46 ####Assistant Dean: ROSELYN CLEMENS ([id number])[facility])[address] [place] [address] Bilirubin [Mass/Vol] 1.0 mg/dL Normal 0.2-1.3 [facility] Comment on above: Performed By: #### Ellis BUTTERFIELD, LAB17, LAB46 ####Assistant Dean: ROSELYN CLEMENS ([id number])[facility] ([facility])[address] [place] [address] Calcium [Mass/Vol] 8.7 mg/dL Normal 8.4-10.4 [facility] Comment on above: Performed By: #### Ellis AB62, LAB17, LAB46 ####Assistant Dean: ROSELYN CLEMENS ([id number])[facility] [place] [address] Chloride [Moles/Vol] 106 mmol/L Normal 98-107 [facility] Comment on above: Performed By: #### Ellis BUTTERFIELD, LAB17, LAB46 ####Assistant Dean: ROSELYN CLEMENS ([id number])[facility] [place] [address] CO2 [Moles/Vol] 28 mmol/L Normal 22-30 [facility] Comment on above: Performed By: #### Ellis BUTTERFIELD, LAB17, LAB46 ####Assistant Dean: ROSELYN CLEMENS ([id number])[facility] [place] [address] Creatinine [Mass/Vol] 0.79 mg/dL Normal 0.66-1.25 [facility] Comment on above: Performed By: #### Ellis BUTTERFIELD, LAB17, LAB46 ####Assistant Dean: ROSELYN CLEMENS ([id number])[facility])[address] [place] [address] GLOMERULAR FILTRATION RATE ML/MIN/1.73 SQ M.PREDICTED >90.0 Normal >60.0 [facility] Comment on above: Result Comment: Calc ulation based on the Chronic Kidney Disease Epidemiology Collaboration (CKD-EPI) equation refit without adjustment for race ORDER COMMENTS: Slightly Hemolyzed. Interpret with caution for the following analytes: Potassium, Alkaline Phosphatase, Total Protein, Albumin, and AST Performed By: #### L AB62, LAB17, LAB46 ####Assistant Dean: ROSELYN CLEMENS ([id number])[facility] [place] [address] [place] Glucose [Mass/Vol] 127 mg/dL High 70-100 [facility] Comment on above: Performed By: #### Ellis BUTTERFIELD, LAB17, LAB46 ####Assistant Dean: ROSELYN CLEMENS ([id number])[facility])[address] [place] [address] Potassium [Moles/Vol] 4.8 mmol/L Normal 3.5-5.1 [facility] Comment on above: Performed By: #### Ellis BUTTERFIELD, LAB17, LAB46 ####Assistant Dean: ROSELYN CLEMENS ([id number])[facility])[address] [place] [address] Protein [Mass/Vol] 7.3 g/dL Normal 6.3-8.2 [facility] Comment on above: Performed By: #### Ellis BUTTERFIELD, LAB17, LAB46 ####Assistant Dean: ROSELYN CLEMENS ([id number])[facility])[address] [place] [address] Sodium [Moles/Vol] 137 mmol/L Normal 135-145 [facility] Comment on above: Performed By: #### Ellis BUTTERFIELD, LAB17, LAB46 ####Assistant Dean: ROSELYN CLEMENS ([id number])[address] Urea nitrogen [Mass/Vol] 15 mg/dL Normal 9-20 [facility] Comment on above: Performed By: #### Ellis BUTTERFIELD, LAB17, LAB46 ####Assistant Dean: ROSELNY CLEMENS ([id number])[facility])[address] [place] [address] CPKon 03-05-2023 CK [Catalytic activity/Vol] 153 U/L 30 - 170 U/L [facility] CT CERVICAL SPINE WO IV CONT RASTon [...] EMS, pt fell out of bed at [facility]. Pt threw up. Staff stated potential seizure like activity. Pt denies any drug or alcohol use. Pt does not remember any of this. ) Normal [facility] CT Cervical spine WO contras ton 03-05-2023 [facility]STON [facility] 1990 [id number] Exam Date/Time: 03/05/2023 22:13 Procedure: CT CERVICAL [...] noncontrast study. Other: Lung apices are unremarkable. [facility] Dominic Rios MD - 03/05/2023 [...] MD Electronically Signed Date/Time: 03/05/2023 10:14 PM [facility] CT HEAD WO IV CONTRASTon CT HEAD [...] EMS, pt fell out of bed at [facility]. Pt threw up. Staff stated potential seizure like activity. Pt denies any drug or alcohol use. Pt does not remember any of this. ) [facility] CT Head WO contraston 2023 Patient Name: [...] noncontrast study. Other: Lung apices are unremarkable. [facility] Dmoinic Rios MD - 03/05/2023 Patient Name: RADHA [...] Electronically Signed Date/Time: 03/05/2023 10:14 PM EST [facility] Comprehensive metabolic 1998 panelon 03-05-2023 Albumin [Mass/Vol] 4.1 g/dL 3.5 - 5.0 g/dL [facility] ALP [Catalytic activity/Vol] 51 U/L 38 - 126 U/L [facility] ALT [Catalytic activity/Vol] 51 U/L High 0 - 49 U/L [facility] Anion gap [Moles/Vol] 3 mmol/L 3 - 13 mmol/L [facility] AST [Catalytic activity/Vol] 49 U/L High 15 - 46 U/L [facility] Bilirubin [Mass/Vol] 1.0 mg/dL 0.2 - 1 .3 mg/dL [facility] Calcium [Mass/Vol] 8.7 mg/dL 8.4 - 10. 4 mg/dL [facility] Chloride [Moles/Vol] 106 mmol/L 98 - 10 7 mmol/L [facility] CO2 [Moles/Vol] 28 mmol/L 22 - 30 mmol/L [facility] Creatinine [Mass/Vol] 0.79 mg/dL 0.66 - 1.25 mg/dL [facility] GFR/1.73 sq M.predicted MDRD (S/P/Bld) [Vol rate/Area] - PINF [facility] Comment on above: Calculation based on the Chronic Kidney Disease Epidemiology Collaboration (CKD-EPI) equation refit without adjustment for race Glucose [Mass/Vol] 127 mg/dL High 70 - 100 mg/dL [facility] Interpretation and review of laboratory results Abnormal [facility] Potassium [Moles/Vol] 4.8 mmol/L 3.5 - 5.1 mmol/L [facility] Protein [Mass/Vol] 7.3 g/dL 6.3 - 8.2 g/dL [facility] Sodium [Moles/Vol] 137 mmol/L 135 - 145 mmol/L [facility] Urea nitrogen [Mass/Vol] 15 mg/dL 9 - 20 mg/d L [facility] Slightly Hemolyzed. Interpret with caution for the following analytes: Potassium, Alkaline Phosphatase, Total Protein, Albumin, and AST [facility] DRUGS OF ABUSEon 03-05-2023 AMPHETAMINE SCREEN Negative Normal [facility] Comment on above: Performed By: #### L [id number] ####Assistant Dean: ROSELYN CLEMENS ([id number])[address] BARBITURATES SCREEN Negative Normal [facility] Comment on above: Performed By: #### L [id number] ####Assistant Dean: ROSELYN CLEMENS ([id number])[facility])[address] [place] [address] BENZODIAZEPINE SCREEN Negative Normal [facility] Comment on above: Performed By: #### L [id number] ####Assistant Dean: ROSELYN CLEMENS ([phone])[facility])[address] [place] [address] COCAINE METAB. SCREEN Negative Normal [facility] Comment on above: Performed By: #### L [id number] ####Assistant Dean: ROSELYN [id number])[facility] ([facility])[address] METHADONE SCREEN Negative Normal [facility] Comment on above: Performed By: #### L [id number] ####Assistant Dean: ROSELYN CLEMENS ([id number])[facility] ([facility])[address] [place] [address] OPIATES SCREEN Negative Normal [facility] Comment on above: Performed By: #### L [id number] ####Assistant Dean: ROSELYN CLEMENS ([id number])[facility] ([facility])[address] [place] [address] OXYCODONE SCREEN Negative Normal [facility] Comment on above: Performed By: #### L [id number] ####Assistant Dean: ROSELYN CLEMENS ([id number])[facility] ([facility])[address] [place] [address] PHENCYCLIDINE SCREEN Negative Normal [facility] Comment on above: Result Comment: ERWIN [...] under separate order. Performed By: #### L [id number] ####Assistant Dean: ROSELYN CLEMENS ([id number])[facility] [place] [address] Drug screen panel, emergency Ordered By: Hilda Omer on 03-05-2023 Amphetamines Screen method >1000 ng/mL Ql (U) Negative [facility] Barbiturates Screen method >200 ng/mL Ql (U) Negative [facility] Benzodiazepines Ql (U) Negative [facility] COCAINE METAB. SCREEN Negative [facility] Methadone Screen Ql (U) Negative [facility] Opiates Screen Ql (U) Negative [facility] oxyCODONE Ql (U) Negative [facility] Phencyclidine Ql (U) Negative [facility] The expected value for all of [...] is needed, request confirmation under separate order. [facility] ECG 12 leadon 03-05-2023 Heart rate 65 /min bpm [facility] P Bantry 43 degrees [facility] ND Interval 155 ms [facility] QRS Bantry 59 degrees [facility] QRSD Interval 126 ms [facility] QT Interval 381 ms [facility] QTC Interval 397 ms [facility] T Wave Bantry 47 degrees [facility] Sinus rhythm Nonspecific intraventricular conduction delay No prior EKG for comparison Electronically Signed On 03-05-2023 22:32:00 EST by Wesley Shook Wesley Greene MD - 03/05/2023 IMPRESSION: Sinus rhythm Nonspecific intraventricular conduction delay No prior EKG for comparison Electronically Signed On 03-05-2023 22:32:00 EST by Wesley Shook [facility] ECG 12-LEADon 03-05-2023 ECG 12-LEAD IMPRESSION: Sinus rhythm Nonspecific intraventricular conduction delay No prior EKG for comparison Electronically Signed On 03-05-2023 22:32:00 EST by Wesley Shook [facility] ED Nursing Noteon 03-05-2023 ED Nursing Note Pt able to stand with x1 assistance and use urinal. Janis Hammonds RN 03/05/23 2310 [facility] ED Nursing Note Pt to CT. Janis Hammonds RN [id number] [facility] ED Nursing Note EKG attempted again; pt still refusing. Janis Hammonds RN 03/05/232117 [facility] ED Nursing Note Pt refusing medication. Educated pt that he is yellow slipped. Protective services called to bedside to help with medication administration. Janis Hammonds RN 03/05/232107 [facility] ED Nursing Note Refusing care at this time. Janis Hammonds RN 03/05/232032 [facility] ED Nursing Note Pt yellow slipped by Dr. Erickson. Janis Hammonds RN 03/05/232106 [facility] ED Nursing Note Refused EKG. Janis Hammonds RN 03/05/232026 [facility] ED Nursing Note Bed: 35 Expected date: Expected time: Means of arrival: Comments: 32 M Fall Elizabeth Avalos RN 03/05/232013 [facility] ED Provider Noteon ED Provider Note EMERGENCY DEPARTMENT ENCOUNTER Pt Name: Radha Johnston Birthdate 1990 Date of evaluation: 03/05/2023 ED Provider: EUGENIO ERICKSON MD CHIEF COMPLAINT Chief Complaint Patient presents with Fall Per EMS, pt fell out of bed at [facility]. Pt threw up. Staff stated potential seizure [...] emergency department for fall. Patient coming from [facility]. Per EMS report, he fell [...] Medical History: Diagnosis Date Drug abuse (CMS/HCC) ([facility]) SURGICAL HISTORY No past surgical history [...] non-forensic p (more content not included)... Normal [facility] ED Provider Note Emergency Department Encounter Location: [facility] EMERGENCY DEPT Patient: Radha Johnston [...] 381 ms QTC Interval 397 ms P Bantry 43 degrees QRS Bantry 59 degrees T Wave Bantry 47 degrees ND Interval 155 ms @EDRISRSLT@ @EDMEDSORDERED@ Final ED [...] Mathews, DO [address] [facility] [address] Schedule an appointment as soon as possible for a visit in 2 days DISCHARGE MEDICATIONS: New Prescriptions No medications on file @[facility]([id number]:LAST:1)@ (Please note: Portions of this note were completed with a voice recognition program. Efforts were made to edit the dictations but occasionally words and phrases are mis-transcribed.) Form [id number] Watson Mcnamara MD Emergency Resident Physician Watson Mcnamara MD Reside (more content not included)... Normal [facility] ETHANOLon 03-05-2023 ETHANOL IN SER/PLAS <0.010 Normal 0.000-0.010 [facility] Comment on above: Result Comment: ERWIN Crespo COMMENTS: NOTE: This result is for medical treatment only. Analysis performed using non-forensic procedures. Performed By: #### L AB62, LAB17, LAB46 ####Assistant Dean: ROSELYN CLEMENS ([id number])[address] Ethanol (Bld) [Mass/Vol]on 0 03-05-2023 Ethanol [Mass/Vol] g/dL 0.000 - 0 .010 g/dL [facility] No Panel Informationon 03-05 Interpretation and review of laboratory results Normal [facility] Normal CT head. No acute abnormality identified throughout the cervical spine. Report Dictated on Electronically Signed By: Dominic Rios MD Electronically Signed Date/Time: 03/05/2023 10:14 PM [facility] Radiology Study observation (narrative) [facility] No Panel InformationOrdered By: Dominic Rios on 03-05-2023 [facility] Work Phone: [phone] 03-03-2023 [phone] Called patient at provided number (phone number ending in [phone] is disconnected) and discussed his results and answered his questions. Will put recap in result management/comment section as well. Normal [facility] HIV 1+2 Ab+HIV1 p24 Ag IA Ql Ordered By: Vasile Gardner on 02-28-2023 Interpretation and review of laboratory results Normal [facility] Laboratory - Microbiology an d Antimicrobial susceptibilityOrdered By: Vasile Gardner on 02-28-2023 HIV 1+2 Ab+HIV1 p24 Ag IA Ql Non-Reactive Nonreactive [facility] Comment on above: The specimen was non -reactive for HIV-1 and HIV-2 antibodies and p24 antigen using an FDA-cleared 4th generation HIV test. Based on this non-reactive screen result, further reflexive testing was not indicated and was, therefore, not performed. CBC W Auto Differential pane l (Bld)on 02-27-2023 Basophils (Bld) [#/Vol] 0.0 10*3/uL 0.0 - 0.2 10*3/uL [facility] Basophils/100 WBC (Bld) 0.5 % 0.0 - 2.0 % [facility] Eosinophils (Bld) [#/Vol] 0.1 10*3/uL 0.0 - 0.5 10*3/uL [facility] Eosinophils/100 WBC (Bld) 1.7 % 1.0 - 6.0 % [facility] Erythrocyte distribution width (RBC) [Ratio] 13.0 % 11.5 - 14.5 % [facility] Hematocrit (Bld) [Volume fraction] 47.8 % 40.0 - 52.0 % [facility] Hemoglobin (Bld) [Mass/Vol] 16.2 g/dL 13.0 - 18.0 g/dL [facility] Interpretation and review of laboratory results Normal [facility] Lymphocytes (Bld) [#/Vol] 2.4 10*3/uL 1.0 - 4.3 10*3/uL [facility] Lymphocytes/100 WBC (Bld) 37.5 % 20.0 - 40.0 % [facility] MCH (RBC) [Entitic mass] 30.5 pg 26.0 - 34.0 pg [facility] MCHC (RBC) [Mass/Vol] 33.9 % 32.0 - 36.0 % [facility] MCV (RBC) [Entitic vol] 90.0 fL 80.0 - 98.0 fL [facility] Monocytes (Bld) [#/Vol] 0.4 10*3/uL 0.0 - 0.8 10*3/uL [facility] Monocytes/100 WBC (Bld) 6.0 % 2.0 - 10.0 % [facility] Neutrophils (Bld) [#/Vol] 3.5 10*3/uL 1.8 - 7.0 10*3/uL [facility] Neutrophils/100 WBC (Bld) 54.3 % 40.0 - 80.0 % [facility] Nucleated RBC/100 WBC (Bld) [Ratio] 0.2 % [facility] Platelet mean volume (Bld) [Entitic vol] 8.0 fL 7.4 - 12.4 fL [facility] Platelets (Bld) [#/Vol] 202 10*3/uL 140 - 440 10*3/uL [facility] RBC (Bld) [#/Vol] 5.31 10*6/uL 4.40 - 5.9 0 10*6/uL [facility] WBC (Bld) [#/Vol] 6.4 10*3/uL 3.6 - 10.7 10*3/uL [facility] CBC WITH AUTO DIFFERENTIALon 02-27-2023 Basophils (Bld) [#/Vol] 0.0 10*3/uL Normal 0.0-0.2 [facility] Comment on above: Performed By: #### L [id number] ####Assistant Dean: ROSELYN CLEMENS ([id number])[address] Basophils/100 WBC (Bld) 0.5 % Normal 0.0-2.0 [facility] Comment on above: Performed By: #### L [id number] ####Assistant Dean: ROSELYN CLEMENS ([id number])[facility] ([facility])[address] [place] [address] Eosinophils (Bld) [#/Vol] 0.1 10*3/uL Normal 0.0-0.5 [facility] Comment on above: Performed By: #### L [id number] ####Assistant Dean: ROSELYN CLEMENS ([id number])[facility])[address] [place] [address] Eosinophils/100 WBC (Bld) 1.7 % Normal 1.0-6.0 [facility] Comment on above: Performed By: #### L [id number] ####Assistant Dean: ROSELYN CLEMENS ([id number])[facility])[address] [place] [address] Erythrocyte distribution width (RBC) [Ratio] 13.0 % Normal 11.5-14.5 [facility] Comment on above: Performed By: #### L [id number] ####Assistant Dean: ROSELYN CLEMENS ([id number])[facility])[address] [place] [address] ERYTHROCYTE MEAN CORPUSCULAR HEMOGLOBIN CONCENTRATION (G/DL) BY AUTOMATED 33.9 % Normal 32.0-36.0 [facility] Comment on above: Performed By: #### L [id number] ####Assistant Dean: ROSELYN CLEMENS ([id number])[facility])[address] [place] [address] Hematocrit (Bld) [Volume fraction] 47.8 % Normal 40.0-52.0 [facility] Comment on above: Performed By: #### L [id number] ####Assistant Dean: ROSELYN CLEMENS ([id number])[facility])[address] [place] [address] Hemoglobin (Bld) [Mass/Vol] 16.2 g/dL Normal 13.0-18.0 [facility] Comment on above: Performed By: #### L [id number] ####Assistant Dean: ROSELYN CLEMENS ([id number])[facility])[address] [place] [address] Lymphocytes (Bld) [#/Vol] 2.4 10*3/uL Normal 1.0-4.3 [facility] Comment on above: Performed By: #### L [id number] ####Assistant Dean: ROSELYN CLEMENS ([id number])[facility])[address] [place] [address] Lymphocytes/100 WBC (Bld) 37.5 % Normal 20.0-40.0 [facility] Comment on above: Performed By: #### L [id number] ####Assistant Dean: ROSELYN CLEMENS ([id number])[facility] ([facility])[address] [place] [address] MCH (RBC) [Entitic mass] 30.5 pg Normal 26.0-34.0 [facility] Comment on above: Performed By: #### L [id number] ####Assistant Dean: ROSELYN CLEMENS ([id number])[facility] ([facility])[address] [place] [address] MCV (RBC) [Entitic vol] 90.0 fL Normal 80.0-98.0 [facility] Comment on above: Performed By: #### L [id number] ####Assistant Dean: ROSELYN CLEMENS ([id number])[facility] ([facility])[address] [place] [address] Monocytes (Bld) [#/Vol] 0.4 10*3/uL Normal 0.0-0.8 [facility] Comment on above: Performed By: #### L [id number] ####Assistant Dean: ROSELYN CLEMENS ([id number])[facility] ([facility])[address] [place] [address] Monocytes/100 WBC (Bld) 6.0 % Normal 2.0-10.0 [facility] Comment on above: Performed By: #### L [id number] ####Assistant Dean: ROSELYN CLEMENS ([id number])[facility])[address] [place] [address] Neutrophils (Bld) [#/Vol] 3.5 10*3/uL Normal 1.8-7.0 [facility] Comment on above: Performed By: #### L [id number] ####Assistant Dean: ROSELYN CLEMENS ([id number])[facility])[address] [place] [address] Neutrophils/100 WBC (Bld) 54.3 % Normal 40.0-80.0 [facility] Comment on above: Performed By: #### L [id number] ####Assistant Dean: ROSELYN CLEMENS ([id number])[facility])[address] [place] [address] NRBC (PER 100 WBCS) BY AUTOMATED COUNT 0.2 /100 WBCs Normal 0.0-2.0 [facility] Comment on above: Performed By: #### L [id number] ####Assistant Dean: ROSELYN CLEMENS ([id number])[facility])[address] [place] [address] Platelet mean volume (Bld) [Entitic vol] 8.0 fL Normal 7.4-12.4 [facility] Comment on above: Performed By: #### L [id number] ####Assistant Dean: ROSELYN CLEMENS ([id number])[facility])[address] [place] [address] Platelets (Bld) [#/Vol] 202 10*3/uL Normal 140-440 [facility] Comment on above: Performed By: #### L [id number] ####Assistant Dean: ROSELYN CLEMENS ([id number])[facility] ([facility])[address] [place] [address] RBC (Bld) [#/Vol] 5.31 10*6/uL Normal 4.40-5.90 [facility] Comment on above: Performed By: #### L [id number] ####Assistant Dean: ROSELYN CLEMENS ([id number])[facility])[address] [place] [address] WBC (Bld) [#/Vol] 6.4 10*3/uL Normal 3.6-10.7 [facility] Comment on above: Performed By: #### L [id number] ####Assistant Dean: ROSELYN CLEMENS ([id number])[facility])[address] [place] [address] COMPLETE URINALYSISon 2023 BILIRUBIN, TOTAL PRESENCE IN URINE Negative Normal Negative [facility] Comment on above: Performed By: #### L [id number] ####Assistant Dean: ROSELYN CLEMENS ([id number])[facility])[address] Clarity (U) Clear Normal Clear [facility] Comment on above: Performed By: #### L [id number] ####Assistant Dean: ROSELYN CLEMENS ([id number])[facility] [place] [address] Color (U) Light Yellow Normal Lt. Yellow [facility] Comment on above: Performed By: #### L [id number] ####Assistant Dean: ROSELYN CLEMENS ([id number])[facility] [place] [address] GLUCOSE (MG/DL) IN URINE Normal Normal Normal (<70 ) [facility] Comment on above: Performed By: #### L [id number] ####Assistant Dean: ROSELYN CLEMENS ([id number])[facility] [place] [address] HEMOGLOBIN PRESENCE IN URINE Negative Normal Negative [facility] Comment on above: Performed By: #### L [id number] ####Assistant Dean: ROSELYN CLEMENS ([id number])[facility] [place] [address] Ketones Ql (U) Negative Normal Negative [facility] Comment on above: Performed By: #### L [id number] ####Assistant Dean: ROSELYN CLEMENS ([id number])[facility] [place] [address] LEUKOCYTE ESTERASE PRESENCE IN URINE BY TEST STRIP Negative Normal Negative [facility] Comment on above: Performed By: #### L [id number] ####Assistant Dean: ROSELYN CLEMENS ([id number])[facility] [place] [address] [place] NITRITE PRESENCE IN URINE Negative Normal Negative [facility] Comment on above: Performed By: #### L [id number] ####Assistant Dean: ROSELYN CLEMENS ([id number])[facility] ([facility])[address] [place] [address] [place] pH (U) 7.0 [pH] Normal 5.0-8.0 [facility] Comment on above: Performed By: #### L [id number] ####Assistant Dean: ROSELYN CLEMENS ([id number])[facility])[address] [place] [address] Protein (U) [Mass/Vol] Negative Normal Negative [facility] Comment on above: Performed By: #### L [id number] ####Assistant Dean: ROSELYN CLEMENS ([id number])[facility])[address] [place] [address] Specific gravity (U) [Rel density] 1.016 Normal 1.005-1.030 [facility] Comment on above: Performed By: #### L [id number] ####Assistant Dean: ROSELYN CLEMENS ([id number])[facility])[address] [place] [address] UROBILINOGEN (MG/DL) IN URINE Normal Normal Normal (0-1) [facility] Comment on above: Performed By: #### L [id number] ####Assistant Dean: ROSELYN CLEMENS ([id number])[facility])[address] [place] [address] COMPREHENSIVE METABOLIC PANE Fan 02-27-2023 Albumin [Mass/Vol] 4.4 g/dL Normal 3.5-5.0 [facility] Comment on above: Performed By: #### L AB129, LAB17 ####Assistant Dean: ROSELYN CLEMENS ([id number])[facility])[address] [place] [address] ALP [Catalytic activity/Vol] 68 U/L Normal 38-126 [facility] Comment on above: Performed By: #### L AB129, LAB17 ####Assistant Dean: ROSELYN CLEMENS ([id number])[facility])[address] [place] [address] ALT [Catalytic activity/Vol] 57 U/L High 0-49 [facility] Comment on above: Performed By: #### L AB129, LAB17 ####Assistant Dean: ROSELYN [id number])[facility] ([facility])[address] Anion gap [Moles/Vol] 7 mmol/L Normal 3-13 [facility] Comment on above: Performed By: #### L AB129, LAB17 ####Assistant Dean: ROSELYN CLEMENS ([id number])[facility] [place] [address] AST [Catalytic activity/Vol] 36 U/L Normal 15-46 [facility] Comment on above: Performed By: #### L AB129, LAB17 ####Assistant Dean: ROSELYN CLEMENS ([id number])[facility] [place] [address] Bilirubin [Mass/Vol] 0.5 mg/dL Normal 0.2-1.3 [facility] Comment on above: Performed By: #### L AB129, LAB17 ####Assistant Dean: ROSELYN CLEMENS ([id number])[facility] [place] [address] Calcium [Mass/Vol] 9.4 mg/dL Normal 8.4-10.4 [facility] Comment on above: Performed By: #### L AB129, LAB17 ####Assistant Dean: ROSELYN CLEMENS ([id number])[facility] [place] [address] [place] Chloride [Moles/Vol] 97 mmol/L Low 98-107 [facility] Comment on above: Performed By: #### L AB129, LAB17 ####Assistant Dean: ROSELYN CLEMENS ([id number])[facility] [place] [address] [place] CO2 [Moles/Vol] 33 mmol/L High 22-30 [facility] Comment on above: Performed By: #### L AB129, LAB17 ####Assistant Dean: ROSELYN CLEMENS ([id number])[facility] [place] [address] [place] Creatinine [Mass/Vol] 0.89 mg/dL Normal 0.66-1.25 [facility] Comment on above: Performed By: #### L AB129, LAB17 ####Assistant Dean: ROSELYN CLEMENS ([id number])[facility])[address] [place] [address] GLOMERULAR FILTRATION RATE ML/MIN/1.73 SQ M.PREDICTED >90.0 Normal >60.0 [facility] Comment on above: Result Comment: Calc ulation based on the Chronic Kidney Disease Epidemiology Collaboration (CKD-EPI) equation refit without adjustment for race Performed By: #### L AB129, LAB17 ####Assistant Dean: ROSELYN CLEMENS ([id number])[facility])[address] [place] [address] Glucose [Mass/Vol] 92 mg/dL Normal 70-100 [facility] Comment on above: Performed By: #### L AB129, LAB17 ####Assistant Dean: ROSELYN CLEMENS ([id number])[facility] – [place])[address] [place] [address] [place] Potassium [Moles/Vol] 4.5 mmol/L Normal 3.5-5.1 [facility] Comment on above: Performed By: #### L [id number], [id number] ####Assistant Dean: ROSELYN CLEMENS ([phone])[facility])[address] [place] [address] [place] Protein [Mass/Vol] 7.8 g/dL Normal 6.3-8.2 [facility] Comment on above: Performed By: #### L [id number], LAB17 ####Assistant Dean: ROSELYN CLEMENS ([id number])[facility] ([facility])[address] [place] [address] [place] Sodium [Moles/Vol] 137 mmol/L Normal 135-145 [facility] Comment on above: Performed By: #### L [id number], LAB17 ####Assistant Dean: ROSELYN CLEMENS ([phone])[facility])[address] [place] [address] [place] Urea nitrogen [Mass/Vol] 13 mg/dL Normal 9-20 [facility] Comment on above: Performed By: #### L AB129, LAB17 ####Assistant Dean: ROSELYN CLEMENS ([id number])[facility] ([address] Comprehensive metabolic 1998 panelon 02-27-2023 Albumin [Mass/Vol] 4.4 g/dL 3.5 - 5.0 g/dL [facility] ALP [Catalytic activity/Vol] 68 U/L 38 - 126 U/L [facility] ALT [Catalytic activity/Vol] 57 U/L High 0 - 49 U/L [facility] Anion gap [Moles/Vol] 7 mmol/L 3 - 13 mmol/L [facility] AST [Catalytic activity/Vol] 36 U/L 15 - 46 U/L [facility] Bilirubin [Mass/Vol] 0.5 mg/dL 0.2 - 1 .3 mg/dL [facility] Calcium [Mass/Vol] 9.4 mg/dL 8.4 - 10. 4 mg/dL [facility] Chloride [Moles/Vol] 97 mmol/L Low 98 - 10 7 mmol/L [facility] CO2 [Moles/Vol] 33 mmol/L High 22 - 30 mmol/L [facility] Creatinine [Mass/Vol] 0.89 mg/dL 0.66 - 1.25 mg/dL [facility] GFR/1.73 sq M.predicted MDRD (S/P/Bld) [Vol rate/Area] - PINF [facility] Comment on above: Calculation based on the Chronic Kidney Disease Epidemiology Collaboration (CKD-EPI) equation refit without adjustment for race Glucose [Mass/Vol] 92 mg/dL 70 - 100 mg/dL [facility] Interpretation and review of laboratory results Abnormal [facility] Potassium [Moles/Vol] 4.5 mmol/L 3.5 - 5.1 mmol/L [facility] Protein [Mass/Vol] 7.8 g/dL 6.3 - 8.2 g/dL [facility] Sodium [Moles/Vol] 137 mmol/L 135 - 145 mmol/L [facility] Urea nitrogen [Mass/Vol] 13 mg/dL 9 - 20 mg/d L [facility] HBV surface Ab IA Qnon 02-27 Interpretation: <8.0 Non-Reactive 8.0-11.9 Equivocal >= 12.0 Ab Detected Note: If an equivocal result is interpreted, an antibody status is unable to be determined. Collect new specimen if clinically indicated. [facility] HBV surface Ag IA Qlon 02-27 Interpretation and review of laboratory results Normal [facility] HEMOGLOBIN A1Con 02-27-2023 Glucose [Mass/Vol] 85 mg/dL Normal [facility] Comment on above: Performed By: #### L AB90 ####Assistant Dean: ROSELYN CLEMENS ([phone])[facility] [place] [address] HbA1c (Bld) [Mass fraction] 4.6 % Normal <5.7 [facility] Comment on above: Result Comment: Norm al less than 5.7% Prediabetes 5.7% to 6.4% Diabetes 6.5% or higher --HgbA1C levels may not be accurate in patients who have renal disease, received recent blood transfusions, are anemic, or who have dyshemoglobinemia. Performed By: #### L AB90 ####Assistant Dean: ROSELYN CLEMENS ([phone])[facility] ([address] HEPATITIS A ANTIBODY, TOTALo n 02-27-2023 HEP A ANTIBODY, TOTAL Positive Abnormal Negative [facility] Comment on above: Result Comment: The positive anti-HAV is consistent with recent or remote Hepatitis A infection or antibody response to HAV vaccination. False positive anti-HAV can occur. Performed By: [facility] [address] [place] [id number] Fraternity Adviser: Lorena Stevenson MD, PhD CLIA Number: [id number] Performed By: #### L [id number], [id number], [id number] ####[facility] ([facility])[address] [place] [id number] [place] HEPATITIS B CORE ANTIBODY, T OTALon 02-27-2023 HEP B CORE AB,TOTAL Negative Normal Negative [facility] Comment on above: Result Comment: INTE RPRETIVE INFORMATION: Hepatitis B Core Ab (Total) This assay should not be used for blood donor screening, associated re-entry protocols, or for screening Human Cells, Tissues and Cellular and Tissue-Based Products (HCT/P). Performed By: [facility] [address] [place] [address] Fraternity Adviser: Lorena Stevenson MD, PhD CLIA Number: [id number] Performed By: #### L [id number], [id number], [id number] ####[facility] ([facility])[address] [place] [address] [facility] HEPATITIS B SURFACE ANTIBODY on 02-27-2023 HEPATITIS B VIRUS SURFACE AB >1000.0 Normal [facility] Comment on above: Result Comment: ERWIN Crespo COMMENTS: Interpretation: <8.0 Non-Reactive 8.0-11.9 Equivocal >= 12.0 Ab Detected Note: If an equivocal result is interpreted, an antibody status is unable to be determined. Collect new specimen if clinically indicated. Performed By: #### L [id number], [id number] ####Assistant Dean: ROSELYN CLEMENS ([phone])[facility])[address] [place] [address] HEPATITIS B SURFACE ANTIGENo n 02-27-2023 HEPATITIS B VIRUS SURFACE AG Not detected Normal Not Detected [facility] Comment on above: Performed By: #### L [id number], [id number] ####Assistant Dean: ROSELYN CLEMENS ([id number])[facility])[address] [place] [address] HEPATITIS C GENOTYPEon 02-27 HEPATITIS C GENOTYPE 2b Normal [facility] Comment on above: Result Comment: INTE RPRETIVE INFORMATION: Hepatitis C Genotyping Hepatitis C Viral RNA is tested using reverse supervisor pumping station polymerase chain reaction (RT-PCR) to amplify a specific portion of the 5' untranslated region (5' UTR) of the viral genome. The amplified nucleic acid is sequenced bi-directionally using dye-terminator chemistry ([employer]). Sequencing data is compared to a database [...] developed and its performance characteristics determined by [facility] [employer]. It has not been cleared or approved by the US Food and Drug Administration. This test was performed in a CLIA certified laboratory and is intended for clinical purposes. Performed By: [facility] [address] [place] [address] Fraternity Adviser: Lorena Stevenson MD, PhD CLIA Number: [id number] Performed By: #### L [id number], [id number], [id number] ####[facility] ([facility])[address] [place] [phone] [facility] HEPATITIS C VIRAL LOADon HCV RNA QUANT [id number] IU/ml High <15 [facility] Comment on above: Performed By: #### L [id number] ####Assistant Dean: ROSELYN CLEMENS ([id number])[address] HCV RNA QUANT (LOG) 6.49 Log_IU High <1.18 [facility] Comment on above: Result Comment: ERWIN [...] via rtPCR methodology. Performed By: #### L [id number] ####Assistant Dean: ROSELYN CLEMENS ([id number])[address] HIV1,2 COMBO ANTIGEN-ANTIBOD Y SCREENon 02-27-2023 HIV 1,2 COMBO ANTIGEN/ANTIBODY Non-Reactive Normal Nonreactive [facility] Comment on above: Result Comment: The specimen was non-reactive for HIV-1 and HIV-2 antibodies and p24 antigen using an FDA-cleared 4th generation HIV test. Based on this non-reactive screen result, further reflexive testing was not indicated and was, therefore, not performed. Performed By: #### L [id number] #### Assistant Dean: ROSELYN [id number]) [facility] ([facility]) [address] Laboratory - Chemistry and C hemistry - challengeon 02-27-2023 TSH Qn 2.742 m[IU]/L [facility] Average glucose Estimated from glycated hemoglobin (Bld) [Mass/Vol] 85 mg/dL [facility] Laboratory - Coagulationon 0 02-27-2023 PT Coag (Bld) [Time] 10.5 s 9.0 - 12.0 s [facility] Laboratory - Hematology and Cell countson 02-27-2023 HbA1c (Bld) [Mass fraction] 4.6 % NINF - 5.7 % [facility] Comment on above: Normal less than 5.7 % Prediabetes 5.7% to 6.4% Diabetes 6.5% or higher --HgbA1C levels may not be accurate in patients who have renal disease, received recent blood transfusions, are anemic, or who have dyshemoglobinemia. Laboratory - Microbiology an d Antimicrobial susceptibilityon 02-27-2023 HBV surface Ab IA Qn mIU/mL [facility] HBV surface Ag IA Ql Not detected Not Detected [facility] No Panel Informationon 02-27 [facility] Office Visiton 02-27-2023 Follow-up visit [id number] Radha Johnston 1990 M Date Provider Department Center 02/27/2023 [id number] Chart Close Cosign Accepted by: CHARO AREVALO[[id number]] Chart Close Cosign Accepted on: MonMar 01, 2023 8:28 AM No family history on file Level of Service:57968 [place] OFFICE/OUTPATIENT NEW MODERATE MDM 45 MINUTES Reason for Visit and Comments: Establish Care [42] - Hep C, rib pain, mole on neck Normal [facility] PROTHROMBIN TIMEon INR Coag (PPP) [Relative time] 1.0 {INR} Normal 0.9-1.1 [facility] Comment on above: Result Comment: Ihsan mmended [...] Myocardial Infarction Performed By: #### L [id number] ####Assistant Dean: ROSELYN CLEMENS ([id number])[facility] ([facility])[address] [place] [address] PT Coag (PPP) [Time] 10.5 s Normal 9.0-12.0 [facility] Comment on above: Performed By: #### L AB320 ####Assistant Dean: ROSELYN CLEMENS ([id number])[facility] [place] [address] PT Coag (Bld) [Time]on 02-27 INR Coag (PPP) [Relative time] 1.0 {INR} 0.9 - 1.1 [facility] Comment on above: Recommended Anticoag ulant Therapy: [...] Interpretation and review of laboratory results Normal [facility] Progress Noteon 02-27-2023 Progress Note MA time [...] I don't want one) [x] other Normal [facility] Progress Note Teaching Physician Note Direct Supervision [...] lesions he wants checked. CHARO AREVALO MD [facility] Progress Note [facility] [address] [facility] [address] Dept: [phone] Dept Loc: [phone] 02/27/2023 Visit type: new patient Reason for [...] sent for removal and biopsy. Orders: - [facility] 3. Hx of retinal detachment Comments: -Occurred 2yrs ago, reportedly healed per intermediate physician. Pt denies follow-up with market research consultant but notes seeing dark spots in vision. Orders: - [facility] 202 4. Encounter for medical examination to establish care Comments: - Explained importance of consent, spread of HSV w/active ulcerations, use of condoms, and requesting acyclovir when sores return. Best practice is to abstain from sexual contact w/active lesions to prevent spread. - Shared decision making to forego CXR at this time given it would not change analyst at this time. Pt not [...] male presenting to establish care. Pt prefers [employer] messaging for results. HPI Pt reports recently being discharged from intermediate in 01/2023, now living in [facility], [facility], records show resident of [facility]. Reports wanting to integrate into [...] - Retinal detachment 2yrs ago while in intermediate. Not evaluated by market research consultant prior. Was seen by intermediate physician, reports it healed and he will always have dark spots in vision. 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 Denies marijuana use. Denies alcohol use. Started smoking 1-2 cigarettes a day since discharge from intermediate, no interest in quitting at this time. Denies vaping. Family hx: Paternal grandfather: colon cancer twice (at ages 60's and 80's). Father, HLD, HTN. Mother unknown 2/2 poor OP follow-up. Maternal grandparents prior to pt's 2/2 SD and emphysema. Additional ROS/Pt questions: - Reports left-sided rib injuries <1yr ago while in intermediate. No cough, SOB. Uncomfortable when lying on [...] for judit (more content not included)... Normal [facility] THYROID STIMULATING HORMONEo n 02-27-2023 THYROID STIMULATING HORMONE 2.742 uIU/mL Normal 0.465-4.680 [facility] Comment on above: Performed By: #### L AB129, LAB17 ####Assistant Dean: ROSELYN CLEMENS ([id number])[facility] ([address] TSH Qnon 02-27-2023 Interpretation and review of laboratory results Normal [facility] Urinalysis complete panel (U )on 02-27-2023 Bilirubin Ql (U) Negative Negative mg/dL [facility] Clarity (U) Clear Clear [facility] Color (U) Light Yellow Lt. Yellow [facility] Glucose Ql (U) Normal Normal (<70) mg/dL [facility] Hemoglobin Ql (U) Negative Negative mg/dL [facility] Interpretation and review of laboratory results Normal [facility] Ketones (U) [Mass/Vol] Negative Negative mg/d L [facility] Leukocyte esterase Test strip Ql (U) Negative Negative Bianka/uL [facility] Nitrite Ql (U) Negative Negative [facility] pH (U) 7.0 [pH] 5.0 - 8.0 pH [facility] Protein (U) [Mass/Vol] Negative Negative mg/d L [facility] Specific gravity (U) [Rel density] 1.016 1.005 - 1.030 [facility] [employer] Urobilinogen (U) [Mass/Vol] Normal Normal (0-1) mg/dL [facility] Vital Signs Date Time Vital Sign Value Performing Clinician Nargis menjivar 10-17-2023 15:55-0400 Body temperature 97.5 [degF] Radha Hair MD Work Phone: [facility] [employer] 10-17-2023 15:55-0400 Diastolic blood pressure 72 mm[Hg] Radha Hair MD Work Phone: [facility] [employer] 10-17-2023 15:55-0400 Heart rate 63 /min Radha Hair MD Work Phone: [facility] [employer] 10-17-2023 15:55-0400 SaO2% (BldA) [Mass fraction] 100 % Radha Hair MD Work Phone: [facility] [employer] 10-17-2023 15:55-0400 Systolic blood pressure 111 mm[Hg] Radha Hair MD Work Phone: [facility] [employer] 10-17-2023 15:45-0400 Respiratory rate 14 /min Radha Hair MD Work Phone: [facility] [employer] 10-17-2023 14:20-0400 Body height 190.5 cm Radha Hair MD Work Phone: [facility] [employer] 10-17-2023 14:20-0400 Body mass index (BMI) [Ratio] 23.12 kg/m2 Radha Hair MD Work Phone: [facility] [employer] 10-17-2023 14:20-0400 Body weight 83.92 kg Radha Hair MD Work Phone: [facility] [employer] 08-14-2023 08:55-0400 Body height 190.5 cm Danii Obregon PA-C Work Phone: [facility] [employer] 08-14-2023 08:55-0400 Body mass index (BMI) [Ratio] 22 kg/m2 Danii Obregon PA-C Work Phone: [facility] [employer] 08-14-2023 08:55-0400 Body weight 79.83 kg Danii Obregon PA-C Work Phone: [facility] [employer] 08-14-2023 08:55-0400 Diastolic blood pressure 70 mm[Hg] Danii Obregon PA-C Work Phone: [facility] [employer] 08-14-2023 08:55-0400 Heart rate 58 /min Danii Obregon PA-C Work Phone: [facility] [employer] 08-14-2023 08:55-0400 Systolic blood pressure 114 mm[Hg] Danii Obregon PA-C Work Phone: [facility] [employer] 04-03-2023 14:12-0500 Body height 188 cm Frances Mathews DO Work Phone: [employer] 04-03-2023 14:12-0500 Body mass index (BMI) [Ratio] 23.24 kg/m2 Frances Mathwes DO Work Phone: [employer] 04-03-2023 14:12-0500 Body temperature 96.21 [degF] Frances Mathews DO Work Phone: [employer] 04-03-2023 14:12-0500 Body weight 82.1 kg Frances Mathews DO Work Phone: [employer] 04-03-2023 14:12-0500 Diastolic blood pressure 69 mm[Hg] Frances Mathews DO Work Phone: [employer] 04-03-2023 14:12-0500 Heart rate 69 /min Frances Mathews DO Work Phone: [employer] 04-03-2023 14:12-0500 SaO2% (BldA) [Mass fraction] 96 % Frances Mathews DO Work Phone: [employer] Comment on above: RA 04-03-2023 14:12-0500 Systolic blood pressure 114 mm[Hg] Frances Mathews DO Work Phone: [facility] [employer] 03-05-2023 23:10-0500 Diastolic blood pressure 78 mm[Hg] Wesley Shook MD Work Phone: [employer] 03-05-2023 23:10-0500 Heart rate 91 /min Wesley Shook MD Work Phone: [employer] 03-05-2023 23:10-0500 Respiratory rate 18 /min Wesley Shook MD Work Phone: [employer] 03-05-2023 23:10-0500 SaO2% (BldA) [Mass fraction] 98 % Wesley Shook MD Work Phone: [employer] 03-05-2023 23:10-0500 Systolic blood pressure 131 mm[Hg] Wesley Shook MD Work Phone: [employer] 03-05-2023 20:53-0500 Body temperature 98.1 [degF] Wesley Shook MD Work Phone: [employer] 02-27-2023 13:44-0500 Body height 188 cm Frances Mathews DO Work Phone: [employer] 02-27-2023 13:44-0500 Body mass index (BMI) [Ratio] 23.37 kg/m2 Frances Mathews DO Work Phone: [employer] 02-27-2023 13:44-0500 Body temperature 96.91 [degF] Frances Mathews DO Work Phone: [employer] 02-27-2023 13:44-0500 Body weight 82.56 kg Frances Mathews DO Work Phone: [employer] 02-27-2023 13:44-0500 Diastolic blood pressure 66 mm[Hg] Frances Mathews DO Work Phone: [employer] 02-27-2023 13:44-0500 Heart rate 68 /min Frances Mathews DO Work Phone: [employer] 02-27-2023 13:44-0500 SaO2% (BldA) [Mass fraction] 96 % Frances Mathews DO Work Phone: [facility] Comment on above: RA 02-27-2023 [id number] Systolic blood pressure 109 mm[Hg] Frances Mathews Work Phone: [facility] Encounters Encounter Date Encounter Type Care Provider Facility Start: 11-01-2024 End: 11-01-2024 ambulatory ALVA PARISI Facility:[facility] Start: 10-31-2024 End: 10-31-2024 ambulatory LORENA READ Facility:[facility] Start: 12-05-2023 End: 12-05-2023 ambulatory SHAYNA [facility] Facility:[facility] Start: 10-17-2023 End: 10-17-2023 Subsequent hospital visit by physician Radha Hair MD Work Phone: [facility] MA[facility] Comment on above: Neoplasm of unspecif ied behavior of bone, soft tissue, and skin Start: 10-17-2023 End: 10-17-2023 Admission to same day surgery center Radha Hair MD Work Phone: [facility] Start: 10-17-2023 End: 10-17-2023 ambulatory Radha Hair MD Work Phone: [facility] Start: 08-14-2023 End: 08-21-2023 Telephone encounter Radha Hair MD Work Phone: [facility] Comment on above: Surgery Scheduling ( [facility] Start: 08-14-2023 End: 08-14-2023 Office outpatient new 30 minutes Danii Obregon PA-C Work Phone: [facility] Comment on above: Abnormal skin growth Start: 08-14-2023 End: 08-14-2023 ambulatory DANII OBREGON [facility] Start: 07-20-2023 End: 07-20-2023 ambulatory Lizeth French Geovanny Facility:[facility] Start: 04-20-2023 End: 04-20-2023 ambulatory FRANCES MATHEWS [facility] Start: 04-03-2023 End: 04-03-2023 Office outpatient visit 15 minutes Charo Arevalo MD Work Phone: [facility] Comment on above: Chronic hepatitis C without hepatic coma (CMS/HCC) (HCC); History of retinal tear; Abnormal skin growth Start: 04-03-2023 End: 04-03-2023 ambulatory CHARO AREVALO [facility] Start: 03-24-2023 End: 03-24-2023 ambulatory KEYANNA WHITTINGTON [facility] Start: 03-24-2023 End: 03-24-2023 Office outpatient new 30 minutes Keyanna Whittington MD Work Phone: [facility] Comment on above: Hx of retinal detach ment Start: 03-14-2023 Telephone encounter Frances Kidd Work Phone: [facility] Start: 03-05-2023 End: 03-06-2023 Emergency department patient visit Wesley Shook MD Work Phone: [facility] Comment on above: Fall from bed, initi al encounter (Primary Dx); Closed head injury, initial encounter Start: 02-27-2023 End: 02-27-2023 Office outpatient new 45 minutes Frances Lovetony REYNOLDS Work Phone: [facility] Comment on above: Hepatitis C virus in fection without hepatic coma, unspecified chronicity (Primary Dx); Abnormal skin growth; Hx of retinal detachment; Encounter for medical examination to establish care; Polyuria Start: 02-27-2023 End: 02-27-2023 Patient encounter status Frances Mathews DO Work Phone: [facility] Start: 02-27-2023 End: 02-27-2023 ambulatory FRANCES MATHEWS [facility] Start: 02-27-2023 End: 02-27-2023 Encounter for general adult medical examination without abnormal findings [facility] Start: 09-25-2017 Ambulatory OMAR MALIK GRABIEL Facility: [facility] Procedures Date Procedure Procedure Detail Performing Clinician [...] or older (1 - 1-dose 60+ series) [facility] [employer] Start: 05-29-2039 Zoster Vaccines (1 o f 2) Zoster Vaccines (1 of 2) [facility] Start: 02-28-2024 [facility] Start: 10-24-2023 End: 10-24-2023 Patient encounter procedure [facility] Start: 10-20-2023 End: 10-20-2023 Patient encounter procedure 10/20/2023 2:00 PM EDT Office Visit [facility] [address] [place] [address] Frances Mathews DO [address] [place] [address] [facility] Start: 10-17-2023 End: 10-17-2023 Admission to same day surgery center 10/17/2023 2:00 PM EDT - 10/17/2023 3:00 PM EDT Surgery [facility] MA[facility] OR [address] [place] [phone] Radha Hair MD [address] [place], [place] [id number] EXCISION OF MULTIPLE LESIONS OF RIGHT CHEECK, RIGHT NECK, AND RIGHT UPPER EXTREMITY WITH LAYERED CLOSURE [76786 (CPT )] [facility] OR Comment on above: EXCISION OF MULTIPLE LESIONS OF RIGHT CHEECK, RIGHT NECK, AND RIGHT UPPER EXTREMITY WITH LAYERED CLOSURE [34148 (CPT )] Start: 10-17-2023 End: 10-17-2023 Exc b9 les mrgn xcp sk tg f/e/e/n/l/m 0.6-1.0cm [facility] Operating Room Start: 10-17-2023 End: 10-17-2023 Exc b9 lesion mrgn xcp sk tg s/n/h/f/g 0.5 cm/< [facility] Operating Room Start: 10-17-2023 End: 10-17-2023 Exc b9 lesion mrgn xcp sk tg t/a/l 0.5 cm/< [facility] Operating Room Start: 10-17-2023 End: 10-17-2023 Repair complex f/c/c/m/n/ax/g/h/f 2.6-7.5 cm [facility] Operating Room Start: 10-17-2023 End: 10-17-2023 Repair complex scalp/arm/leg 1.1-2.5 cm [facility] Operating Room Start: 10-17-2023 End: 10-17-2023 Repair intermediate s/a/t/e 2.5 cm/< [facility] Operating Room Start: 10-17-2023 Subsequent hospital visit by physician 10/17/2023 2:00 PM EDT Hospital Encounter [facility] MA[facility] OR [address] [place] [phone] Radha Hair MD [address] [place] [address] [place] [address] [facility] MA[facility] OR Start: 10-08-2023 COVID-19 Vaccine ( season) COVID-19 Vaccine () [facility] Start: 10-08-2023 Influenza vaccination Influenza Vacc ine (#1) [facility] Start: 07-12-2023 End: 07-12-2023 Patient encounter procedure 07/12/2023 2:10 PM EDT Office Visit [facility] [address] [place] [phone] Frances Mathews DO [address] [place], [place] [id number] [facility] Start: 04-20-2023 End: 04-20-2023 Clinical Support 04/20/2023 2:00 PM EDT Clinical Support [facility] [address] [place] [phone] [facility] Start: 04-03-2023 End: 04-03-2023 Patient encounter procedure 04/03/2023 2:10 PM EST Office Visit [facility] [address] [place] [phone] Frances Mathews DO [address] [place] [address] [facility] Start: 03-29-2023 End: 03-29-2023 Patient encounter procedure 03/29/2023 1:00 PM EST Office Visit [facility] [address] [place] [address] Wesley Nichols MD [address] [place] [address] [place] [address] [facility] Start: 03-28-2023 End: 03-14-2024 Liver elastography w/o imag w/i&r Fibroscan Procedures Routine Chronic hepatitis C without hepatic coma (CMS/HCC) (HCC) Expected: 03/28/2023 (Approximate), Expires: 03/14/2024 [facility] [employer] [facility] Work Phone: Comment on above: Expected: 03/28/2023 (Approximate), Expires: 03/14/2024 Start: 03-24-2023 End: 03-24-2023 Patient encounter procedure 03/24/2023 1:30 PM EST Appointment [facility] [address] [place] [address] Keyanna Whittington MD [address] [place] [address] [facility] Start: 10-07-2022 COVID-19 Vaccine ( season) COVID-19 Vaccine ( season) [facility] Start: 10-07-2022 Influenza vaccination Influenza Vacc ine (#1) [facility] [employer] Start: 2008 Hepatitis A Vaccines (1 of 2 - Risk 2-dose series) Hepatitis A Vaccines (1 of 2 - Risk 2-dose series) [facility] [employer] Start: 10-16-2003 DTaP/Tdap/Td Vaccine s (6 - Tdap) DTaP/Tdap/Td Vaccines (6 - Tdap) [facility] Start: 2002 Varicella vaccination Varicell a Vaccines (1 of 2 - 13+ 2-dose series) [facility] [employer] Start: 04-13-2001 Varicella vaccination Varicell a Vaccines (1 of 2 - 2-dose childhood series) [facility] Start: 05-29-1995 Pneumococcal Vaccine : Pediatrics (0 to 5 Years) and At-Risk Patients (6 to 64 Years) (1 of 2 - PCV) Pneumococcal Vaccine: Pediatrics (0 to 5 Years) and At-Risk Patients (6 to 64 Years) (1 of 2 - PCV) [facility] Start: 1989 COVID-19 Vaccine (#1) COVID-19 Vacci ne (#1) [facility] Start: 1989 Examination of skin Derm Melan ricardo Skin Check [facility] Start: 1989 Lipid panel Lipid Panel [facility] Hepatitis A antibodies, total Hepatitis A antibodies, total Lab Routine Hepatitis C virus infection without hepatic coma, unspecified chronicity 02/27/2023 3:01 PM [facility] Hepatitis B core antibody, total Hepatitis B core antibody, total Lab Routine Hepatitis C virus infection without hepatic coma, unspecified chronicity 02/27/2023 3:01 PM [facility] Hepatitis C virus genotype determination Hepatitis C genotype Lab Routine Hepatitis C virus infection without hepatic coma, unspecified chronicity 02/27/2023 3:01 PM [facility] Hepatitis C virus RN A panel (viral load) in Serum or Plasma by BRADLEY with probe detection Hepatitis C viral load Lab Routine Hepatitis C virus infection without hepatic coma, unspecified chronicity 02/27/2023 3:01 PM EST [facility] Work Phone: Tissue exam [facility] Work Phone: Comment on above: Release Upon Orderin g for 1 Occurrences starting 10/17/2023 Immunizations Immunization Date Immunization Notes Care Provider Ariella cisse 01-06-2023 influenza virus vacc ine, unspecified formulation Danii Obregon PA-C Work Phone: [facility] Payers Date Payer Category Payer Self-pay 2023 Medicaid [id number] 2023 Unknown [id number] Unknown [id number] Unknown [id number] Unknown [id number] Social History Date Type Detail Facility Start: 02-06-2006 Tobacco smoking status NHIS Smokes t obacco daily [facility] Start: 02-27-2023 Alcohol intake Current drinke r of alcohol (finding) [facility] Start: 02-27-2023 End: 10-17-2023 History of Social function [facility] Start: 02-27-2023 End: 10-17-2023 Tobacco use panel [facility] Start: 1990 Sex Assigned At Male S [facility] Start: 02-27-2023 Gender identity Identifies as male gender (finding) [facility] How often to you hav e a drink containing alcohol? Never [facility] How many standard dr inks containing alcohol do you have on a typical day? Patient does not drink [facility] Start: 03-24-2023 End: 10-17-2023 Alcohol intake Ex-drinker (finding) [facility] Start: 02-06-2006 History of tobacco use Cigarette Smo ker [facility] Within the last year , have you been afraid of your partner or ex-partner? No [facility] Clinical Notes 02-27-2023 to 11-20-2024 Perioperative Nursing Note - Alfredito Cruz RN - 10/17/2023 4:02 PM EDTPerioperative Nursing Note - Alfredito Cruz RN - 10/17/2023 3:45 PM EDTOp Note - Radha Hair MD - 10/17/2023 3:00 PM EDT Note Date & Type Note Facility 11-20-2024 Note HNO ID: [id number] Author: BONIFACIO YUN DC Service: ? Author Type: Chiropractor Type: Progress Notes Filed: 11/20/2024 09:22 Note Text: Patient no-showed today's appointment. Bonifacio Yun DC November 20, 2024 9:21 AM [facility] 11-01-2024 Note HNO ID: [id number] Author: ALVA PARISI APRN.HERNANDO Service: ? Author [...] Not seeking additional pain management; interested in director critical care. Weight Loss: - Unintentional weight loss from [...] Unable to complete daily tasks on the [employer]. - Drinks 4-5 glasses of water per day. Anxiety, Depression, and Bipolar Disorder: - Diagnosed with anxiety, depression, and bipolar disorder. - Has not sought treatment for these conditions in a long time. - Does not like psychiatric medications. - Experiences nightmares related to past trauma, including time in [employer] [facility]. - Practices meditation to manage mental health. [...] than 2 seconds. (more content not included)... [facility] 10-31-2024 Note HNO ID: [id number] Author: LORENA READ APRN.WWE WRESTLER Service: ? Author Type: Nurse Practitioner Type: [...] Grandmother Coronary Artery Disease Maternal Grandfather from [place] Emphysema Maternal Grandmother Hypertension Paternal Grandfather Alcohol/Drug [...] R63.4 Will establish with pcp Lorena Read APRN.WWE WRESTLER History and Record Review External record(s) reviewed: [...] Drug use: No Comment: recovering heroin addict [facility] 10-31-2024 Note HNO ID: [id number] Author: NATA HERNÁNDEZ Tech Service: ? Author Type: Flight Controls Engineer Type: Progress Notes Filed: 10/31/2024 13:47 Note [...] PATIENT PRESENTS WITH AN IMPLANTABLE OR ATTACHED SOFTWARE ENGINEERING ANALYST: No RADIOLOGY DEPARTMENT: General X-ray: Exam(s) Completed: Rib X-Ray: Bilateral PERIPHERAL IV DATA: Not applicable SIGNED BY: Yael Ace October 31, 2024 1:47 PM [facility] 10-18-2023 Note Radha Johnston underw ent the [...] 10/24/2023 [] Provider notified of acute problems [facility] 10-17-2023 Miscellaneous Notes Written homegoing instructions reviewed [...] Patient: Radha Johnston Date of : 1990 [id number] Date of Procedure: 10/17/23 Pre-Op Diagnosis: Symptomatic [...] home. Radha Hair MD Date: 10/17/2023 Location: [facility] OR Name: Radha Johnston : 1990, Diagnosis Pre-op Diagnosis * Neoplasm of unspecified behavior of bone, soft tissue, and skin [D49.2] Post-op Diagnosis * Neoplasm of unspecified behavior of bone, soft tissue, and skin [D49.2] Procedures EXCISION OF MULTIPLE LESIONS OF RIGHT CHEECK, RIGHT NECK, AND RIGHT UPPER EXTREMITY WITH LAYERED CLOSURE 99160 - ND EXC B9 LESION MRGN XCP SK TG [...] 10/17/23 1516 Description: Right arm lesion Staff: Lift Mechanic: Anna Rivera RN Scrub Person: Seferino Brand [...] for this procedure. documented in this encounter [facility] 10-17-2023 Note Formatting of this n ote might be different from the original. Written homegoing instructions reviewed with and given to patient: q/a time offered. This RN walked pt to main waiting room, knows where exit is located, dc'd to home in stable condition [facility] 10-17-2023 Note Formatting of this n ote might be different from the original. Written homegoing instructions reviewed with and given to patient: q/a time offered. This RN walked pt to main waiting room, knows where exit is located, dc'd to home in stable condition [facility] 10-17-2023 Hospital Discharg e instructions Radha Hair [...] (colace, miralax, etc). documented in this encounter [facility] 10-17-2023 Note Formatting of this n ote might be different from the original. Arrives to PACU from OR: a/o x 4 , denies any c/o, local anesth for procedure: no IV. X3 surg site dressings cdi: r cheek, r neck, r upper ant arm. [facility] 10-17-2023 Note Formatting of this n ote might be different from the original. Arrives to PACU from OR: a/o x 4 , denies any c/o, local anesth for procedure: no IV. X3 surg site dressings cdi: r cheek, r neck, r upper ant arm. [facility] 10-17-2023 Note Formatting of this n ote might be different from the original. Operative Note Patient: Radha Johnston Date of : 1990 [id number] Date of Procedure: 10/17/23 Pre-Op Diagnosis: Symptomatic [...] PACU to home. Radha Hair MD T [facility] 10-17-2023 Note Formatting of this n ote is different from the original. Date: 10/17/2023 Location: [facility] OR Name: Radha Johnston, : 1990, Diagnosis Pre-op Diagnosis * Neoplasm of unspecified behavior of bone, soft tissue, and skin [D49.2] Post-op Diagnosis * Neoplasm of unspecified behavior of bone, soft tissue, and skin [D49.2] Procedures EXCISION OF MULTIPLE LESIONS OF RIGHT CHEECK, RIGHT NECK, AND RIGHT UPPER EXTREMITY WITH LAYERED CLOSURE 16624 - ND EXC B9 LESION MRGN XCP SK TG T/A/L 0.5 CM/< * Radha Hair - Primary Procedure Summary Anesthesia: Local ASA: ASA status not filed in the log. Estimated Blood Loss: Minimal Drains: * None in log * Specimens ID Source Type Tests Collected By Collected At [facility]? Priority Lab ID 1 Cheek Tissue TISSUE EXAM Radha Hair MD 10/17/23 1516 Description: Right cheek lesion 2 Neck, Right Tissue TISSUE EXAM Radha Hair MD 10/17/23 151 Description: Right neck lesion 3 Arm, Right Tissue TISSUE EXAM Radha Hair MD 10/17/23 151 Description: Right arm lesion Staff: Lift Mechanic: Anna Rivera RN Scrub Person: Seferino Brand RN; Gabby oHyos Findings: None Complications: None; patient tolerated the procedure well. Specimens Collected: Order Name Source Comment Collection Info Order Time TISSUE EXAM Cheek Collected By: Radha Hair MD 10/17/2023 3:17 PM Wound Class: Class I: Clean Blood Products: None Prophylactic Antibiotics: Pre-operative antibiotics were not given because antibiotics are not indicated for this procedure. [facility] 10-17-2023 Note Formatting of this n ote might be different from the original. Operative Note Patient: Radha Johnston Date of : 1990 [id number] Date of Procedure: 10/17/23 Pre-Op Diagnosis: Symptomatic [...] PACU to home. Radha Hair MD T [facility] 10-17-2023 Note Formatting of this n ote is different from the original. Date: 10/17/2023 Location: [facility] OR Name: Radha Johnston, : 1990, Diagnosis Pre-op Diagnosis * Neoplasm of unspecified behavior of bone, soft tissue, and skin [D49.2] Post-op Diagnosis * Neoplasm of unspecified behavior of bone, soft tissue, and skin [D49.2] Procedures EXCISION OF MULTIPLE LESIONS OF RIGHT CHEECK, RIGHT NECK, AND RIGHT UPPER EXTREMITY WITH LAYERED CLOSURE 10377 - ND EXC B9 LESION MRGN XCP SK TG T/A/L 0.5 CM/< * Radha Hair - Primary Procedure Summary Anesthesia: Local ASA: ASA status not filed in the log. Estimated Blood Loss: Minimal Drains: * None in log * Specimens ID Source Type Tests Collected By Collected At [facility]? Priority Lab ID 1 Cheek Tissue TISSUE EXAM Radha Hair MD 10/17/23 5367 Description: Right cheek lesion 2 Neck, Right Tissue TISSUE EXAM Radha Hair MD 10/17/23 5670 Description: Right neck lesion 3 Arm, Right Tissue TISSUE EXAM Radha Hair MD 10/17/23 1516 Description: Right arm lesion Staff: Lift Mechanic: Anna Rivera RN Scrub Person: Seferino Brand [...] are not indicated for this procedure. T [facility] 10-17-2023 History and physical note Plastic Sugery [...] OR under local anesthesia Radha Hair MD [employer] Work Phone: 10-17-2023 Note Plastic Sugery Histo [...] OR under local anesthesia Radha Hair MD [facility] 10-17-2023 History and physical note Plastic Sugery [...] Radha Hair MD documented in this encounter [facility] 08-14-2023 Note Case# Procedure: Excision of multiple lesions of the right cheek, right neck, and right upper extremity with layered closure Sx Date: 10/17/2023 2:00 PM Time: 1 Hour Location: [facility] Anesthesia: Local CPT: 38895, 61244, 03623, 99047, 63112, 91101, 43881, 16572, 11044, 96183, 83522, 05681, 83693, 91284, 70430, 54300 ICD-10: D49.2 Special Equipment: N/A PAT: N/A Checked cpt codes with [employer] portal and no prior authorization needed for all cpt codes listed above. Called patient to schedule surgery and sent [place] message. [facility] 08-14-2023 Telephone encounter Note Case# Procedure: Excision of multiple lesions of the right cheek, right neck, and right upper extremity with layered closure Sx Date: 10/17/2023 2:00 PM Time: 1 Hour Location: [facility] Anesthesia: Local CPT: 67483, 61127, 33898, 53530, 64491, 90715, 44384, 67625, 80786, 72119, 96132, 69356, 99413, 65858, 53427, 78394 ICD-10: D49.2 Special Equipment: N/A PAT: N/A Checked cpt codes with [employer] portal and no prior authorization needed for all cpt codes listed above. Called patient to schedule surgery and sent [place] [employer] message. [facility] 08-14-2023 Miscellaneous Notes Case# Procedure: Excision of multiple lesions of the right cheek, right neck, and right upper extremity with layered closure Sx Date: 10/17/2023 2:00 PM Time: 1 Hour Location: [facility] Anesthesia: Local CPT: 66128, 24376, 68951, 99664, 68971, 35916, 79092, 33162, 64139, 81445, 08206, 49087, 96254, 61136, 53411, 75599 ICD-10: D49.2 Special Equipment: N/A PAT: N/A Checked cpt codes with [employer] portal and no prior authorization needed for all cpt codes listed above. Called patient to schedule surgery and sent [place] message. documented in this encounter [facility] 08-14-2023 History of Presen t illness Narrative [...] Danii Obregon PA-C documented in this encounter [facility] 08-14-2023 Note Plastic Sugery Consu ltation CC: [...] like to p (more content not included)... [facility] 04-03-2023 History of Presen t illness Narrative Images from the original note were not included. [facility] [address] [facility] [address] Dept: [phone] Dept Loc: [phone] 04/03/2023 Visit type: follow up Reason for [...] plastic surg appointment 2/2 scheduling issues with [facility]. - Phone number provided to [...] and genital lesions, retinal detachment while in intermediate who presents today from [facility] for follow-up regarding HCV workup for treatment, retinal detachment evaluation, and skin biopsy. HPI Fibroscan: Pt reports inability to schedule Fibroscan due to conflicting schedules between classes at [facility] and availability with ID. Ophthalmology appointment follow-up: Pt reports he was informed no evidence of retinal detachment, just retinal tears. No surgical intervention planned at this time, just monitoring. Likely will just need to live with the spots in his vision. Follow-up scheduled in 1 month. Plastic surgery skin biopsy/removal: Pt missed appointment, reports accidentally not informing [facility] of appointment in time, was [...] startled awake combined with his PTSD and intermediate experience, he was disoriented and required sedation. Only medication is suboxone at this time, generally reports feeling well, whereas in the past whenever he would stop drug use he would feel ill. Pt asks about general health measures. Currently doing 200 pushups a day, and 90 total pull-ups 3x a week (does 30 at a time, has been since time in intermediate). Questions regarding diet, concerns for his CO2 [...] have fallen out of his bed at [facility] and potentially lost consciousness? Unclear the etiology [...] Ck Carney DO documented in this encounter [facility] 03-24-2023 History of Presen t illness Narrative Images from the original note were not included. [facility] [address] [facility] [address] Dept: [phone] Dept Loc: [phone] Visit type: New patient Reason for Visit: [...] of light sometimes. Pt sts was in intermediate 2 years ago andn one doctor said [...] 2:10 PM Refraction Wearing Rx Sphere Cylinder Bantry Right -6.00 +4.00 094 Left -6.25 +2.25 080 Data Reviewed and Summarized The patient will need the following test completed on: 03/24/2023 1. [facility] 202 Diagnosis: Hx of retinal detachment (Z86.69) Authorizing Provider: DO Keyanna Reyes MD documented in this encounter [facility] 03-15-2023 Telephone encounter Note RN attempted to contact patient but number is no longer in service. [facility] 03-15-2023 Miscellaneous Notes RN attempted to contact patient but number is no longer in service. Attempted to call patient to give him the following instructions, no answer x2. - Now that all lab testing has been completed, pt needs imaging to evaluate for cirrhosis. - Fibroscan ordered - Please call the Infectious Disease office at [phone] from Mon-Mon 8a-4:30p to schedule your Fibroscan study. documented in this encounter [facility] 03-14-2023 Telephone encounter Note Attempted to call patient to give him the following instructions, no answer x2. - Now that all lab testing has been completed, pt needs imaging to evaluate for cirrhosis. - Fibroscan ordered - Please call the Infectious Disease office at [phone] from Mon-Mon 8a-4:30p to schedule your Fibroscan study. [facility] 03-14-2023 Miscellaneous Notes Attempted to call patient to give him the following instructions, no answer x2. - Now that all lab testing has been completed, pt needs imaging to evaluate for cirrhosis. - Fibroscan ordered - Please call the Infectious Disease office at [phone] from 8a-4:30p to schedule your Fibroscan study. documented in this encounter [facility] 03-06-2023 Hospital Discharg e instructions Watson Naima, MD - 03/06/2023 3:02 AM EST Return to the emergency department if you have significant worsening pain or headache. Follow-up with your primary care provider in 2 days. documented in this encounter [facility] 03-06-2023 Emergency department Note Pt at room door requesting to go home. Pt sts that he is feeling fine and wants to leave. Pt advised the provider will be notified of his request. ANDRZEJ Muller 03/06/239 [facility] 03-06-2023 Emergency department Note Pt at room [...] their documentation. History 32-year-old male brought from [facility] for altered mental status. Patient [...] Avalos RN 03/05/232013 documented in this encounter [facility] 03-05-2023 Emergency department Note Pt able to stand with x1 assistance and use urinal. Janis Hammonds RN 03/05/23 2310 [facility] 03-05-2023 Note NOTE: This result is for medical treatment only. Analysis performed using non-forensic procedures. [facility] 03-05-2023 Emergency department Note Pt to CT. Janis Hammonds RN 03/05/232155 [facility] 03-05-2023 Emergency department Note EKG attempted again; pt still refusing. Janis Hammonds RN 03/05/232117 [facility] 03-05-2023 Emergency department Note Pt refusing medication. Educated pt that he is yellow slipped. Protective services called to bedside to help with medication administration. Janis Hammonds RN 03/05/232107 [facility] 03-05-2023 Emergency department Note Refusing care at this time. Janis Hammonds RN 03/05/232032 [facility] 03-05-2023 Emergency department Note Pt yellow slipped by Dr. Erickson. Janis Hammonds RN 03/05/232106 [facility] 03-05-2023 Emergency department Note Refused EKG. Janis Hammonds RN 03/05/232026 [facility] 03-05-2023 Emergency department Note Bed: 35 Expected date: Expected time: Means of arrival: Comments: 32 M Fall Elizabeth Avalos RN 03/05/232013 [facility] 03-05-2023 Note Emergency Medicine A ttending Note [...] their documentation. History 32-year-old male brought from [facility] for altered mental status. Patient [...] are mis-transcribed.) MD Wesley Sandra MD 03/05/23 0127 [facility] 03-05-2023 Physician Emergency department Note Emergency Medicine [...] their documentation. History 32-year-old male brought from [facility] for altered mental status. Patient [...] are mis-transcribed.) MD Wesley Sandra MD 03/05/230 [facility] [employer] Work Phone: 02-27-2023 History of Presen t illness Narrative Images from the original note were not included. [facility] [address] [facility] [address] Dept: [phone] Dept Loc: [phone] 02/27/2023 Visit type: new patient Reason for [...] sent for removal and biopsy. Orders: - [facility] 3. Hx of retinal detachment Comments: -Occurred 2yrs ago, reportedly healed per intermediate physician. Pt denies follow-up with market research consultant but notes seeing dark spots in vision. Orders: - [facility] 4. Encounter for medical examination to establish care Comments: - Explained importance of consent, spread of HSV w/active ulcerations, use of condoms, and requesting acyclovir when sores return. Best practice is to abstain from sexual contact w/active lesions to prevent spread. - Shared decision making to forego CXR at this time given it would not change analyst at this time. Pt not [...] male presenting to establish care. Pt prefers [employer] messaging for results. HPI Pt reports recently being discharged from intermediate in 01/2023, now living in [place], records show resident [facility] [facility] Reports wanting to integrate into [...] - Retinal detachment 2yrs ago while in intermediate. Not evaluated by market research consultant prior. Was seen by intermediate physician, reports it healed and he will always have dark spots in vision. 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 Denies marijuana use. Denies alcohol use. Started smoking 1-2 cigarettes a day since discharge from intermediate, no interest in quitting at this time. Denies vaping. Family hx: Paternal grandfather: colon cancer twice (at ages 60's and 80's). Father, HLD, HTN. Mother unknown 2/2 poor OP follow-up. Maternal grandparents prior to pt's 2/2 SD and emphysema. Additional ROS/Pt questions: - Reports left-sided rib injuries <1yr ago while in intermediate. No cough, SOB. Uncomfortable when lying on [...] one) [x] other documented in this encounter [facility] 02-27-2023 History of Presen t illness Narrative Images from the original note were not included. [facility] [address] [address] Dept: [phone] Dept Loc: [phone] 02/27/2023 Visit type: new patient Reason for [...] sent for removal and biopsy. Orders: - [facility] 3. Hx of retinal detachment Comments: -Occurred 2yrs ago, reportedly healed per intermediate physician. Pt denies follow-up with market research consultant but notes seeing dark spots in vision. Orders: - [facility] 202 4. Encounter for medical examination to establish care Comments: - Explained importance of consent, spread of HSV w/active ulcerations, use of condoms, and requesting acyclovir when sores return. Best practice is to abstain from sexual contact w/active lesions to prevent spread. - Shared decision making to forego CXR at this time given it would not change analyst at this time. Pt not [...] to [facility] -CMP, A1c and UA to r/o DM, albuminuria, nephrotic/nephritic dx. Orders: - Comprehensive metabolic panel - Hemoglobin A1c - Complete Urinalysis with reflex to Culture Follow up in about 4 weeks (around 03/27/2023) for Recheck. Subjective Patient: Radha Johnston is a 32 y.o. male presenting to establish care. Pt prefers [employer] messaging for results. HPI Pt reports recently being discharged from intermediate in 01/2023, now living in [facility], [facility], records show resident of [facility]. Reports wanting to integrate into [...] - Retinal detachment 2yrs ago while in intermediate. Not evaluated by market research consultant prior. Was seen by intermediate physician, reports it healed and he will always have dark spots in vision. 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 Denies marijuana use. Denies alcohol use. Started smoking 1-2 cigarettes a day since discharge from intermediate, no interest in quitting at this time. Denies vaping. Family hx: Paternal grandfather: colon cancer twice (at ages 60's and 80's). Father, HLD, HTN. Mother unknown 2/2 poor OP follow-up. Maternal grandparents prior to pt's 2/2 SD and emphysema. Additional ROS/Pt questions: - Reports left-sided rib injuries <1yr ago while in intermediate. No cough, SOB. Uncomfortable when lying on [...] Medical History: Diagnosis Date Drug abuse (CMS/HCC) ([facility]) No past surgical history on file. [...] CHARO AREVALO MD documented in this encounter [facility] Diagnosis Hepatitis C virus infection without hepatic coma, unspecified chronicity- Primary Abnormal skin growth Hx of retinal detachment Encounter for medical examination to establish care Polyuria [facility] Diagnosis Hepatitis C virus infection without hepatic coma, unspecified chronicity- Primary Abnormal skin growth Hx of retinal detachment Encounter for medical examination to establish care Polyuria [facility], initial encounter- Primary Closed head injury, initial encounter [facility] Diagnosis Chronic hepatitis C [...] Ophthalmology Diagnoses Hx of retinal detachment Procedures ND OFFICE/OUTPATIENT NEW HIGH MDM 60 MINUTES Frances Mathews, DO [address] [place] [address] [facility] Op[facility] [address] [place] [address] Referral ID Status Reason Start Date Expiration Date Visits Requested Visits Authorized [id number] Authorized Specialty Services Required 02/27/2023 02/27/2024 1 1 * Consultation (Routine) - Pending Review Specialty Diagnoses / Procedures Referred By Contac t Referred To Contact Plastic Surgery Diagnoses Abnormal skin growth Procedures ND OFFICE/OUTPATIENT NEW HIGH MDM 60 MINUTES Bisi, Frances Cassidy, DO [address] [place] [address] [facility] [address] [place] [address] Referral ID Status Reason Start Date Expiration Date Visits Requested Visits Authorized [id number] Pending Review Specialty Services Required 02/27/2023 02/27/2024 1 [facility] Consultation (Routine) - Pending Review Specialty Diagnoses / Procedures Referred By Contac t Referred To Contact Ophthalmology Diagnoses Hx of retinal detachment Procedures ND OFFICE/OUTPATIENT NEW HIGH MDM 60 MINUTES Keyanna Whittington MD [address] [facility] [address] [place] [address] Kane Cornejo MD [address] [place] [address] Referral ID Status Reason Start Date Expiration Date Visits Requested Visits Authorized [id number] Pending Review Specialty Services Required 03/24/2023 03/23/2024 1 1 * Consultation (Routine) - Closed Specialty Diagnoses / Procedures Referred By Contac t Referred To Contact Ophthalmology Diagnoses Hx of retinal detachment Procedures ND OFFICE/OUTPATIENT NEW HIGH MDM 60 MINUTES MathewsFrances jimenez, DO [address] [place] [address] [facility] [address] [place] [address] Referral ID Status Reason Start Date Expiration Date V isits Requested Visits Authorized [id number] Closed Specialty Services Required 02/27/2023 02/27/2024 1 1 [facility] Summary Purpose Family History No Family History [...] section and content) DATE CREATED AUTHOR 08/14/2017 [facility] DATE CREATED AUTHOR AUTHOR'S ORGANIZ ATION 10/19/2023 [facility] DATE CREATED AUTHOR AUTHOR'S ORGANIZ ATION 01/03/2024 [place] DATE CREATED AUTHOR AUTHOR'S ORGANIZ ATION 11/22/2024 [facility] DATE CREATED AUTHOR AUTHOR'S ORGANIZ ATION 12/07/2024 [facility] Reason for Visit (unrecogniz ed section and content) Reason Comments Establish Care Hep C, rib pain, mol e on neck Reason Comments Fall Per EMS, pt fell out of bed at [facility]. Pt threw up. Staff stated potential seizure like activity. Pt denies any drug or alcohol use. Pt does not remember any of this. Reason Comments Other Dilated eye exam Specialty Diagnoses / Procedures Referred By Contac t Referred To Contact Ophthalmology Diagnoses Hx of retinal detachment Procedures ND OFFICE/OUTPATIENT NEW HIGH MDM 60 MINUTES Frances Mathews, DO [address] [place] [address] [facility] [address] [place] [address] Referral ID Status Reason Start Date Expiration Date V isits Requested Visits Authorized [id number] Closed Specialty Services Required 02/27/2023 02/27/2024 1 1 Reason Comments Follow-up Hep C Reason Comments New Patient C/o like 4 moles wan t them looked at Specialty Diagnoses / Procedures Referred By Malgorzata t Referred To Contact Plastic Surgery Diagnoses Abnormal skin growth Procedures ND OFFICE/OUTPATIENT NEW HIGH MDM 60 MINUTES Frances Mathews, DO [address] [place] [address] Lam Guerrero MD [address] [place] [address] Referral ID Status Reason Start Date Expiration Date V isits Requested Visits Authorized [id number] Closed Specialty Services Required 02/27/2023 02/27/2024 1 1 Reason Onset Date Comments Surgery Scheduling 08/14/2023 [facility] Specialty Diagnoses / Procedures Referred By Malgorzata t Referred To Contact Diagnoses Neoplasm of unspecified behavior of bone, soft tissue, and skin Procedures ND EXC B9 LESION MRGN XCP SK TG T/A/L 0.5 CM/< ND EXC B9 LES MRGN XCP SK TG F/E/E/N/L/M 0.6-1.0CM ND EXC B9 LESION MRGN XCP SK TG S/N/H/F/G 0.5 CM/< ND EXC B9 LESION MRGN XCP SK TG S/N/H/F/G 0.6-1.0CM ND EXC B9 LESION MRGN XCP SK TG T/A/L 0.6-1.0 CM ND REPAIR INTERMEDIATE S/A/T/E 2.5 CM/< ND REPAIR INTERMEDIATE S/A/T/E 2.6-7.5 CM ND REPAIR INTERMEDIATE N/H/F/XTRNL GENT 2.5CM/< ND REPAIR INTERMEDIATE N/H/F/XTRNL GENT 2.6-7.5 CM ND REPAIR INTERMEDIATE F/E/E/N/L&/MUC 2.5 CM/< ND REPAIR INTERMEDIATE F/E/E/N/L&/MUC 2.6-5.0 CM ND REPAIR COMPLEX SCALP/ARM/LEG 1.1-2.5 CM ND REPAIR COMPLEX SCALP/ARM/LEG 2.6-7.5 CM ND REPAIR COMPLEX F/C/C/M/N/AX/G/H/F 1.1-2.5 CM ND REPAIR COMPLEX F/C/C/M/N/AX/G/H/F 2.6-7.5 CM ND REPAIR COMPLEX F/C/C/M/N/AX/G/H/F 2.6-7.5 CM EXCISION OF [...] 2.6 TO 7.5 CM Radha Hair MD [address] [place] [address] Referral ID Status Reason Start Date Expiration Date Visits Re quested Visits Authorized [id number] 08/21/2023 1 1 Care Teams (unrecognized sec tion and content) Chicken Stuffer Relationship Specialty Start Date End Date Frances Mathews DO [address] [address] PCP - General 02/27/23 Chicken Stuffer Relationship Specialty Start Date End Date Frances Mathews DO [address] [place] [id number] PCP - General 02/27/23 Chicken Stuffer Relationship Specialty Start Date End Date Frances Mathews DO [address] [address] PCP - General 02/27/23 Chicken Stuffer Relationship Specialty Start Date End Date Frances Mathews DO [address] [place] [id number] PCP - General 02/27/23 Chicken Stuffer Relationship Specialty Start Date End Date Frances Mathews DO [address] [place] [id number] PCP - General 02/27/23 Chicken Stuffer Relationship Specialty Start Date End Date Frances Mathews DO [address] [place] [id number] PCP - General 02/27/23 Chicken Stuffer Relationship Specialty Start Date End Date Frances Mathews DO [address] [place] [id number] PCP - General 02/27/23 Chicken Stuffer Relationship Specialty Start Date End Date Frances Mathews [address] [place] [id number] PCP - General 02/27/23 Chicken Stuffer Relationship Specialty Start Date End Date Frances Mathews DO [address] [address] PCP - General 02/27/23 Chicken Stuffer Relationship Specialty Start Date End Date Frances Mathews [address] [place] [phone] PCP - General 02/27/23 Chicken Stuffer Relationship Specialty Start Date End Date Frances Mathews [address] [place] [id number] PCP - General 02/27/23 Scheduled Active and [...] 10/15/2023 10/16/2023 10/17/2023 lidocaine-EPINEPHrine (Xylocaine W/EPI) 1 %-1:[id number] injection 20 mL 20 mL, Infiltration, Once, [...] BE BASED ON THE PRIMARY CLINICAL RECORDS. [email or web address]. provides no warranty or guarantee of the accuracy or completeness of information in this document.
[2025-02-02 20:12] VITALS: BMI 20.4
[2025-02-02 20:26] LABS: Barbiturate Urine NEGATIVE (< 200 ng/mL); Benzodiazepine Urine NEGATIVE (< 200 ng/mL); PCP Urine NEGATIVE (< 25 ng/mL); THC Urine PRESUMPTIVE POSITIVE (< 50 ng/mL)
[2025-02-02 20:50] VITALS: BP 103/60; PULSE 60; RESP 16; TEMP 36.4; O2SAT 100
[2025-02-02] MEDS: Lactated Ringers 1,000 ML 125 ML IV (20:56)
[2025-02-02] MEDS: 0.9% Saline Lock 10 ML Syringe IV (20:56)
[2025-02-02] MEDS: Ensure Plus High Protein 120 ML LIQUID PO (21:19)
[2025-02-02 22:18] LABS: HIV Nonreactive (Nonreactive); Hepatitis B Surface Antigen Nonreactive (Nonreactive); Hepatitis C Antibody REAC (Nonreactive); Syphilis Antibodies Nonreactive (Nonreactive)
[2025-02-03 00:14] VITALS: BP 105/69; PULSE 74; RESP 16; TEMP 36.2; O2SAT 100
[2025-02-03 05:01] VITALS: BP 111/72; PULSE 56; RESP 18; TEMP 36.4; O2SAT 100
[2025-02-03] MEDS: 0.9% Saline Lock 10 ML Syringe IV (05:07)
[2025-02-03] MEDS: hydrOXYzine PAM 25 MG Capsule 50 MG PO ×2 (05:08→16:04)
[2025-02-03 08:19] VITALS: BP 107/75; PULSE 73; RESP 16; TEMP 36.4; O2SAT 98
[2025-02-03] MEDS: Thiamine Hydrochloride 100 MG Tablet PO (08:39)
[2025-02-03] MEDS: Nicotine (PBKC) 21 MG Patch TD (08:39)
[2025-02-03] MEDS: Nicotine 2mg Gum (PBKC) 2 MG GUM PO ×3 (09:46→21:09)
--- NOTE | 2025-02-03 12:02 | ADDICTION ---
Met with the patient to complete RAMP assessments, during which he responded appropriately to all questions. The patient reported that he is currently homeless. We discussed the option of inpatient treatment, and he expressed agreement with this recommendation. Additionally, we reviewed behaviors associated with addiction, as well as strategies for managing anxiety and cravings following discharge. The plan is to do [facility] inpatient treatment and arrange for admission as a direct transfer from detox upon discharge.
--- NOTE | 2025-02-03 12:45 | CASEMGMT ---
Social Work SW completed SDNJ w/pt. Pt states [facility] the [facility] and has been bouncing around to different homes. He has been staying w/his parents but he does not want to stay there any longer. He states they are judgemental and verbally abusive. He is here for the RAMP program and is hoping to go to residential after this. He states he went to [facility] to get help and they directed him here. Pt states that he does struggle to get to appts at times. Also he does not always have enough food--he has used food mai in the past. He has food stamps but it states it does not always work correctly. Additionally, pt does not have insurance at the moment. Pt states he does not understand this since he is still getting food stamps. Pt said that someone came in and is going to look into this for pt, he confirms it was Peg from [facility]. SW will continue to follow, if pt does not go to residential SW will provide resources to pt. SW will continue to follow. UCHE Mera
[2025-02-03] MEDS: Ensure Plus High Protein 120 ML LIQUID PO ×3 (12:50→21:09)
[2025-02-03 14:24] VITALS: BP 93/64; PULSE 56; RESP 17; TEMP 36.6; O2SAT 100
--- NOTE | 2025-02-03 18:59 | PN.HOSP_ITS ---
Reason for Visit Chief Complaint: Requesting detoxification from EtOH/Opiates. Subjective Subjective Patient was seen and examined today, he states he does not feel well but he is not specific. I talked with addiction long term care social worker and they state the patient would like to do an inpatient detox program when he is discharged from the hospital here. Objective Data Objective Data Vital Signs: Vital Signs Temp Pulse Resp BP Pulse Ox O2 Del Method 98 F 56 L 17 93/64 100 Room Air 02/03/25 14:24 02/03/25 14:24 02/03/25 14:24 02/03/25 14:24 02/03/25 14:24 02/03/25 14:24 Oxygen Delivery Method Room Air Weight: 74.096 kg Body Mass Index (BMI) 20.4 Intake & Output: Intake and Output for Last 24 Hours 02/01/25 02/02/25 02/03/25 23:59 23:59 23:59 Intake Total 1500 / 1500 Balance 1500 / 1500 Lab / Micro Data 02/02/25 18:53 02/02/25 18:53 Labs: Laboratory Results - last 24 hr 02/02/25 18:53: WBC 8.5, RBC 4.71, Hgb 14.0, Hct 39.3 L, MCV 83.4, MCH 29.7, MCHC 35.6, RDW Std Deviation 35.8, RDW Coeff of Volodymyr 11.8, Plt Count 208, MPV 9.3, Immature Gran % (Auto) 0.100, Neut % (Auto) 52.8, Lymph % (Auto) 39.0, Carson % (Auto) 5.9, Eos % (Auto) 1.5, Baso % (Auto) 0.7, Absolute Neuts (auto) 4.5, Absolute Lymphs (auto) 3.30, Nucleated RBC % 0, Sodium 141, Potassium 3.8, Chloride 102, Carbon Dioxide 29.1 H, Anion Gap 10, BUN 12, Creatinine 0.93, Estim Creat Clear Calc 122.41, Est GFR (MDRD) Non-Af 111, BUN/Creatinine Ratio 12.9, Glucose 98, Calcium 9.4, Phosphorus 4.1, Magnesium 2.0, Total Bilirubin 0.31, AST 18, ALT 10, Alkaline Phosphatase 62, Total Protein 6.9, Albumin 4.3, Globulin 2.6, Albumin/Globulin Ratio 1.6, Lipase 35, Ethyl Alcohol < 10.1, Syphilis Total Ab Nonreactive, Hep Bs Antigen Nonreactive, Hep Bs Antibody REAC, Hepatitis C Antibody REAC, HIV 1&2 Antibody Nonreactive 02/02/25 19:25: Urine Opiates Screen NEGATIVE, U Buprenorphine Qual PRESUMPTIVE POSITIVE, Ur Oxycodone Screen NEGATIVE, Urine Methadone Screen NEGATIVE, Urine Fentanyl Screen NEGATIVE, Ur Barbiturates Screen NEGATIVE, Ur Phencyclidine Scrn NEGATIVE, Ur Amphetamines Screen NEGATIVE, U Benzodiazepines Scrn NEGATIVE, Urine Cocaine Screen NEGATIVE, U Cannabinoids Screen PRESUMPTIVE POSITIVE Physical Exam Const alert, oriented x3 and no apparent distress General Appearance: cooperative, well kempt and well developed Orientation / Consciousness: awake, oriented to person, oriented to place and oriented to time HEENT normocephalic and moist oral mucous membranes Eyes PERRL, EOMs intact bilaterally and conjunctivae normal Neck supple, no JVD and thyroid normal General: trachea midline Resp normal respiratory effort, no retractions, no use of accessory muscles and clear to auscultation bilaterally Auscultation: Negative for rales, rhonchi or wheezes Cardio regular rate, regular rhythm, S1 normal heart sound, S2 normal heart sound, no murmurs, no rub and no gallops GI normal to inspection, nondistended, normoactive bowel sounds, soft to palpation, non-tender and non-distended Extremity no clubbing, cyanosis or edema Skin no rashes or lesions noted General Skin Exam: no breakdown Neuro oriented x3, CN's II-XII intact bilaterally, no focal motor deficits and no sensory deficits noted Sensorium / Orientation: awake and alert Speech: speech normal Psych affect normal Assessment & Plan Assessment/Plan (1) Opiate withdrawal: PLAN: Plan 1. Acute opiate withdrawal-patient will continue on his present medications #2 alcohol use disorder-patient will continue on phenobarb taper #3 opiate use disorder-complicates care, management, recovery, and prognosis Total clinical time spent by myself addressing the patient's medical issues, reviewing all of his data, and collaborating with patient's care team: 25 minutes Charges/Coding Visit Charges Inpatient E&M: 55671 Subs Hosp L1
[2025-02-03 21:00] VITALS: BP 90/55; PULSE 55; RESP 16; TEMP 36.6; O2SAT 100
[2025-02-04 01:19] VITALS: BP 87/50; PULSE 50; RESP 16; TEMP 36.6; O2SAT 99
[2025-02-04 05:28] VITALS: BP 95/56; PULSE 50; RESP 16; TEMP 36.6; O2SAT 99
[2025-02-04] MEDS: Nicotine 2mg Gum (PBKC) 2 MG GUM PO ×3 (06:04→13:43)
[2025-02-04] MEDS: Nicotine (PBKC) 21 MG Patch TD (08:46)
[2025-02-04] MEDS: Ensure Plus High Protein 120 ML LIQUID PO (08:46)
[2025-02-04] MEDS: Thiamine Hydrochloride 100 MG Tablet PO (08:46)
[2025-02-04 08:50] VITALS: BP 102/64; PULSE 54; RESP 16; TEMP 36.9; O2SAT 100
[2025-02-04 12:59] VITALS: BP 113/64; PULSE 77; RESP 16; TEMP 36.8; O2SAT 100
[2025-02-04] MEDS: hydrOXYzine PAM 25 MG Capsule 50 MG PO (16:33)
[2025-02-04 17:00] VITALS: BP 114/76; PULSE 67; RESP 18; TEMP 36.9; O2SAT 99
[2025-02-04 19:31] VITALS: BP 93/64; PULSE 64; RESP 18; TEMP 36.4; O2SAT 100
--- NOTE | 2025-02-04 19:48 | PCM.PN.HOSP ---
Reason for Visit Chief Complaint: Requesting detoxification from EtOH/Opiates. Subjective Subjective Patient was seen and examined today, he states he feels better than he did yesterday. Plans are for the patient to be discharged tomorrow morning to an inpatient detox program. Objective Data Objective Data Vital Signs: Vital Signs Temp Pulse Resp BP Pulse Ox O2 Del Method 97.5 F L 64 18 93/64 100 Room Air 02/04/25 19:31 02/04/25 19:31 02/04/25 19:31 02/04/25 19:31 02/04/25 19:31 02/04/25 19:31 Oxygen Delivery Method Room Air Weight: 74.096 kg Body Mass Index (BMI) 20.4 Intake & Output: Intake and Output for Last 24 Hours 02/02/25 02/03/25 02/04/25 23:59 23:59 23:59 Intake Total 1500 / 1500 Balance 1500 / 1500 Lab / Micro Data 02/02/25 18:53 02/02/25 18:53 Physical Exam Const alert, oriented x3 and no apparent distress General Appearance: cooperative, well kempt and well developed Orientation / Consciousness: awake, oriented to person, oriented to place and oriented to time HEENT normocephalic, head/scalp atraumatic and moist oral mucous membranes Eyes PERRL, EOMs intact bilaterally and conjunctivae normal Neck supple, no JVD, thyroid normal and no carotid bruits General: trachea midline Resp normal respiratory effort and clear to auscultation bilaterally Auscultation: Negative for rales, rhonchi or wheezes Cardio regular rate, regular rhythm, no murmurs, no rub and no gallops GI normal to inspection, nondistended, normoactive bowel sounds, soft to palpation, non-tender and non-distended Extremity no clubbing, cyanosis or edema Skin no rashes or lesions noted General Skin Exam: no breakdown Neuro oriented x3, CN's II-XII intact bilaterally, no focal motor deficits and no sensory deficits noted Sensorium / Orientation: awake and alert Speech: speech normal Psych affect normal Assessment & Plan Assessment/Plan (1) Opiate withdrawal: PLAN: Plan 1. Acute opiate withdrawal-patient will continue on his present medications #2 alcohol use disorder-patient will continue on phenobarb taper #3 opiate use disorder-complicates care, management, recovery, and prognosis Patient will be reevaluated tomorrow morning for discharge to an inpatient detox program. Total clinical time spent by myself addressing the patient's medical issues, reviewing all of his data, and collaborating with patient's care team: 25 minutes Charges/Coding Visit Charges Inpatient E&M: 06124 Subs Hosp L1
[2025-02-05 02:07] VITALS: BP 105/72; PULSE 57; RESP 18; TEMP 36.4; O2SAT 99
[2025-02-05 07:48] VITALS: BP 93/61; PULSE 59; RESP 15; TEMP 36.4; O2SAT 99
[2025-02-05] MEDS: Thiamine Hydrochloride 100 MG Tablet PO (07:53)
[2025-02-05] MEDS: hydrOXYzine PAM 25 MG Capsule 50 MG PO (07:53)
--- NOTE | 2025-02-05 08:13 | DCINST_ITS ---
Discharge Instructions DC O2, CPAP, BIPAP needs Home O2 Discharge instructions: No Dressing / Incision Discharge Activity: Return to Normal Activity Weight Bearing Status: Full weight bearing Follow Up Care Test Results: Test results from this visit will be discussed in further detail at your follow- up appointment, if applicable. Discharge Plan Admission Admit Date/Time: 02/02/25 18:44 Primary Reason for Your Visit: Opiate withdrawal Attending Provider: Jarrett Qiu Primary Care Provider: Care Physician,No Primary Consulting Providers: Lo Hoyos Discharge Orders/Prescriptions Prescriptions: Discontinued buprenorphine-naloxone 8-2 mg film 1 ea sublingual DAILY Referrals / Follow Up: CHEN VOGEL [Other] Care Physician,No Primary [Primary Care Provider, Medical]
--- NOTE | 2025-02-05 08:14 | PCM.DC.SUM ---
Providers Date of Admission: 02/02/25 Date of Discharge: 02/05/25 Primary Care Physician: No Primary Care Phys Reason For Visit: OPIATE/ETOH DETOXIFICATION Diagnosis Discharge Diagnosis (1) Opiate withdrawal: Status: Acute Code(s): F11.93 - Opioid use, unspecified with withdrawal Plan 1. Acute opiate withdrawal-patient will continue on his present medications #2 alcohol use disorder-patient will continue on phenobarb taper #3 opiate use disorder-complicates care, management, recovery, and prognosis Patient will be reevaluated tomorrow morning for discharge to an inpatient detox program. Total clinical time spent by myself addressing the patient's medical issues, reviewing all of his data, and collaborating with patient's care team: 25 minutes Hospital Course Operations None Procedures None Summary of Care Provided Minutes Spent on Discharge: 30 Hospital Course: This 34-year-old white male was seen in the emergency room at [facility] requesting services for opiate and alcohol detox. Labs were obtained in the emergency room and were essentially unremarkable, tox screen however showed positive for buprenorphine and cannabinoids. Patient was admitted to [place] [address], he was seen in consultation by addiction protective services social worker and agreed to go into an inpatient detox program at the time of discharge from the hospital here. On 02/05/2025, patient was seen and examined: On examination he appeared in good health and spirits. Vital signs as documented. Skin warm and dry and without overt rashes. Neck without JVD, neck was supple, trachea midline, thyroid was normal. Lungs clear bilaterally, normal air movement was noted. Heart exam notable for regular rhythm, normal sounds and absence of murmurs, rubs or gallops. Abdomen unremarkable and without evidence of organomegaly, masses, or abdominal aortic enlargement. Bowel sounds are present, abdomen is not distended. Extremities nonedematous, no cyanosis was noted, no clubbing was noted. Neuro: Cranial nerves II through XII are grossly intact, no focal motor deficits were noted, sensation to light touch and pinprick intact, motor exam 5/5 throughout. Psych: Patient is alert and oriented x3, he does not appear anxious or depressed, he does not appear agitated. Patient was discharged in stable condition on 02/05/2025 Weight / BMI Weight Weight: 74.096 kg Body Mass Index (BMI) 20.4 ABG / Lab / Microbiology Data 02/02/25 18:53 12/28/25 18:53 D/C Instructions Weight Bearing Status: Full weight bearing DC O2, CPAP, BIPAP Needs Home O2 Discharge instructions: No Meaningful Use Info Meaningful Use Meaningful Use Diagnoses (Choose all that apply): None applicable Discharge Plan Admission Admit Date/Time: 02/02/25 18:44 Primary Reason for Your Visit: Opiate withdrawal Attending Provider: Jarrett Qiu Primary Care Provider: Care Physician,No Primary Consulting Providers: Lo Hoyos Discharge Orders/Prescriptions Prescriptions: Discontinued buprenorphine-naloxone 8-2 mg film 1 ea sublingual DAILY Referrals / Follow Up: CHEN VOGEL [Other] Care Physician,No Primary [Primary Care Provider, Medical] Disposition Disposition (needs filled in before D/C Order can be placed): Home, Self Care Charges/Coding Visit Charges Inpatient E&M: 92596 Disch Hosp
== END 2025-02-05 08:45 | disposition home or self-care (01) | DRG 773 ==
LOC: ED 19:07 → MS3 19:13
PROVIDERS: Admitting Provider Family Medicine; Emergency Provider Emergency Medicine; Visit Provider Internal Medicine
DX: F11.13 Opioid abuse with withdrawal (principal); F10.10 Alcohol abuse, uncomplicated; F17.290 Nicotine dependence, other tobacco product, uncomplicated
CPT/HCPCS: 80053; 80307; 82077; 83690; 83735; 84100; 85025; 86703; 86706; 86780; 86803; 87340; 97802; 99284; A4216